=== PATIENT | female | born 1940 | race Caucasian/White ===

== ENCOUNTER 2018-03-21 05:37 | Inpatient (IN) | payer OTHER, BC ==
[2018-03-21] MEDS ORDERED: ceFAZolin 2 GM/DEXTROSE 100 ML IV ONE (06:08)
[2018-03-21] MEDS ORDERED: ACETAMINOPHEN 500 MG TAB PO ONE (06:08)
[2018-03-21] MEDS ORDERED: GABAPENTIN 300 MG CAP PO ONE (06:08)
[2018-03-21] MEDS ORDERED: LR 1,000 ML IV ONE (06:14)
[2018-03-21] MEDS ORDERED: LIDOCAINE 1% 2 ML INJ ID PRN (06:14)
[2018-03-21] MEDS ORDERED: BUPIVACAINE 0.25% 30 ML SDV ONE (06:45)
[2018-03-21] MEDS ORDERED: THROMBIN (BOVINE) 5,000 UNIT VIAL TP ONE (06:45)
[2018-03-21] MEDS ORDERED: EPINEPHrine 1 MG/ML INJ ONE (06:45)
[2018-03-21] MEDS ORDERED: BACITRACIN 50,000 UNITS/10 ML SYR IRR ONE (06:46)
[2018-03-21] MEDS ORDERED: CHLORHEXIDINE GLUC HIBICLENS 118 ML BTL TP ONE (06:46)
--- NOTE | 2018-03-21 06:51 | PDANEPAE ---
ANE Past Medical History - Cardiovascular History Hx Hypertension: Yes Hx Arrhythmias: No Hx Chest Pain: No Hx Coronary Artery / Peripheral Vascular Disease: No Hx CHF / Valvular Disease: No Hx Palpitations: No Cardiovascular History Comment: HYPERLIPIDEMIA - Pulmonary History Hx COPD: No Hx Asthma/Reactive Airway Disease: Yes Hx Recent Upper Respiratory Infection: No Hx Oxygen in Use at Home: Yes O2 in Use at Home (L/minute): O2 2L NOC Hx Sleep Apnea: No Sleep Apnea Screening Result - Last Documented: Negative - Neurologic History Hx Cerebrovascular Accident: No Hx Seizures: No Hx Dementia: No - Endocrine History Hx Diabetes: No Hypothyroid: No Hyperthyroid: No Obesity: no - Renal History Hx Renal Disorders: No - Liver History Hx Hepatic Disorders: No - Neurological & Psychiatric Hx Hx Neurological and Psychiatric Disorders: No - Cancer History Hx Cancer: No - Congenital Disorder History Hx Congenital Disorders: No - GI History GERD: mild Hx Gastrointestinal Disorders: Yes Gastrointestinal History Comment: IBS. GERD - Other Health History Other Health History: NEG - Chronic Pain History Chronic Pain: Yes (BACK PAIN LUMBAR) - Surgical History Prior Surgeries: LASER SPINE LUMBAR SURG. HYSTERECTOMY. L SHOULDER RTC. CATARACTS BRIAN. CARPAL TUNNEL BRIAN ANE Review of Systems Review of Systems: - Exercise capacity METS (RN): 4 METS - Systems Constitutional: Reports: no symptoms Cardiac: Reports: no symptoms Respiratory: Reports: no symptoms ANE Patient History - Allergies Allergies/Adverse Reactions: naproxen [From Naprosyn] Allergy (Verified 03/21/18 06:20) Hives Penicillins Allergy (Verified 03/21/18 06:20) Swelling/neck,face,throat - Home Medications Home Medications: Acetaminophen [Tylenol ES 500 mg (*)] 500 mg PO BID PRN 03/06/18 [Last Taken 01/02 20:00] Albuterol [Proventil Inhaler HFA (*)] 1 - 2 puffs IH DAILY PRN 03/06/18 [Last Taken 03/16/18] Aspirin [Aspirin 81mg (*)] 81 mg PO DAILY 03/06/18 [Last Taken 03/13/18] C/E/Zn/Cu/OM3/DHA/EPA/LUT/ZEAX [Preservision Areds 2 Softgel] 1 each PO DAILY [Last Taken 03/13/18] Carboxymethylcellulose 1% [Refresh Celluvisc (*)] 1 drop EACHEYE DAILY PRN 03/06 [Last Taken 03/20/18 09:00] Carvedilol [Coreg (*)] 12.5 mg PO BIDMEAL 03/06/18 [Last Taken 03/21/18 04:30] Cholecalciferol Vit D3 [Vitamin D3 2000 units tab (OTC)] 4,000 units PO DAILY [Last Taken 03/13/18] Estrogens,Conjugated [Premarin 0.3 MG (*)] 0.3 mg PO DAILY18 03/06/18 [Last Taken 03/19/18] Ezetimibe [Zetia 10 MG (*)] 10 mg PO HS 03/06/18 [Last Taken 03/20/18 20:00] Famotidine [Pepcid 20 MG (*)] 20 mg PO BIDMEAL 03/06/18 [Last Taken 03/20/18 18: 00] Furosemide [Lasix 20 MG (*)] 20 mg PO BID@,03/06/18 [Last Taken 03/20/18 16 :00] Herbals/Supplements -Info Only 1 ea PO DAILY 03/06/18 [Last Taken 03/13/18] Losartan Potassium [Cozaar 25 mg (*)] 25 mg PO DAILY@12 03/06/18 [Last Taken 01/02 12:00] Magnesium Oxide [Magnesium Oxide 400 mg (*)] 400 mg PO DAILY 03/06/18 [Last Taken 03/13/18] Meloxicam 15 mg PO DAILY 03/06/18 [Last Taken 03/13/18] Rosuvastatin Calcium [Crestor 20mg (*)] 20 mg PO HS 03/06/18 [Last Taken 20:00] - NPO status NPO Since - Liquids (Date): 03/20/18 NPO Since - Liquids (Time): 22:00 NPO Since - Solids (Date): 03/20/18 NPO Since - Solids (Time): 20:00 - Anes Hx Anes Hx: no prior problems - Smoking Hx Smoking Status: Never smoked Marijuana use: No - Alcohol Use Alcohol Use: Rarely - Family Anes Hx Family Anes Hx: neg - N/A Family Hx Anesthesia Complications: NEG ANE Labs/Vital Signs - Vital Signs Blood Pressure: 139/64 Heart Rate: 57 Respiratory Rate: 16 O2 Sat (%): 96 Height: 149.86 cm Weight: 63.503 kg ANE Physical Exam - Airway Neck exam: decreased ROM Mallampati Score: Class 3 Mouth exam: normal dental/mouth exam - Pulmonary Pulmonary: no respiratory distress, no rales or rhonchi, clear to auscultation - Cardiovascular Cardiovascular: regular rate and rhythym, systolic murmur - ASA Status ASA Status: III ANE Anesthesia Plan Anesthesia Plan: general endotracheal anesthesia Total IV Anesthesia: No
--- NOTE | 2018-03-21 06:56 | PDHPUP ---
History & Physical Update H&P update statement: This history and physical update is based on an assessment of the patient which was completed after admission or registration (within 24 hours), but prior to the surgery/procedure. H&P update: no change in patient's condition since H&P completed
[2018-03-21] MEDS ORDERED: fentaNYL 100 MCG/2 ML INJ ONE ×3 (07:08→10:46)
[2018-03-21] MEDS ORDERED: ONDANSETRON 4 MG/2 ML VIAL ONE (07:09)
[2018-03-21] MEDS ORDERED: SUCCINYLCHOLINE CHLORIDE 200 MG/10 ML SYR IVP ONE (07:09)
[2018-03-21] MEDS ORDERED: ROCURONIUM 50 MG/5 ML VIAL ONE (07:09)
[2018-03-21] MEDS ORDERED: PROPOFOL/EMULSION 500 MG/50 ML BOTTLE IV ONE (07:09)
[2018-03-21] MEDS ORDERED: DEXAMETHASONE 4 MG/ML VIAL ONE (07:09)
[2018-03-21] MEDS ORDERED: RANITIDINE 50 MG/2 ML VIAL ONE (07:09)
[2018-03-21] MEDS ORDERED: PROPOFOL 200 MG/20 ML VIAL ONE (07:09)
[2018-03-21] MEDS ORDERED: REMIFENTANIL HCL 1 MG VIAL ONE (07:09)
[2018-03-21] MEDS ORDERED: LIDOCAINE 2% 5 ML SDV ONE (07:11)
[2018-03-21] MEDS ORDERED: NALOXONE HCL 0.4 MG/ML INJ IVP PRN (07:51)
[2018-03-21] MEDS ORDERED: PHENYLEPHRINE HCL 100 MCG/ML SYR IVP PRN (07:51)
[2018-03-21] MEDS ORDERED: ACETAMINOPHEN 500 MG TAB PO PRN (07:51)
[2018-03-21] MEDS ORDERED: HYDROCODONE/APAP 5/325 TAB PO PRN (07:51)
[2018-03-21] MEDS ORDERED: PROMETHAZINE HCL 25 MG/ML INJ IVP PRN (07:51)
[2018-03-21] MEDS ORDERED: ALBUTEROL 3 ML DEYVIAL IH PRN (07:51)
[2018-03-21] MEDS ORDERED: oxyCODONE IR 5 MG TAB PO PRN (07:51)
[2018-03-21] MEDS ORDERED: LR 500 ML IV PRN (07:51)
[2018-03-21] MEDS ORDERED: ONDANSETRON 4 MG/2 ML VIAL IVP PRN ×2 (07:51→09:32)
[2018-03-21] MEDS ORDERED: LABETALOL HCL 5 MG/ML 20 ML MDV IVP PRN (07:51)
[2018-03-21] MEDS ORDERED: ONDANSETRON DISINTEGRATING 4 MG TAB PO PRN (09:32)
[2018-03-21] MEDS ORDERED: LACTULOSE 20 GM/30 ML UDCUP PO PRN (09:32)
[2018-03-21] MEDS ORDERED: BISACODYL 10 MG SUPP PR PRN (09:32)
[2018-03-21] MEDS ORDERED: diphenhydrAMINE 25 MG CAP PO PRN (09:32)
[2018-03-21] MEDS ORDERED: MAGNESIUM HYDROXIDE 30 ML UDCUP PO PRN (09:32)
[2018-03-21] MEDS ORDERED: CARBOXYMETHYLCELLULOSE 1% 0.4 ML DROPERETTE EACHEYE PRN (09:37)
--- NOTE | 2018-03-21 09:42 | POSTOPPROG ---
Post Op Note Date of Operation: 03/21/18 Surgeon: Molina Garcia Director Regulatory Affairs: ROLAND Plasencia Anesthesiologist: Soren Arguello MD Anesthesia: GET(General Endotracheal) Pre-op Diagnosis: Cervical stenosis/DJD C4/5 and C6/7 Post-op Diagnosis: Same Indication: Stenosis/myelopathy Procedure: C4/5 and C6/7 ACDF Findings: Stenosis Inf/Abcess present in the surg proc area at time of surgery?: No EBL: 50-100 Complications: None Drains: Berhane Copeland (to bulb suction) Specimen(s): None
[2018-03-21] MEDS: fentaNYL 100 MCG/2 ML INJ IVP PRN ×5 (09:52→10:48)
--- NOTE | 2018-03-21 10:00 | POSTANESTH ---
Post Anesthetic Evaluation Cardiovascular Status: Normal, Stable Respiratory Status: Normal, Stable Level of Consciousness/Mental Status: Can Participate in Eval Pain Control: Adequate, Prn Tx Ordered Nausea/Vomiting Control: Adequate, Prn Tx Ordered Complications Possibly Related to Anesthesia: None Noted
--- NOTE | 2018-03-21 10:02 | GOP ---
[f rep st] OPERATIVE REPORT DATE OF OPERATION: 03/21/2018 SURGEON: Molina Garcia MD PRODUCT MANAGER FINANCIAL SERVICES: ROLAND Engel ANESTHESIA: General endotracheal. PREOPERATIVE DIAGNOSIS: Multilevel cervical spondylosis with spinal stenosis and spinal cord marino obdulio, myelopathic symptoms. POSTOPERATIVE DIAGNOSIS: Multilevel cervical spondylosis with spinal stenosis and spinal cord compre ssion, myelopathic symptoms. PROCEDURE PERFORMED: 1. Mini-open exposure for complete C4-5 and C6-7 anterior cervical diskectomy and arthrodesis with 2 structural PEEK interbody spacers, local autograft and demineralized bone matrix. 2. Placement of 23 and 21 mm LnK CastleLoc-P anterior cervical plates at C4-5 and C6-7 respectively. 3. Use of intraoperative microscopy and fluoroscopy. FINDINGS: ESTIMATED BLOOD LOSS: 50 cc. INDICATIONS: The patient is a 77-year-old woman with myelopathic symptoms, who was found to have mul tilevel cervical spondylosis and stenosis with spinal cord compression at C4-5 and C6-7 levels on MRI . She presents now for a multilevel cervical decompression and stabilization through a mini-open darnell ebrg. DESCRIPTION OF PROCEDURE: After informed consent was obtained, the patient was taken to the operatin g room and placed in the supine position with the head in the halter retractor system after baseline neuromonitoring potentials were obtained. The anterior cervical region was prepped and draped in a s terile fashion. After fluoroscopic localization of the correct level, the subcutaneous and intramusc ular tissues were infiltrated with local anesthesia. A horizontal incision was then created at the l evel of the C5-6 interspace in a skin crease. This was carried through the platysmal layer using mon opolar electrocautery and carried in the avascular plane between the sternocleidomastoid and carotid sheath laterally and the strap muscles, trachea, and esophagus medially down to the prevertebral fasc ia which was carefully incised with Metzenbaum scissors. The C4-5 and C6-7 interspaces were identifi ed and re-verified using intraoperative fluoroscopy. The Warren distraction pins were carefully inse rted superiorly, first at C4-5 and then at C6-7 during which time distraction was created across the interspaces and complete diskectomies were performed with preparation of the endplates and removal of posteriorly protruding osteophytes which were harvested for local autograft. Bilateral foraminotomi es were performed at each level, one with removal of the posterior longitudinal ligament. Following adequate decompression and meticulous hemostasis at both levels, the wound and disk space were copiou sly irrigated with antibiotic irrigation. The remaining endplates were carefully prepared and approp riately sized 12 and 11 mm structural PEEK interbody spacer were packed with local autograft along wi th demineralized bone matrix and were placed in the interspaces under fluoroscopic image guidance. T he distraction was removed and appropriately sized 23 and 21 mm LnK CastleLoc-P anterior cervical khushi sendy were then placed and secured with self-drilling screws under fluoroscopic image guidance. Follow ing re-verification of good positioning of both plates, screws and interbody spacers using biplanar f luoroscopy, the locking mechanisms were engaged. A drain was placed. The subcutaneous and intramusc ular tissues were re-infiltrated with local anesthesia and the wound was closed in a layered fashion using interrupted Vicryl sutures followed by Steri-Strips on the skin. COMPLICATIONS: None. DISPOSITION: The patient is currently in the process of being repositioned for extubation. /[id number]/MODL
[2018-03-21] MEDS ORDERED: HYDROCODONE/APAP 5/325 TAB ONE (10:24)
[2018-03-21] MEDS ORDERED: LABETALOL HCL 5 MG/ML 20 ML MDV ONE (10:59)
[2018-03-21] MEDS ORDERED: ALBUTEROL 60 PUFFS/8 GM MDI IH PRN (11:45)
[2018-03-21] MEDS: LOSARTAN POTASSIUM 25 MG TAB PO SCH (13:57)
[2018-03-21] MEDS: GABAPENTIN 300 MG CAP PO SCH ×2 (14:00→23:07)
[2018-03-21] MEDS: ACETAMINOPHEN 500 MG TAB PO SCH ×2 (14:01→22:35)
[2018-03-21] MEDS ORDERED: DEXAMETHASONE 4 MG/ML VIAL IVP ONE (14:45)
[2018-03-21] MEDS ORDERED: D5W NS W/ 20 KCl/L 1,000 ML IV SCH (15:00)
--- NOTE | 2018-03-21 16:11 | PDMN ---
Medical Necessity Medical necessity: Pt meet IP criteria per PA; est los >2 mn s/p C4/5 & C6/7 ACDF w/dysphagia & moderate pain; admit for IV pain meds, IVFs & therapies; comorbid advanced age, multilevel lumbar DJD & severe scoliosis w/chronic pain; per H&P & order 03/21/18
[2018-03-21] MEDS: POLYETHYLENE GLYCOL 3350 17 GM PKT PO SCH ×2 (17:46→23:07)
[2018-03-21] MEDS: FUROSEMIDE 20 MG TAB PO SCH (17:49)
[2018-03-21] MEDS: EZETIMIBE 10 MG TAB PO SCH (22:24)
[2018-03-21] MEDS: ROSUVASTATIN CALCIUM 20 MG TAB PO SCH (22:25)
[2018-03-21] MEDS: oxyCODONE IR 5 MG TAB PO PRN (22:34)
[2018-03-21] MEDS: FAMOTIDINE 20 MG TAB PO SCH (23:06)
[2018-03-21] MEDS: ESTROGENS,CONJUGATED 0.3 MG TAB PO SCH (23:06)
[2018-03-21] MEDS: SENNOSIDES/DOCUSATE SODIUM TAB PO SCH (23:07)
[2018-03-21] MEDS: CARVEDILOL 6.25 MG TAB PO SCH (23:10)
[2018-03-22] MEDS ORDERED: hydrALAZINE 20 MG/ML VIAL IVP PRN (01:05)
[2018-03-22] MEDS: oxyCODONE IR 5 MG TAB PO PRN ×3 (04:27→21:10)
[2018-03-22 05:55] LABS: PLATELET COUNT 137 10^3/uL (150-400)
[2018-03-22] MEDS: ACETAMINOPHEN 500 MG TAB PO SCH ×2 (06:10→14:49)
[2018-03-22] MEDS: GABAPENTIN 300 MG CAP PO SCH (06:11)
[2018-03-22] MEDS: PRESERVISION AREDS2 FORMULA EYE VIT 1 EACH PO SCH (08:40)
[2018-03-22] MEDS: CARVEDILOL 6.25 MG TAB PO SCH ×2 (08:40→18:26)
[2018-03-22] MEDS: MAGNESIUM OXIDE 400 MG TAB PO SCH (08:40)
[2018-03-22] MEDS: FAMOTIDINE 20 MG TAB PO SCH (08:41)
[2018-03-22] MEDS: SENNOSIDES/DOCUSATE SODIUM TAB PO SCH ×2 (08:41→21:11)
[2018-03-22] MEDS: FUROSEMIDE 20 MG TAB PO SCH ×2 (08:41→17:10)
[2018-03-22] MEDS: CHOLECALCIFEROL VIT D3 2,000 UNITS TAB/CAP PO SCH (08:41)
[2018-03-22] MEDS: POLYETHYLENE GLYCOL 3350 17 GM PKT PO SCH ×3 (08:41→21:11)
[2018-03-22] MEDS: ENOXAPARIN 40 MG/0.4 ML SYR SC SCH (08:48)
--- NOTE | 2018-03-22 11:13 | NEUSURGPN ---
Assessment/Plan: 77 y/o female s/p C4/5 and C6/7 ACDF. 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 Flores -Please notify NS with any change in neuro/motor exam. Subjective: swallowing improving, tolerating thin liquids. Objective: NAD A&Ox3 MAEx4 5/5 and equal in BEU and BLE. Incision c/d/i. Neck soft, supple , no edema. - Physician Discussed Patient with : Radha Neurosurgery Physical Exam - Vitals, I&O, Labs I and O 03/21/18 03/22/18 03/23/18 05:59 05:59 05:59 Intake Total 1650 Output Total 2315 300 Balance -665 -300 Weight 63.5 kg Intake: Oral (ml) 650 IV Intake (ml) 1000 Output: Urine (ml) 2100 300 Toilet 2100 300 Estimated Blood Loss (ml) 50 NANI Drain Output (ml) 165 #1 Neck Berhane Copeland 165 Other: Intake Quantity No: difficulty with swallow Sufficient Number of Voids Toilet 1 Vital Signs Temp Pulse Resp BP Pulse Ox 36.3 C 79 16 120/57 L 93 03/22/18 08:38 03/22/18 08:38 03/22/18 08:38 03/22/18 08:38 03/22/18 08:38 Laboratory Results 03/22/18 04:32 03/22/18 04:32 ICD10 Worksheet Patient Problems: Problems Problem Status Onset Cervical stenosis of spinal canal Acute - ICD10 Problem Qualifiers (1) Cervical stenosis of spinal canal
[2018-03-22] MEDS: LOSARTAN POTASSIUM 25 MG TAB PO SCH (12:47)
--- NOTE | 2018-03-22 14:53 | ASMTCMCOM ---
CM Note CM Note Notes: Pt had planned surgery for stenosis. 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 Anticipate pt will d/c when medically stable with spouse support. No CM d/c needs identified. CM available for changes/needs. Date Signed: 03/22/2018 02:52 PM Electronically Signed By:EJ Oconnell
[2018-03-22] MEDS: ESTROGENS,CONJUGATED 0.3 MG TAB PO SCH (18:26)
[2018-03-22] MEDS: ROSUVASTATIN CALCIUM 20 MG TAB PO SCH (21:06)
[2018-03-22] MEDS: EZETIMIBE 10 MG TAB PO SCH (21:10)
[2018-03-23] MEDS: ACETAMINOPHEN 500 MG TAB PO SCH ×2 (00:31→09:23)
[2018-03-23] MEDS: FAMOTIDINE 20 MG TAB PO SCH ×2 (00:55→09:09)
[2018-03-23] MEDS: oxyCODONE IR 5 MG TAB PO PRN ×2 (04:35→12:23)
[2018-03-23 07:47] VITALS: BP 142/78
--- NOTE | 2018-03-23 07:56 | NEUSURGPN ---
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 Flores/seen by Dr Elizabeth -Please notify NS with any change in neuro/motor exam - has Rxs -pt would like to go home today and can if xrays look ok and cleared from therapies as noted Subjective: Awake and alert. NAD. Eating/drinking and voiding. No f/c/n/v/d. No howard/cp/ sob/abd or gu complaints. Objective: NAD A&Ox3 CN 2-12 grossly intact MAEx4 5/5 and equal in BUE and BLE. Incision c/d/i. Neck soft, supple, no edema Neuro Check Frequency: per routine Urinary Catheter in Place: No - Physician Discussed Patient with : Clara Patient Seen by : Clara Neurosurgery Physical Exam - Vitals, I&O, Labs I and O 03/22/18 03/23/18 03/24/18 05:59 05:59 05:59 Intake Total 1650 980 Output Total 2315 2170 Balance -665 -1190 Weight 63.5 kg Intake: Oral (ml) 650 980 IV Intake (ml) 1000 Output: Urine (ml) 2100 2150 Toilet 2100 2150 Estimated Blood Loss (ml) 50 NANI Drain Output (ml) 165 20 #1 Neck Berhane Copeland 165 20 Other: Intake Quantity No: difficulty with swallow Yes Sufficient Number of Voids Toilet 1 1 Vital Signs Temp Pulse Resp BP Pulse Ox 36.9 C 78 16 142/78 H 93 03/23/18 07:45 03/23/18 07:45 03/23/18 07:45 03/23/18 07:45 03/23/18 07:45 Laboratory Results 03/22/18 04:32 03/22/18 04:32 ICD10 Worksheet Patient Problems: Problems Problem Status Onset Cervical stenosis of spinal canal Acute
[2018-03-23] MEDS: FUROSEMIDE 20 MG TAB PO SCH (09:08)
[2018-03-23] MEDS: MAGNESIUM OXIDE 400 MG TAB PO SCH (09:09)
[2018-03-23] MEDS: CARVEDILOL 6.25 MG TAB PO SCH (09:09)
[2018-03-23] MEDS: PRESERVISION AREDS2 FORMULA EYE VIT 1 EACH PO SCH (09:09)
[2018-03-23] MEDS: SENNOSIDES/DOCUSATE SODIUM TAB PO SCH (09:10)
[2018-03-23] MEDS: POLYETHYLENE GLYCOL 3350 17 GM PKT PO SCH (09:10)
[2018-03-23] MEDS: ENOXAPARIN 40 MG/0.4 ML SYR SC SCH (09:10)
[2018-03-23] MEDS: CHOLECALCIFEROL VIT D3 2,000 UNITS TAB/CAP PO SCH (09:14)
[2018-03-23] MEDS: LOSARTAN POTASSIUM 25 MG TAB PO SCH (12:22)
--- NOTE | 2018-04-11 12:23 | GDS ---
[f rep st] DISCHARGE SUMMARY DISCHARGE DIAGNOSES: Cervical stenosis and multilevel cervical spondylosis with spinal cord compress ion and myelopathy. HOSPITAL COURSE: The patient is a pleasant 77-year-old female with myelopathic symptoms who was foun d to have a multilevel cervical spondylosis and stenosis with spinal cord compression at C4-5 and C6- 7 on MRI. She was felt to be a candidate for multilevel cervical decompression stabilization, and on 03/21/2018, was taken to the operating room where she underwent a C4-5 and C6-7 anterior cervical di skectomy and arthrodesis. There were no intraoperative complications. Postoperatively, the patient was transferred to the floor where her pain was controlled with oral, IV pain medications and muscle relaxers. She was fitted with a hard cervical collar. A NANI drain was i n place, which remained functional. She underwent AP and lateral x-rays of the cervical spine on 03/2018, which demonstrated satisfactory position of the hardware at C4-5 and C6-7 with expected post cervical soft tissue swelling. The patient's activity was advanced as tolerated with physical therapy and occupational therapy. Her diet was advanced as tolerated. Ultimately, the patient met criteria for discharge home on 03/23/20 18, and was provided oral pain medications and muscle relaxers upon discharge, as well as educational paperwork regarding cervical fusions. She understood to wear her hard cervical collar at all times, and to contact our office with any questions or concerns prior to her postop appointment approximate ly 10 to 14 days. /[id number]/MODL
== END 2018-03-23 12:43 | disposition home or self-care (01) | DRG 473 ==
LOC: F3N 05:37
PROVIDERS: ADMIT Neurological Surgery; ATTEND Neurological Surgery
DX: M47.12 Other spondylosis with myelopathy, cervical region (principal); M48.02 Spinal stenosis, cervical region; I10 Essential (primary) hypertension; E78.5 Hyperlipidemia, unspecified; K21.9 Gastro-esophageal reflux disease without esophagitis; K58.9 Irritable bowel syndrome, unspecified; M41.86 Other forms of scoliosis, lumbar region; M50.30 Other cervical disc degeneration, unspecified cervical region; M51.27 Other intervertebral disc displacement, lumbosacral region
CPT/HCPCS: 92610-GN; 97116-GP; 97161-GP; 97166-GO; 97530-GP; 97535-GO; C1713; G8978-GP-CJ; G8979-GP-CI; G8987-GO-CI; G8988-GO-CI; G8989-GO-CI; G8996-GN-CI; G8997-GN-CI; J0171; J0330; J0360; J0690; J1100; J1650; J2270; J2405; J2704; J2780; J3010

== ENCOUNTER 2018-07-18 07:15 | Inpatient (IN) | payer OTHER, BC ==
[2018-07-25] MEDS ORDERED: TRANEXAMIC ACID 1,000 MG in NS 100 ML IV ONE (06:00)
[2018-07-25] MEDS ORDERED: GABAPENTIN 300 MG CAP PO ONE (06:08)
[2018-07-25] MEDS ORDERED: fentaNYL 50 MCG in SYRINGE INTRATHECAL 1 SYR IT ONE (06:08)
[2018-07-25] MEDS ORDERED: ceFAZolin 2 GM/DEXTROSE 100 ML IV ONE (06:08)
[2018-07-25] MEDS ORDERED: morphINE PF 0.2 MG in SYRINGE INTRATHECAL 1 SYR IT ONE (06:08)
[2018-07-25] MEDS ORDERED: ACETAMINOPHEN 500 MG TAB PO ONE (06:08)
[2018-07-25] MEDS ORDERED: LR 1,000 ML IV SCH (06:30)
[2018-07-25] MEDS ORDERED: CITRATE DEXTROSE SOLN 500 ML BAG ONE ×3 (06:51→15:31)
[2018-07-25] MEDS ORDERED: THROMBIN (BOVINE) 20,000 UNIT SPRAY TP ONE ×2 (06:51→09:20)
[2018-07-25] MEDS ORDERED: CHLORHEXIDINE GLUC HIBICLENS 118 ML BTL TP ONE (06:51)
[2018-07-25] MEDS ORDERED: BACITRACIN 50,000 UNITS/10 ML SYR IRR ONE ×3 (06:52→14:47)
[2018-07-25] MEDS ORDERED: EPINEPHrine 1 MG/ML INJ ONE (06:52)
--- NOTE | 2018-07-25 07:53 | PDANEPAE ---
ANE Past Medical History - Cardiovascular History Hx Hypertension: Yes Hx Arrhythmias: No Hx Chest Pain: No Hx Coronary Artery / Peripheral Vascular Disease: Yes Hx CHF / Valvular Disease: No Hx Palpitations: No Cardiovascular History Comment: HYPERLIPIDEMIA - Pulmonary History Hx COPD: Yes Hx Asthma/Reactive Airway Disease: No Hx Recent Upper Respiratory Infection: No Hx Oxygen in Use at Home: Yes O2 in Use at Home (L/minute): 2 Hx Sleep Apnea: No Sleep Apnea Screening Result - Last Documented: Negative Pulmonary History Comment: HS OXYGEN - Neurologic History Hx Cerebrovascular Accident: No Hx Seizures: No Hx Dementia: No - Endocrine History Hx Diabetes: No - Renal History Hx Renal Disorders: No - Liver History Hx Hepatic Disorders: No - Neurological & Psychiatric Hx Hx Neurological and Psychiatric Disorders: No - Cancer History Hx Cancer: No - Congenital Disorder History Hx Congenital Disorders: No - GI History Hx Gastrointestinal Disorders: Yes Gastrointestinal History Comment: IBS. GERD - Other Health History Other Health History: BRIAN LOWER EXTREMITY EDEMA. OSTEOARTHRITIS. SCOLIOSIS. STENOSIS/DDD. N/T BRIAN FEET - Chronic Pain History Chronic Pain: Yes (LUMBAR REGION & LT HIP) - Surgical History Prior Surgeries: ACDF C4-7 03/21/18. LASER SPINE LUMBAR SURG. HYSTERECTOMY. L SHOULDER RTC. CATARACTS BRIAN. CARPAL TUNNEL BRIAN ANE Review of Systems Review of Systems: - Exercise capacity METS (RN): 4 METS ANE Patient History - Allergies Allergies/Adverse Reactions: naproxen [From Naprosyn] Allergy (Verified 03/21/18 06:20) Hives Penicillins Allergy (Verified 03/21/18 06:20) Swelling/neck,face,throat - Home Medications Home Medications: Acetaminophen [Tylenol ES 500 mg (*)] 500 - 1,000 mg PO BID PRN 03/06/18 [Last Taken 07/24/18] Albuterol [Proventil Inhaler HFA (*)] 1 - 2 puffs IH DAILY PRN 03/06/18 [Last Taken 07/18/18] C/E/Zn/Cu/OM3/DHA/EPA/LUT/ZEAX [Preservision Areds 2 Softgel] 1 each PO BID [Last Taken 07/15/18] Carboxymethylcellulose 1% [Refresh Celluvisc (*)] 1 drop EACHEYE QID PRN [Last Taken 07/24/18] Carvedilol [Coreg (*)] 12.5 mg PO BIDMEAL 03/06/18 [Last Taken 07/25/18] Cholecalciferol Vit D3 [Vitamin D3 2000 units tab (OTC)] 4,000 units PO DAILY [Last Taken 07/15/18] Estrogens,Conjugated [Premarin 0.3 MG (*)] 0.3 mg PO DAILY18 03/06/18 [Last Taken 07/24/18] Ezetimibe [Zetia 10 MG (*)] 10 mg PO HS 03/06/18 [Last Taken 07/24/18] Famotidine [Pepcid 20 MG (*)] 20 mg PO BIDMEAL 03/06/18 [Last Taken 07/24/18] Furosemide [Lasix 20 MG (*)] 20 mg PO BID@,03/06/18 [Last Taken 07/24/18] Herbals/Supplements -Info Only 1 ea PO DAILY 03/06/18 [Last Taken 07/15/18] Losartan Potassium [Cozaar 25 mg (*)] 25 mg PO DAILY@12 03/06/18 [Last Taken 04/03] Magnesium Oxide [Magnesium Oxide 400 mg (*)] 400 mg PO DAILY 03/06/18 [Last Taken 07/15/18] Rosuvastatin Calcium [Crestor 20mg (*)] 20 mg PO HS 03/06/18 [Last Taken ] Lactase [Lactase 3000 Unit (*)] 3,000 unit PO DAILY PRN 06/21/18 [Last Taken 04/03] diphenhydrAMINE [Benadryl 25 MG (*)] 12.5 mg PO HS PRN 06/21/18 [Last Taken 12/02] - NPO status NPO Since - Liquids (Date): 07/24/18 NPO Since - Liquids (Time): 20:00 NPO Since - Solids (Date): 07/24/18 NPO Since - Solids (Time): 18:00 - Smoking Hx Smoking Status: Never smoked - Family Anes Hx Family Hx Anesthesia Complications: NEG ANE Labs/Vital Signs - Vital Signs Blood Pressure: 136/77 Heart Rate: 63 Respiratory Rate: 15 O2 Sat (%): 97 Height: 147.32 cm Weight: 63.503 kg ANE Physical Exam - Airway Neck exam: spinal fusion Mallampati Score: Class 2 - ASA Status ASA Status: III ANE Anesthesia Plan Anesthesia Plan: general endotracheal anesthesia
[2018-07-25] MEDS ORDERED: MIDAZOLAM 2 MG/2 ML VIAL ONE (08:22)
[2018-07-25] MEDS ORDERED: PROPOFOL 200 MG/20 ML VIAL ONE ×3 (08:23→16:13)
[2018-07-25] MEDS ORDERED: PROPOFOL/EMULSION 500 MG/50 ML BOTTLE IV ONE ×3 (08:23→12:57)
[2018-07-25] MEDS ORDERED: fentaNYL 100 MCG/2 ML INJ ONE ×2 (08:23→09:41)
[2018-07-25] MEDS ORDERED: ROCURONIUM 50 MG/5 ML VIAL ONE (08:24)
[2018-07-25] MEDS ORDERED: ONDANSETRON 4 MG/2 ML VIAL ONE (08:24)
[2018-07-25] MEDS ORDERED: METOCLOPRAMIDE 10 MG/2 ML VIAL ONE (08:24)
--- NOTE | 2018-07-25 08:42 | PDHPUP ---
History & Physical Update H&P update statement: This history and physical update is based on an assessment of the patient which was completed after admission or registration (within 24 hours), but prior to the surgery/procedure. H&P update: H&P reviewed & patient examined, no change in patient's condition since H&P completed
[2018-07-25] MEDS ORDERED: PHENYLEPHRINE HCL 100 MCG/ML SYR ONE ×3 (10:12→16:44)
[2018-07-25] MEDS: BUPIVACAINE 0.25% 30 ML SDV ONE ×2 (10:26→14:58)
[2018-07-25] MEDS ORDERED: ceFAZolin 1 GM VIAL ONE ×2 (12:12→15:27)
[2018-07-25] MEDS ORDERED: ALBUMIN 5% 250 ML BOTTLE IV ONE (14:47)
[2018-07-25] MEDS ORDERED: ALBUTEROL 60 PUFFS/8 GM MDI IH PRN (17:01)
[2018-07-25] MEDS ORDERED: diphenhydrAMINE 25 MG CAP PO PRN ×2 (17:01→17:03)
[2018-07-25] MEDS ORDERED: LACTASE 3,000 UNIT TAB PO PRN (17:01)
[2018-07-25] MEDS ORDERED: CARBOXYMETHYLCELLULOSE 1% 0.4 ML DROPERETTE EACHEYE PRN (17:01)
[2018-07-25] MEDS ORDERED: morphINE PCA 30 MG/30 ML PCA IV PRN (17:03)
[2018-07-25] MEDS ORDERED: NALOXONE HCL 0.4 MG/ML INJ IVP PRN ×2 (17:03→17:22)
[2018-07-25] MEDS ORDERED: ONDANSETRON DISINTEGRATING 4 MG TAB PO PRN (17:03)
[2018-07-25] MEDS ORDERED: ONDANSETRON 4 MG/2 ML VIAL IVP PRN ×2 (17:03→17:22)
[2018-07-25] MEDS ORDERED: BISACODYL 10 MG SUPP PR PRN (17:03)
[2018-07-25] MEDS ORDERED: LACTULOSE 20 GM/30 ML UDCUP PO PRN (17:03)
[2018-07-25] MEDS ORDERED: MAGNESIUM HYDROXIDE 30 ML UDCUP PO PRN (17:03)
--- NOTE | 2018-07-25 17:10 | SOAPPROG ---
SOAP Progress Note Assessment/Plan: Assessment: 77 yo F sp T11-S1 fusion with L1/2, L2/3, L3/4, L4/5, L5/S1 TLIF Plan: stable to ICU follow Hg/hct do NOT put NANI to suction until 07/26/18 Hospitalists to consult LSO brace when out of bed please call with neuro changes 07/25/18 17:09 Subjective: + back pain, no leg pain Objective: Vital Signs Temp Pulse Resp BP Pulse Ox 36.8 C 63 15 136/77 H 97 07/25/18 06:29 07/25/18 07:53 07/25/18 07:53 07/25/18 07:53 07/25/18 07:53 Laboratory Results 07/25/18 14:08 somnolent PERRL, no facial droop ABRAHAM x 4 ICD10 Worksheet Patient Problems: Problems Problem Status Onset Fusion of spine of thoracolumbar region Acute Cervical stenosis of spinal canal Acute - ICD10 Problem Qualifiers (1) Fusion of spine of thoracolumbar region
[2018-07-25] MEDS ORDERED: ALBUTEROL 3 ML DEYVIAL IH PRN (17:22)
[2018-07-25] MEDS ORDERED: PHENYLEPHRINE HCL 100 MCG/ML SYR IVP PRN (17:22)
[2018-07-25] MEDS ORDERED: LR 500 ML IV PRN (17:22)
[2018-07-25] MEDS ORDERED: fentaNYL 100 MCG/2 ML INJ IVP PRN (17:22)
--- NOTE | 2018-07-25 17:23 | POSTANESTH ---
Post Anesthetic Evaluation Cardiovascular Status: Normal, Stable, Tx Hyper/Hypo-tension Respiratory Status: Normal, Stable Level of Consciousness/Mental Status: Moderately Sleepy Pain Control: Adequate, Prn Tx Ordered Nausea/Vomiting Control: Adequate, Prn Tx Ordered Complications Possibly Related to Anesthesia: None Noted
[2018-07-25 17:55] LABS: INR 1.68 (0.83-1.16); PROTIME(PATIENT) 19.9 SEC (12.0-15.0)
[2018-07-25] MEDS ORDERED: ESTROGENS,CONJUGATED 0.3 MG TAB PO SCH (18:00)
[2018-07-25] MEDS: FAMOTIDINE 20 MG TAB PO SCH (20:05)
[2018-07-25] MEDS: CARVEDILOL 6.25 MG TAB PO SCH (20:06)
[2018-07-25] MEDS: EZETIMIBE 10 MG TAB PO SCH (21:04)
[2018-07-25] MEDS: morphINE SR 15 MG TAB PO SCH (21:05)
[2018-07-25] MEDS: SENNOSIDES/DOCUSATE SODIUM TAB PO SCH (21:05)
[2018-07-25] MEDS: ROSUVASTATIN CALCIUM 20 MG TAB PO SCH (21:05)
[2018-07-25] MEDS: POLYETHYLENE GLYCOL 3350 17 GM PKT PO SCH (21:13)
[2018-07-25] MEDS: ceFAZolin 2 GM/DEXTROSE 100 ML IV SCH (22:40)
[2018-07-25] MEDS: NS 1,000 ML IV SCH (23:28)
--- NOTE | 2018-07-26 01:55 | GOP ---
DATE OF OPERATION: 07/25/2018 SURGEON: Molina Garcia MD NEUROSURGEON: Molina Garcia MD ORTHO/PROSTHETIC AIDE: Stan Richards PA-C ANESTHESIA: General endotracheal. PREOPERATIVE DIAGNOSIS: Severe degenerative lumbar scoliosis with spinal stenosis and intractable ba ck pain. Failed conservative care. POSTOPERATIVE DIAGNOSIS: Severe degenerative lumbar scoliosis with spinal stenosis and intractable b ack pain. Failed conservative care. PROCEDURE PERFORMED: 1. Right-sided L1-2 and L2-3 and left-sided L3-4, L4-5 and L5-S1 far lateral transpedicular decompre ssion with L3 pedicle subtraction osteotomy/partial corpectomy. 2. T11 through S1 posterior segmental (pedicle screw and axial device) fixation and posterolateral f usion with local autograft, bone morphogenic protein and morselized allograft. 3. L1-2, L2-3, L3-4, L4-5 and L5-S1 posterior/transforaminal lumbar interbody fusions with 2 structu ral PEEK interbody spacers, local autograft bone morphogenic protein and morselized allograft at each level. 4. Use of intraoperative microscopy fluoroscopy and computer volumetric stereotactic navigation with intraoperative neurophysiologic testing. 5. Injection of intrathecal narcotic analgesics and subcutaneous and intramuscular local anesthesia for postoperative pain control. FINDINGS: ESTIMATED BLOOD LOSS: 2100 cc. INDICATIONS: The patient is a 77-year-old woman with intractable low back pain secondary to progress serjio degenerative scoliosis with spinal stenosis in her lumbar spine. She has failed extensive conser vative care and presents now for surgical decompression and stabilization from T11 through S1. DESCRIPTION OF PROCEDURE: After informed consent was obtained, the patient was taken to the operatin g room and placed in a prone position on the Berhane table. The thoracic and lumbosacral areas were prepped and draped in a sterile fashion. After fluoroscopic localization of the correct levels, the subcutaneous and intramuscular tissues were infiltrated with local anesthesia. A midline linear inci obdulio was then created from approximately T11 through S1. This was carried down to the fascial layer, which was then incised using the monopolar electrocautery and carried in the subperiosteal plane juanita ng the spinous processes and out lamina bilaterally. Intraoperative fluoroscopy was again utilized t o verify the correct levels. Following this, the dissection was carried out over the facet joints. The microscope was then brought in and right-sided L1-2 and L2-3 far lateral transpedicular decompres sions were performed with left-sided L3-4, L4-5 and L5-S1 far lateral transpedicular decompressions i n order to loosen up each individual level and to expose the areas for the transforaminal interbody f usions. Following adequate decompression, small short rods were serially placed first at L5-S1, then at L4-5, then at L3-4, then at L2-3 and then at L1-2 during which time distraction was created acros s each interspace and complete diskectomies were performed with preparation of the endplates and plac ement of 2 structural PEEK interbody spacers, local autograft and bone morphogenic protein at each le fredi. The L2-3 level was extremely rigid and difficult to open up and required an extensive amount of drilling and a wedge shaped form from posteriorly to anteriorly and from right to left in a triplana r fashion for a triplanar pedicle subtraction osteotomy. This was not intended initially but it was the apex of her curve and there was no way to get a good sagittal alignment and reduction of her curv e without extensively drilling at this level. The pedicles were followed down in a wedge-shaped fash ion at L3-4 for a pedicle subtraction osteotomy/partial corpectomy. Following this the 2 large 12 mm structural PEEK interbody spacers were placed. Following the transforaminal interbody fusions and t he pedicle subtraction osteotomy from L1 to S1, the shorter rods were removed and the longer rods wit h maximal lordosis were placed from T11 through S1. A slight amount of compression was created acros s each interspace in order to facilitate bony union and to minimize the potential for posterior graft migration. The wound was copiously irrigated with antibiotic irrigation. Meticulous hemostasis was achieved. 200 mcg of Duramorph along with 50 mcg of fentanyl were injected intrathecally for postop erative pain control. The remaining lamina and facet joints were extensively decorticated from T11 t hrough S1, and the residual local autograft from the facetectomies and morselized allograft along wit h bone morphogenic protein was placed out laterally for a posterolateral fusion from T11 through S1. Following re-verification of good position of these screws, rods and interbody spacers, Axle devices were placed at the top and the bottom of the construct in order to prevent nonunions or hardware jackie lure or junctional kyphosis since the patient's bone was very soft and she is an elderly, frail, 77-y ear-old woman. Following this, a drain was placed. The subcutaneous and intramuscular tissues were re-infiltrated with local anesthesia, and the wound was closed in a layered fashion using interrupted Vicryl sutures followed by Steri-Strips on the skin. COMPLICATIONS: None. DISPOSITION: The patient is currently in the process of being repositioned for extubation. /[id number]/MODL
[2018-07-26 06:21] LABS: PLATELET COUNT 72 10^3/uL (150-400)
[2018-07-26] MEDS: ceFAZolin 2 GM/DEXTROSE 100 ML IV SCH (07:24)
--- NOTE | 2018-07-26 08:30 | PDMN ---
Medical Necessity Medical necessity: [facility] IP only surgery; Lumbar Fusion cpt 86413 (T11-S1 Fusion)
[2018-07-26] MEDS ORDERED: FUROSEMIDE 20 MG TAB PO SCH (09:00)
--- NOTE | 2018-07-26 09:33 | NEUSURGPN ---
Assessment/Plan: Assessment: 77 yo F sp T11-S1 fusion with L1/2, L2/3, L3/4, L4/5, L5/S1 TLIF POD1 Plan: stable follow Hg/hct do NOT put NANI to suction until 07/26/18 Appreciated Hospitalists LSO brace when out of bed DVT prophx: TEDs, SCDS, Lovenox Post op xrays pending please call with neuro changes Subjective: Denies any back or leg pain, numbness, tingling or new weakness. Objective: NAD A&Ox3 MAEx4 5/5 and equal in BUE and BLE. Dressing c/d/i Catheter Insertion Date: 07/25/18 - Physician Discussed Patient with : Radha Neurosurgery Physical Exam - Vitals, I&O, Labs I and O 07/25/18 07/26/18 07/27/18 05:59 05:59 05:59 Intake Total 5300 Output Total 3050 Balance 2250 Weight 64.4 kg Intake: Oral (ml) 300 IV Intake (ml) 5000 Output: Urine (ml) 950 Catheter 950 Estimated Blood Loss (ml) 2100 Other: Intake Quantity Yes Sufficient Vital Signs Temp Pulse Resp BP Pulse Ox 36.8 C 94 14 92/51 L 91 L 07/25/18 20:00 07/26/18 07:00 07/26/18 07:00 07/26/18 07:00 07/26/18 07:00 Laboratory Results 07/26/18 05:50 07/26/18 04:15 ICD10 Worksheet Patient Problems: Problems Problem Status Onset Fusion of spine of thoracolumbar region Acute Cervical stenosis of spinal canal Acute
[2018-07-26] MEDS: FAMOTIDINE 20 MG TAB PO SCH ×2 (10:09→18:41)
[2018-07-26] MEDS: MAGNESIUM OXIDE 400 MG TAB PO SCH (10:10)
[2018-07-26] MEDS: SENNOSIDES/DOCUSATE SODIUM TAB PO SCH ×2 (10:11→22:14)
[2018-07-26] MEDS: ACETAMINOPHEN 500 MG TAB PO PRN ×2 (10:12→18:42)
[2018-07-26] MEDS: POLYETHYLENE GLYCOL 3350 17 GM PKT PO SCH ×3 (10:13→22:15)
[2018-07-26] MEDS: CARVEDILOL 6.25 MG TAB PO SCH (10:43)
[2018-07-26] MEDS: morphINE SR 15 MG TAB PO SCH (10:43)
[2018-07-26] MEDS ORDERED: LOSARTAN POTASSIUM 25 MG TAB PO SCH (12:00)
--- NOTE | 2018-07-26 12:59 | ASMTCMCOM ---
CM Note CM Note Notes: Patient is POD #1 T11-S1 fusion w TLIF. She has a corset brace to be used when OOB. She has been c/o dizziness with movement. She is normally independent and lives with her Binu in [place]. They plan on doing rehab in this area (Binu will stay in [place] with their son). I explained the different between [facility] Inpatient Rehab and SNF. They will do whatever is recommended and are open to SNF in [place] or [place]. Rehab consult ordered. PT/OT evals pending. Case Management will follow. Date Signed: 07/26/2018 12:59 PM Electronically Signed By:Natasha Norris RN
[2018-07-26] MEDS: NS 1,000 ML IV SCH (13:38)
--- NOTE | 2018-07-26 14:10 | PDHOSCONS ---
History and Physical - Chief Complaint hypotension - History of Present Illness 77 yo female with hx of low back pain who is s/p t11-S1 fusion on POD # 1. Her BP is soft. She has a hx of HTN. She is on a BB and ARB. She also takes Lasix for leg swelling, but denies CHF. She does not use supplemental O2. She has no known hx of CAD. She denies DM. She does have a hx of HLD. She denies cp, sob, n/v. her urine output has been low. She did require 1 unit PRBC perioperatively PMHx: per above scoliosis restrictive lung disease VERA PSHx: cervical neck surgery soc: no tobacco or ETOH FmHx: non contributory History Information - Allergies/Home Medication List Allergies/Adverse Reactions: naproxen [From Naprosyn] Allergy (Verified 03/21/18 06:20) Hives Penicillins Allergy (Verified 03/21/18 06:20) Swelling/neck,face,throat Home Medications: Acetaminophen [Tylenol ES 500 mg (*)] 500 - 1,000 mg PO BID PRN 03/06/18 [Last Taken 07/24/18] Albuterol [Proventil Inhaler HFA (*)] 1 - 2 puffs IH DAILY PRN 03/06/18 [Last Taken 07/18/18] C/E/Zn/Cu/OM3/DHA/EPA/LUT/ZEAX [Preservision Areds 2 Softgel] 1 each PO BID [Last Taken 07/15/18] Carboxymethylcellulose 1% [Refresh Celluvisc (*)] 1 drop EACHEYE QID PRN [Last Taken 07/24/18] Carvedilol [Coreg (*)] 12.5 mg PO BIDMEAL 03/06/18 [Last Taken 07/25/18] Cholecalciferol Vit D3 [Vitamin D3 2000 units tab (OTC)] 4,000 units PO DAILY [Last Taken 07/15/18] Estrogens,Conjugated [Premarin 0.3 MG (*)] 0.3 mg PO DAILY18 03/06/18 [Last Taken 07/24/18] Ezetimibe [Zetia 10 MG (*)] 10 mg PO HS 03/06/18 [Last Taken 07/24/18] Famotidine [Pepcid 20 MG (*)] 20 mg PO BIDMEAL 03/06/18 [Last Taken 07/24/18] Furosemide [Lasix 20 MG (*)] 20 mg PO BID@,16 03/06/18 [Last Taken 07/24/18] Herbals/Supplements -Info Only 1 ea PO DAILY 03/06/18 [Last Taken 07/15/18] Losartan Potassium [Cozaar 25 mg (*)] 25 mg PO DAILY@12 03/06/18 [Last Taken 04/03] Magnesium Oxide [Magnesium Oxide 400 mg (*)] 400 mg PO DAILY 03/06/18 [Last Taken 07/15/18] Rosuvastatin Calcium [Crestor 20mg (*)] 20 mg PO HS 03/06/18 [Last Taken ] Lactase [Lactase 3000 Unit (*)] 3,000 unit PO DAILY PRN 06/21/18 [Last Taken 04/03] diphenhydrAMINE [Benadryl 25 MG (*)] 12.5 mg PO HS PRN 06/21/18 [Last Taken 12/02] I have personally reviewed and updated: medical history, social history - Social History Smoking Status: Never smoked Review of Systems Review of Systems: ROS: 10pt was reviewed & negative except for what was stated in HPI & below Physical Exam Physical Exam: Temp Pulse Resp BP Pulse Ox 36.7 C 91 17 105/43 L 96 07/26/18 12:00 07/26/18 12:00 07/26/18 12:00 07/26/18 12:00 07/26/18 12:00 O2 (L/minute) 1 Constitutional: no apparent distress Eyes: PERRL Ears, Nose, Mouth, Throat: hearing normal, ears appear normal, dry mucous membranes Cardiovascular: regular rate and rhythym, No edema Respiratory: no respiratory distress, no rales or rhonchi, clear to auscultation Gastrointestinal: normoactive bowel sounds, soft, non-tender abdomen Skin: warm Neurologic: AAOx3 Psychiatric: interacting appropriately, not anxious, not encephalopathic Lymph, Heme, Immunologic: No petechiae Lab Data & Imaging Review 07/26/18 05:50 07/26/18 04:15 WBC 11.27 10^3/uL (3.80-9.50) H 07/26/18 05:50 RBC 3.58 10^6/uL (4.18-5.33) L 07/26/18 05:50 Hgb 11.1 g/dL (12.6-16.3) L 07/26/18 05:50 Hct 33.8 % (38.0-47.0) L 07/26/18 05:50 MCV 94.4 fL (81.5-99.8) 07/26/18 05:50 MCH 31.0 pg (27.9-34.1) 07/26/18 05:50 MCHC 32.8 g/dL (32.4-36.7) 07/26/18 05:50 RDW 14.6 % (11.5-15.2) 07/26/18 05:50 Plt Count 72 10^3/uL (150-400) L 07/26/18 05:50 MPV 11.7 fL (8.7-11.7) 07/26/18 05:50 Neut % (Auto) 83.4 % (39.3-74.2) H 07/26/18 05:50 Lymph % (Auto) 7.2 % (15.0-45.0) L 07/26/18 05:50 [place] % (Auto) 8.5 % (4.5-13.0) 07/26/18 05:50 Eos % (Auto) 0.0 % (0.6-7.6) L 07/26/18 05:50 Baso % (Auto) 0.3 % (0.3-1.7) 07/26/18 05:50 Nucleat RBC Rel Count 0.0 % (0.0-0.2) 07/26/18 05:50 Absolute Neuts (auto) 9.40 10^3/uL (1.70-6.50) H 07/26/18 05:50 Absolute Lymphs (auto) 0.81 10^3/uL (1.00-3.00) L 07/26/18 05:50 Absolute Monos (auto) 0.96 10^3/uL (0.30-0.80) H 07/26/18 05:50 Absolute Eos (auto) 0.00 10^3/uL (0.03-0.40) L 07/26/18 05:50 Absolute Basos (auto) 0.03 10^3/uL (0.02-0.10) 07/26/18 05:50 Absolute Nucleated RBC 0.00 10^3/uL (0-0.01) 07/26/18 05:50 Immature Gran % 0.6 % (0.0-1.1) 07/26/18 05:50 Immature Gran # 0.07 10^3/uL (0.00-0.10) 07/26/18 05:50 PT 19.9 SEC (12.0-15.0) H 07/25/18 17:27 INR 1.68 (0.83-1.16) H 07/25/18 17:27 Sodium 138 mEq/L (135-145) 07/26/18 04:15 Potassium 4.7 mEq/L (3.3-5.0) 07/26/18 04:15 Chloride 109 mEq/L (97-110) 07/26/18 04:15 Carbon Dioxide 25 mEq/l (22-31) 07/26/18 04:15 Anion Gap 4 mEq/L (6-14) L 07/26/18 04:15 BUN 23 mg/dL (7-23) 07/26/18 04:15 Creatinine 0.9 mg/dL (0.6-1.0) 07/26/18 04:15 Estimated GFR > 60 07/26/18 04:15 Glucose 131 mg/dL (70-100) H 07/26/18 04:15 Calcium 7.2 mg/dL (8.5-10.4) L 07/26/18 04:15 Patient ABO/Rh A POSITIVE 07/24/18 16:08 Antibody Screen NEGATIVE 07/24/18 16:08 Crossmatch IS Only See Detail 07/24/18 16:08 Bld Prod Verbal Order YES 07/24/18 16:08 Assessment & Plan Assessment: #Fusion of spine of thoracolumbar region -post op mgmt per NS #Hypotension #Dehydration #Anemia, query post operative anemia #HLD Plan: cont ICU care NS has ordered 500 ml bolus. Agree with bolus. May need to repeat. Nurse will update with BP after. She does appear volume down. She is also very pale. Obtaining a stat H/H now. Her H/H this a.m. is appropriate. Low threshold to give another unit of PRBC. She remains afebrile. Do not suspect infection. She does not have any e/o adrenal insufficiency. She may have underlying CHF. Will need to be careful with fluid administration. Hold home BP meds Hold Lasix Hold Estrogen Lovenox for DVT proph per NS total critical care time in this pt with significant hypotension is 45 minutes thank you for this consultation, we will follow along
[2018-07-26] MEDS ORDERED: NS 500 ML IV ONE (15:00)
[2018-07-26] MEDS: EZETIMIBE 10 MG TAB PO SCH (22:14)
[2018-07-26] MEDS: ROSUVASTATIN CALCIUM 20 MG TAB PO SCH (22:14)
[2018-07-27] MEDS: ACETAMINOPHEN 500 MG TAB PO PRN ×2 (02:03→16:44)
[2018-07-27 04:25] LABS: PLATELET COUNT 70 10^3/uL (150-400)
[2018-07-27] MEDS: MAGNESIUM OXIDE 400 MG TAB PO SCH (08:01)
[2018-07-27] MEDS: FAMOTIDINE 20 MG TAB PO SCH ×2 (08:01→17:27)
[2018-07-27] MEDS: POLYETHYLENE GLYCOL 3350 17 GM PKT PO SCH ×3 (08:01→22:12)
[2018-07-27] MEDS: SENNOSIDES/DOCUSATE SODIUM TAB PO SCH ×2 (08:01→22:13)
[2018-07-27] MEDS: ENOXAPARIN 40 MG/0.4 ML SYR SC SCH (08:01)
--- NOTE | 2018-07-27 08:06 | NEUSURGPN ---
Assessment/Plan: Assessment: 77 yo F sp T11-S1 fusion with L1/2, L2/3, L3/4, L4/5, L5/S1 TLIF POD #2 Plan: Pt feeling better this am follow Hg/hct PT/OT - encourage OOB NANI drain to suction - had 75 cc out overnight. Appreciated Hospitalist assistance in care of this patient LSO brace when out of bed DVT prophx: TEDs, SCDS, Lovenox Post op xrays pending Ok for SDU status today and likely floor today D/w Dr Flores please call with neuro changes Subjective: Pt resting in bed, states she is feeling better this am Objective: AAOx3 NAD VSS MAEx4 Motor 5/5 BLE Incision dressed cdi - some dried blood noted NANI drain with bloody fluid in bulb +LT Urinary Catheter in Place: Yes Urinary Catheter Indication: Surgical Requirement (to be removed today) Catheter Insertion Date: 07/25/18 - Physician Discussed Patient with : Radha Neurosurgery Physical Exam - Vitals, I&O, Labs I and O 07/26/18 07/27/18 07/28/18 05:59 05:59 05:59 Intake Total 5300 6326 Output Total 3050 750 70 Balance 2250 5576 -70 Weight 64.4 kg 68.1 kg Intake: Oral (ml) 300 2000 IV Intake (ml) 5000 3976 Packed Red Blood Cells ( 350 ml) Output: Urine (ml) 950 750 Catheter 950 750 Estimated Blood Loss (ml) 2100 NANI Drain Output (ml) 70 #1 Posterior Back Berhane 70 [place] Other: Intake Quantity Yes Yes Sufficient Vital Signs Temp Pulse Resp BP Pulse Ox 36.7 C 82 18 132/49 H 97 07/26/18 20:00 07/27/18 06:00 07/27/18 06:00 07/27/18 06:00 07/27/18 06:00 Laboratory Results 07/27/18 04:15 07/27/18 04:15 ICD10 Worksheet Patient Problems: Problems Problem Status Onset Fusion of spine of thoracolumbar region Acute Cervical stenosis of spinal canal Acute
[2018-07-27] MEDS: oxyCODONE IR 5 MG TAB PO PRN (08:08)
[2018-07-27] MEDS ORDERED: FUROSEMIDE 20 MG/2 ML VIAL IVP ONE (12:00)
--- NOTE | 2018-07-27 12:05 | HOSPPROG ---
Hospitalist Progress Note Assessment/Plan: #Fusion of spine of thoracolumbar region -post op mgmt per NS #Hypotension, resolved with PRBC transfusion and IVF #Dehydration, resolved #Pedal edema and volume overload: -will get Lasix 20mg IV x 1. May need additional. Will also restart daily Lasix #Anemia, post operative anemia -s/p several PRBC transfusion -now stable #HLD #Thrombocytopenia, acute on chronic Plan: Lasix x 1 Post op Care Restart Coreg Restart Losartan tomorrow if BP ok today Monitor platelets cont Lovenox for now DC Ana thank you for this consultation, we will follow along Subjective: BP is better. Now with some pedal edema Objective: Vital Signs Temp Pulse Resp BP Pulse Ox 36.7 C 86 23 H 118/64 96 07/26/18 20:00 07/27/18 10:00 07/27/18 10:00 07/27/18 10:00 07/27/18 10:00 Laboratory Results 07/27/18 04:15 07/27/18 04:15 07/26/18 07/27/18 07/28/18 05:59 05:59 05:59 Intake Total 5300 6326 Output Total 3050 750 70 Balance 2250 5576 -70 PT 19.9 SEC (12.0-15.0) H 07/25/18 17:27 INR 1.68 (0.83-1.16) H 07/25/18 17:27 - Physical Exam Constitutional: no apparent distress Eyes: PERRL Ears, Nose, Mouth, Throat: moist mucous membranes, hearing normal Cardiovascular: regular rate and rhythym, no murmur, rub, or gallop, edema Respiratory: no respiratory distress, no rales or rhonchi, clear to auscultation Gastrointestinal: normoactive bowel sounds, soft, non-tender abdomen Skin: warm Neurologic: AAOx3 Psychiatric: interacting appropriately, not anxious, not encephalopathic Lymph, Heme, Immunologic: No petechiae ICD10 Worksheet Patient Problems: Problems Problem Status Onset Fusion of spine of thoracolumbar region Acute Cervical stenosis of spinal canal Acute
[2018-07-27] MEDS: CARVEDILOL 6.25 MG TAB PO SCH (17:27)
[2018-07-27] MEDS: ROSUVASTATIN CALCIUM 20 MG TAB PO SCH (22:14)
[2018-07-27] MEDS: EZETIMIBE 10 MG TAB PO SCH (22:14)
[2018-07-27] MEDS: METHOCARBAMOL 750 MG TAB PO PRN (22:24)
[2018-07-28] MEDS: oxyCODONE IR 5 MG TAB PO PRN ×2 (00:06→21:36)
[2018-07-28] MEDS: ACETAMINOPHEN 500 MG TAB PO PRN ×3 (04:14→21:37)
[2018-07-28] MEDS: CARVEDILOL 6.25 MG TAB PO SCH ×2 (08:46→17:16)
[2018-07-28] MEDS: MAGNESIUM OXIDE 400 MG TAB PO SCH (08:46)
[2018-07-28] MEDS: FUROSEMIDE 20 MG TAB PO SCH (08:47)
[2018-07-28] MEDS: FAMOTIDINE 20 MG TAB PO SCH ×2 (08:47→17:16)
[2018-07-28] MEDS: SENNOSIDES/DOCUSATE SODIUM TAB PO SCH ×2 (08:47→21:52)
[2018-07-28] MEDS: POLYETHYLENE GLYCOL 3350 17 GM PKT PO SCH ×2 (08:49→16:23)
[2018-07-28] MEDS: ENOXAPARIN 40 MG/0.4 ML SYR SC SCH (08:49)
[2018-07-28] MEDS: METHOCARBAMOL 750 MG TAB PO PRN ×2 (08:59→17:16)
--- NOTE | 2018-07-28 10:14 | NEUSURGPN ---
Assessment/Plan: Assessment: 77 yo F sp T11-S1 fusion with L1/2, L2/3, L3/4, L4/5, L5/S1 TLIF POD #2 Plan: Pt continues to improve, finds walking most comfortable follow Hg/hct - overall stable PT/OT - encourage OOB NANI drain to suction - had 280 out last 24 hrs Appreciated Hospitalist assistance in care of this patient LSO brace when out of bed DVT prophx: TEDs, SCDS, Lovenox Post op xrays show stable hardware Dispo - will place inpatient rehab consult D/w Dr Flores please call with neuro changes Subjective: Pt resting in bedside chair, walking and doing well overall Objective: AAOx3 NAD VSS MAEx4 Motor 5/5 BLE +LT NANI in place Urinary Catheter in Place: No Catheter Insertion Date: 07/25/18 Neurosurgery Physical Exam - Vitals, I&O, Labs I and O 07/27/18 07/28/18 07/29/18 05:59 05:59 05:59 Intake Total 6326 850 Output Total 750 880 Balance 5576 -30 Weight 68.1 kg Intake: Oral (ml) 2000 850 IV Intake (ml) 3976 Packed Red Blood Cells ( 350 ml) Output: Urine (ml) 750 600 Bedside Commode 600 Catheter 750 NANI Drain Output (ml) 280 #1 Posterior Back Ber[place] 280 [place] Other: Intake Quantity Yes Yes Sufficient Number of Voids Bedside Commode 1 Vital Signs Temp Pulse Resp BP Pulse Ox 36.6 C 92 15 133/61 H 96 07/28/18 07:43 07/28/18 08:46 07/28/18 07:43 07/28/18 08:46 07/28/18 07:43 Laboratory Results 07/28/18 04:30 07/27/18 04:15 ICD10 Worksheet Patient Problems: Problems Problem Status Onset Fusion of spine of thoracolumbar region Acute Cervical stenosis of spinal canal Acute
--- NOTE | 2018-07-28 13:45 | HOSPPROG ---
Hospitalist Progress Note Assessment/Plan: #Fusion of spine of thoracolumbar region -post op mgmt per NS #Hypotension, resolved with PRBC transfusion and IVF #HTN, chronic. Holding Losartan for now #Dehydration, resolved #Pedal edema and volume overload: -better after IV Lasix x 1 yesterday. Now on daily oral Lasix which is chronic for her. No need for additional Lasix today #Anemia, post operative anemia -s/p several PRBC transfusion -now stable #HLD #Thrombocytopenia, acute on chronic -Platelets are stable around 70 #constipated: cont bowel regimen Plan: Post op Care Restart Losartan tomorrow if BP ok today Monitor platelets cont Lovenox for now will need Rehab thank you for this consultation, we will follow along Subjective: leg swelling is better. no cp or sob. no n/v Objective: Vital Signs Temp Pulse Resp BP Pulse Ox 36.9 C 85 15 101/49 L 91 L 07/28/18 11:29 07/28/18 11:29 07/28/18 11:29 07/28/18 11:29 07/28/18 11:29 Laboratory Results 07/28/18 04:30 07/27/18 04:15 07/27/18 07/28/18 07/29/18 05:59 05:59 05:59 Intake Total 6326 850 Output Total 750 880 Balance 5576 -30 PT 19.9 SEC (12.0-15.0) H 07/25/18 17:27 INR 1.68 (0.83-1.16) H 07/25/18 17:27 - Physical Exam Constitutional: no apparent distress Eyes: PERRL Ears, Nose, Mouth, Throat: moist mucous membranes, hearing normal Cardiovascular: regular rate and rhythym, edema (trace) Respiratory: no respiratory distress, no rales or rhonchi Gastrointestinal: normoactive bowel sounds Skin: warm Musculoskeletal: generalized weakness Neurologic: AAOx3 Psychiatric: interacting appropriately, not anxious, not encephalopathic Lymph, Heme, Immunologic: No petechiae ICD10 Worksheet Patient Problems: Problems Problem Status Onset Fusion of spine of thoracolumbar region Acute Cervical stenosis of spinal canal Acute
[2018-07-28] MEDS: EZETIMIBE 10 MG TAB PO SCH (21:34)
[2018-07-28] MEDS: ROSUVASTATIN CALCIUM 20 MG TAB PO SCH (21:36)
[2018-07-29] MEDS: POLYETHYLENE GLYCOL 3350 17 GM PKT PO SCH ×4 (01:17→22:24)
[2018-07-29] MEDS: oxyCODONE IR 5 MG TAB PO PRN ×4 (01:34→23:39)
[2018-07-29] MEDS: ACETAMINOPHEN 500 MG TAB PO PRN ×2 (05:20→13:58)
--- NOTE | 2018-07-29 08:36 | HOSPPROG ---
Hospitalist Progress Note Assessment/Plan: #Hypotension: resolved after blood and IVFs #ABLA" s/p 2 units. H/H stable #Hypocalcemia #Edema: Lasix #Thrombocytopenia #Hypocalcemia: corrects with low-albumin #Hyponatremia: mild. Eating more. Repeat in morning #Protein caloric malnutrition #HLD: Zetia #HTN: cont to hold BP meds #s/p T11-S1 fusion with L1/2, L2/3, L3/4, L4/5, L5/S1 TLIF POD#4 Please call if questions. bedside, questions answered Subjective: increased back pain today Objective: Vital Signs Temp Pulse Resp BP Pulse Ox 36.2 C 71 15 109/56 L 98 07/29/18 07:38 07/29/18 07:38 07/29/18 07:38 07/29/18 07:38 07/29/18 07:38 Laboratory Results 07/28/18 04:30 07/27/18 04:15 07/28/18 07/29/18 07/30/18 05:59 05:59 05:59 Intake Total 850 500 Output Total 880 50 Balance -30 450 PT 19.9 SEC (12.0-15.0) H 07/25/18 17:27 INR 1.68 (0.83-1.16) H 07/25/18 17:27 - Time Spent With Patient Time Spent with Patient: greater than 35 minutes Time Spent with Patient: Greater than 35 minutes spent on this patients care, greater than 50% of time spent counseling, educating, and coordinating care regarding the above mentioned plan. - Physical Exam Constitutional: other (pale) Eyes: pale conjunctiva Ears, Nose, Mouth, Throat: moist mucous membranes Cardiovascular: regular rate and rhythym Respiratory: no respiratory distress Gastrointestinal: normoactive bowel sounds Genitourinary: no bladder fullness Musculoskeletal: other (soft neck brace in place) Neurologic: CN II-XII Intact Psychiatric: interacting appropriately ICD10 Worksheet Patient Problems: Problems Problem Status Onset Cervical stenosis of spinal canal Acute Fusion of spine of thoracolumbar region Acute
--- NOTE | 2018-07-29 08:46 | NEUSURGPN ---
Assessment/Plan: Assessment: 77 yo F sp T11-S1 fusion with L1/2, L2/3, L3/4, L4/5, L5/S1 TLIF POD #4 Plan: Pt continues to improve follow Hg/hct - overall stable PT/OT - encourage OOB NANI drain to suction Appreciated Hospitalist assistance in care of this patient LSO brace when out of bed DVT prophx: TEDs, SCDS, Lovenox Post op xrays show stable hardware Dispo - will place inpatient rehab consult- liekyl today vs tomorrow depending on bed availability D/w Dr Flores please call with neuro changes Subjective: able to have BM this morning. Denies any new pain currently. Had some increased pain over night that has improved Objective: AAOx3 NAD MAEx4 Motor 5/5 BLE +LT Incision c/d/i NANI serosanguineous Catheter Insertion Date: 07/25/18 - Physician Discussed Patient with : Radha Neurosurgery Physical Exam - Vitals, I&O, Labs I and O 07/28/18 07/29/18 07/30/18 05:59 05:59 05:59 Intake Total 850 500 Output Total 880 50 Balance -30 450 Intake: Oral (ml) 850 500 Output: Urine (ml) 600 Bedside Commode 600 NANI Drain Output (ml) 280 50 #1 Posterior Back [place] 280 50 [place] Other: Intake Quantity Yes Sufficient Number of Voids Bedside Commode 1 Toilet 1 1 Number of Stools Toilet 1 1 Vital Signs Temp Pulse Resp BP Pulse Ox 36.2 C 71 15 109/56 L 98 07/29/18 07:38 07/29/18 07:38 07/29/18 07:38 07/29/18 07:38 07/29/18 07:38 Laboratory Results 07/28/18 04:30 07/27/18 04:15 ICD10 Worksheet Patient Problems: Problems Problem Status Onset Fusion of spine of thoracolumbar region Acute Cervical stenosis of spinal canal Acute
[2018-07-29] MEDS: CARVEDILOL 6.25 MG TAB PO SCH ×2 (08:50→18:01)
[2018-07-29] MEDS: MAGNESIUM OXIDE 400 MG TAB PO SCH (08:50)
[2018-07-29] MEDS: FAMOTIDINE 20 MG TAB PO SCH ×2 (08:51→18:10)
[2018-07-29] MEDS: SENNOSIDES/DOCUSATE SODIUM TAB PO SCH ×2 (08:51→20:19)
[2018-07-29] MEDS: FUROSEMIDE 20 MG TAB PO SCH (08:52)
[2018-07-29] MEDS: ENOXAPARIN 40 MG/0.4 ML SYR SC SCH (08:52)
--- NOTE | 2018-07-29 14:47 | ASMTCMCOM ---
CM Note CM Note Notes: Amy Morris from [facility] inpatient rehab says that patient will be able to admit tomorrow, 07/30. I informed patient and . They are willing to pay for wheelchair transport. Case Management will coordinate d/c. Date Signed: 07/29/2018 02:46 PM Electronically Signed By:Natasha Norris RN
[2018-07-29] MEDS: ROSUVASTATIN CALCIUM 20 MG TAB PO SCH (20:17)
[2018-07-29] MEDS: EZETIMIBE 10 MG TAB PO SCH (20:17)
[2018-07-30] MEDS: ACETAMINOPHEN 500 MG TAB PO PRN ×2 (04:16→12:30)
[2018-07-30] MEDS: METHOCARBAMOL 750 MG TAB PO PRN ×2 (04:18→09:55)
--- NOTE | 2018-07-30 08:02 | NEUSURGPN ---
Assessment/Plan: Assessment: 77 yo F sp T11-S1 fusion with L1/2, L2/3, L3/4, L4/5, L5/S1 TLIF POD #5 Plan: Pt continues to improve follow Hg/hct - trending slightly down PT/OT - encourage OOB NANI drain - dc today and change dressing Appreciated Hospitalist assistance in care of this patient LSO brace when out of bed DVT prophx: TEDs, SCDS, Lovenox Post op xrays show stable hardware Dispo - DC today to inpt rehab D/w Dr Flores please call with neuro changes Subjective: Pt resting in bed, in room. Slept pretty well. Having loose stools. Objective: AAOx3 NAD VSS MAEx4 Motor 5/5 BLE +LT JPx1 Urinary Catheter in Place: No Catheter Insertion Date: 07/25/18 - Physician Discussed Patient with : Radha Neurosurgery Physical Exam - Vitals, I&O, Labs I and O 07/29/18 07/30/18 07/31/18 05:59 05:59 05:59 Intake Total 500 400 Output Total 50 1050 Balance 450 -650 Intake: Oral (ml) 500 400 Output: Urine (ml) 1000 Toilet 1000 NANI Drain Output (ml) 50 50 #1 Posterior Back Berhane 50 50 [place] Other: Intake Quantity Yes Sufficient Number of Voids Toilet 1 1 Number of Stools Toilet 1 1 Vital Signs Temp Pulse Resp BP Pulse Ox 36.9 C 87 16 124/62 H 93 07/29/18 23:51 07/29/18 23:51 07/29/18 23:51 07/29/18 23:51 07/29/18 23:51 Laboratory Results 07/30/18 04:26 07/30/18 04:26 ICD10 Worksheet Patient Problems: Problems Problem Status Onset Fusion of spine of thoracolumbar region Acute Cervical stenosis of spinal canal Acute
[2018-07-30] MEDS: CARVEDILOL 6.25 MG TAB PO SCH (08:09)
[2018-07-30] MEDS: FUROSEMIDE 20 MG TAB PO SCH (08:11)
[2018-07-30] MEDS: oxyCODONE IR 5 MG TAB PO PRN ×3 (08:11→14:16)
[2018-07-30] MEDS: FAMOTIDINE 20 MG TAB PO SCH (08:11)
[2018-07-30] MEDS: MAGNESIUM OXIDE 400 MG TAB PO SCH (08:11)
[2018-07-30] MEDS: ENOXAPARIN 40 MG/0.4 ML SYR SC SCH (08:13)
[2018-07-30 08:19] VITALS: BP 107/54
--- NOTE | 2018-07-30 08:24 | HOSPPROG ---
Hospitalist Progress Note Assessment/Plan: #Hypotension: resolved after blood and IVFs #ABLA: s/p 2 units. H/H stable #Edema: Lasix #Thrombocytopenia: improving. per patient, has low platelets (70-80s) for years #Hypocalcemia: corrects with low-albumin #Hyponatremia: mild. Monitor closely. On low-dose Lasix #Protein caloric malnutrition: dietary conulst #HLD: Zetia #HTN: have BP followed at SNF, readd Losartan 25mg when needed #s/p T11-S1 fusion with L1/2, L2/3, L3/4, L4/5, L5/S1 TLIF POD#5 -drain to be removed today Please call if questions. bedside, questions answered. Will sign off Subjective: no headache or dizziness Objective: Vital Signs Temp Pulse Resp BP Pulse Ox 36.9 C 82 16 107/54 L 93 07/29/18 23:51 07/30/18 08:09 07/29/18 23:51 07/30/18 08:09 07/29/18 23:51 Laboratory Results 07/30/18 04:26 07/30/18 04:26 07/29/18 07/30/18 07/31/18 05:59 05:59 05:59 Intake Total 500 400 Output Total 50 1050 Balance 450 -650 PT 19.9 SEC (12.0-15.0) H 07/25/18 17:27 INR 1.68 (0.83-1.16) H 07/25/18 17:27 - Physical Exam Constitutional: other (pale) Eyes: PERRL, pale conjunctiva Ears, Nose, Mouth, Throat: moist mucous membranes, hearing normal Cardiovascular: regular rate and rhythym, no murmur, rub, or gallop Respiratory: no respiratory distress Gastrointestinal: normoactive bowel sounds Genitourinary: no bladder fullness Skin: warm Musculoskeletal: full muscle strength Neurologic: AAOx3, CN II-XII Intact Psychiatric: interacting appropriately ICD10 Worksheet Patient Problems: Problems Problem Status Onset Fusion of spine of thoracolumbar region Acute Cervical stenosis of spinal canal Acute
[2018-07-30] MEDS: SENNOSIDES/DOCUSATE SODIUM TAB PO SCH (08:25)
[2018-07-30] MEDS: POLYETHYLENE GLYCOL 3350 17 GM PKT PO SCH (08:25)
--- NOTE | 2018-07-30 08:29 | PDIAF ---
- Diagnosis Code Status: Full Code - Medication Management Discharge Medications: electronically signed and located in the Home Medication List. - Orders Additional Instructions: MONITOR blood pressure. Once needed, add back Losartan 25mg daily - Labs/Radiology BMP Date: 07/31/18 CBC w/diff Date: 07/31/18 (Check daily for platelets. If continue to drop, stop Lovenox and check HIT Ab) - Follow Up Care Current Providers and Referrals: TAMARA WILDE MD [Other]
--- NOTE | 2018-07-30 08:38 | PDIAF ---
- Diagnosis Code Status: Full Code - Medication Management Discharge Medications: electronically signed and located in the Home Medication List. - Orders Diet Recommendation: no restrictions on diet Diet Texture: Regular Texture Diet Additional Instructions: MONITOR blood pressure. Once needed, add back Losartan 25mg daily No bending/lifting/twisting Wear brace when out of bed 5-10 lb weight limit Follow up in 2-3 weeks Call office with any issues @ [phone] - Labs/Radiology BMP Date: 07/31/18 CBC w/diff Date: 07/31/18 (Has chronically low platelets for years per patient) - Follow Up Care Current Providers and Referrals: TAMARA WILDE MD [Other]
--- NOTE | 2018-07-30 08:41 | PDIAF ---
- Diagnosis Code Status: Full Code - Medication Management Discharge Medications: electronically signed and located in the Home Medication List. - Orders Services needed: Registered Nurse, Certified Microbiology Analyst, Physical Therapy, Occupational Therapy Diet Recommendation: no restrictions on diet Diet Texture: Regular Texture Diet Additional Instructions: MONITOR blood pressure. Once needed, add back Losartan 25mg daily No bending/lifting/twisting Wear brace when out of bed 5-10 lb weight limit Follow up in 2-3 weeks Call office with any issues @ [phone] - Labs/Radiology BMP Date: 07/31/18 CBC w/diff Date: 07/31/18 (Has chronically low platelets for years per patient) - Follow Up Care Current Providers and Referrals: TAMARA WILDE MD [Other]
--- NOTE | 2018-07-30 11:12 | ASMTLACE ---
LACE Length of stay for Answers: 4-6 days current admission Acuity / Level of Answers: Yes Care: Did the patient have an inpatient admission? Comorbidities - select Answers: Chronic pulmonary disease all that apply Congestive heart failure Opioid dependence / Chronic pain Other Notes: HTN; HLD; GERD # of Emergency department Answers: 0 visits in the last 6 months Score: 16 Date Signed: 07/30/2018 11:12 AM Electronically Signed By:EJ Oconnell
--- NOTE | 2018-07-30 11:18 | ASMTCMCOM ---
CM Note CM Note Notes: Pt medically stable for d/c to [facility] inpatient rehab. [facility] transport scheduled for 1400, pt and aware of payment. RN December to call report. Orders to be obtained via [employer]. Date Signed: 07/30/2018 11:17 AM Electronically Signed By:EJ Oconnell
[2018-07-30] MEDS ORDERED: oxyCODONE IR 5 MG TAB PO ONE (13:00)
--- NOTE | 2018-07-30 14:05 | ASMTCMCOM ---
CM Note CM Note Notes: Angel Rios arrived with wc, pt unable to safely sit due to pain. PCS filled out and [facility] stretcher to transport pt at 1500. [facility] inpatient rehab updated. Date Signed: 07/30/2018 02:05 PM Electronically Signed By:EJ Oconnell
--- NOTE | 2018-07-30 15:58 | ASDISCHSUM ---
Discharge Information Plan Status:Inpatient Rehab Medically Cleared to Leave: Discharge Date:07/30/2018 03:21 PM CM D/C Disposition: ADT D/C Disposition:[facility] IP Projected Discharge Date:07/30/2018 11:00 AM Transportation at D/C:ALS/BLS Discharge Delay Reason: Follow-Up Date:07/30/2018 11:00 AM Discharge Slot: Final Diagnosis: Placement Information Referral Type:Rehabilitation Hospital Referral ID:[id number] Provider Name:[facility] Inpatient Rehab Address 1:[address] Phone Number: Address 2: Fax Number: City:[place] Selection Factors: State:[place] Patient Contact Information Contact Name:BOBBY Relationship: Address:[address] City:[place] Alternate Phone: State/Zip Code:[place] [address] Email: Financial Information Financial Class:Medicare Primary Plan Desc:MEDICARE INPATIENT Primary Plan Number:[id number] Secondary Plan Desc:[employer] [facility] Secondary Plan Number:[id number] Assessment Information LACE LACE Length of stay for Answers: 4-6 days current admission Acuity / Level of Answers: Yes Care: Did the patient have an inpatient admission? Comorbidities - select Answers: Chronic pulmonary disease all that apply Congestive heart failure Opioid dependence / Chronic pain Other Notes: HTN; HLD; GERD # of Emergency department Answers: 0 visits in the last 6 months Score: 16 Date Signed: 07/30/2018 11:12 AM Electronically Signed By:EJ Oconnell [facility] CM Progress Note CM Note CM Note Notes: Patient is POD #1 T11-S1 fusion w TLIF. She has a corset brace to be used when OOB. She has been c/o dizziness with movement. She is normally independent and lives with her Binu in [place]. They plan on doing rehab in this area (Binu will stay in [place] with their son). I explained the different between [facility] Inpatient Rehab and SNF. They will do whatever is recommended and are open to SNF in [place] or [place]. Rehab consult ordered. PT/OT anaals pending. Case Management will follow. Date Signed: 07/26/2018 12:59 PM Electronically Signed By:Natasha Norris RN [facility] CM Progress Note CM Note CM Note Notes: Amymatilde Morris from [facility] inpatient rehab says that patient will be able to admit tomorrow, 07/30. I informed patient and . They are willing to pay for wheelchair transport. Case Management will coordinate d/c. Date Signed: 07/29/2018 02:46 PM Electronically Signed By:Natasha Norris RN [facility] CM Progress Note CM Note CM Note Notes: Pt medically stable for d/c to [facility] inpatient rehab. [place] transport scheduled for 1400, pt and aware of payment. SIGNH December to call report. Orders to be obtained via [employer]. Date Signed: 07/30/2018 11:17 AM Electronically Signed By:EJ Oconnell [facility] CM Progress Note CM Note CM Note Notes: Angel Rios arrived with wc, pt unable to safely sit due to pain. PCS filled out and [facility] stretcher to transport pt at 1500. [facility] inpatient rehab updated. Date Signed: 07/30/2018 02:05 PM Electronically Signed By:EJ Oconnell Intervention Information Intervention Type:*IM-Signed Date of Service:07/30/2018 10:24 AM Patient Type:Inpatient Staff Member:Massiel Bryant Hours: Discipline: Severity: Comment:
== END 2018-07-30 15:21 | DRG 454 ==
LOC: F3N 07-25 05:35 → F2N 07-25 17:41 → F3N 07-27 17:07
PROVIDERS: ADMIT Neurological Surgery; ATTEND Neurological Surgery
PROC: 0RG6071 Fusion of Thoracic Vertebral Joint with Autologous Tissue Substitute, Posterior Approach, Posterior Column, Open Approach (ICD-10-PCS; principal; 2018-07-25 08:30)
PROC: 0SG3071 Fusion of Lumbosacral Joint with Autologous Tissue Substitute, Posterior Approach, Posterior Column, Open Approach (ICD-10-PCS; principal; 2018-07-25 08:30)
PROC: 8E0WXBZ Computer Assisted Procedure of Trunk Region (ICD-10-PCS; principal; 2018-07-25 08:30)
PROC: 0SG1071 Fusion of 2 or more Lumbar Vertebral Joints with Autologous Tissue Substitute, Posterior Approach, Posterior Column, Open Approach (ICD-10-PCS; principal; 2018-07-25 08:30)
PROC: 4A1004G Monitoring of Central Nervous Electrical Activity, Intraoperative, Open Approach (ICD-10-PCS; principal; 2018-07-25 08:30)
PROC: 0SG30AJ Fusion of Lumbosacral Joint with Interbody Fusion Device, Posterior Approach, Anterior Column, Open Approach (ICD-10-PCS; principal; 2018-07-25 08:30)
PROC: 0ST20ZZ Resection of Lumbar Vertebral Disc, Open Approach (ICD-10-PCS; principal; 2018-07-25 08:30)
PROC: 0RGA071 Fusion of Thoracolumbar Vertebral Joint with Autologous Tissue Substitute, Posterior Approach, Posterior Column, Open Approach (ICD-10-PCS; principal; 2018-07-25 08:30)
PROC: 0SG10AJ Fusion of 2 or more Lumbar Vertebral Joints with Interbody Fusion Device, Posterior Approach, Anterior Column, Open Approach (ICD-10-PCS; principal; 2018-07-25 08:30)
PROC: 00NY0ZZ Release Lumbar Spinal Cord, Open Approach (ICD-10-PCS; principal; 2018-07-25 08:30)
PROC: 30233N1 Transfusion of Nonautologous Red Blood Cells into Peripheral Vein, Percutaneous Approach (ICD-10-PCS; 2018-07-25 08:30)
DX: M48.061 Spinal stenosis, lumbar region without neurogenic claudication (principal); D62 Acute posthemorrhagic anemia; E87.1 Hypo-osmolality and hyponatremia; E46 Unspecified protein-calorie malnutrition; K59.00 Constipation, unspecified; I95.81 Postprocedural hypotension; E83.51 Hypocalcemia; E86.0 Dehydration; M41.86 Other forms of scoliosis, lumbar region; I10 Essential (primary) hypertension; D69.6 Thrombocytopenia, unspecified; I25.10 Atherosclerotic heart disease of native coronary artery without angina pectoris; E78.5 Hyperlipidemia, unspecified
CPT/HCPCS: 97116-GP; 97162-GP; 97166-GO; 97530-GO; 97530-GP; 97535-GO; C1713; C1762; G8978-GP-CL; G8979-GP-CK; G8987-GO-CL; G8988-GO-CJ; G8989-GO-CL; J0171; J0690; J1650; J1940; J2250; J2274; J2370; J2405; J2704; J2765; J3010; P9016; P9041

== ENCOUNTER 2018-07-30 15:45 | Inpatient (IN) | payer OTHER, BC ==
[2018-07-30] MEDS ORDERED: CARBOXYMETHYLCELLULOSE 1% 0.4 ML DROPERETTE EACHEYE PRN (17:01)
[2018-07-30] MEDS ORDERED: ALBUTEROL 60 PUFFS/8 GM MDI IH PRN (17:01)
[2018-07-30] MEDS ORDERED: LACTASE 3,000 UNIT TAB PO PRN (17:01)
--- NOTE | 2018-07-30 18:33 | GHP ---
POST ADMISSION PHYSICIAN EVALUATION AND REHABILITATION TREATMENT PLAN DATE OF ADMISSION: 07/30/2018 DATE OF EVALUATION: 07/30/2018 TIME OF EVALUATION: 1640 REFERRING FACILITY: [facility]. REFERRING PHYSICIAN: Dr. Garcia CONSULTING PHYSICIANS: She was seen by the hospitalist service, Dr. Hagan. REHABILITATION DIAGNOSES: Debility following T11 to S1 spinal fusion with L1 to S1 total lumbar interbody fusion. ETIOLOGIC DIAGNOSIS: Other orthopedic. IMPAIRMENT GROUP: 8.9. DATE OF ONSET: 07/25/2018. DATE OF SURGERY: 07/25/2018. HISTORY OF PRESENT ILLNESS: This patient was admitted to [facility] for elective spinal surgery on 07/25/2018. She had a history of intractable lower back pain due to progressive scoliosis and spinal stenosis. She underwent a T11 to S1 fusion, including total lumbar interbody fusion at L1- 2, L2-3, L3-4, L4-5, and L5-S1. Her hospital course was complicated by anemia requiring blood transfusion, and hypotension requiring fluid resuscitation. She also had fluid overload requiring IV Lasix. She has a history of thrombocytopenia, and she had low platelet counts. She has hypoxia requiring oxygen. She had constipation. She reports that today she had considerable increase in her pain and describes it as radiating pain into the buttocks and proximal posterior thighs. It has made it difficult for her to sit, including to sit on the toilet. STUDIES AND LABS DURING HER STAY: Regarding anemia, she had a alejandra hemoglobin of 8.5 on 07/29/2018, and an improvement to 8.8 on the day of hospital discharge , 07/30/2018. Platelet count initially was 81 and went down as low as 70. On the day of hospital discharge, it is 116. Coagulation studies revealed an elevated INR at 1.68. Serum chemistry revealed hyponatremia with a sodium of 134 on the day of admission. It is 133 on the day of hospital discharge. She has had elevated glucoses in the range of 109-134 fasting. Liver function tests on 07/29/2018, revealed an elevated AST at 60, and her albumin was low at 2. She had a postoperative lumbar spine x-ray on 07/27/2018, which showed anatomic alignment. PRECAUTIONS: She is a fall risk, and she has orthopedic spinal precautions. ACTIVE COMORBIDITIES: She has no active tier 1, tier 2 or tier 3 comorbidities. PAST MEDICAL HISTORY: 1. Cervical spine stenosis and radiculopathy. 2. Restrictive lung disease. 3. Possible COPD. 4. Dyslipidemia. 5. Hypertension. 6. Degenerative lumbar scoliosis. PAST SURGICAL HISTORY: She had cervical spine surgery in March of this year. PRE-HOSPITAL MEDICATIONS: 1. Acetaminophen 500 to 1000 mg b.i.d. p.r.n. 2. Albuterol inhaler 1-2 puffs daily p.r.n. 3. PreserVision multivitamin b.i.d. 4. Carboxymethylcellulose 1% eyedrops each eye q.i.d. p.r.n. 5. Carvedilol 12.5 mg p.o. b.i.d. 6. Cholecalciferol 4000 units p.o. daily. 7. Premarin 0.3 mg p.o. daily at 1800. 8. Ezetimibe 10 mg p.o. q.h.s. 9. Famotidine 20 mg p.o. b.i.d. 10. Furosemide 20 mg p.o. b.i.d. at 0900 and 1600. 11. Losartan 25 mg p.o. daily. 12. Magnesium oxide 400 mg p.o. daily. 13. Rosuvastatin 20 mg p.o. q.h.s. 14. Lactase 3000 units p.o. daily p.r.n. 15. Diphenhydramine 12.5 mg p.o. q.h.s. p.r.n. ADMISSION MEDICATIONS: 1. Acetaminophen 500 to 1000 mg b.i.d. p.r.n. 2. Albuterol inhaler 1-2 puffs daily p.r.n. 3. PreserVision multivitamin b.i.d. 4. Carboxymethylcellulose 1% eyedrops each eye q.i.d. p.r.n. 5. Carvedilol 12.5 mg p.o. b.i.d. 6. Cholecalciferol 4000 units p.o. daily. 7. Ezetimibe 10 mg p.o. q.h.s. 8. Famotidine 20 mg p.o. b.i.d. 9. Furosemide 20 mg p.o. b.i.d. at 0900 and 1600. 10. Lactase 3000 units p.o. Q.day p.r.n. dairy consumption 11. Losartan 25 mg p.o. daily. 12. Magnesium oxide 400 mg p.o. daily. 13. Methocarbamol 750 mg p.o. four times daily p.r.n. 14. Oxycodone 5-10 mg p.o. Q 4 hr p.r.n. 15. Premarin 0.3 mg p.o. daily at 1800. 16. Rosuvastatin 20 mg p.o. q.h.s. 17. Lactase 3000 units p.o. daily p.r.n. 18. Diphenhydramine 12.5 mg p.o. q.h.s. p.r.n. 19. Senna/docusate 1-2 tablets p.o. twice daily ALLERGIES: Listed to naproxen and penicillin. 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 She lives with her in [place], [place], where she moved to be at a lower elevation [place] there [place] due to her lung disease. She is a nonsmoker. They has a son who lives in [place], [place]. FAMILY HISTORY: Noncontributory. REVIEW OF SYSTEMS: She has a reduced appetite and has had weight loss, approximately 15 pounds, since the onset of her low back pain. She denies fevers or chills. She denies dyspnea. She typically coughs in the morning to clear her lungs when she first gets up. She denies chest pain or palpitations. She denies nausea, vomiting, constipation, or diarrhea. She had loose stools after taking milk of magnesia in the hospital. She denies dysuria or urinary frequency. She is aware of edema. She denies joint pain or joint swelling. She has had increased back pain today, as described in HPI, possibly due to increased activity the day before. She is sleeping well, though she awakens with pain during the night. Otherwise, a 10-point review of systems is negative. PHYSICAL EXAM: VITALS: Not yet available in the chart. This morning in the hospital, blood pressure was 107/54. Heart rate was 82. Respiratory rate was 14. Oxygen saturation was 89% on room air and was 88% on room air after ambulation. Temperature was 36.8 degrees centigrade. Her weight is 68.1 kg for a body mass index of 31.4. GENERAL: This is a well-nourished, well- developed woman, appears her chronologic age, cooperative, and in no acute distress. HEENT: Extraocular movements are intact. Pupils are equal, round, reactive to light. Mucous membranes are moist. Dentition is in good condition. She has an uncrowded airway, Mallampati class II. NECK: Supple. HEART: Regular rate and rhythm with no murmurs, rubs, or gallops. LUNGS: Clear to auscultation bilaterally. There is an occasional expiratory wheeze heard bilaterally at the bases, but this may be transmitted from her upper respiratory tract. ABDOMEN: Soft, nontender, nondistended with normoactive bowel sounds and no hepatosplenomegaly. EXTREMITIES: There is 2+ edema bilaterally to the lower extremities, and she appears to have upper extremity edema as well. There is no cyanosis or clubbing. NEUROLOGIC: She is alert and oriented x3. Cranial nerves 2-12 are grossly intact. There is no focal weakness. Sensation is intact to light touch. CURRENT LEVEL OF FUNCTION: Per the pre-admission screen. She was on a regular diet. Bathing required minimal assist with voice cues. Dressing the upper body required moderate assist with voice cues, and the lower body required minimal assist and voice cues. She was continent of bladder and bowel. Bed mobility required minimal assist for supine to sit and contact guard with voice cues for sit to stand. Transfers required contact guard assist with voice cues. She used a sock aid, a pnp, a waffle cushion, elastic laces, and a long-handled shoe horn. Balance seated was independent, and standing required contact guard assist. Endurance was fair. She ambulated 175 feet with contact guard assist. Communication and cognition were considered normal. She required assistance and cues for lumbar corset management and fit, and her function was impacted by pain. On today's exam, there are no significant changes from the preadmission screen. IMPRESSION: This is a 77-year-old woman, who had degenerative lumbar scoliosis and stenosis causing her considerable pain. She underwent a T11 to S1 spinal fusion on 07/25/2018. Hospital course was complicated by postoperative blood- loss anemia, edema, fluid overload, hypotension and hypoxia. On the last day of her hospitalization, she had an increase in pain, possibly due to increased activity. The pain is primarily in the buttocks and posterior thighs. She is appropriate for inpatient rehabilitation where she will benefit from PT and OT to optimize her mobility and activities of daily living. Her goal is to complete a rehabilitation stay and return home to [place] with supportive services and the help of her . For a safe discharge, she will need to achieve independence with grooming and eating; modified independence with bed mobility, transfers, dressing, bathing, and for ambulation with the least restrictive device on level and unlevel surfaces. She will need to be able to maintain her spinal precautions. She may continue to require assistance with shopping, household management, and cooking. She will have therapy with physical therapy and occupational therapy for 90 minutes per day for each discipline on 5-7 days of the week. Her expected duration of stay is 5-7 days. It is anticipated that upon discharge, she will continue to benefit from home health services, including nursing, OT and PT. PLAN: 1. Debility following T11 to S1 spinal fusion surgery. PT and OT to optimize mobility and activities of daily living towards an independent to modified independent level. 2. Pain management. The pain in the buttocks and posterior thighs may be neuropathic pain. We will initiate gabapentin at a low dose 100 mg t.i.d. starting this evening. We will also initiate morphine sustained release 15 mg at h.s. in order to improve her pain control through the night. We will, otherwise, continue current pain medications. However, I will schedule acetaminophen at 1000 mg q.8 hours rather than 500-1000 mg b.i.d. p.r.n. Will continue oxycodone 5-10 mg but will increase the frequency from q.4 hours to q.3 hours. 3. Anemia and thrombocytopenia. Check CBC in the morning. 4. Hyponatremia. She reports a dry mouth due to her medications and drinking frequent water. She, additionally, is on a diuretic, so this may be a complicated picture. Sodium has been only slightly low. Will check a BMP in the morning. 5. Edema is multifactorial. There may be a component of anasarca due to the low albumin. Continue furosemide. Additionally, there will be a dietary consult regarding low albumin and possible malnutrition given that she has had recent weight loss. Will obtain daily weights. 6. Hypertension. Continue carvedilol and losartan. I have added parameters to losartan to hold it for systolic blood pressure less than 120. 7. Restrictive lung disease. There is no specific treatment for this. She reports her police detention attendant in [place] believes that there may be a component of COPD, so will continue the albuterol ordered daily. We will continue oxygen. She reports that the restrictive lung disease diagnosis was made at [facility] and that there was no pulmonary hypertension. 8. Dyslipidemia. Continue ezetimibe and rosuvastatin. 9. Prophylaxis. She has ambulated 175 feet with therapies. Will monitor for reduced mobility due to increased pain, as she is at elevated risk due to age and obesity. She will have SCDs at night. If mobility is severely limited, will initiate pharmacologic DVT prophylaxis. 10. Spinal precautions. No bending, lifting or twisting. She needs to wear the lumbar corset when she is out of bed. She has a 5 to 10-pound weight limit. 11. Followup. She is to follow up with neurosurgeon, Dr. Garcia, in 2- 3 weeks, which likely will be after her discharge. Her primary care provider presumably in [place] is Riaz Rodriguez. /[id number]/MODL MTDD
[2018-07-30] MEDS: CARVEDILOL 6.25 MG TAB PO SCH (18:34)
[2018-07-30] MEDS: FAMOTIDINE 20 MG TAB PO SCH (18:35)
[2018-07-30] MEDS: ESTROGEN PO SCH (18:37)
[2018-07-30] MEDS: morphINE SR 15 MG TAB PO SCH (20:25)
[2018-07-30] MEDS: ROSUVASTATIN CALCIUM 20 MG TAB PO SCH (20:25)
[2018-07-30] MEDS: EZETIMIBE 10 MG TAB PO SCH (20:25)
[2018-07-30] MEDS: SENNOSIDES/DOCUSATE SODIUM TAB PO SCH (20:25)
[2018-07-30] MEDS: PRESERVISION AREDS2 FORMULA EYE VIT 1 EACH PO SCH (20:25)
[2018-07-30] MEDS: GABAPENTIN 100 MG CAP PO SCH (21:12)
[2018-07-30] MEDS: ACETAMINOPHEN 500 MG TAB PO SCH (21:12)
[2018-07-31] MEDS: ACETAMINOPHEN 500 MG TAB PO SCH ×3 (05:58→20:17)
[2018-07-31 08:10] LABS: PLATELET COUNT 125 10^3/uL (150-400)
[2018-07-31] MEDS: oxyCODONE IR 5 MG TAB PO PRN ×3 (08:40→15:01)
[2018-07-31] MEDS: FAMOTIDINE 20 MG TAB PO SCH ×2 (08:45→18:01)
[2018-07-31] MEDS: CARVEDILOL 6.25 MG TAB PO SCH ×2 (08:55→18:02)
[2018-07-31] MEDS: SENNOSIDES/DOCUSATE SODIUM TAB PO SCH ×2 (08:56→20:17)
[2018-07-31] MEDS: CHOLECALCIFEROL VIT D3 2,000 UNITS TAB/CAP PO SCH (08:57)
[2018-07-31] MEDS: GABAPENTIN 100 MG CAP PO SCH (08:57)
[2018-07-31] MEDS: PRESERVISION AREDS2 FORMULA EYE VIT 1 EACH PO SCH ×2 (08:58→20:16)
[2018-07-31] MEDS: FUROSEMIDE 20 MG TAB PO SCH ×2 (08:58→17:08)
[2018-07-31] MEDS: MAGNESIUM OXIDE 400 MG TAB PO SCH (08:59)
--- NOTE | 2018-07-31 09:31 | PDOREHIP ---
Admission [facility] - Admission - 3 Day Assessment Period Admission Date/Day 1: 07/30/18 Day 2: 07/31/18 Day 3: 08/01/18 - Active Diagnoses Comorbidities and Co-existing Conditions at Admission: 26663. None of the Above - Skin Conditions Unhealed Pressure Ulcer (1 or more/Stage 1 or >)-Admission: 0. No # Stage 1 Pressure Ulcers-Admission: 0 # Stage 2 Pressure Ulcers-Admission: 0 # Stage 3 Pressure Ulcers-Admission: 0 # Stage 4 Pressure Ulcers-Admission: 0 # Unstageable Pressure Ulcers (Non-remove Dress)-Admission: 0 # Unstageable Pressure Ulcers (Slough/Eschar)-Admission: 0 # Unstageable Pressure Ulcers (Deep Tissue Injury)-Admission: 0
--- NOTE | 2018-07-31 09:31 | SOAPPROG ---
SOAP Progress Note Assessment/Plan: Assessment: Debility following T11 to S1 spinal fusion surgery. PT and OT to optimize mobility and activities of daily living towards an independent to modified independent level. Pain management. The pain in the buttocks and posterior thighs may be neuropathic pain. Started gabapentin at a low dose 100 mg t.i.d. Evening of . Started morphine sustained release 15 mg at h.s. in order to improve her pain control through the night. Continue acetaminophen at 1000 mg q.8 hours and oxycodone 5-10 mg q.3 hours as needed. * Obtained MRI after discussion with Dr. Garcia. There was no fluid collection. Dr. Garcia will review the MRI on 08/01/2018. * Increased gabapentin to 300 mg three times daily starting 07/31/2018. Will increased further to 400 mg three times daily starting at bedtime on 07/31/2018. Anemia and thrombocytopenia. Improving on CB 07 31 2018. Hyponatremia. Possibly complicated by dry mouth and use of furosemide. * Resolved on BMP 07/31/2018. Edema is multifactorial. There may be a component of anasarca due to the low albumin. Continue furosemide. Dietary consult regarding low albumin and possible malnutrition given that she has had recent weight loss. Follow daily weights. Hypertension. Continue carvedilol and losartan. Hold losartan for systolic blood pressure less than 120. Restrictive lung disease. There is no specific treatment for this. 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 Continue oxygen. She reports that the restrictive lung disease diagnosis was made at [facility] and that there was no pulmonary hypertension. Dyslipidemia. Continue ezetimibe and rosuvastatin. Prophylaxis. She has ambulated 175 feet with therapies. Will monitor for reduced mobility due to increased pain, as she is at elevated risk due to age and obesity. She will have SCDs at night. If mobility is severely limited, will initiate pharmacologic DVT prophylaxis. Spinal precautions. No bending, lifting or twisting. She needs to wear the lumbar corset when she is out of bed. She has a 5 to 10-pound weight limit. FOLLOW-UP: She is to follow up with neurosurgeon, Dr. Garcia, in 2-3 weeks, which likely will be after her discharge. Her primary care provider presumably in [place] is Riaz Rodriguez. 07/31/18 19:15 Subjective: Slept well. Had no pain in the morning when she awoke at 630. Had considerable pain subsequently when she sat up and has pain when sitting in the bilateral buttocks and proximal hamstrings. Had 10 mg of oxycodone at 840 this morning but still has considerable pain with sitting. Also reports numbness on the right anterior thigh. Otherwise no complaints. Objective: Vital Signs Temp Pulse Resp BP Pulse Ox 36.5 C 75 16 143/67 H 93 07/31/18 06:15 07/31/18 06:15 07/31/18 06:15 07/31/18 06:15 07/31/18 06:15 Laboratory Results 07/31/18 06:00 07/31/18 06:00 07/30/18 07/31/18 08/01/18 05:59 05:59 05:59 Intake Total 450 Output Total 100 300 Balance 350 -300 Physical Exam - Physical Exam General Appearance: WD/WN, alert, no apparent distress Respiratory: No respiratory distress, No accessory muscle use Cardiac/Chest: edema (2+ bilateral lower extremities) Skin: normal color, warm/dry Neuro/Psych: alert, normal mood/affect, oriented x 3 ICD10 Worksheet Patient Problems: Problems Problem Status Onset Cervical stenosis of spinal canal Acute Fusion of spine of thoracolumbar region Acute
[2018-07-31] MEDS: METHOCARBAMOL 750 MG TAB PO PRN ×2 (10:08→20:17)
[2018-07-31] MEDS: LOSARTAN POTASSIUM 25 MG TAB PO SCH (11:48)
[2018-07-31] MEDS ORDERED: GABAPENTIN 300 MG CAP PO SCH (11:53)
[2018-07-31] MEDS ORDERED: oxyCODONE IR 5 MG TAB PO ONE (14:55)
[2018-07-31] MEDS: ESTROGEN PO SCH (18:05)
[2018-07-31] MEDS: EZETIMIBE 10 MG TAB PO SCH (20:16)
[2018-07-31] MEDS: morphINE SR 15 MG TAB PO SCH (20:16)
[2018-07-31] MEDS: ROSUVASTATIN CALCIUM 20 MG TAB PO SCH (20:16)
[2018-07-31] MEDS: GABAPENTIN 400 MG CAP PO SCH (20:17)
[2018-08-01] MEDS: oxyCODONE IR 5 MG TAB PO PRN ×4 (03:17→14:46)
[2018-08-01] MEDS: METHOCARBAMOL 750 MG TAB PO PRN ×2 (04:49→11:37)
[2018-08-01] MEDS: ACETAMINOPHEN 500 MG TAB PO SCH ×3 (06:18→21:00)
[2018-08-01] MEDS: GABAPENTIN 400 MG CAP PO SCH ×3 (08:12→21:00)
[2018-08-01] MEDS: PRESERVISION AREDS2 FORMULA EYE VIT 1 EACH PO SCH ×2 (08:12→20:55)
[2018-08-01] MEDS: CHOLECALCIFEROL VIT D3 2,000 UNITS TAB/CAP PO SCH (08:12)
[2018-08-01] MEDS: CARVEDILOL 6.25 MG TAB PO SCH ×2 (08:13→17:03)
[2018-08-01] MEDS: FUROSEMIDE 20 MG TAB PO SCH ×2 (08:15→14:47)
[2018-08-01] MEDS: SENNOSIDES/DOCUSATE SODIUM TAB PO SCH ×2 (08:15→20:56)
[2018-08-01] MEDS: MAGNESIUM OXIDE 400 MG TAB PO SCH (08:15)
[2018-08-01] MEDS: FAMOTIDINE 20 MG TAB PO SCH ×2 (08:15→16:48)
[2018-08-01] MEDS: LOSARTAN POTASSIUM 25 MG TAB PO SCH (11:42)
[2018-08-01] MEDS ORDERED: BIOTENE DRY MOUTH ORAL RINSE 237 ML BTL MM PRN (13:29)
--- NOTE | 2018-08-01 15:34 | SOAPPROG ---
SOAP Progress Note Assessment/Plan: Assessment: Debility following T11 to S1 spinal fusion surgery. PT and OT to optimize mobility and activities of daily living towards an independent to modified independent level. Pain management. The pain in the buttocks and posterior thighs may be neuropathic pain. Started gabapentin at a low dose 100 mg t.i.d. Evening of . Started morphine sustained release 15 mg at h.s. in order to improve her pain control through the night. Continue acetaminophen at 1000 mg q.8 hours and oxycodone 5-10 mg q.3 hours as needed. * Obtained MRI after discussion with Dr. Garcia. Minimal fluid collection. Narrowing at L3 better than before surgery. No indication for repeat surgery. Continue efforts at pain control. * Increased gabapentin to 300 mg three times daily starting 07/31/2018. Increased further to 400 mg three times daily starting at bedtime on 2017. Patient is satisfied to continue current management and not further adjust medications as of 08/01/2018. Anemia and thrombocytopenia. Improving on CBC 07/31/2018. Hyponatremia. Possibly complicated by dry mouth and use of furosemide. * Resolved on BMP 07/31/2018. Edema is multifactorial. There may be a component of anasarca due to the low albumin. Continue furosemide. Dietary consult regarding low albumin and possible malnutrition given that she has had recent weight loss. Follow daily weights. Hypertension. Continue carvedilol and losartan. Hold losartan for systolic blood pressure less than 120. Restrictive lung disease. There is no specific treatment for this. 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 Continue oxygen. She reports that the restrictive lung disease diagnosis was made at [facility] and that there was no pulmonary hypertension. Dyslipidemia. Continue ezetimibe and rosuvastatin. Prophylaxis. She has ambulated 175 feet with therapies prior to hospital discharge. Has reduced mobility due to increased pain, and she is at elevated DVT risk due to age and obesity. She will have SCDs at night. Initiate enoxaparin 40 U SC on 08/01/2018 until mobility recovers. Spinal precautions. No bending, lifting or twisting. She needs to wear the lumbar corset when she is out of bed. She has a 5 to 10-pound weight limit. FOLLOW-UP: She is to follow up with neurosurgeon, Dr. Garcia, in 2-3 weeks, which likely will be after her discharge. Her primary care provider presumably in [place] is Riaz Rodriguez. 08/01/18 15:30 Subjective: Pain is improved. She did better this morning with therapies but this afternoon she has increased pain. She had a shower this morning also. No cough or dyspnea but nurses have noted oxygen desaturation once he sleeps. Sleeping well. Bowels are moving. Objective: Vital Signs Temp Pulse Resp BP Pulse Ox 36.7 C 94 16 95/43 L 80 L 08/01/18 05:58 08/01/18 11:46 08/01/18 11:46 08/01/18 11:46 08/01/18 11:46 Laboratory Results 07/31/18 06:00 07/31/18 06:00 07/31/18 08/01/18 08/02/18 05:59 05:59 05:59 Intake Total 450 1220 440 Output Total 100 1450 350 Balance 350 -230 90 Physical Exam - Physical Exam General Appearance: WD/WN, alert, no apparent distress Respiratory: No respiratory distress, No accessory muscle use Cardiac/Chest: regular rate, rhythm, edema (2+ bilateral pretibial), JVD (2/3 from clavicle to mandible), No diastolic murmur, No systolic murmur Skin: normal color, warm/dry Neuro/Psych: no motor/sensory deficits, alert, normal mood/affect, oriented x 3 ICD10 Worksheet Patient Problems: Problems Problem Status Onset Cervical stenosis of spinal canal Acute Fusion of spine of thoracolumbar region Acute
[2018-08-01] MEDS: ENOXAPARIN 40 MG/0.4 ML SYR SC SCH (16:47)
[2018-08-01] MEDS: ESTROGEN PO SCH (17:05)
[2018-08-01] MEDS: ROSUVASTATIN CALCIUM 20 MG TAB PO SCH (20:56)
[2018-08-01] MEDS: EZETIMIBE 10 MG TAB PO SCH (20:56)
[2018-08-01] MEDS: morphINE SR 15 MG TAB PO SCH (20:56)
[2018-08-02] MEDS: METHOCARBAMOL 750 MG TAB PO PRN ×2 (01:51→09:00)
[2018-08-02] MEDS: oxyCODONE IR 5 MG TAB PO PRN ×5 (01:51→18:09)
[2018-08-02] MEDS: ACETAMINOPHEN 500 MG TAB PO SCH ×3 (06:18→22:07)
[2018-08-02] MEDS: FAMOTIDINE 20 MG TAB PO SCH ×2 (09:11→18:10)
[2018-08-02] MEDS: CARVEDILOL 6.25 MG TAB PO SCH ×2 (09:12→18:10)
[2018-08-02] MEDS: SENNOSIDES/DOCUSATE SODIUM TAB PO SCH ×2 (09:12→19:43)
[2018-08-02] MEDS: CHOLECALCIFEROL VIT D3 2,000 UNITS TAB/CAP PO SCH (09:13)
[2018-08-02] MEDS: PRESERVISION AREDS2 FORMULA EYE VIT 1 EACH PO SCH ×2 (09:13→20:48)
[2018-08-02] MEDS: GABAPENTIN 400 MG CAP PO SCH ×3 (09:13→22:07)
[2018-08-02] MEDS: FUROSEMIDE 20 MG TAB PO SCH ×2 (09:14→17:12)
[2018-08-02] MEDS: MAGNESIUM OXIDE 400 MG TAB PO SCH (09:14)
--- NOTE | 2018-08-02 11:24 | SOAPPROG ---
SOAP Progress Note Assessment/Plan: Assessment: Debility following T11 to S1 spinal fusion surgery. * Initial functional independence measure 74 on 08/02/2018. Moderate assistance for bed mobility. Transfers with standby assist. Ambulated 80 ft with a front wheeled walker and short steps and slow gait. Upper body dressing requires minimal assist, lower body dressing requires maximal assist. Shower transfer requires contact guard assist and she bathes with moderate assist. Toilet transfer requires contact guard assist and toileting requires maximal assistance for clothing management. * Continue PT and OT to optimize mobility and activities of daily living towards an independent to modified independent level. Pain management. The pain in the buttocks and posterior thighs may be neuropathic pain. Started gabapentin at a low dose 100 mg t.i.d. Evening of . Started morphine sustained release 15 mg at h.s. in order to improve her pain control through the night. Continue acetaminophen at 1000 mg q.8 hours and oxycodone 5-10 mg q.3 hours as needed. * Obtained MRI after discussion with Dr. Garcia. Minimal fluid collection. Narrowing at L3 better than before surgery. No indication for repeat surgery. Continue efforts at pain control. * Increased gabapentin to 300 mg three times daily starting 07/31/2018. Increased further to 400 mg three times daily starting at bedtime on 2017. Patient is satisfied to continue current management and not further adjust medications as of 08/01/2018. * Appreciate evaluation by neurosurgeon Dr. Garcia 08/02/2018 on the rehabilitation unit. If pain continues to significantly interfere with her ability to participate in rehabilitation will consider further discussion with Neurosurgery regarding whether a repeat surgery is indicated. Anemia and thrombocytopenia. Improving on CBC 07/31/2018. Urinary incontinence. Check postvoid residual. Low suspicion for neurogenic bladder, but will continue to monitor. Hyponatremia. Possibly complicated by dry mouth and use of furosemide. * Resolved on BMP 07/31/2018. Edema is multifactorial. There may be a component of anasarca due to the low albumin. Continue furosemide. Dietary consult regarding low albumin and possible malnutrition given that she has had recent weight loss. Follow daily weights. Hypertension. Continue carvedilol and losartan. Hold losartan for systolic blood pressure less than 120. Restrictive lung disease. There is no specific treatment for this. 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 Continue oxygen. She reports that the restrictive lung disease diagnosis was made at [facility] and that there was no pulmonary hypertension. Dyslipidemia. Continue ezetimibe and rosuvastatin. Prophylaxis. She has ambulated 175 feet with therapies prior to hospital discharge. Has reduced mobility due to increased pain, and she is at elevated DVT risk due to age and obesity. She will have SCDs at night. Initiate enoxaparin 40 U SC on 08/01/2018 until mobility recovers. Spinal precautions. No bending, lifting or twisting. She needs to wear the lumbar corset when she is out of bed. She has a 5 to 10-pound weight limit. DISPOSITION: Attended staffing, 15 min. Discussed with case management, dietitian, nursing, PT, OT, PROPERTY INSPECTOR. Lives at home in [place] with her . Is making sl gradual progress functionally. Tentative discharge date set for 08/16/2018. FOLLOW-UP: She is to follow up with neurosurgeon, Dr. Garcia, in 2-3 weeks, which canl be on the day of or after her discharge. Her primary care provider in [place] is Riaz Rodriguez. 08/02/18 16:46 Subjective: Slept well, with good pain control overnight. 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 Otherwise overall pain is a little bit improved over previous days. Does not desire any further change in pain medication. Nurse noted bladder incontinence. No dysuria or frequency. No fevers or chills. No cough or dyspnea. Objective: Vital Signs Temp Pulse Resp BP Pulse Ox 36.9 C 86 16 124/54 H 93 08/02/18 06:35 08/02/18 06:35 08/02/18 06:35 08/02/18 06:35 08/02/18 06:35 Laboratory Results 07/31/18 06:00 07/31/18 06:00 08/01/18 08/02/18 08/03/18 05:59 05:59 05:59 Intake Total 1220 915 200 Output Total 1450 850 25 Balance -230 65 175 - Time Spent With Patient Time Spent With Patient: Greater than 35 min floor time today, including more than 50% of time in coordination of care during staffing meeting, and counseling patient. Physical Exam - Physical Exam General Appearance: WD/WN, alert, no apparent distress Respiratory: normal breath sounds, No crackles, No rhonchi, No wheezing Cardiac/Chest: regular rate, rhythm, edema (2+ bilateral pretibial), JVD (2/3 from clavicle to mandible), No diastolic murmur, No systolic murmur Skin: normal color, warm/dry Neuro/Psych: no motor/sensory deficits, alert, normal mood/affect, oriented x 3 ICD10 Worksheet Patient Problems: Problems Problem Status Onset Cervical stenosis of spinal canal Acute Fusion of spine of thoracolumbar region Acute
[2018-08-02] MEDS: LOSARTAN POTASSIUM 25 MG TAB PO SCH (13:30)
--- NOTE | 2018-08-02 13:38 | GPROG ---
NEUROSURGICAL PROGRESS NOTE DATE OF SERVICE: 08/02/2018 The patient was seen and examined at [facility] today by me personally. She has full strength in both lower extremities with normal sensation. Dr. Jesus Maynard called me a day or two ago and told me she was having some cramping in her buttock areas, and I came over to see her because of this. On further questioning, she describes cramping in her buttocks and some numbness when she walks or si ts for prolonged periods. She had been doing extremely well for 4-5 days following her surgery, and then around the same time the Berhane-Copeland drain was removed she developed these symptoms. This was 4-5 days ago from now. On speaking with Dr. Maynard and the patient together in the room, it seems t hat she is gradually improving and is able to walk further and further. We also performed an MRI 2 d ays ago, and this did show some moderate stenosis in the L2-3, L3-4 areas but not a huge fluid collec tion, which is what I expected. Based on all of the above, I feel that it is in her best interest to hold off on taking her back to surgery and performing a redo decompression. Hopefully she will cont inue to improve. If she does not continue to improve, taking her back to surgery and reexploring the decompression is certainly an option. The patient seems to understand this completely. I also call ed the and spoke to him about it, although we kept getting cut off. I called him back lb wren times, and I think he understood as well as could be expected. I am leaving town today and will si gn her out to my colleagues so they are aware of what is going on. They do not round at [facility], but if she stops getting better or starts getting worse, Dr. Maynard knows to call them. /[id number]/MODL
[2018-08-02] MEDS: ENOXAPARIN 40 MG/0.4 ML SYR SC SCH (17:11)
[2018-08-02] MEDS: ESTROGEN PO SCH (18:10)
[2018-08-02] MEDS: ROSUVASTATIN CALCIUM 20 MG TAB PO SCH (20:49)
[2018-08-02] MEDS: morphINE SR 15 MG TAB PO SCH (20:49)
[2018-08-02] MEDS: EZETIMIBE 10 MG TAB PO SCH (20:49)
[2018-08-03] MEDS: oxyCODONE IR 5 MG TAB PO PRN ×2 (04:27→13:31)
[2018-08-03] MEDS: METHOCARBAMOL 750 MG TAB PO PRN ×2 (05:01→12:21)
[2018-08-03] MEDS: ACETAMINOPHEN 500 MG TAB PO SCH ×2 (05:01→14:13)
[2018-08-03] MEDS: CARVEDILOL 6.25 MG TAB PO SCH (09:01)
[2018-08-03] MEDS: FAMOTIDINE 20 MG TAB PO SCH (09:02)
[2018-08-03] MEDS: PRESERVISION AREDS2 FORMULA EYE VIT 1 EACH PO SCH (09:02)
[2018-08-03] MEDS: GABAPENTIN 400 MG CAP PO SCH (09:03)
[2018-08-03] MEDS: CHOLECALCIFEROL VIT D3 2,000 UNITS TAB/CAP PO SCH (09:03)
[2018-08-03] MEDS: FUROSEMIDE 20 MG TAB PO SCH (09:05)
[2018-08-03] MEDS: SENNOSIDES/DOCUSATE SODIUM TAB PO SCH (09:05)
[2018-08-03] MEDS: MAGNESIUM OXIDE 400 MG TAB PO SCH (09:05)
--- NOTE | 2018-08-03 11:15 | PDOREHIP ---
Admission [facility] - Admission - 3 Day Assessment Period Admission Date/Day 1: 07/30/18 Day 2: 07/31/18 Day 3: 08/01/18 - Active Diagnoses Comorbidities and Co-existing Conditions at Admission: 16271. None of the Above Discharge [facility] - Discharge Skin Conditions Unhealed Pressure Ulcer (1 or more/Stage 1 or >)-Discharge: 0. No # Stage 1 Pressure Ulcers-Discharge: 0 # Stage 2 Pressure Ulcers-Discharge: 0 # of These Stage 2 Pressure Ulcers Present on Admission: 0 # Stage 3 Pressure Ulcers-Discharge: 0 # of These Stage 3 Pressure Ulcers Present on Admission: 0 # Stage 4 Pressure Ulcers-Discharge: 0 # of These Stage 4 Pressure Ulcers Present on Admission: 0 # Unstageable Pressure Ulcers (Non-remove Dress)-Discharge: 0 # These Unstageable Pressure Ulcers (NRD)-Present on Admit: 0 # Unstageable Pressure Ulcers (Slough/Eschar)-Discharge: 0 # These Unstageable Pressure Ulcers(Slough) Present on Admit: 0 # Unstageable Pressure Ulcers (Deep Tissue Injury)-Discharge: 0 # These Unstageable Pressure Ulcers (DTI) Present on Admit: 0
[2018-08-03] MEDS: LOSARTAN POTASSIUM 25 MG TAB PO SCH (12:22)
[2018-08-03 12:24] VITALS: BP 120/56
--- NOTE | 2018-08-03 16:35 | GDS ---
ADMITTING DIAGNOSIS: Debility following T11-S1 spinal fusion surgery for degenerative scoliosis. ADDITIONAL DISCHARGE DIAGNOSES: 1. Pain in buttocks and posterior thighs. 2. Urinary retention with possible neurogenic bladder. 3. Edema. COMPLICATIONS: Pain and urinary retention. PROCEDURES: There was an MRI of the spine done. CONSULTATIONS: She was seen by neurosurgeon, Dr. Molina Garcia. HISTORY AND HOSPITAL COURSE: This patient was admitted to Inpatient Rehabilitation following a T11-S1 spinal fusion surgery for degenerative scoliosis. She had been doing well with ambulation in the hospital. However, on her last hospital day, she developed increased pain in her buttocks and posterior thighs. Pain interfered with her ability to function in rehabilitation therapies. Medications were adjusted with addition of gabapentin and then titration as high as 400 mg t.i.d. She had morphine sulfate 15 mg at h.s. She was using oxycodone. On the day before discharge she used 35 mg in 5 separate doses. She additionally was using methocarbamol and acetaminophen. On the day before discharge, she reported urinary incontinence and said that she had no control. When she would stand up she would urinate. Postvoid residual was checked and was in the 600s to 700s. She was requiring urinary catheterization and finally, a Perez catheter was placed. Given pain, reduced ability to function in therapies, and urinary retention, she was suspected to have cauda equina syndrome. There has been an MRI scan of the spine done after discussion with neurosurgeon, Dr. Garcia, on 07/31/2018. This showed no posterior paraspinal fluid collection, though there was some edema in the postsurgical regions. There was moderate central canal stenosis at L2-L3 and L3 -L4, though the study was confounded by metallic artifact. Given these changes , after discussion with the Neurosurgery service, she was readmitted to [facility] for further evaluation and consideration of a surgical procedure to alleviate what might be a compression of the conus medullaris. CONDITION UPON DISCHARGE: Fair. DISPOSITION: [facility] under the care of Dr. Herrera. MEDICATIONS: Continued on discharge: 1. Albuterol 2 puffs daily p.r.n. 2. Refresh eyedrops p.r.n. 3. Lactase 3000 units p.o. daily p.r.n. dairy consumption. 4. Methocarbamol 750 mg p.o. q.i.d. p.r.n. 5. Oxycodone 5 to 10 mg p.o. q.3 hours p.r.n. 6. Carvedilol 12.5 mg p.o. twice daily. 7. Famotidine 20 mg p.o. twice daily. 8. Estrogen supplement 0.3 mg p.o. daily at 1800. 9. PreserVision multivitamin 1 p.o. b.i.d. 10. Ezetimibe 10 mg p.o. q.h.s. 11. Morphine SR 15 mg p.o. q.h.s. 12. Rosuvastatin 20 mg p.o. q.h.s. 13. Senna/docusate 1-2 p.o. b.i.d. 14. Acetaminophen 1000 mg p.o. q.8 hours. 15. Cholecalciferol 4000 units p.o. daily. 16. Furosemide 20 mg p.o. b.i.d. 17. Magnesium oxide 400 mg p.o. daily. 18. Losartan 25 mg p.o. daily at noon. 19. Gabapentin 400 mg p.o. t.i.d. 20. Biotene p.r.n. 21. Enoxaparin 40 mg subcutaneous daily. /[id number]/MODL MTDD
== END 2018-08-03 14:45 | disposition still patient (30) | DRG 560 ==
LOC: BREH 15:45
PROVIDERS: ADMIT Internal Medicine; ATTEND Internal Medicine
DX: Z47.89 Encounter for other orthopedic aftercare (principal); D69.6 Thrombocytopenia, unspecified; D64.9 Anemia, unspecified; J98.4 Other disorders of lung; E78.5 Hyperlipidemia, unspecified; I10 Essential (primary) hypertension; R33.9 Retention of urine, unspecified; G83.4 Cauda equina syndrome
CPT/HCPCS: 97110-GO; 97110-GP; 97116-GP; 97162-GP; 97166-GO; 97530-GO; 97530-GP; 97535-GO; J1650

== ENCOUNTER 2018-08-09 11:36 | Inpatient (IN) | payer OTHER, BC ==
[2018-08-09] MEDS: FUROSEMIDE 20 MG TAB PO SCH ×2 (08:16→15:33)
[2018-08-09] MEDS ORDERED: ALBUTEROL 60 PUFFS/8 GM MDI IH PRN (15:02)
[2018-08-09] MEDS ORDERED: LACTASE 3,000 UNIT TAB PO PRN (15:02)
[2018-08-09] MEDS ORDERED: ACETAMINOPHEN 500 MG TAB PO PRN (15:02)
[2018-08-09] MEDS ORDERED: CARBOXYMETHYLCELLULOSE 1% 0.4 ML DROPERETTE EACHEYE PRN (15:02)
[2018-08-09] MEDS ORDERED: BISACODYL 10 MG SUPP PR PRN (15:10)
[2018-08-09] MEDS: oxyCODONE IR 5 MG TAB PO PRN (15:33)
[2018-08-09] MEDS: GABAPENTIN 400 MG CAP PO SCH ×2 (15:33→20:58)
--- NOTE | 2018-08-09 15:49 | GHP ---
POST ADMISSION PHYSICIAN EVALUATION AND REHABILITATION TREATMENT PLAN DATE OF ADMISSION: 08/09/2018 DATE OF EVALUATION: August 09, 2018. TIME OF EVALUATION: 1435. REFERRING FACILITY: [facility]. REFERRING PHYSICIAN: Samir Herrera MD REHABILITATION DIAGNOSIS: Debility status post lumbar spinal surgery. IMPAIRMENT GROUP: 4.130. ETIOLOGIC DIAGNOSIS: Other nontraumatic spinal cord dysfunction. DATE OF ONSET: 07/25/2018. DATE OF SURGERY: 07/25/2018, and she had repeat surgery on 08/06/2018. HISTORY OF PRESENT ILLNESS: This patient had a prior rehabilitation stay from 07/30/2018, to 08/03/2018, following lumbar spinal surgery to correct degenerative scoliosis. At that time, she had a T11 to S1 fusion and total lumbar interbody fusion at L1-2, L2-3, L3-4, L4-5, and L5-S1. She came to inpatient rehabilitation for several days, but her participation in therapy was limited due to pain. Ultimately, she also had urinary retention and suspicion for neurogenic bladder, so she was sent back to the hospital. She had imaging done and ultimately a surgery with a L2 to L4 laminectomy. When she had surgery , there was a large hematoma that was evacuated and there was kinked dura at L3- 4. Post surgery, she had improvement in her pain, though she still complains of pain down the back of the right leg. She otherwise was stable and appropriate for inpatient rehabilitation. STUDIES AND LABS IN THE HOSPITAL: CT myelogram revealed residual stenosis at L2 to L4. She had a CBC prior to surgery which showed anemia with a hemoglobin of 9.3 and a hematocrit of 28.8. Coagulation studies showed a normal pro time. Urinalysis was consistent with a possible UTI, but she had been catheterized. She had 2+ protein, 1+ blood, 3+ leukocyte esterase, 25-50 red blood cells, and 50-182 white blood cells. PRECAUTIONS: She is a fall risk. She has orthopedic precautions of the lumbar spine. ACTIVE COMORBIDITIES: She has no active tier 1, tier 2 or tier 3 comorbidities. PAST MEDICAL HISTORY: 1. Cervical spinal stenosis and radiculopathy. 2. Restrictive lung disease. 3. Possible COPD. 4. Dyslipidemia. 5. Hypertension. 6. Degenerative lumbar scoliosis. PAST SURGICAL HISTORY: She had a cervical spine surgery in March of this year. PRE-HOSPITAL MEDICATIONS: Prior to her initial hospitalization for surgery on 07/25/2018, were as follows. 1. Acetaminophen 500 to 1000 mg b.i.d. p.r.n. 2. Albuterol 1-2 puffs daily p.r.n. 3. PreserVision multivitamin b.i.d. 4. Carboxymethylcellulose 1% eyedrops each eye q.i.d. p.r.n. 5. Carvedilol 12.5 mg p.o. b.i.d. 6. Cholecalciferol 4000 units p.o. daily. 7. Conjugated estrogens 0.3 mg p.o. daily at 1800. 8. Ezetimibe 10 mg p.o. q.h.s. 9. Famotidine 20 mg p.o. b.i.d. 10. Furosemide 20 mg p.o. b.i.d. at 0900 and 1600. 11. Losartan 25 mg p.o. daily. 12. Magnesium oxide 400 mg p.o. daily. 13. Rosuvastatin 20 mg p.o. q.h.s. 14. Lactase 3000 units p.o. daily p.r.n. 15. Diphenhydramine 12.5 mg p.o. q.h.s. p.r.n. ADMISSION MEDICATIONS: 1. Acetaminophen 500 to 1000 mg p.o. b.i.d. 2. Albuterol 1-2 puffs inhaled daily. 3. PreserVision multivitamin b.i.d. 4. Carboxymethylcellulose 1% eyedrops each eye q.i.d. p.r.n. 5. Carvedilol 12.5 mg p.o. b.i.d. 6. Cholecalciferol 4000 units p.o. daily. 7. Conjugated estrogens 0.3 mg p.o. daily at 1800. 8. Ezetimibe 10 mg p.o. q.h.s. 9. Famotidine 20 mg p.o. b.i.d. 10. Furosemide 20 mg p.o. b.i.d. at 0900 and 1600. 11. Gabapentin 400 mg p.o. t.i.d. 12. Lactase 3000 mg p.o. daily. 13. Losartan 25 mg p.o. daily at noon. 14. Magnesium oxide 400 mg p.o. daily. 15. Methocarbamol 750 mg p.o. q.i.d. p.r.n. 16. Oxycodone 5 to 10 mg p.o. q.3 hours p.r.n. 17. Senna/docusate 1-2 tabs p.o. b.i.d. ALLERGIES: Listed to naproxen and penicillins. PSYCHOSOCIAL HISTORY: She is . She lives with her in [place], [place]. 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 She is a nonsmoker. She has a son who lives in [place], [place]. REVIEW OF SYSTEMS: She reports that she is moving her bowels and she is voiding normally. She had urinary incontinence yesterday. She has pain radiating into her right leg and in her low back. She denies fevers or chills, cough or dyspnea, nausea, vomiting, constipation, or diarrhea, dysuria or urinary urgency, joint pain or joint swelling, skin rash or skin breakdown. She is in good spirits. Otherwise, a 10-point review of systems is negative. PHYSICAL EXAMINATION: VITALS: Blood pressure is 127/57, heart rate is 83, respiratory rate is 16, oxygen saturation is 91% on room air, temperature is 36.8 degrees centigrade. Her weight in the hospital was 68.9 kg for a body mass index of 31.7. GENERAL: This is an obese woman, lying in bed, cooperative , and in no acute distress. HEENT: Extraocular movements are intact. Pupils are equal, round, reactive to light. Mucous members are moist. Dentition is in good condition. NECK: Supple. HEART: There is a regular rate and rhythm with no murmurs, rubs, or gallops. LUNGS: Clear to auscultation bilaterally. ABDOMEN: Soft, nontender, nondistended with normoactive bowel sounds and no hepatosplenomegaly. EXTREMITIES: There is no cyanosis or clubbing. There is trace to 1+ edema, with compression stockings in place. NEUROLOGIC: She is alert and oriented x3. Cranial nerves 2-12 are grossly intact. There is no focal weakness, and sensation is intact to light touch. CURRENT LEVEL OF FUNCTION PER THE PREADMISSION SCREEN: She was on a regular diet. She accomplished grooming with minimal assistance. Dressing required maximal assistance and voice cues to don her back brace. Toileting was done with contact guard and voice cues. When she was assessed regarding bladder, she was still on a Perez catheter. Since then, she has been able to void normally. Bed mobility required contact to minimal assist with log rolling and extra time to get to the edge of the bed. She was able to make transfers with standby to contact guard assist. She used a front-wheeled walker. Seated balance was independent. Standing balance required standby assist. Endurance was fair. She was able to ambulate 50 feet with standby assist and a front- wheeled walker with voice cuing and a step through gait pattern. Communication and cognition were within normal limits. On today's exam, there are no significant changes from the preadmission screen. IMPRESSION: 1. Debility, status post lumbar spine surgery most recently on 08/06/2018. Pain is improved following the second surgery. She has deficits to mobility and activities of daily living and will benefit from physical therapy and occupational therapy. 2. Pain management. Pain medication dosing has been returned to her dosing prior to her rehospitalization with gabapentin 400 mg t.i.d. and oxycodone 5 to 10 mg p.o. q.3 hours p.r.n. Additionally, she has methocarbamol 750 mg p.o. q.i.d. p.r.n. and acetaminophen 500 to 1000 mg b.i.d. p.r.n. I will change the acetaminophen to 1000 mg t.i.d. scheduled and otherwise monitor for pain control. She was previously on morphine SR as well at 15 mg q.h.s. or b.i.d. Consider initiating morphine SR if her pain is not adequately controlled. 3. Postsurgical care. She had a NANI drain in place and it is to remain until there is no drainage. She will have a lumbar corset which will be on whenever she is out of bed. She has lumbar spine precautions. 4. Hypertension is adequately controlled with carvedilol and losartan. 5. Edema. Continue furosemide and on compression stockings. Will check a CMP in the morning regarding renal function, liver function and albumin. 6. Restrictive lung disease and possible COPD. Continue albuterol on a p.r.n. basis. 7. Dyslipidemia. Continue rosuvastatin and Ezetimibe. 8. Prophylaxis. Her mobility is much reduced. Will treat with enoxaparin 40 mg subcutaneous daily until her mobility improves. 9. Followup. Will discuss with Neurosurgery regarding when she should see them again. /[id number]/MODL MTDD
[2018-08-09] MEDS: CARVEDILOL 6.25 MG TAB PO SCH (17:36)
[2018-08-09] MEDS: FAMOTIDINE 20 MG TAB PO SCH (17:37)
[2018-08-09] MEDS: ESTROGENS,CONJUGATED 0.3 MG TAB PO SCH (17:38)
[2018-08-09] MEDS: ROSUVASTATIN CALCIUM 20 MG TAB PO SCH (20:49)
[2018-08-09] MEDS: PRESERVISION AREDS2 FORMULA EYE VIT 1 EACH PO SCH (20:49)
[2018-08-09] MEDS: EZETIMIBE 10 MG TAB PO SCH (20:49)
[2018-08-09] MEDS: SENNOSIDES/DOCUSATE SODIUM TAB PO SCH (20:49)
[2018-08-09] MEDS ORDERED: ACETAMINOPHEN 325 MG TAB PO ONE (23:00)
[2018-08-10] MEDS: oxyCODONE IR 5 MG TAB PO PRN ×6 (00:22→20:32)
[2018-08-10] MEDS ORDERED: ACETAMINOPHEN 500 MG TAB PO SCH (06:00)
[2018-08-10 07:29] LABS: PLATELET COUNT 356 10^3/uL (150-400)
[2018-08-10] MEDS: METHOCARBAMOL 750 MG TAB PO PRN ×2 (08:41→16:18)
[2018-08-10] MEDS: ACETAMINOPHEN 500 MG TAB PO SCH ×3 (08:43→21:52)
[2018-08-10] MEDS: SENNOSIDES/DOCUSATE SODIUM TAB PO SCH ×2 (08:44→20:31)
[2018-08-10] MEDS: PRESERVISION AREDS2 FORMULA EYE VIT 1 EACH PO SCH ×2 (08:44→20:31)
[2018-08-10] MEDS: CARVEDILOL 6.25 MG TAB PO SCH ×2 (08:45→17:29)
[2018-08-10] MEDS: GABAPENTIN 400 MG CAP PO SCH ×3 (08:45→20:38)
[2018-08-10] MEDS: FUROSEMIDE 20 MG TAB PO SCH ×2 (08:46→16:18)
[2018-08-10] MEDS: MAGNESIUM OXIDE 400 MG TAB PO SCH (08:46)
[2018-08-10] MEDS: ENOXAPARIN 40 MG/0.4 ML SYR SC SCH (08:46)
[2018-08-10] MEDS: CHOLECALCIFEROL VIT D3 2,000 UNITS TAB/CAP PO SCH (08:46)
[2018-08-10] MEDS: FAMOTIDINE 20 MG TAB PO SCH ×2 (08:46→17:30)
[2018-08-10] MEDS: LIDOCAINE 4%/MENTHOL 1% PATCH TD SCH (10:06)
[2018-08-10] MEDS ORDERED: NITROFURANTOIN MACROBID 100 MG CAP PO SCH (11:15)
--- NOTE | 2018-08-10 11:16 | HOSPPROG ---
Hospitalist Progress Note Assessment/Plan: Debility following T11 to S1 spinal fusion surgery and re-exploration with hematoma evacuation * Continue PT and OT to optimize mobility and activities of daily living towards an independent to modified independent level. Postsurgical care * cont NANI drain Pain management * cont kay Tylenol and prn oxy Urinary retention * had problems with this prior to re-admission - she does have dysuria and increased bladder sensitivity. U/A 08/09 shows possible UTI - will treat UTI * start nitrofurantin * check culture Chronic edema * cont lasix Hypertension. * Continue carvedilol and losartan. Hold losartan for systolic blood pressure less than 120. Restrictive lung disease. There is no specific treatment for this. She reports her naturalist in [place] believes that there may be a component of COPD, so will continue the albuterol ordered daily. Continue oxygen. She reports that the restrictive lung disease diagnosis was made at [facility] and that there was no pulmonary hypertension. Dyslipidemia. Continue ezetimibe and rosuvastatin. Prophylaxis * lovenox Spinal precautions. No bending, lifting or twisting. She needs to wear the lumbar corset when she is out of bed. She has a 5 to 10-pound weight limit. Subjective: radicular pain down both legs better after surgery but still there. has burning with urination and discomfort with postvoid residual of only 360. Objective: Vital Signs Temp Pulse Resp BP Pulse Ox 36.8 C 79 16 125/56 H 95 08/10/18 07:01 08/10/18 08:45 08/10/18 07:01 08/10/18 08:45 08/10/18 07:01 Laboratory Results 08/10/18 06:00 08/10/18 06:00 08/09/18 08/10/18 08/11/18 05:59 05:59 05:59 Intake Total 800 300 Output Total 880 150 Balance -80 150 - Physical Exam Constitutional: no apparent distress, appears nourished, not in pain Eyes: anicteric sclera, EOMI Ears, Nose, Mouth, Throat: moist mucous membranes, hearing normal Cardiovascular: regular rate and rhythym, edema (1+) Respiratory: no respiratory distress, no rales or rhonchi Gastrointestinal: normoactive bowel sounds, soft, non-tender abdomen, no palpable masses Skin: warm Neurologic: AAOx3, No weakness (foot weakness) Psychiatric: interacting appropriately, not anxious, not encephalopathic, thought process linear ICD10 Worksheet Patient Problems: Problems Problem Status Onset Cervical stenosis of spinal canal Acute Fusion of spine of thoracolumbar region Acute
[2018-08-10] MEDS: LOSARTAN POTASSIUM 25 MG TAB PO SCH (13:30)
[2018-08-10] MEDS: ESTROGENS,CONJUGATED 0.3 MG TAB PO SCH ×2 (17:30→17:31)
[2018-08-10] MEDS: NITROFURANTOIN MACROBID 100 MG CAP PO SCH ×2 (17:34→21:52)
[2018-08-10] MEDS: EZETIMIBE 10 MG TAB PO SCH (20:31)
[2018-08-10] MEDS: ROSUVASTATIN CALCIUM 20 MG TAB PO SCH (20:32)
[2018-08-10] MEDS: PATCH REMOVAL 1 EA PATCH TD SCH (20:40)
[2018-08-11] MEDS: oxyCODONE IR 5 MG TAB PO PRN ×4 (06:47→18:03)
[2018-08-11] MEDS: GABAPENTIN 400 MG CAP PO SCH ×3 (07:48→20:47)
[2018-08-11] MEDS: MAGNESIUM OXIDE 400 MG TAB PO SCH (07:49)
[2018-08-11] MEDS: NITROFURANTOIN MACROBID 100 MG CAP PO SCH ×2 (07:49→20:46)
[2018-08-11] MEDS: FUROSEMIDE 20 MG TAB PO SCH ×2 (07:50→16:14)
[2018-08-11] MEDS: PRESERVISION AREDS2 FORMULA EYE VIT 1 EACH PO SCH ×2 (07:50→20:47)
[2018-08-11] MEDS: METHOCARBAMOL 750 MG TAB PO PRN ×2 (07:50→15:04)
[2018-08-11] MEDS: SENNOSIDES/DOCUSATE SODIUM TAB PO SCH ×2 (07:50→20:46)
[2018-08-11] MEDS: FAMOTIDINE 20 MG TAB PO SCH ×2 (07:50→17:57)
[2018-08-11] MEDS: CHOLECALCIFEROL VIT D3 2,000 UNITS TAB/CAP PO SCH (07:50)
[2018-08-11] MEDS: CARVEDILOL 6.25 MG TAB PO SCH ×2 (07:51→17:57)
[2018-08-11] MEDS: ENOXAPARIN 40 MG/0.4 ML SYR SC SCH (07:51)
[2018-08-11] MEDS: ACETAMINOPHEN 500 MG TAB PO SCH ×3 (08:24→20:47)
[2018-08-11] MEDS: LIDOCAINE 4%/MENTHOL 1% PATCH TD SCH (09:56)
--- NOTE | 2018-08-11 11:01 | HOSPPROG ---
Hospitalist Progress Note Assessment/Plan: Debility following T11 to S1 spinal fusion surgery and re-exploration with hematoma evacuation * Continue PT and OT to optimize mobility and activities of daily living towards an independent to modified independent level. Postsurgical care * cont NANI drain Pain management * cont kay Tylenol and prn oxy Urinary retention * had problems with this prior to re-admission - she does have dysuria and increased bladder sensitivity. U/A 08/09 shows possible UTI - will treat UTI * start nitrofurantin * check culture Chronic edema * cont lasix Hypertension. * Continue carvedilol and losartan. Hold losartan for systolic blood pressure less than 120. Restrictive lung disease. There is no specific treatment for this. She reports her almond sorter in [place] believes that there may be a component of COPD, so will continue the albuterol ordered daily. Continue oxygen. She reports that the restrictive lung disease diagnosis was made at [facility] and that there was no pulmonary hypertension. Dyslipidemia. Continue ezetimibe and rosuvastatin. Prophylaxis * lovenox Spinal precautions. No bending, lifting or twisting. She needs to wear the lumbar corset when she is out of bed. She has a 5 to 10-pound weight limit. Subjective: still with someurinary retention and dysuria but less residuals. still with radicular pain with sitting Objective: Vital Signs Temp Pulse Resp BP Pulse Ox 36.7 C 70 16 139/61 H 96 08/11/18 06:42 08/11/18 07:51 08/11/18 06:42 08/11/18 07:51 08/11/18 06:42 Laboratory Results 08/10/18 06:00 08/10/18 06:00 08/10/18 08/11/18 08/12/18 05:59 05:59 05:59 Intake Total 800 650 120 Output Total 880 1690 340 Balance -80 -1040 -220 - Physical Exam Constitutional: no apparent distress, appears nourished, not in pain Eyes: anicteric sclera, EOMI Ears, Nose, Mouth, Throat: moist mucous membranes, hearing normal Cardiovascular: regular rate and rhythym Respiratory: no respiratory distress, no rales or rhonchi Skin: warm Neurologic: AAOx3 Psychiatric: interacting appropriately, not anxious, not encephalopathic, thought process linear ICD10 Worksheet Patient Problems: Problems Problem Status Onset Cervical stenosis of spinal canal Acute Fusion of spine of thoracolumbar region Acute
[2018-08-11] MEDS: LOSARTAN POTASSIUM 25 MG TAB PO SCH (12:26)
[2018-08-11] MEDS: ROSUVASTATIN CALCIUM 20 MG TAB PO SCH (20:46)
[2018-08-11] MEDS: EZETIMIBE 10 MG TAB PO SCH (20:47)
[2018-08-11] MEDS: PATCH REMOVAL 1 EA PATCH TD SCH (20:57)
[2018-08-12] MEDS: oxyCODONE IR 5 MG TAB PO PRN ×6 (03:15→23:05)
[2018-08-12] MEDS: METHOCARBAMOL 750 MG TAB PO PRN ×2 (05:30→19:09)
[2018-08-12] MEDS: CARVEDILOL 6.25 MG TAB PO SCH ×2 (07:14→17:47)
[2018-08-12] MEDS: FAMOTIDINE 20 MG TAB PO SCH ×2 (07:15→17:47)
[2018-08-12] MEDS: ACETAMINOPHEN 500 MG TAB PO SCH ×3 (08:26→22:34)
[2018-08-12] MEDS: CHOLECALCIFEROL VIT D3 2,000 UNITS TAB/CAP PO SCH (08:29)
[2018-08-12] MEDS: PRESERVISION AREDS2 FORMULA EYE VIT 1 EACH PO SCH ×2 (08:29→22:33)
[2018-08-12] MEDS: FUROSEMIDE 20 MG TAB PO SCH ×2 (08:30→16:18)
[2018-08-12] MEDS: NITROFURANTOIN MACROBID 100 MG CAP PO SCH ×2 (08:31→22:33)
[2018-08-12] MEDS: MAGNESIUM OXIDE 400 MG TAB PO SCH (08:31)
[2018-08-12] MEDS: GABAPENTIN 400 MG CAP PO SCH (08:31)
[2018-08-12] MEDS: SENNOSIDES/DOCUSATE SODIUM TAB PO SCH ×2 (08:32→22:34)
[2018-08-12] MEDS: ENOXAPARIN 40 MG/0.4 ML SYR SC SCH (08:58)
[2018-08-12] MEDS: LIDOCAINE 4%/MENTHOL 1% PATCH TD SCH (09:00)
--- NOTE | 2018-08-12 09:49 | SOAPPROG ---
SOAP Progress Note Assessment/Plan: Assessment: Debility, status post lumbar spine surgery most recently on 08/06/2018. * Initial functional independence measure is 70 on 08/12/2018. Minimal assist for bed mobility to get her legs in and out of bed. Transfers with a front wheeled walker and standby assist. Ambulated 120 ft with a front wheeled walker and standby assist. Climbed 6 stairs with bilateral rails, standby assist. Upper body dressing requires minimal assist, lower body dressing requires moderate assist. She does grooming and hygiene seated. Bathing requires total assist and bath transfer requires minimal assist. * Continue physical therapy and occupational therapy. Pain management. Pain is improved following the second surgery. Continue oxycodone 5-10 mg Q 3 hr as needed, acetaminophen 1000 mg scheduled three times daily and methocarbamol 750 mg four times daily p.r.n.. * Increased gabapentin from 400 mg three times daily to 600 mg three times daily starting 08/12/2018. Postsurgical care. She had a NANI drain in place and it is to remain until there is no drainage. She will have a lumbar corset which will be on whenever she is out of bed. She has lumbar spine precautions. Urinary retention. She reports normal sensation. Unclear whether she has neurogenic bowel or if opiate and gabapentin are contributing. * Trial of bethanechol and tamsulosin starting 08/12/2018. UTI. Continue nitrofurantoin x7 days, through 08/16/2018. Microbiology shows susceptible E coli. Hypertension is adequately controlled with carvedilol and losartan. Edema. Continue furosemide and compression stockings. * Normal renal function on CMP 08/10/2018. Albumin is low at 2.4 so their may be a component of anasarca. Restrictive lung disease and possible COPD. Continue albuterol on a p.r.n. basis. Dyslipidemia. Continue rosuvastatin and Ezetimibe. Prophylaxis. Her mobility is much reduced. Will treat with enoxaparin 40 mg subcutaneous daily until her mobility improves. DISPOSITION: Lives with her in [place] and plans to return there. Local son in [place]. Tentative discharge date set for 08/22/2018. FOLLOW-UP. Will discuss with Neurosurgery regarding when she should see them again. 08/12/18 10:55 Subjective: Concerned about urinary retention. Reports that she is unable to initiate urination at times, but other times she is able to. She says she was catheterized last night. He still has pain in her right buttocks and on her right leg. It is better if she states with her pelvis and a somewhat slouched position and the therapists have helped adjustment padding in her chair for this position. She is tolerating sitting upright longer and she is walking further. No constipation. She reports that she has sensation of bladder fullness and she feels a sensation of urinating when she is able to urinate. Objective: Vital Signs Temp Pulse Resp BP Pulse Ox 36.8 C 86 16 131/68 H 98 08/12/18 06:35 08/12/18 06:35 08/12/18 06:35 08/12/18 06:35 08/12/18 06:35 Microbiology 08/10/18 14:50 Urine Culture - Final Urine,Clean Catch Escherichia Coli Laboratory Results 08/10/18 06:00 08/10/18 06:00 08/11/18 08/12/18 08/13/18 05:59 05:59 05:59 Intake Total 650 660 100 Output Total 1730 1600 640 Balance -1080 -940 -540 - Time Spent With Patient Time Spent With Patient: Greater than 35 min floor time today, including more than 50% of time in coordination of care during staffing meeting, and counseling patient. Physical Exam - Physical Exam General Appearance: WD/WN, alert, no apparent distress Respiratory: normal breath sounds, No crackles, No rhonchi, No wheezing Cardiac/Chest: regular rate, rhythm, No diastolic murmur, No systolic murmur Skin: normal color, warm/dry Neuro/Psych: alert, normal mood/affect, oriented x 3 ICD10 Worksheet Patient Problems: Problems Problem Status Onset Cervical stenosis of spinal canal Acute Fusion of spine of thoracolumbar region Acute
[2018-08-12] MEDS: TAMSULOSIN HCL 0.4 MG CAP PO SCH (09:51)
--- NOTE | 2018-08-12 11:00 | PDOREHIP ---
Admission [facility] - Admission - 3 Day Assessment Period Admission Date/Day 1: 08/09/18 Day 2: 08/10/18 Day 3: 08/11/18 - Active Diagnoses Comorbidities and Co-existing Conditions at Admission: 20225. None of the Above - Skin Conditions Unhealed Pressure Ulcer (1 or more/Stage 1 or >)-Admission: 0. No # Stage 1 Pressure Ulcers-Admission: 0 # Stage 2 Pressure Ulcers-Admission: 0 # Stage 3 Pressure Ulcers-Admission: 0 # Stage 4 Pressure Ulcers-Admission: 0 # Unstageable Pressure Ulcers (Non-remove Dress)-Admission: 0 # Unstageable Pressure Ulcers (Slough/Eschar)-Admission: 0 # Unstageable Pressure Ulcers (Deep Tissue Injury)-Admission: 0
[2018-08-12] MEDS: LOSARTAN POTASSIUM 25 MG TAB PO SCH (12:11)
[2018-08-12] MEDS: BETHANECHOL 10 MG TAB PO SCH ×3 (12:12→22:33)
[2018-08-12] MEDS: GABAPENTIN 300 MG CAP PO SCH ×2 (16:18→22:33)
[2018-08-12] MEDS: ESTROGENS,CONJUGATED 0.3 MG TAB PO SCH (17:47)
[2018-08-12] MEDS: EZETIMIBE 10 MG TAB PO SCH (22:33)
[2018-08-12] MEDS: ROSUVASTATIN CALCIUM 20 MG TAB PO SCH (22:33)
[2018-08-12] MEDS: PATCH REMOVAL 1 EA PATCH TD SCH (22:34)
[2018-08-13] MEDS: oxyCODONE IR 5 MG TAB PO PRN ×7 (05:54→21:39)
[2018-08-13] MEDS: METHOCARBAMOL 750 MG TAB PO PRN ×3 (05:54→17:31)
[2018-08-13] MEDS: BETHANECHOL 10 MG TAB PO SCH ×4 (05:54→21:24)
--- NOTE | 2018-08-13 08:23 | SOAPPROG ---
SHAMIKA Progress Note Assessment/Plan: 77-year-old woman status post T11-S1 spinal fusion for degenerative scoliosis in early July status post repeat surgery on 08/06 with return to rehab on with impairments in mobility, self-care. Today's update: Continues to have urinary retention with elevated postvoid residuals around 300 yesterday, just started bethanechol and tamsulosin and awaiting effect. Gabapentin was just increased, she did not notice a difference in her pain, however by pain descriptors, she is experiencing musculoskeletal pain in the hips and posterior thighs. Encouraged her to continue early mobilization and stretching as directed by therapies and has been helping her symptoms. Continue to monitor postvoid residuals, continue bethanechol and tamsulosin, continue gabapentin at present dose, monitor and consider Perez catheter if requiring frequent intermittent catheterization. A total of 25 min was spent on the floor in the care of the patient, the majority of which was spent in counseling coordination of care regarding her rehab progress with therapist and nursing. Additional issues reviewed without change today include treatment of urinary tract infection to continue through 08/16, hypertension, edema which appears controlled, restrictive lung disease and possible COPD, dyslipidemia, prophylaxis. 08/13/18 08:19 Subjective: Chief complaint: Urinary retention and posterior leg pain No acute events overnight. Patient denies any new shortness of breath or chest pain, no new numbness, tingling, or weakness. She endorses ongoing urinary retention with mild constipation, also endorses that she continues to have some posterior thigh pain in her buttock and leg that improves with mobility, has been occurring since the back surgery. Not associated with numbness or tingling in those areas. No groin numbness or tingling either. Exercises prescribed by therapist to get her mobilized in the morning have been the most helpful. Gabapentin has not been so helpful after the increase to this point. She still has high postvoid residuals after starting bethanechol and tamsulosin but otherwise no complaints of side effects. Objective: Vital Signs Temp Pulse Resp BP Pulse Ox 36.6 C 79 16 108/44 L 95 08/13/18 06:52 08/13/18 06:52 08/13/18 06:52 08/13/18 06:52 08/13/18 06:52 Microbiology 08/10/18 14:50 Urine Culture - Final Urine,Clean Catch Escherichia Coli Laboratory Results 08/10/18 06:00 08/10/18 06:00 08/12/18 08/13/18 08/14/18 05:59 05:59 05:59 Intake Total 660 1790 Output Total 1600 1850 Balance -940 -60 Physical Exam - Physical Exam General Appearance: WD/WN, alert, mild distress, obese EENT: No scleral icterus (R), No scleral icterus (L) Respiratory: No respiratory distress, No accessory muscle use Cardiac/Chest: normal peripheral pulses, regular rate, rhythm, No edema Skin: normal color, warm/dry, No cyanosis, No diaphoresis Extremities: non-tender, No pedal edema, No calf tenderness Neuro/Psych: alert, normal mood/affect, motor weakness (Pain inhibited in the legs), No sensory deficit ICD10 Worksheet Patient Problems: Problems Problem Status Onset Cervical stenosis of spinal canal Acute Fusion of spine of thoracolumbar region Acute
[2018-08-13] MEDS: LIDOCAINE 4%/MENTHOL 1% PATCH TD SCH (08:27)
[2018-08-13] MEDS: ENOXAPARIN 40 MG/0.4 ML SYR SC SCH (08:28)
[2018-08-13] MEDS: FAMOTIDINE 20 MG TAB PO SCH ×2 (08:28→17:31)
[2018-08-13] MEDS: CARVEDILOL 6.25 MG TAB PO SCH ×3 (08:28→17:52)
[2018-08-13] MEDS: ACETAMINOPHEN 500 MG TAB PO SCH ×3 (08:29→21:26)
[2018-08-13] MEDS: MAGNESIUM OXIDE 400 MG TAB PO SCH (08:30)
[2018-08-13] MEDS: CHOLECALCIFEROL VIT D3 2,000 UNITS TAB/CAP PO SCH (08:30)
[2018-08-13] MEDS: GABAPENTIN 300 MG CAP PO SCH ×3 (08:30→21:25)
[2018-08-13] MEDS: TAMSULOSIN HCL 0.4 MG CAP PO SCH (08:30)
[2018-08-13] MEDS: FUROSEMIDE 20 MG TAB PO SCH ×2 (08:30→15:51)
[2018-08-13] MEDS: NITROFURANTOIN MACROBID 100 MG CAP PO SCH ×2 (08:30→21:23)
[2018-08-13] MEDS: PRESERVISION AREDS2 FORMULA EYE VIT 1 EACH PO SCH ×2 (08:31→21:23)
[2018-08-13] MEDS: SENNOSIDES/DOCUSATE SODIUM TAB PO SCH ×2 (08:31→21:23)
[2018-08-13] MEDS: LOSARTAN POTASSIUM 25 MG TAB PO SCH (13:07)
[2018-08-13] MEDS: ESTROGENS,CONJUGATED 0.3 MG TAB PO SCH (17:58)
[2018-08-13] MEDS: EZETIMIBE 10 MG TAB PO SCH (21:23)
[2018-08-13] MEDS: ROSUVASTATIN CALCIUM 20 MG TAB PO SCH (21:23)
[2018-08-13] MEDS: PATCH REMOVAL 1 EA PATCH TD SCH (23:49)
[2018-08-14] MEDS: METHOCARBAMOL 750 MG TAB PO PRN ×3 (01:17→22:49)
[2018-08-14] MEDS ORDERED: oxyCODONE IR 5 MG TAB PO PRN (05:30)
[2018-08-14] MEDS: BETHANECHOL 10 MG TAB PO SCH ×4 (05:45→20:19)
[2018-08-14] MEDS: oxyCODONE IR 5 MG TAB PO PRN ×3 (05:52→22:50)
[2018-08-14] MEDS: PRESERVISION AREDS2 FORMULA EYE VIT 1 EACH PO SCH ×2 (08:16→20:19)
[2018-08-14] MEDS: GABAPENTIN 300 MG CAP PO SCH ×3 (08:16→21:02)
[2018-08-14] MEDS: FAMOTIDINE 20 MG TAB PO SCH ×2 (08:16→17:56)
[2018-08-14] MEDS: TAMSULOSIN HCL 0.4 MG CAP PO SCH (08:17)
[2018-08-14] MEDS: CARVEDILOL 6.25 MG TAB PO SCH ×2 (08:18→18:03)
[2018-08-14] MEDS: ACETAMINOPHEN 500 MG TAB PO SCH ×3 (08:18→21:01)
[2018-08-14] MEDS: CHOLECALCIFEROL VIT D3 2,000 UNITS TAB/CAP PO SCH (08:19)
[2018-08-14] MEDS: MAGNESIUM OXIDE 400 MG TAB PO SCH (08:19)
[2018-08-14] MEDS: SENNOSIDES/DOCUSATE SODIUM TAB PO SCH ×2 (08:19→20:19)
[2018-08-14] MEDS: ENOXAPARIN 40 MG/0.4 ML SYR SC SCH (08:20)
[2018-08-14] MEDS: LIDOCAINE 4%/MENTHOL 1% PATCH TD SCH (08:22)
--- NOTE | 2018-08-14 08:58 | SOAPPROG ---
SOAP Progress Note Assessment/Plan: Assessment: DISCUSSED WITH NEUROSURGERY, DR. REEVES, 08/14/2018, REGARDING LEAKING DRAIN AND REGARDING INCREASED PAIN. HE SUGGESTS THAT WE SEND PATIENT TO THE EMERGENCY DEPARTMENT AT [facility] AND HE WILL EVALUATE HER THERE. Debility, status post lumbar spine surgery most recently on 08/06/2018. * Initial functional independence measure is 70 on 08/12/2018. Minimal assist for bed mobility to get her legs in and out of bed. Transfers with a front wheeled walker and standby assist. Ambulated 120 ft with a front wheeled walker and standby assist. Climbed 6 stairs with bilateral rails, standby assist. Upper body dressing requires minimal assist, lower body dressing requires moderate assist. She does grooming and hygiene seated. Bathing requires total assist and bath transfer requires minimal assist. * Continue physical therapy and occupational therapy. Pain management. Pain is improved following the second surgery. Continue oxycodone 5-10 mg Q 3 hr as needed, acetaminophen 1000 mg scheduled three times daily and methocarbamol 750 mg four times daily p.r.n.. * Increased gabapentin from 400 mg three times daily to 600 mg three times daily starting 08/12/2018. * Scheduled oxycodone 10 mg at 530 a.m. daily starting 08/14/2018 as she had reported that pain was worst upon arising in the morning. Does not appear to have had a significant effect today, 08/14/2018. Postsurgical care. She has a NANI drain in place and it is to remain until there is no drainage. She will have a lumbar corset which will be on whenever she is out of bed. She has lumbar spine precautions. * Considerable fluid leak around drain. Urinary retention. She reports normal sensation. Unclear whether she has neurogenic bowel or if opiate and gabapentin are contributing. * Trial of bethanechol and tamsulosin starting 08/12/2018. UTI. Continue nitrofurantoin x7 days, through 08/16/2018. Microbiology shows susceptible E coli. Hypertension is adequately controlled with carvedilol and losartan. Edema. Continue furosemide and compression stockings. * Normal renal function on CMP 08/10/2018. Albumin is low at 2.4 so their may be a component of anasarca. * No edema on exam 08/14/2018 Restrictive lung disease and possible COPD. Continue albuterol on a p.r.n. basis. Continue oxygen at night. Dyslipidemia. Continue rosuvastatin and Ezetimibe. Prophylaxis. Her mobility is much reduced. Will treat with enoxaparin 40 mg subcutaneous daily until her mobility improves. DISPOSITION: Lives with her in [place] and plans to return there. Local son in [place]. Tentative discharge date set for 08/22/2018. FOLLOW-UP. Will discuss with Neurosurgery regarding when she should see them again. 08/14/18 08:56 08/14/18 10:29 Subjective: Increased pain back of thighs and buttocks. Was only on the right side several days ago and now it is bilateral. Had 10 mg of oxycodone scheduled this morning at approximately 5:45 a.m. and has not helped very much. No fevers or chills, no dysuria. Nurses noticed fluid leaking around drain. Objective: Vital Signs Temp Pulse Resp BP Pulse Ox 36.7 C 83 16 132/62 H 97 08/14/18 06:01 08/14/18 08:18 08/14/18 06:01 08/14/18 08:18 08/14/18 06:01 Laboratory Results 08/10/18 06:00 08/10/18 06:00 08/13/18 08/14/18 08/15/18 05:59 05:59 05:59 Intake Total 1790 200 Output Total 1850 1880 Balance -60 -1680 Physical Exam - Physical Exam General Appearance: WD/WN, alert, no apparent distress Respiratory: No respiratory distress, No accessory muscle use Skin: normal color, warm/dry, other (No erythema or purulence along incision or at drain site. Considerable serous, slightly sanguinous fluid leaking around drain absorbed in pad. Multiple areas of eschar along incision. No dehiscence. ) Extremities: No pedal edema Neuro/Psych: alert, normal mood/affect, oriented x 3, other (Improved gait, step through pattern using front wheeled walker, narrow base.) ICD10 Worksheet Patient Problems: Problems Problem Status Onset Cervical stenosis of spinal canal Acute Fusion of spine of thoracolumbar region Acute
[2018-08-14] MEDS: NITROFURANTOIN MACROBID 100 MG CAP PO SCH ×2 (09:23→20:19)
[2018-08-14 09:45] LABS: PLATELET COUNT 364 10^3/uL (150-400)
[2018-08-14] MEDS: LOSARTAN POTASSIUM 25 MG TAB PO SCH (11:06)
[2018-08-14] MEDS: FUROSEMIDE 20 MG TAB PO SCH ×2 (17:56→18:04)
[2018-08-14] MEDS: ESTROGENS,CONJUGATED 0.3 MG TAB PO SCH (18:05)
[2018-08-14] MEDS: ROSUVASTATIN CALCIUM 20 MG TAB PO SCH (20:18)
[2018-08-14] MEDS: EZETIMIBE 10 MG TAB PO SCH (20:19)
[2018-08-14] MEDS: PATCH REMOVAL 1 EA PATCH TD SCH (20:28)
[2018-08-15] MEDS: BETHANECHOL 10 MG TAB PO SCH ×3 (05:18→16:14)
[2018-08-15] MEDS: ENOXAPARIN 40 MG/0.4 ML SYR SC SCH (08:35)
[2018-08-15] MEDS: LIDOCAINE 4%/MENTHOL 1% PATCH TD SCH (08:35)
[2018-08-15] MEDS: ACETAMINOPHEN 500 MG TAB PO SCH ×2 (08:36→17:56)
[2018-08-15] MEDS: CHOLECALCIFEROL VIT D3 2,000 UNITS TAB/CAP PO SCH (08:37)
[2018-08-15] MEDS: GABAPENTIN 300 MG CAP PO SCH (08:37)
[2018-08-15] MEDS: PRESERVISION AREDS2 FORMULA EYE VIT 1 EACH PO SCH (08:37)
[2018-08-15] MEDS: FAMOTIDINE 20 MG TAB PO SCH ×2 (08:37→17:52)
[2018-08-15] MEDS: MAGNESIUM OXIDE 400 MG TAB PO SCH (08:37)
[2018-08-15] MEDS: NITROFURANTOIN MACROBID 100 MG CAP PO SCH (08:38)
[2018-08-15] MEDS: FUROSEMIDE 20 MG TAB PO SCH ×2 (08:38→16:13)
[2018-08-15] MEDS: CARVEDILOL 6.25 MG TAB PO SCH ×2 (08:38→17:52)
[2018-08-15] MEDS: SENNOSIDES/DOCUSATE SODIUM TAB PO SCH (08:39)
[2018-08-15] MEDS: TAMSULOSIN HCL 0.4 MG CAP PO SCH (09:05)
[2018-08-15] MEDS: METHOCARBAMOL 750 MG TAB PO PRN (11:42)
[2018-08-15] MEDS: LOSARTAN POTASSIUM 25 MG TAB PO SCH (12:35)
[2018-08-15] MEDS ORDERED: GABAPENTIN 300 MG CAP PO SCH (13:59)
--- NOTE | 2018-08-15 14:23 | SOAPPROG ---
SOAP Progress Note Assessment/Plan: Assessment: Debility, status post lumbar spine surgery most recently on 08/06/2018. * Initial functional independence measure is 70 on 08/12/2018. Minimal assist for bed mobility to get her legs in and out of bed. Transfers with a front wheeled walker and standby assist. Ambulated 120 ft with a front wheeled walker and standby assist. Climbed 6 stairs with bilateral rails, standby assist. Upper body dressing requires minimal assist, lower body dressing requires moderate assist. She does grooming and hygiene seated. Bathing requires total assist and bath transfer requires minimal assist. * On 08/15/2018 she requires standby to contact guard assist for ambulation, maximal assist for upper and lower body dressing and is unable to sit unsupported due to pain. Nurse reports that she has no bladder sensation. She required catheterization at 5:00 a.m. * Continue physical therapy and occupational therapy. Pain management. Continue oxycodone 5-10 mg Q 3 hr as needed, acetaminophen 1000 mg scheduled three times daily. * MRI 08/14/2018 shows only improvement in fluid collection. * Increased gabapentin from 400 mg three times daily to 600 mg three times daily starting 08/12/2018. Decreased to 300 mg three times daily and discontinued methocarbamol starting 08/15/2018 due to somnolence. * Scheduled oxycodone 10 mg at 530 a.m. daily starting 08/14/2018 as she had reported that pain was worst upon arising in the morning. Postsurgical care. NANI drain removed 08/14/2018 per orders of Neurosurgery. She will have a lumbar corset which will be on whenever she is out of bed. She has lumbar spine precautions. Urinary retention. Unclear whether she has neurogenic bowel or if opiate and gabapentin are contributing. * Trial of bethanechol and tamsulosin starting 08/12/2018. Bethanechol increased from 10 mg to 20 mg four times daily on 08/13/2018. * Observe for improvement with taper of gabapentin. UTI. Continue nitrofurantoin x7 days, through 08/16/2018. Microbiology shows susceptible E coli. Hypertension is adequately controlled with carvedilol and losartan. Edema. Continue furosemide and compression stockings. * Normal renal function on CMP 08/10/2018 and on BMP 08/14/2018. Albumin was low at 2.4 so their may be a component of anasarca. * No edema on exam 08/14/2018 Restrictive lung disease and possible COPD. Continue albuterol on a p.r.n. basis. Continue oxygen at night. Dyslipidemia. Continue rosuvastatin and Ezetimibe. Prophylaxis. Her mobility is much reduced. Will treat with enoxaparin 40 mg subcutaneous daily until her mobility improves. DISPOSITION: Discussed with case management nursing and OT 08/15/2018. Lives with her in [place] and plans to return there. Local son in [place]. Tentative discharge date set for 08/22/2018. Considering discharge to [facility] facility sooner than if she is unable to make progress with therapies due to pain and somnolence on the inpatient rehabilitation unit. Reassess on 08/19/2018. FOLLOW-UP. Has appointment with Neurosurgery on 08/23/2018 08/15/18 15:17 Subjective: CONTINUES TO COMPLAIN OF MEAN BILATERAL BUTTOCKS AND HAMSTRINGS. ALSO FEELS VERY SLEEPY. SAYS SHE SLEPT WELL AT NIGHT. HAD CONSIDERABLE PAIN ARISING FROM BED, AND ANY TIME SHE TRIES TO SIT UP. SHE IS BETTER STANDING AND AMBULATING. Objective: Vital Signs Temp Pulse Resp BP Pulse Ox 37.5 C 96 17 116/52 L 94 08/15/18 05:53 08/15/18 08:38 08/15/18 05:53 08/15/18 12:35 08/15/18 05:53 Laboratory Results 08/14/18 08:15 08/14/18 08:15 08/14/18 08/15/18 08/16/18 05:59 05:59 05:59 Intake Total 200 700 Output Total 1880 685 Balance -1680 15 - Time Spent With Patient Time Spent With Patient: Greater than 35 min floor time today, including discussion with nursing, therapy therapy staff and Case Management, and counseling patient and . Physical Exam - Physical Exam General Appearance: WD/WN, alert, no apparent distress, other (Sleepy) Respiratory: normal breath sounds, No crackles, No rhonchi, No wheezing Cardiac/Chest: regular rate, rhythm, edema (Trace to 1+ bilateral pretibial), No diastolic murmur, No systolic murmur Skin: normal color, warm/dry Neuro/Psych: normal mood/affect, oriented x 3 ICD10 Worksheet Patient Problems: Problems Problem Status Onset Cervical stenosis of spinal canal Acute Fusion of spine of thoracolumbar region Acute Low back pain Acute
[2018-08-15] MEDS ORDERED: NS 1,000 ML IV ONE (19:30)
--- NOTE | 2018-08-15 19:32 | SOAPPROG ---
SOAP Progress Note Assessment/Plan: Cross cover note 77-year-old woman status post T11-S1 spinal fusion for degenerative scoliosis in early July status post repeat surgery on 08/06 with return to rehab on with impairments in mobility, self-care. Notified by Diana WINTERS that patient was febrile to 38+, with tachycardia (on a beta tamia) and hypotension, general malaise and reportedly ill appearing. Concern for sepsis, especially in the setting of recent reported surgical wound drainage. Arranging transfer to [facility] ED for further evaluation and treatment, phoned in details to ED physician. Ordered large bore IV with a liter NS bolus, blood cultures x2 to be sent with patient. Nursing spoke to family about the situation. Dr. Maynard also notified. Deferred empiric antibiotics pending in-person eval in the ED for possible further cultures. 08/13/18 08:19 08/15/18 19:26 08/15/18 19:32 Objective: Vital Signs Temp Pulse Resp BP Pulse Ox 38.3 C H 97 20 95/38 L 94 08/15/18 18:27 08/15/18 18:40 08/15/18 18:27 08/15/18 18:40 08/15/18 18:40 Laboratory Results 08/14/18 08:15 08/14/18 08:15 08/14/18 08/15/18 08/16/18 05:59 05:59 05:59 Intake Total 200 700 Output Total 7896 154 400 Balance -1680 15 -400 ICD10 Worksheet Patient Problems: Problems Problem Status Onset Cervical stenosis of spinal canal Acute Fusion of spine of thoracolumbar region Acute Low back pain Acute
[2018-08-15 19:35] VITALS: BP 88/31
[2018-08-15 20:02] LABS: PLATELET COUNT 238 10^3/uL (150-400)
--- NOTE | 2018-08-16 09:32 | PDOREHIP ---
Admission [facility] - Admission - 3 Day Assessment Period Admission Date/Day 1: 08/09/18 Day 2: 08/10/18 Day 3: 08/11/18 - Active Diagnoses Comorbidities and Co-existing Conditions at Admission: 11210. None of the Above Discharge [facility] - Discharge - 3 Day Assessment Period 2 Days Prior to Anticipated Discharge Date: 08/21/18 1 Day Prior to Anticipated Discharge Date: 08/22/18 Anticipated Discharge Date: 08/23/18 - Discharge Skin Conditions Unhealed Pressure Ulcer (1 or more/Stage 1 or >)-Discharge: 0. No # Stage 1 Pressure Ulcers-Discharge: 0 # Stage 2 Pressure Ulcers-Discharge: 0 # of These Stage 2 Pressure Ulcers Present on Admission: 0 # Stage 3 Pressure Ulcers-Discharge: 0 # of These Stage 3 Pressure Ulcers Present on Admission: 0 # Stage 4 Pressure Ulcers-Discharge: 0 # of These Stage 4 Pressure Ulcers Present on Admission: 0 # Unstageable Pressure Ulcers (Non-remove Dress)-Discharge: 0 # These Unstageable Pressure Ulcers (NRD)-Present on Admit: 0 # Unstageable Pressure Ulcers (Slough/Eschar)-Discharge: 0 # These Unstageable Pressure Ulcers(Slough) Present on Admit: 0 # Unstageable Pressure Ulcers (Deep Tissue Injury)-Discharge: 0 # These Unstageable Pressure Ulcers (DTI) Present on Admit: 0
--- NOTE | 2018-08-16 13:22 | GDS ---
ATTENDING PHYSICIAN: Dr. Maynard. ADMITTING DIAGNOSIS: Debility, status post lumbar surgery. DISCHARGE DIAGNOSIS: Debility, status post lumbar surgery. OTHER DISCHARGE DIAGNOSES: 1. Intractable pain. 2. Fever. 3. Hypotension. 4. Urinary retention. 5. Urinary tract infection. COMPLICATIONS: She developed hypotension, fever, and tachycardia. CONSULTATIONS: She was seen by neurosurgeon, Dr. Garcia. PROCEDURES: She had an MRI of her spine. HISTORY AND HOSPITAL COURSE: This patient came back to rehabilitation after a redo surgery for intractable pain in the buttocks and posterior thighs, as well as urinary retention following her initial surgery for lumbar spinal stenosis and scoliosis. Postsurgically, she continued to have pain which worsened during her stay and interfered with her ability to participate in therapies. She was continued on oxycodone and a dose was added in the a.m. prior to getting out of bed, as this was when she had the most pain. She had been on gabapentin which was titrated during her stay and then tapered for over- sedation. She was diagnosed with a urinary tract infection, which was pansensitive E coli, and treated appropriately with nitrofurantoin. She continued to have urinary retention for which she was begun on bethanechol, which was titrated from 10 mg to 20 mg four times daily, as well as tamsulosin 0.4 mg daily. Due to increased pain, she had an MRI done for spine and consultation with Dr. Garcia at the emergency department on 08/14/2018. MRI showed improvement in fluid collection. She had some improvement in terms of ambulatory ability, and she had minimal pain when ambulating. She primarily had pain when arising from bed in the morning and any time that she was seated. Her sitting tolerance was limited and this affected her ability to do activities of daily living. On the evening of discharge, she developed a fever to 102 degrees Fahrenheit, as well as hypotension with blood pressure as low as 88/31. She was also tachycardic at 101, so given these changes, she was sent to the emergency department for further evaluation. Laboratory studies before she left, included a CBC which showed a white count of 9.96. There was no left shift, but it was predominantly neutrophils. She also had worsening anemia with a hemoglobin of 9.2, whereas on the prior day, her hemoglobin was 10.7. Serum procalcitonin was elevated at 1.55. DISCHARGE PLAN: Disposition is inpatient status at [facility] via the emergency department. Condition is guarded. ACTIVITY: It would be in her best interest if she could continue physical and occupational therapies. DIET: Regular. MEDICATION CONTINUATION: Will be at the discretion of the admitting physician. Copy requested to: Riaz Rodriguez /[id number]/MODL MTDD
== END 2018-08-15 19:00 | disposition still patient (30) | DRG 949 ==
LOC: BREH 14:23
PROVIDERS: ADMIT Internal Medicine; ATTEND Internal Medicine
DX: Z48.811 Encounter for surgical aftercare following surgery on the nervous system (principal); Z98.1 Arthrodesis status; D64.89 Other specified anemias; R60.0 Localized edema; J98.4 Other disorders of lung; E78.5 Hyperlipidemia, unspecified; I10 Essential (primary) hypertension; E66.09 Other obesity due to excess calories; Z68.31 Body mass index [BMI] 31.0-31.9, adult; N39.0 Urinary tract infection, site not specified; B96.20 Unspecified Escherichia coli [E. coli] as the cause of diseases classified elsewhere
CPT/HCPCS: 97110-GO; 97110-GP; 97116-GP; 97140-GO; 97162-GP; 97165-GO; 97530-GO; 97530-GP; 97535-GO; J1650

== ENCOUNTER 2018-08-14 11:46 | Emergency (ER) | payer OTHER, BC ==
[2018-08-14] MEDS ORDERED: HYDROmorphONE/DILAUDID 2 MG/ML INJ IVP ONE (11:58)
--- NOTE | 2018-08-14 12:02 | EDPHY ---
H & P Stated Complaint: Pain from spinal procedure. Drain in place, MD request. Time Seen by Provider: 08/14/18 11:59 HPI/ROS: CHIEF COMPLAINT: Low back pain HISTORY OF PRESENT ILLNESS: The patient is a 77-year-old female with a history of scoliosis who had lumbar fusion on the with Dr. Flores. Her course was complicated by a hematoma that required return to the OR on the and NANI drain placement. She has since been in rehab. Today there was some concern at rehab because they felt there was some leaking from around the drain saturating pads and increased pain. No fever. No trauma. They spoke with Dr. Elizabeth who recommended she come to the ER for further evaluation. Severity: Moderate Modifying factors: None REVIEW OF SYSTEMS: Constitutional: denies: chills, fever, recent illness, recent injury EENTM: denies: blurred vision, double vision, nose congestion Respiratory: denies: cough, shortness of breath Cardiac: denies: chest pain, irregular heart rate, lightheadedness, palpitations Gastrointestinal/Abdominal: denies: abdominal pain, diarrhea, nausea, vomiting, blood streaked stools Genitourinary: denies: dysuria, frequency, hematuria, pain Musculoskeletal: denies: joint pain, muscle pain Skin: denies: lesions, rash, jaundice, bruising Neurological: denies: headache, numbness, paresthesia, tingling, dizziness, weakness Hematologic/Lymphatic: denies: blood clots, easy bleeding, easy bruising Immunologic/allergic: denies: HIV/AIDS, transplant 10 systems reviewed and negative except as noted EXAM: GENERAL: well-nourished and in no acute distress. HEAD: Atraumatic, normocephalic. EYES: Pupils equal round and reactive to light, extraocular movements intact, sclera anicteric, conjunctiva are normal. ENT: TMs normal, nares patent, oropharynx clear without exudates. Moist mucous membranes. NECK: Normal range of motion, supple without lymphadenopathy or JVD. LUNGS: Breath sounds clear to auscultation bilaterally and equal. No wheezes rales or rhonchi. HEART: Regular rate and rhythm without murmurs, rubs or gallops. ABDOMEN: Soft, nontender, normoactive bowel sounds. No guarding, no rebound. No masses appreciated. BACK: NANI drain in place, no visible leakage at this time. Serosanguineous fluid in the drain, EXTREMITIES: Normal baseline movement in legs. Normal baseline sensation., no pitting or edema. No clubbing or cyanosis. NEUROLOGICAL: Cranial nerves II through XII grossly intact. Normal speech, normal gait. 4/5 strength, normal movement in all extremities, normal sensation , normal reflexes PSYCH: Normal mood, normal affect. SKIN: Warm, dry, normal turgor, no visible rashes or lesions. Source: Patient, EMS, Old records - Personal History Current Tetanus/Diphtheria Vaccine: Yes - Medical/Surgical History Hx Asthma: No Hx Chronic Respiratory Disease: Yes Hx Diabetes: No Hx Cardiac Disease: No Hx Renal Disease: No Hx Cirrhosis: No Hx Alcoholism: No Hx HIV/AIDS: No Hx Splenectomy or Spleen Trauma: No Other PMH: c spine surgery 03/21/18, arthritis, L Shoulder Rotator cuff surgery, Bursectomy L Hip, extensive DjD, scoliosis. HTN,Pulomonary restrictive disease, hyperlipidemia, GERD, CAD, hyper cholesteremia, 3 cardiac caths,IBS, blockage arterial, UTI, Spinal fusion T11-S1, urinary retention, self caths - Family History Significant Family History: No pertinent family hx - Social History Smoking Status: Never smoked Alcohol Use: Sober Drug Use: None Constitutional: Initial Vital Signs Temperature (C) 37.0 C 08/14/18 11:52 Heart Rate 89 08/14/18 11:52 Respiratory Rate 16 08/14/18 11:52 Blood Pressure 105/63 08/14/18 11:52 O2 Sat (%) 88 L 08/14/18 11:52 O2 Delivery Mode Nasal Cannula O2 (L/minute) 3 Allergies/Adverse Reactions: naproxen [From Naprosyn] Allergy (Verified 08/14/18 11:52) Hives Penicillins Allergy (Verified 08/14/18 11:52) Tongue swelling, throat pain Home Medications: Medication Instructions Recorded Acetaminophen [Tylenol ES 500 mg 500 - 1,000 mg PO BID PRN 03/06/18 (*)] Albuterol [Proventil Inhaler HFA 1 - 2 puffs IH DAILY PRN 03/06/18 (*)] C/E/Zn/Cu/OM3/DHA/EPA/LUT/ZEAX 1 cap PO BID 03/06/18 [Preservision Areds 2 Softgel] Carvedilol [Coreg (*)] 12.5 mg PO BIDMEAL 03/06/18 Cholecalciferol Vit D3 [Vitamin D3 4,000 units PO DAILY 03/06/18 2000 units tab (OTC)] Estrogens,Conjugated [Premarin 0.3 0.3 mg PO DAILY18 03/06/18 MG (*)] Ezetimibe [Zetia 10 MG (*)] 10 mg PO HS 03/06/18 Famotidine [Pepcid 20 MG (*)] 20 mg PO BIDMEAL 03/06/18 Furosemide [Lasix 20 MG (*)] 20 mg PO BID@09,16 03/06/18 Losartan Potassium [Cozaar 25 mg 25 mg PO DAILY@12 03/06/18 (*)] Magnesium Oxide [Magnesium Oxide 400 mg PO DAILY 03/06/18 400 mg (*)] Rosuvastatin Calcium [Crestor 20mg 20 mg PO HS 03/06/18 (*)] Lactase [Lactase 3000 Unit (*)] 3,000 unit PO DAILY PRN 06/21/18 Methocarbamol [Robaxin 750 mg (*)] 750 mg PO QID PRN tab 07/30/18 Carboxymethylcellulose 1% [Refresh 1 drop EACHEYE QID PRN droperette 08/03/18 Celluvisc (*)] Gabapentin [Neurontin 400 MG (*)] 400 mg PO TID cap 08/03/18 Methocarbamol [Robaxin 500 mg (*)] 750 mg PO QID tab 08/09/18 Sennosides/Docusate Sodium 1 - 2 tab PO BID tab 08/09/18 [Senokot-S] oxyCODONE IR [Oxycodone Ir (*)] 5 - 10 mg PO Q3HRS PRN tab 08/09/18 Medical Decision Making - Diagnostics Imaging: Discussed imaging studies w/ call or contact centre coach Radiologist ED Course/Re-evaluation: 12:00 p.m. I do not see any drainage currently from around the drain. I spoke with Dr. Elizabeth who will come to evaluate and agrees with MRI with and without. 2:00 p.m. patient's MRI is reassuring. We discussed this. She is relieved. She is asking for straight catheterization for urinary retention. I will discuss with Neurosurgery. 2:03 p.m. I spoke with Dr. Romano who will have someone from the neurosurgical team come to evaluate the patient. 2:50 p.m. We are awaiting neurosurgery evaluation. Otherwise the patient is ready to go home. 3:15 p.m. the patient has been evaluated by Dr. Flores. He feels it is safe for her to return to rehab. Family and patient agree. Differential Diagnosis: Partial list of the Differential diagnosis considered include but were not limited to; hematoma, infection and although unlikely based on the history and physical exam, I also considered fracture, abscess, cauda equina. I discussed these differential diagnoses and the plan with the patient as well as the usual and expected course. The patient understands that the diagnosis is provisional and that in medicine we are not always correct and that further workup is often warranted. Usual and customary warnings were given. All of the patient's questions were answered. The patient was instructed to return to the emergency department should the symptoms at all worsen or return, otherwise to followup with the physician as we discussed. - Data Points Laboratory Results: Laboratory Results 08/14/18 13:30 08/14/18 13:30 Medications Given: Discontinued Medications Hydromorphone HCl (Dilaudid) 0.5 mg IVP EDNOW ONE Stop: 08/14/18 11:59 Last Admin: 08/14/18 13:18 Dose: 0.5 mg Departure - Departure Disposition: Home, Routine, Self-Care Clinical Impression: Low back pain Qualifiers: Chronicity: unspecified Back pain laterality: midline Sciatica presence: unspecified whether sciatica present Qualified Code(s): M54.5 - Low back pain Condition: Fair Instructions: Back Pain (ED) Referrals: NONE *PRIMARY CARE P,. [Primary Care Provider] - As per Instructions Matt Elizabeth MD [Medical Doctor] - 2-3 days, if not improved
[2018-08-14] MEDS ORDERED: GADOBUTROL 10 ML VIAL IVP ONE (12:21)
[2018-08-14 13:41] LABS: PLATELET COUNT 256 10^3/uL (150-400)
[2018-08-14 15:23] VITALS: BP 108/45
--- NOTE | 2018-08-14 20:32 | GCON ---
NEUROSURGICAL EMERGENCY ROOM CONSULT CHIEF COMPLAINT: The patient is a 77-year-old woman with back/buttock pain. HISTORY OF PRESENT ILLNESS: The patient recently underwent a major lumbosacral spinal reconstruction complicated by postoperative pain requiring an evacuation of a hematoma and re-decompression who ini mere did well but now has ongoing pain and presented to the emergency room for evaluation. On further questioning, the patient's most comfortable position is standing upright and walking. Lyi ng and sitting causes more pain. She denies fever, sweats or chills or other signs of infection. Sh e denies focal motor weakness, numbness or paresthesias. On examination, the patient is sleepy but awakens to voice and moves all of her extremities well with 5/5 strength in both lower extremities. Her incision is healing well with no signs of erythema, swe lling, fluid collection or other abnormality. She has a Berhane-Copeland drain still in place with bloo d-tinged fluid and not concerning for infection. MRI of the lumbosacral spine from today demonstrates a widely decompressed thecal sac throughout the surgical area. I also reviewed the CT scan from 10 days ago which looks good. IMPRESSION/RECOMMENDATIONS: This is a 77-year-old woman who has been having a difficult time recover ing from major reconstructive surgery for her degenerative scoliosis with spinal stenosis. She will go back to Rehab and continue to to try and recover from this difficult surgery. The patient and her understand that they should call my office if they have any further issues. She has a juan lanier appointment with me on August 23. /[id number]/MODL
== END 2018-08-14 16:20 | disposition home or self-care (01) ==
LOC: EDUNIT#
PROC: 0T9B70Z Drainage of Bladder with Drainage Device, Via Natural or Artificial Opening (ICD-10-PCS; principal; 2018-08-14)
DX: M54.5 Low back pain (principal); R33.9 Retention of urine, unspecified
CPT/HCPCS: 51701; 72158; 96374; 99285; A9585; J1170

== ENCOUNTER 2018-08-15 19:43 | Inpatient (IN) | payer OTHER, BC ==
[2018-08-15] MEDS ORDERED: NS 1,800 ML IV ONE (20:04)
--- NOTE | 2018-08-15 20:11 | EDPHY ---
HPI/HX/ROS/PE/MDM Narrative: CHIEF COMPLAINT: R/o sepsis HISTORY OF PRESENT ILLNESS: This patient is a 77 year old female who is s/p T11-S1 spinal fusion on 07/25 with repeat surgery 08/06. She arrives today from a rehabilitation facility where she has been staying for impairments in mobility and self care following surgery. 08/09/18, she was readmitted to the hospital for fever, tachycardia, and hypotension. She had a bean catheter placed following her surgery, and this was removed 4-5 days ago. Since that, she has received straight catheterizations. She was seen yesterday here in this emergency department for severe back pain and was evaluated by her surgeon, Dr. Garcia. Her at bedside reports that Dr. Garcia recommended the wound drain remain for two more days. However, a prior order had been placed at the rehab facility for drain d/c yesterday, so staff removed it last night. Today,the patient developed a fever, reported temperature of 38.2 degrees. She denies any sores on her back. Denies vomiting. She states her back and buttock pain level is the same or increased since the drain was removed. No chills, chest pain, shortness of breath, palpitations, vomiting, diarrhea, headache, lightheadedness. REVIEW OF SYSTEMS: A comprehensive 10 system review of systems is otherwise negative aside from elements mentioned in the history of present illness and medical decision making. PAST MEDICAL HISTORY: 1. Hypertension 2. Hyperlipidemia 3. Multiple orthopedic and spinal surgeries, most recently T11-S1 fusion by Dr. Garcia, neurosurgeon. 4. CAD s/p cardiac catheterization 5. Multiple UTIs, urinary retention, self-catheterization 6. GERD 7. IBS SOCIAL HISTORY: . at bedside. Does not abuse tobacco, drugs, or alcohol. VITAL SIGNS: Reviewed by me GENERAL: Somewhat debilitated in appearance, resting comfortably in no respiratory distress. HEENT: Atraumatic. Eyes: No icterus, no injection. Mouth: dry mucous membranes. No erythema or lesions. Neck: supple with no adenopathy. LUNGS: Clear to auscultation bilaterally, no wheezes, rhonchi or rales. CARDIAC: Regular rate and rhythm, no rubs, murmurs or gallops. ABDOMEN: Soft, suprapubic tenderness. Palpable bladder distention. BACK: Bandage over surgical incision. Bandage was removed. Patient's prior NANI drain site is clean with no purulence expressed. No CVA tenderness. EXTREMITIES: No trauma. No edema. Range of motion is normal throughout. NEURO: Alert and oriented, somewhat somnolent grossly nonfocal. SKIN: Warm to touch. Dry, no rash. PSYCHIATRIC: Normal mentation, no agitation. Portions of this note were transcribed by a medical staff director. I personally performed a history, physical exam, medical decision making, and confirmed accuracy of information the transcribed note. ED Course: 77 y/o female s/p T11-S1 fusion surgeries 07/25 and 08/06 presents with severe back pain and reported fever. Plan for labs including CBC, chemistries, lactic acid, blood cultures, wound culture, UA, coag panel, troponin. Patient has very dry mucous membranes. Plan to administer 1,800mL IV NS for symptom relief. Reviewed laboratory studies. Lactic acid negative. UA negative for UTI. BNP elevated. Patient did have a urinary tract infection with positive culture performed on August 10. She has been on Macrobid since that time. Sensitivities demonstrate that the urinary tract infection was sensitive to Macrobid. Her urine is clean today. Reviewed chest x-ray. Findings compatible with mild fluid overload /heart failure. Evaluation here in the emergency department is largely reassuring. Patient has white count 9, no signs of severe sepsis and has not been febrile here. She has had soft blood pressures with her systolics in the upper 90 to low 100 range. EKG is nonischemic. Troponin is 0.033. BNP is elevated at 1800. 21:58: Patient had had a procalcitonin ordered prior to her transfer to the emergency department from rehab. This is positive at 1.5. I discussed the patient's course with the hospitalist service Dr. Sarabia across as well as Dr. Weldon. Given her history of fever, low blood pressures, and elevated pro calcitonin, patient will be admitted to the hospital and observed for infectious cause of the symptoms. No empiric antibiotics were recommended. Sepsis Evaluation Note: The patient presents to the ED with potential infection identified as fever, prior history of urinary tract infection, and back pain. The patient did have concerns regarding sepsis with [temperature greater than 38 degree Celsius as per her history from rehab, however she had no fever here.] Heart rate is normal, respiratory rate is normal, white blood cell count is less than 12,000, lactic acid is normal. MDM: Differential diagnoses for the patient's symptom complex was considered including but not limited to urinary tract infection, urosepsis, surgical site infection, low blood pressure secondary to fluid overload, cardiac causes of hypotension. - Data Points Imaging Results: Imaging Impressions Chest X-Ray 08/15/18 20:05 Impression: 1. Findings compatible with mild fluid overload /heart failure. 2. Left basilar atelectasis, superimposed pneumonia cannot be radiographically excluded.. Imaging: I viewed and interpreted images myself Laboratory Results: Laboratory Results 08/15/18 19:00 08/15/18 08/15/18 08/15/18 21:02 21:02 20:55 PT INR APTT VBG Lactic Acid Sodium Potassium Chloride Carbon Dioxide Anion Gap BUN Creatinine Estimated GFR Glucose Calcium Total Bilirubin Troponin I 0.033 ng/mL ng/mL (0.000-0.034) NT-Pro-B Natriuret Pep 1810 pg/mL H pg/mL (0-450) Urine Color YELLOW Urine Appearance CLEAR Urine pH 5.0 (5.0-7.5) Ur Specific [place] 1.018 (1.002-1.030) Urine Protein NEGATIVE (NEGATIVE) Urine Ketones TRACE H (NEGATIVE) Urine Blood NEGATIVE (NEGATIVE) Urine Nitrate NEGATIVE (NEGATIVE) Urine Bilirubin NEGATIVE (NEGATIVE) Urine Urobilinogen NEGATIVE EU EU (0.2-1.0) Ur Leukocyte Esterase NEGATIVE (NEGATIVE) Urine RBC 1-3 /hpf /hpf (0-3) Urine WBC 1-3 /hpf /hpf (0-3) Ur Epithelial Cells TRACE /lpf /lpf (NONE-1+) Hyaline Casts 1-5 /lpf /lpf (0-1) Urine Mucus TRACE /lpf /lpf (NONE-1+) Urine Glucose NEGATIVE (NEGATIVE) 08/15/18 08/15/18 08/15/18 20:55 19:00 19:00 PT 16.1 SEC H SEC (12.0-15.0) INR 1.27 H (0.83-1.16) APTT 40.2 SEC H SEC (23.0-38.0) VBG Lactic Acid 0.8 mmol/L mmol/L (0.7-2.1) Sodium 132 mEq/L L mEq/L (135-145) Potassium 3.4 mEq/L mEq/L (3.3-5.0) Chloride 97 mEq/L mEq/L (97-110) Carbon Dioxide 31 mEq/l mEq/l (22-31) Anion Gap 4 mEq/L L mEq/L (6-14) BUN 10 mg/dL mg/dL (7-23) Creatinine 0.7 mg/dL mg/dL (0.6-1.0) Estimated GFR > 60 Glucose 146 mg/dL H mg/dL (70-100) Calcium 7.7 mg/dL L mg/dL (8.5-10.4) Total Bilirubin 0.5 mg/dL mg/dL (0.1-1.4) Troponin I NT-Pro-B Natriuret Pep Urine Color Urine Appearance Urine pH Ur Specific [place] Urine Protein Urine Ketones Urine Blood Urine Nitrate Urine Bilirubin Urine Urobilinogen Ur Leukocyte Esterase Urine RBC Urine WBC Ur Epithelial Cells Hyaline Casts Urine Mucus Urine Glucose Medications Given: Discontinued Medications Sodium Chloride (Ns) 1,800 mls @ 3,600 mls/hr 30 ml/kg infuse over 30 min ( 1800 ml) IV EDNOW ONE PRN Reason: Protocol Stop: 08/15/18 20:33 Last Admin: 08/15/18 20:10 Dose: 1,800 mls General Initial Vital Signs: Initial Vital Signs Temperature (C) 37.6 C 08/15/18 19:35 Heart Rate 90 08/15/18 19:35 Respiratory Rate 18 08/15/18 19:35 Blood Pressure 102/48 L 08/15/18 19:35 O2 Sat (%) 95 08/15/18 19:35 O2 Delivery Mode Nasal Cannula O2 (L/minute) 2 Allergies/Adverse Reactions: naproxen [From Naprosyn] Allergy (Verified 08/14/18 11:52) Hives Penicillins Allergy (Verified 08/14/18 11:52) Tongue swelling, throat pain Home Medications: Medication Instructions Recorded Acetaminophen [Tylenol ES 500 mg 500 - 1,000 mg PO BID PRN 03/06/18 (*)] Albuterol [Proventil Inhaler HFA 1 - 2 puffs IH DAILY PRN 03/06/18 (*)] C/E/Zn/Cu/OM3/DHA/EPA/LUT/ZEAX 1 cap PO BID 03/06/18 [Preservision Areds 2 Softgel] Carvedilol [Coreg (*)] 12.5 mg PO BIDMEAL 03/06/18 Cholecalciferol Vit D3 [Vitamin D3 4,000 units PO DAILY 03/06/18 2000 units tab (OTC)] Estrogens,Conjugated [Premarin 0.3 0.3 mg PO DAILY18 03/06/18 MG (*)] Ezetimibe [Zetia 10 MG (*)] 10 mg PO HS 03/06/18 Famotidine [Pepcid 20 MG (*)] 20 mg PO BIDMEAL 03/06/18 Furosemide [Lasix 20 MG (*)] 20 mg PO BID@09,16 03/06/18 Losartan Potassium [Cozaar 25 mg 25 mg PO DAILY@12 03/06/18 (*)] Magnesium Oxide [Magnesium Oxide 400 mg PO DAILY 03/06/18 400 mg (*)] Rosuvastatin Calcium [Crestor 20mg 20 mg PO HS 03/06/18 (*)] Lactase [Lactase 3000 Unit (*)] 3,000 unit PO DAILY PRN 06/21/18 Methocarbamol [Robaxin 750 mg (*)] 750 mg PO QID PRN tab 07/30/18 Carboxymethylcellulose 1% [Refresh 1 drop EACHEYE QID PRN droperette 08/03/18 Celluvisc (*)] Gabapentin [Neurontin 400 MG (*)] 400 mg PO TID cap 08/03/18 Methocarbamol [Robaxin 500 mg (*)] 750 mg PO QID tab 08/09/18 Sennosides/Docusate Sodium 1 - 2 tab PO BID tab 08/09/18 [Senokot-S] oxyCODONE IR [Oxycodone Ir (*)] 5 - 10 mg PO Q3HRS PRN tab 08/09/18 Departure - Departure Disposition: [facility] Clinical Impression: History of fever Back pain Qualifiers: Back pain location: low back pain Chronicity: acute Back pain laterality: midline Sciatica presence: unspecified whether sciatica present Qualified Code(s ): M54.5 - Low back pain Low blood pressure Qualifiers: Hypotension type: unspecified hypotension type Qualified Code(s): I95.9 - Hypotension, unspecified Condition: Fair Report Scribed for: Shanae Hammer Report Scribed by: Kiana Cheatham Date of Report: 08/15/18 Time of Report: 20:11
[2018-08-15 20:26] LABS: INR 1.27 (0.83-1.16); PROTIME(PATIENT) 16.1 SEC (12.0-15.0)
[2018-08-15] MEDS ORDERED: ONDANSETRON 4 MG/2 ML VIAL IVP PRN (22:09)
[2018-08-15] MEDS ORDERED: ONDANSETRON DISINTEGRATING 4 MG TAB PO PRN (22:09)
[2018-08-15] MEDS ORDERED: NS 1,000 ML IV SCH (22:15)
--- NOTE | 2018-08-15 23:22 | CPEKG ---
Test Reason : OPEN Blood Pressure : / mmHG Vent. Rate : 089 BPM Atrial Rate : 090 BPM P-R Int : 151 ms QRS Dur : 095 ms QT Int : 379 ms P-R-T Axes : 059 040 071 degrees QTc Int : 462 ms Sinus rhythm Nonspecific T abnormalities, lateral leads Confirmed by Shanae Hammer ([id number]) on 08/15/2018 11:22:21 PM Referred By: Confirmed By:Shanae Hammer
[2018-08-15] MEDS: ACETAMINOPHEN 325 MG TAB PO PRN (23:43)
--- NOTE | 2018-08-15 23:46 | PDGENHP ---
History and Physical - Chief Complaint Back pain, fever - History of Present Illness 77 yo F w/ hx of scoliosis and HTN presents with reports of fever and ongoing back pain. The patient recently underwent lumbosacral spinal reconstruction complicated by postoperative pain requiring an evacuation of hematoma and re- decompression. She was sent to rehab after this and has been having issues over the last 2 days. Yesterday she presented to the ED with back pain. The back pain is worst when lying or sitting. She was evaluated by Dr. Garcia in the ED who thought she was progressing reasonably well. An MRI was performed that demonstrated a widely decompressed thecal sac. At that point she had a drain in place to a known fluid collection. She was sent back to rehab yesterday and the drain was removed, possibly due to miscommunication. Today, the rehab facility reported a fever so she was sent back to the ED. During my evaluation the patient is quite drowsy. She is complaining of back pain but tells me this is not new. She denies other symptoms. Of note, she was treated for a UTI a few days ago. Review of micro notable for da silva-sensitive E. Coli, which was appropriately treated with nitrofurantoin. Work-up in the ED mostly unremarkable. Her temperature has remained <38 but she does have an elevated procalcitonin. Case discussed with ED physician Dr. Hammer; records reviewed and summarized above. History Information - Allergies/Home Medication List Allergies/Adverse Reactions: naproxen [From Naprosyn] Allergy (Verified 08/14/18 11:52) Hives Penicillins Allergy (Verified 08/14/18 11:52) Tongue swelling, throat pain Home Medications: Acetaminophen [Tylenol ES 500 mg (*)] 500 - 1,000 mg PO BID PRN 03/06/18 [Last Taken 07/24/18] Albuterol [Proventil Inhaler HFA (*)] 1 - 2 puffs IH DAILY PRN 03/06/18 [Last Taken 07/18/18] C/E/Zn/Cu/OM3/DHA/EPA/LUT/ZEAX [Preservision Areds 2 Softgel] 1 cap PO BID 03/06 [Last Taken 07/15/18] Carvedilol [Coreg (*)] 12.5 mg PO BIDMEAL 03/06/18 [Last Taken 08/09/18 08:20] Cholecalciferol Vit D3 [Vitamin D3 2000 units tab (OTC)] 4,000 units PO DAILY [Last Taken 07/15/18] Estrogens,Conjugated [Premarin 0.3 MG (*)] 0.3 mg PO DAILY18 03/06/18 [Last Taken 08/08/18 17:00] Ezetimibe [Zetia 10 MG (*)] 10 mg PO HS 03/06/18 [Last Taken 08/08/18 22:00] Famotidine [Pepcid 20 MG (*)] 20 mg PO BIDMEAL 03/06/18 [Last Taken 08/09/18 08: 20] Furosemide [Lasix 20 MG (*)] 20 mg PO BID@,03/06/18 [Last Taken 08/09/18 08 :20] Losartan Potassium [Cozaar 25 mg (*)] 25 mg PO DAILY@12 03/06/18 [Last Taken 13:00] Magnesium Oxide [Magnesium Oxide 400 mg (*)] 400 mg PO DAILY 03/06/18 [Last Taken 08/09/18 08:20] Rosuvastatin Calcium [Crestor 20mg (*)] 20 mg PO HS 03/06/18 [Last Taken 22:00] Lactase [Lactase 3000 Unit (*)] 3,000 unit PO DAILY PRN 06/21/18 [Last Taken 04/03] I have personally reviewed and updated: family history, medical history - Past Medical History hypertension Additional medical history: Scoliosis. Restrictive lung disease - Surgical History Reports: spinal surgery - Family History Additional family history: Asked, denies - Social History Smoking Status: Never smoked Review of Systems Review of Systems: ROS: 10pt was reviewed & negative except for what was stated in HPI & below Physical Exam Physical Exam: Temp Pulse Resp BP Pulse Ox 36.8 C 88 18 102/56 L 97 08/15/18 22:56 08/15/18 22:56 08/15/18 22:56 08/15/18 22:56 08/15/18 22:56 O2 (L/minute) 2 Constitutional: appears nourished, uncomfortable Eyes: PERRL, EOMI Ears, Nose, Mouth, Throat: moist mucous membranes, no oral mucosal ulcers Cardiovascular: regular rate and rhythym, systolic murmur Respiratory: no respiratory distress, clear to auscultation Gastrointestinal: normoactive bowel sounds, soft, non-tender abdomen Skin: warm, other (Spinal incision with overlying dressing c/d/i) Musculoskeletal: full muscle strength, no joint effusions Neurologic: AAOx3, other (Drowsy but answers questions appropriate when prompted ) Psychiatric: not anxious, other (Drowsy) Lab Data & Imaging Review 08/15/18 19:00 PT 16.1 SEC (12.0-15.0) H 08/15/18 19:00 INR 1.27 (0.83-1.16) H 08/15/18 19:00 APTT 40.2 SEC (23.0-38.0) H 08/15/18 19:00 VBG Lactic Acid 0.8 mmol/L (0.7-2.1) 08/15/18 20:55 Sodium 132 mEq/L (135-145) L 08/15/18 19:00 Potassium 3.4 mEq/L (3.3-5.0) 08/15/18 19:00 Chloride 97 mEq/L (97-110) 08/15/18 19:00 Carbon Dioxide 31 mEq/l (22-31) 08/15/18 19:00 Anion Gap 4 mEq/L (6-14) L 08/15/18 19:00 BUN 10 mg/dL (7-23) 08/15/18 19:00 Creatinine 0.7 mg/dL (0.6-1.0) 08/15/18 19:00 Estimated GFR > 60 08/15/18 19:00 Glucose 146 mg/dL (70-100) H 08/15/18 19:00 Calcium 7.7 mg/dL (8.5-10.4) L 08/15/18 19:00 Total Bilirubin 0.5 mg/dL (0.1-1.4) 08/15/18 19:00 Troponin I 0.033 ng/mL (0.000-0.034) 08/15/18 20:55 NT-Pro-B Natriuret Pep 1810 pg/mL (0-450) H 08/15/18 20:55 Urine Color YELLOW 08/15/18 21:02 Urine Appearance CLEAR 08/15/18 21:02 Urine pH 5.0 (5.0-7.5) 08/15/18 21:02 Ur Specific [place] 1.018 (1.002-1.030) 08/15/18 21:02 Urine Protein NEGATIVE (NEGATIVE) 08/15/18 21:02 Urine Ketones TRACE (NEGATIVE) H 08/15/18 21:02 Urine Blood NEGATIVE (NEGATIVE) 08/15/18 21: Urine Nitrate NEGATIVE (NEGATIVE) 08/15/18 21: Urine Bilirubin NEGATIVE (NEGATIVE) 08/15/18 21: Urine Urobilinogen NEGATIVE EU (0.2-1.0) 08/15/18 21: Ur Leukocyte Esterase NEGATIVE (NEGATIVE) 08/15/18 21: Urine RBC 1-3 /hpf (0-3) 08/15/18 21: Urine WBC 1-3 /hpf (0-3) 08/15/18 21:02 Ur Epithelial Cells TRACE /lpf (NONE-1+) 08/15/18 21: Hyaline Casts 1-5 /lpf (0-1) 08/15/18 21: Urine Mucus TRACE /lpf (NONE-1+) 08/15/18 21: Urine Glucose NEGATIVE (NEGATIVE) 08/15/18 21:02 Imaging Review: Imaging Impressions Chest X-Ray 08/15/18 20:05 Impression: 1. Findings compatible with mild fluid overload /heart failure. 2. Left basilar atelectasis, superimposed pneumonia cannot be radiographically excluded.. Visualized and Interpreted EKG results: Yes EKG Interpretation: Positive for: normal sinsus rhythm Assessment & Plan Assessment: 77 yo F w/ scoliosis, HTN, and resent spinal surgery presents with reports of fever and ongoing back pain. Plan: 1. Fever - Reported at rehab facility; T has remained <38 while here. She is displaying no other signs of sepsis physiology at this time. A potential source is unclear currently. CXR (personally reviewed/interpreted) does not reveal pneumonia. UA appears non-infectious. She does have a known spinal fluid collection and the drain for this was removed yesterday. Superficially her incision does not seem infected. - Admit for observation - Blood, urine, incision swab culture, and respiratory PCR pending - Will consult neurosurgery to consider possibility of infected fluid collection - Observe off of antibiotics for now 2. Scoliosis s/p lumbosacral reconstruction - Complicated procedure requiring evacuation of hematoma and repeat decompression. She has a known fluid collection of the posterior surgical bed; a drain to this area was removed yesterday at her rehab facility. - Infectious work-up as above - Will consult neurosurgery in the morning 3. Normocytic anemia - Stable from prior values; I suspect multifactorial etiology from chronic inflammation and blood loss from surgery. - Will check ferritin, B12 - Monitor CBC 4. Elevated BNP, mild pulmonary edema - Possibly due to undiagnosed diastolic dysfunction. - Hold off on diuresis for now noting possible infection - Will obtain TTE 5. Hypertension - Hold home medications in setting of possible infection and low /normal BPs 6. Restrictive lung disease - 2/2 scoliosis; continue nocturnal O2. Diet - Regular Code - Full Ppx - SCDs Dispo - Admit under observation status
[2018-08-16 05:08] LABS: PLATELET COUNT 186 10^3/uL (150-400)
[2018-08-16] MEDS: ACETAMINOPHEN 325 MG TAB PO PRN ×2 (09:27→14:04)
[2018-08-16] MEDS ORDERED: LACTASE 3,000 UNIT TAB PO PRN (10:21)
[2018-08-16] MEDS ORDERED: ALBUTEROL 60 PUFFS/8 GM MDI IH PRN (10:21)
[2018-08-16] MEDS ORDERED: CARBOXYMETHYLCELLULOSE 1% 0.4 ML DROPERETTE EACHEYE PRN (10:21)
[2018-08-16] MEDS: LOSARTAN POTASSIUM 25 MG TAB PO SCH (12:52)
--- NOTE | 2018-08-16 13:34 | HOSPPROG ---
Hospitalist Progress Note Assessment/Plan: Jeanne is a 77 y/o female who came to the ER from IP rehab due to worsening back pain and fevers. She recently underwent lumbosacral spinal reconstruction complicated by postoperative pain requiring an evacuation of hematoma and re- decompression. She returned to the ER and was evaluated by Dr. Garcia. An MRI was performed that demonstrated a widely decompressed thecal sac. At that point she had a drain in place to a known fluid collection. She was sent back to rehab yesterday and the drain was removed, possibly due to miscommunication. AT the rehab facility reported a fever so she was sent back to the ED. *bacteremia-enterococcus -start vanco -Dr Rausch will see -was recently treated for a UTI -evaluated her wound which is pink along the edges, no drainage or tenderness *anemia -hgb and hct trending down -she feels weak and exhausted -will tx a unit of PRBC's and give a dose of Lasix following transfusion *elevated BNP -will evaluate echo *scoliosis s/p lumbosacral reconstruction -complicated by a hematoma, was evacuated, and repeat decompression -neurosurgery to see *urinary retention -bean placed in last evening *back pain due to recent surgery -on Tylenol and added oxy ir *HTN -bp stable -parameters written as when to hold bp meds *restrictive lung disease -due to the scoliosis *plan: she will require another midnight stay, patient feels poorly, has a + blood cx, ID will see. will recheck labs in a.m., added oxy for ongoing back pain Subjective: Jeanne said she is feeling poorly. Not hungry, is cold and wants to sleep. Objective: Vital Signs Temp Pulse Resp BP Pulse Ox 36.6 C 74 16 120/51 L 98 08/16/18 12:00 08/16/18 12:00 08/16/18 12:00 08/16/18 12:52 08/16/18 12:00 Microbiology 08/16/18 06:15 Respiratory Panel (PCR) - Final Nasal, Sinus - Swab No Organism Detected By Pcr Laboratory Results 08/16/18 12:00 08/16/18 04:53 08/15/18 08/16/18 08/17/18 05:59 05:59 05:59 Intake Total 2450 Output Total 1000 Balance 1450 PT 16.1 SEC (12.0-15.0) H 08/15/18 19:00 INR 1.27 (0.83-1.16) H 08/15/18 19:00 - Physical Exam Constitutional: chronically ill appearing, No not in pain Eyes: PERRL Ears, Nose, Mouth, Throat: hearing normal Cardiovascular: regular rate and rhythym Respiratory: no respiratory distress Skin: warm, other (back incision pink, red along the edges, no drainage or tenderness along the incision) Musculoskeletal: generalized weakness Neurologic: AAOx3 Psychiatric: interacting appropriately, other (withdrawn) ICD10 Worksheet Patient Problems: Problems Problem Status Onset Back pain Acute History of fever Acute Low blood pressure Acute Cervical stenosis of spinal canal Acute Fusion of spine of thoracolumbar region Acute Low back pain Acute
[2018-08-16] MEDS ORDERED: FUROSEMIDE 20 MG/2 ML VIAL IVP ONE (14:12)
[2018-08-16] MEDS ORDERED: ACETAMINOPHEN 325 MG TAB PO ONE (14:12)
[2018-08-16] MEDS ORDERED: VANCOMYCIN HCL/NORMAL SALINE 250 ML IV SCH (15:00)
[2018-08-16] MEDS: VANCOMYCIN 1 GM in NS 250 ML IV SCH (15:05)
--- NOTE | 2018-08-16 15:28 | GCON ---
DATE OF CONSULTATION: 08/16/2018 HOSPITAL COURSE, HISTORY, AND MAJOR MEDICAL FINDINGS: The patient is a 77-year- old female who is a patient of Dr. Garcia's, who underwent surgery on 04/2018, for a right-sided T11 to S1 posterior fusion with an L1-2, L2-3, L3-4, L4-5 and L5-S1 transforaminal lumbar interbody fusion. Post surgery, she tolerated this well. She was seen by the hospitalist service while she was in- house for her ongoing medical comorbidities. She did have some low blood pressures immediately following surgery and was monitored in the ICU. She continued to improve. On the day of discharge, her NANI drain was pulled, and she did develop some new leg pain. She was transferred to [facility] [place] , and while over there at [facility], the patient failed to improve, and she was brought back to [facility] for further evaluation. Once in [facility], she underwent a lumbar spine MRI, which demonstrated some residual stenosis with a questionable hematoma, and based on that, she was taken to the operating room by Dr. Gonzalez Herrera on 08/06/2018, for a washout of hematoma and wound exploration with an open L1 to L4 laminectomy with redo arthrodesis at the posterolateral fusion from L1 to L4. Post surgery , she did have some continued right-sided pain but was progressing well with therapy. She had a NANI drain that was placed. She did continue to improve, and then her Perez was discontinued. She had some urinary incontinence after her Perez was pulled and the UA was sent, which was reviewed with Medicine, Infectious Disease, and she was asymptomatic, other than the episode of incontinence, and she was discharged to rehab for further evaluation. She, while over at rehab, was doing well, but then she developed some drainage from around her NANI drain site. She was brought to [facility] Emergency Room for evaluation. She underwent an MRI, which showed the thecal sac was widely decompressed, and she was seen by Dr. Garcia, who recommended keeping in the drain. She was transferred back over to [facility]. Her NANI drain was subsequently discontinued, and she later started to develop fevers and overall just not feeling well, and she was brought back to [facility] again on 08/16/2018, for her fevers. She was admitted to the medicine service and is undergoing Infectious Disease workup given her fevers. REVIEW OF SYSTEMS: Review of systems is negative, other than what is stated in the HPI. Please see for pertinent negatives and pertinent positives. PHYSICAL EXAM: VITALS: Her temp is 37.1. BP is 133/62. She is 90% on 2 L nasal cannula. GENERAL: She is alert and oriented x3. She does appear to be fatigued. NEUROLOGIC: She is a 5/5 in her upper extremities, including her deltoids, triceps, biceps, wrist flexors, extensors, interossei, intrinsic fertilizer mixer. In her lower extremities, she is also a 5/5 in her iliopsoas, hamstrings , quadriceps, plantar flexion, dorsiflexion, and EHL. Sensation is intact in bilateral upper and bilateral lower extremities. SKIN: Her incision is intact. There is Dermabond over the new portion of the incision. On the upper portion of the incision, there is a little bit of fibrinous tissue there. There is no discharge from the incision, and there is no erythema. Over her drain site, there is a little bit of erythema around where the drain hole site was removed. There is no discharge there. ASSESSMENT/PLAN: The patient is a 77-year-old female who was transferred back to [facility] for fevers. She was recently treated for a urinary tract infection while over in the rehab center, and she had her NANI drain recently pulled yesterday. Her leg pain and symptoms are stable, and her incision is not showing any active signs of infection along the incision. There is a little bit of redness around the drain hole site. We will continue to follow and monitor the patient. We do appreciate Internal Medicine working up the etiology of the patient's fevers, and we will defer to them for any antibiotic treatments at this point in time. This was discussed both with Dr. Pablo and Dr. Young. Dr. Young saw the patient today. /[id number]/MODL MTDD
--- NOTE | 2018-08-16 15:37 | ASMTCMCOM ---
CM Note CM Note Notes: Pt in from [facility] inpatient rehab with worsening back pain/fever. Spoke with Kelli in admissions at [facility], they will have to see where pt is medically/functionally Sunday to determine if she qualifies for return to [facility] (which is not a guarantee). Date Signed: 08/16/2018 03:36 PM Electronically Signed By:EJ Oconnell
--- NOTE | 2018-08-16 15:40 | PDMN ---
Medical Necessity Medical necessity: Pt meets IP critter as of 08/16/18 per MD and MCG M-160 ( Sepsis and other febrile illness); los > 2 mn for ongoing tx and management of fever, bacteremia, anemia and elevated BNP; requiring IV ABX, serial labs, infectious disease consult.
--- NOTE | 2018-08-16 16:06 | ECHO ---
[email or web address] [address] [address] Main: [phone] Fax: Transthoracic Echocardiogram Name: VIN CHUN MR#: [id number] Study Date: 08/16/2018 Study Time: 11:33 AM Date of : 1940 Age: 77 year(s) Height: 152.4 cm (60 in.) Weight: 58.51 kg (129 lb.) BSA: 1.55 m2 Gender: Female Examination: Echo Indication: Elevated BNP, Mild pulmonary edema Image Quality: Contrast: Requested by: Roman Block BP: 133 mmHg/62 mmHg Heart Rate: Rhythm: Normal sinus rhythm Indication: Elevated BNP, Mild pulmonary edema Procedure Staff [employer] Programmer: Calvin Cole RDCS Reading Physician: Melina Alcaraz MD Requesting Provider: Conclusions: Normal size left ventricle. No LV hypertrophy. Normal global systolic LV function. EF is 77 %. Grade 1 diastolic dysfunction (abnormal relaxation). Elevated left ventricular filling pressures.. There is an hypermobile aberrant chordae tendineae or false tendon noted in the apex of the left venticle.. Normal size right ventricle. Normal RV function. The left atrium is mildly dilated. Mild mitral valve regurgitation is present. Moderate aortic valve regurgitation is present. Mild tricuspid regurgitation is present. The pulmonary artery pressure is mild to moderately increased. No prior echo Measurements: Chambers Valvular Assessment AV/MV Valvular Assessment TV/PV Normal Normal Normal Name Value Range Name Value Range Name Value Range Ao Krysta (MM): 2.7 cm (2.2 cm-3.7 AV Vmax: 1.74 m/s (1 m/s-1.7 TR Vmax: 3.19 mm/s ( - ) cm) m/s) TR PGmax: 41 mmHg ( - ) IVSd (2D): 0.8 cm (0.6 cm-1.1 AV maxP mmHg ( - ) syst. PAP: 46 mmHg ( - ) cm) AV meanP mmHg ( - ) PV Vmax: 0.98 m/s (0.6 m/s-0.9 LVDd (2D): 4.8 cm (3.9 cm-5.3 LVOT Vmax: 0.78 m/s (0.7 m/s-1.1 m/s) cm) m/s) PV PGmax: 4 mmHg ( - ) LVDs (2D): 2.6 cm (2.1 cm-4 KENA (Vmax): 1.3 cm2 ( - ) cm) KENA (VTI): 1.3 cm ( - ) LVPWd (2D): 0.9 cm ( - ) AR (PHT): 360 ms ( - ) LVOTd 1.9 cm 1.9 cm mm MV E Vmax: 1.05 m/s ( - ) Patient: VIN CHUN Study Date: 08/16/2018 Page 1 of 2 11:33 AM LVEF (2D): 77 (>=54 %) MV A Vmax: 1.16 m/s ( - ) MV E/A: 0.91 ( - ) MV meanP mmHg ( - ) MVA (Vmax): 1.2 m/s ( - ) Continued Measurements: Chambers Valvular Assessment AV/MV Valvular Assessment TV/PV Name Value Name Value Name Value LADs: 3.8 cm MV Annulus: 3.9 cm CVP (est.): 5 mmHg LADs Lon.9 cm MV E' Septal: 0.06 m/s LA Area: 19.4 cm2 MV E/E' Septal: 18.90 LA Volume: 58 ml MV E/E' Lateral: 13.00 LA Volume Index: 37.4 ml/m2 MV VTI: 45.30 cm MR ERO: 0.110 cm2 MR PISA radius: 5 mm MR Reg. Volume: 17 ml MR Reg. Fraction: 3 % AR Vmax: 3.60 cm/s AR ERO: 0.190 cm2 AR PISA radius: 0.6 cm AR Reg. Volume: 29.0 ml AR Reg. Fraction: 51 % AR VTI: 152.0 cm Findings: Left Ventricle: Normal size left ventricle. No LV hypertrophy. Normal global systolic LV function. EF is 77 %. No regional wall motion abnormality. Grade 1 diastolic dysfunction (abnormal relaxation). Elevated left ventricular filling pressures.. There is an hypermobile aberrant chordae tendineae or false tendon noted in the apex of the left venticle.. Right Ventricle: Normal size right ventricle. Normal RV function. Left Atrium: The left atrium is mildly dilated. Right Atrium: The right atrium is mildly dilated. Mitral Valve: There is mild thickening of the mitral valve leaflets. Mild mitral valve regurgitation is present. Aortic Valve: The aortic valve is tri-leaflet. Moderate aortic valve regurgitation is present. Tricuspid Valve: Mild tricuspid regurgitation is present. The pulmonary artery pressure is mild to moderately increased. Pulmonic Valve: The pulmonic valve is normal in appearance and function. Aorta: The aorta is normal. Pericardium: No pericardial effusion. (No Signature Object) Patient: VIN CHUN Study Date: 08/16/2018 Page 2 of 2 11:33 AM [id number]
[2018-08-16] MEDS: ESTROGENS,CONJUGATED 0.3 MG TAB PO SCH (17:24)
[2018-08-16] MEDS: CARVEDILOL 6.25 MG TAB PO SCH ×2 (17:24→17:36)
[2018-08-16] MEDS: GABAPENTIN 400 MG CAP PO SCH ×2 (17:25→22:47)
[2018-08-16] MEDS: FAMOTIDINE 20 MG TAB PO SCH (17:25)
[2018-08-16] MEDS: oxyCODONE IR 5 MG TAB PO PRN ×2 (18:17→22:48)
[2018-08-16] MEDS: ROSUVASTATIN CALCIUM 20 MG TAB PO SCH (22:47)
[2018-08-16] MEDS: SENNOSIDES/DOCUSATE SODIUM TAB PO SCH (22:47)
[2018-08-16] MEDS: PRESERVISION AREDS2 FORMULA EYE VIT 1 EACH PO SCH (22:47)
[2018-08-16] MEDS: EZETIMIBE 10 MG TAB PO SCH (22:47)
[2018-08-17 05:35] LABS: PLATELET COUNT 172 10^3/uL (150-400)
[2018-08-17] MEDS: oxyCODONE IR 5 MG TAB PO PRN ×3 (08:23→18:08)
[2018-08-17] MEDS: CARVEDILOL 6.25 MG TAB PO SCH ×2 (08:24→18:08)
[2018-08-17] MEDS: GABAPENTIN 400 MG CAP PO SCH ×3 (08:24→22:04)
[2018-08-17] MEDS: ENOXAPARIN 40 MG/0.4 ML SYR SC SCH (08:25)
[2018-08-17] MEDS: PRESERVISION AREDS2 FORMULA EYE VIT 1 EACH PO SCH ×2 (08:25→22:04)
[2018-08-17] MEDS: MAGNESIUM OXIDE 400 MG TAB PO SCH (08:25)
[2018-08-17] MEDS: FAMOTIDINE 20 MG TAB PO SCH ×2 (08:25→18:08)
[2018-08-17] MEDS: CHOLECALCIFEROL VIT D3 2,000 UNITS TAB/CAP PO SCH (08:25)
--- NOTE | 2018-08-17 08:33 | NEUSURGPN ---
Assessment/Plan: 77F w/p T11-S1 PSF and scoliosis correction taken to OR for exploration, hematoma evacuation and decompression on 08/06 and sent back to rehab. Presented on 08/16 with low grade fevers and AMS and now has 1/2 +BCx, enterococcus. continued lethargy. -agree with ID consult, currently on vanc -wound doesn't appear overtly infected, would wait before performing any washout -pain control -medical management -would hold on any new drain/wound exploration at this time unless pt develops new back/leg symptoms, overt signs of infection in wound. . -dw Dr. Young/Sandra Subjective: still lethargic, intermittently participating in exam/questions. no complaint of weakness family at bedside and discussing that she is gradually declining and not doing any better since admission. Objective: lethargic, arousable to voice oriented to self/place follows some commands PEARLA MAEx4, not able to participate fully in exam and not pulling BLE antigravity SILT Incision CD, no redness/erythema, small small superficial dehiscence on inferior portion of wound. Catheter Insertion Date: 08/16/18 - Physician Discussed Patient with DrAllyson: Radha Neurosurgery Physical Exam - Vitals, I&O, Labs I and O 08/16/18 08/17/18 08/18/18 05:59 05:59 05:59 Intake Total 1400 Output Total 1500 Balance -100 Intake: Oral (ml) 1150 IV Infused (ml) 250 Vancomycin 1 gm In Ns 250 250 ml @ 250 mls/hr IV Q24H LINSEY Rx#:[id number] Output: Urine (ml) 1500 Catheter 1500 Other: Number of Stools Toilet 1 Vital Signs Temp Pulse Resp BP Pulse Ox 36.7 C 81 16 155/57 H 96 08/17/18 07:39 08/17/18 07:39 08/17/18 07:39 08/17/18 07:39 08/17/18 07:39 Laboratory Results 08/17/18 04:35 08/17/18 04:35 ICD10 Worksheet Patient Problems: Problems Problem Status Onset Back pain Acute History of fever Acute Low blood pressure Acute Cervical stenosis of spinal canal Acute Fusion of spine of thoracolumbar region Acute Low back pain Acute
[2018-08-17] MEDS: SENNOSIDES/DOCUSATE SODIUM TAB PO SCH ×2 (08:37→22:04)
--- NOTE | 2018-08-17 09:08 | GCON ---
INFECTIOUS DISEASE CONSULTATION REFERRING PHYSICIAN: Radha Joshi NP REASON FOR REFERRAL: Bacteremia with Enterococcus. HISTORY OF PRESENT ILLNESS: Patient is a 77-year-old female who recently underwent a lumbar sacral s alondra reconstruction that was complicated by the development of a perioperative hematoma and required a re-decompression. The patient presented back to the emergency room after going to rehab on 2017, with complaints of fever and back pain. She was admitted and initial blood cultures revealed 1 set positive for Enterococcus. The patient was started today on intravenous vancomycin. Currently, she is resting in her hospital bed. She is in some moderate amount of pain. PAST MEDICAL HISTORY: 1. Hypertension. 2. Scoliosis. 3. Chronic lung disease. PAST SURGICAL HISTORY: Spine surgery as above. ANTIBIOTICS: Vancomycin. ALLERGIES: The patient is allergic to both naproxen and penicillin. The patient's reaction to penic illin was in her youth, and she reports that her tongue swelled. FAMILY HISTORY: Reviewed, but noncontributory. SOCIAL HISTORY: The patient denies any tobacco, alcohol, or drug use. REVIEW OF SYSTEMS: Other than that detailed above in the History of Present Illness, a comprehensive 10-system review is negative. PHYSICAL EXAMINATION: VITAL SIGNS: Temperature maximum is 37.6, temperature current is 36.6, heart rate is 74, respiratory rate is 16, blood pressure is 120/51. GENERAL: The patient is a well-formed , well-nourished older female in [id number]-[id number] distress. This is secondary to pain. She is alert and oriented x3. She is pleasant in demeanor. HEENT: Normocephalic for age. Atraumatic. No scle ral icterus. No oral lesion or drainage from the nares. Eyes: Lids and conjunctivae are within nor mal limits. Pupils are equal and round bilaterally. NECK: Supple. No meningismus. LUNGS: Clear to auscultation bilaterally with good effort. HEART: Regular rate and rhythm. No significant perip heral edema. SKIN: Warm and dry to the touch. No rash noted. The patient has a lumbar spinal inci obdulio with a dressing which is intact and without strike through. MUSCULOSKELETAL: No muscle belly t enderness is noted. No joint line effusion or arthritis seen. NEURO: Cranial nerves 2 through 12 s eem to be intact. Peripheral sensation seems intact in extremities. LABORATORY DATA: Patient has a CBC dated 08/16/2018, shows a white blood cell count of 7.9, hemoglob in of 7.8, hematocrit 25.1, and a platelet count of 186. Differential is within normal limits. Seru m chemistries on 08/16/2018, show sodium 137, potassium 3.5, chloride of 107, bicarbonate of 28, BUN of 11, and creatinine of 0.7. MICROBIOLOGIC DATA: Patient has blood cultures, 2 sets, from 08/15/2018. One out of 2 sets is growi ng gram-positive cocci in chains identified as an enterococcus species. ASSESSMENT: An enterococcal bacteremia status post complicated perioperative and postoperative recov lam course from spinal surgery. Blood culture positive for enterococcus. Agree with vancomycin cove rage. No option to use penicillin secondary to history of tongue swelling with prior penicillin use. We will follow up on specific identification and sensitivity data. PLAN: 1. Continue IV vancomycin at present dose. 2. Follow up on microbiologic data. /[id number]/MODL
--- NOTE | 2018-08-17 11:13 | PCMIDPN ---
Assessment/Plan: Assessment: Bacteremia with Enterococcus in setting of recent lumbar spine surgery as well as postoperative hematoma with evacuation drain placement. Obtained a repeat MRI today of the lumbar spine area. Although the artifact is significant secondary to the hardware there is no clear drainable collection immediately adjacent to the lumbar operative area. There is an on presacral new area of fluid but at this point we will just continue the IV vancomycin management of Enterococcus and evaluate clinical course going forward. Plan: 1. Continue IV vancomycin. 2. Check Vanco trough prior to 4th dose tomorrow. 3. Probably recheck blood cultures tomorrow as well. 08/17/18 16:43 08/17/18 16:44 Subjective: Patient is resting in her hospital bed. She is able to be awakened with voice. She is able to talk and communicate but does not follow the conversation very well. She attributes this to her pain medication. She denies fevers. Objective: Vancomycin # 1 Vital Signs Temp Pulse Resp BP Pulse Ox 36.7 C 81 16 155/57 H 96 08/17/18 07:39 08/17/18 08:24 08/17/18 07:39 08/17/18 08:24 08/17/18 07:39 Laboratory Results 08/17/18 04:35 08/17/18 04:35 08/16/18 08/17/18 08/18/18 05:59 05:59 05:59 Intake Total 1400 Output Total 1500 Balance -100 - Physical Exam General Appearance: WD/WN, alert, no apparent distress, non-toxic, other ( Mildly confused) Respiratory: lungs clear, normal breath sounds, No respiratory distress Cardiac/Chest: regular rate, rhythm, No tachycardia Skin: normal color, warm/dry, No rash Neuro/Psych: alert, normal mood/affect ICD10 Worksheet Patient Problems: Problems Problem Status Onset Back pain Acute History of fever Acute Low blood pressure Acute Cervical stenosis of spinal canal Acute Fusion of spine of thoracolumbar region Acute Low back pain Acute
[2018-08-17] MEDS: FUROSEMIDE 20 MG TAB PO SCH ×2 (11:33→15:28)
[2018-08-17] MEDS: LOSARTAN POTASSIUM 25 MG TAB PO SCH (11:33)
[2018-08-17] MEDS: ACETAMINOPHEN 325 MG TAB PO PRN (11:44)
[2018-08-17] MEDS ORDERED: GADOBUTROL 10 ML VIAL IVP ONE (12:32)
--- NOTE | 2018-08-17 12:42 | HOSPPROG ---
Hospitalist Progress Note Assessment/Plan: Jeanne is a 77 y/o female who came to the ER from IP rehab due to worsening back pain and fevers. She recently underwent lumbosacral spinal reconstruction complicated by postoperative pain requiring an evacuation of hematoma and re- decompression. She returned to the ER and was evaluated by Dr. Garcia. An MRI was performed that demonstrated a widely decompressed thecal sac. At that point she had a drain in place to a known fluid collection. She was sent back to rehab yesterday and the drain was removed, possibly due to miscommunication. AT the rehab facility reported a fever so she was sent back to the ED. *bacteremia-enterococcus -started vanco 08/16 -appreciate Dr Rausch -having a fever today ad she continues to feel poorly-MRI ordered to r/o any infectious etiology, abscess *anemia -hgb and hct trending down -improved w transfusion *elevated BNP - echo shows diastolic dysfunction w no LVH and ef of 77% *scoliosis s/p lumbosacral reconstruction -complicated by a hematoma, was evacuated, and repeat decompression -neurosurgery to see *urinary retention -bean removed today -will need close monitoring of output *back pain due to recent surgery -on Tylenol and added oxy ir *HTN -bp stable -parameters written as when to hold bp meds *restrictive lung disease -due to the scoliosis *plan: Check BNP in a.m. , f/u with MRI, ask print line operator to see (she has a very poor appetite) Subjective: Jeanne is feeling maybe a bit better than yesterday, but feels poorly overall. Objective: Vital Signs Temp Pulse Resp BP Pulse Ox 39.3 C H 79 19 132/50 H 89 L 08/17/18 11:42 08/17/18 11:42 08/17/18 11:42 08/17/18 11:42 08/17/18 11:42 Laboratory Results 08/17/18 04:35 08/17/18 04:35 08/16/18 08/17/18 08/18/18 05:59 05:59 05:59 Intake Total 1400 Output Total 1500 Balance -100 PT 16.1 SEC (12.0-15.0) H 08/15/18 19:00 INR 1.27 (0.83-1.16) H 08/15/18 19:00 - Physical Exam Constitutional: chronically ill appearing, uncomfortable Eyes: PERRL Ears, Nose, Mouth, Throat: hearing normal Cardiovascular: regular rate and rhythym Respiratory: no respiratory distress, other (crackles bibasilar) Skin: warm, No normal color (pale) Musculoskeletal: generalized weakness Neurologic: AAOx3 Psychiatric: interacting appropriately, depressed ICD10 Worksheet Patient Problems: Problems Problem Status Onset Back pain Acute History of fever Acute Low blood pressure Acute Cervical stenosis of spinal canal Acute Fusion of spine of thoracolumbar region Acute Low back pain Acute
[2018-08-17] MEDS: VANCOMYCIN 1 GM in NS 250 ML IV SCH (15:23)
[2018-08-17] MEDS: ESTROGENS,CONJUGATED 0.3 MG TAB PO SCH (18:08)
[2018-08-17] MEDS: EZETIMIBE 10 MG TAB PO SCH (22:04)
[2018-08-17] MEDS: ROSUVASTATIN CALCIUM 20 MG TAB PO SCH (22:04)
[2018-08-17] MEDS: ACETAMINOPHEN 500 MG TAB PO SCH (22:04)
[2018-08-18] MEDS: ACETAMINOPHEN 500 MG TAB PO SCH ×3 (05:14→22:07)
[2018-08-18] MEDS ORDERED: FUROSEMIDE 40 MG/4 ML VIAL IVP ONE (08:40)
--- NOTE | 2018-08-18 08:40 | HOSPPROG ---
Hospitalist Progress Note Assessment/Plan: Jeanne is a 77 y/o female who came to the ER from IP rehab due to worsening back pain and fevers. She recently underwent lumbosacral spinal reconstruction complicated by postoperative pain requiring an evacuation of hematoma and re- decompression. She returned to the ER and was evaluated by Dr. Garcia. An MRI was performed that demonstrated a widely decompressed thecal sac. At that point she had a drain in place to a known fluid collection. She was sent back to rehab yesterday and the drain was removed, possibly due to miscommunication. AT the rehab facility reported a fever so she was sent back to the ED. *bacteremia-enterococcus -urine cx shows enterococcus faecalis -started vanco 08/16 -blood cx pending for today -MRI shows no clear drainable collection. There is a new are of presacral fluid. *anemia -hgb and hct trending down -improved w transfusion *elevated BNP - echo shows diastolic dysfunction w no LVH and ef of 77% -will give her a dose of IV Lasix (has crackles and high BNP) *scoliosis s/p lumbosacral reconstruction -complicated by a hematoma, was evacuated, and repeat decompression -neurosurgery to see *urinary retention -bean removed today -will need close monitoring of output *back pain due to recent surgery -on Tylenol and added oxy ir *HTN -bp stable -parameters written as when to hold bp meds *restrictive lung disease -due to the scoliosis *plan: continue current care, she is starting to look better today, encouraged to get oob for all meals, increase mobility. Will decrease her gabapentin dose, oxy dose and cont scheduled Tylenol Subjective: Jeanne said she is starting to feel better today. Objective: Vital Signs Temp Pulse Resp BP Pulse Ox 36.8 C 60 17 124/39 H 100 08/18/18 07:50 08/18/18 07:50 08/18/18 07:50 08/18/18 07:50 08/18/18 07:50 Laboratory Results 08/17/18 15:30 08/17/18 04:35 08/17/18 08/18/18 08/19/18 05:59 05:59 05:59 Intake Total 1400 1250 Output Total 1500 500 Balance -100 750 PT 16.1 SEC (12.0-15.0) H 08/15/18 19:00 INR 1.27 (0.83-1.16) H 08/15/18 19:00 - Physical Exam Constitutional: chronically ill appearing, uncomfortable Eyes: PERRL Ears, Nose, Mouth, Throat: hearing normal Cardiovascular: regular rate and rhythym Respiratory: no respiratory distress, other (crackle in l base, diminished on r) Gastrointestinal: normoactive bowel sounds Skin: warm, No normal color (pale) Musculoskeletal: generalized weakness Neurologic: AAOx3 Psychiatric: interacting appropriately ICD10 Worksheet Patient Problems: Problems Problem Status Onset Back pain Acute History of fever Acute Low blood pressure Acute Cervical stenosis of spinal canal Acute Fusion of spine of thoracolumbar region Acute Low back pain Acute
[2018-08-18] MEDS: ENOXAPARIN 40 MG/0.4 ML SYR SC SCH (09:31)
[2018-08-18] MEDS: PRESERVISION AREDS2 FORMULA EYE VIT 1 EACH PO SCH ×2 (09:32→22:04)
[2018-08-18] MEDS: CARVEDILOL 6.25 MG TAB PO SCH ×2 (09:32→17:58)
[2018-08-18] MEDS: MAGNESIUM OXIDE 400 MG TAB PO SCH (09:33)
[2018-08-18] MEDS: FAMOTIDINE 20 MG TAB PO SCH ×2 (09:33→17:58)
[2018-08-18] MEDS: CHOLECALCIFEROL VIT D3 2,000 UNITS TAB/CAP PO SCH (09:33)
[2018-08-18] MEDS: GABAPENTIN 400 MG CAP PO SCH (09:33)
[2018-08-18] MEDS: SENNOSIDES/DOCUSATE SODIUM TAB PO SCH ×2 (09:33→22:05)
[2018-08-18] MEDS: LOSARTAN POTASSIUM 25 MG TAB PO SCH (12:23)
[2018-08-18] MEDS: oxyCODONE IR 5 MG TAB PO PRN (12:23)
--- NOTE | 2018-08-18 14:46 | NEUSURGPN ---
Assessment/Plan: 77F w/p T11-S1 PSF and scoliosis correction taken to OR for exploration, hematoma evacuation and decompression on 08/06 and sent back to rehab. Presented on 08/16 with low grade fevers and AMS and now has 1/2 +BCx, enterococcus. MS much improved today. -follow ID recs, BCx, currently on vanc -wound doesn't appear overtly infected, would wait before performing any washout -MRI w/wo shows some post operative fluid in bed, unable to tell if infectious in nature, also with somepresacral fluid not insurgical bed. -pain control -medical management -continue PT/OT as able -Brace when OOB -daily dressing changes. -would hold on any new drain/wound exploration at this time unless pt develops new back/leg symptoms, overt signs of infection in wound. . -imaging evaluation pending with Dr. Pablo Subjective: doing much better today, upright with therapy. Objective: AAOx3 upright with walker during exam PEARLA speech clear MAEx4, ambulatory. SILT Incision CD, no redness/erythema, small small superficial dehiscence on inferior portion of wound, and small amount of drainage on dressing, nothing expressible. . Catheter Insertion Date: 08/16/18 Neurosurgery Physical Exam - Vitals, I&O, Labs I and O 08/17/18 08/18/18 08/19/18 05:59 05:59 05:59 Intake Total 1400 1250 300 Output Total 1500 500 600 Balance -100 750 -300 Intake: Oral (ml) 1150 1250 300 IV Infused (ml) 250 Vancomycin 1 gm In Ns 250 250 ml @ 250 mls/hr IV Q24H [facility] Rx#:[id number] Output: Urine (ml) 1500 500 600 Bedpan 200 Catheter 1500 200 Incontinence 300 400 Other: Intake Quantity Yes Sufficient Output Comment Catheter external female catheter volume. Number of Voids Bedpan 1 Incontinence 1 2 Number of Stools Toilet 1 Bladder Scan Volume (ml) Incontinence 408 Toilet 89 Post Void Residual Scan Volume (ml) Catheter 0 Vital Signs Temp Pulse Resp BP Pulse Ox 36.4 C 71 16 124/63 H 94 08/18/18 11:23 08/18/18 11:23 08/18/18 11:23 08/18/18 11:23 08/18/18 11:23 Laboratory Results 08/17/18 15:30 08/17/18 04:35 ICD10 Worksheet Patient Problems: Problems Problem Status Onset Back pain Acute History of fever Acute Low blood pressure Acute Cervical stenosis of spinal canal Acute Fusion of spine of thoracolumbar region Acute Low back pain Acute
--- NOTE | 2018-08-18 15:15 | PCMIDPN ---
Assessment/Plan: Assessment: Bacteremia with Enterococcus in setting of recent lumbar spine surgery as well as postoperative hematoma with evacuation drain placement. Obtained a repeat MRI today of the lumbar spine area. Although the artifact is significant secondary to the hardware there is no clear drainable collection immediately adjacent to the lumbar operative area. There is an on presacral new area of fluid but at this point we will just continue the IV vancomycin management of Enterococcus and evaluate clinical course going forward. Vancomycin trough is low. Will increase to 1 g twice daily. Urine culture is also growing enterococcus but in the setting of urinalysis showing no inflammation this is unlikely to be any source of the bacteremia. Plan: 1. Continue IV vancomycin at an increased twice daily dose. 2. Check Vanco trough prior to 2nd dose tomorrow. 08/18/18 15:15 Subjective: Patient is feeling a little bit better but still remains fatigued in bed bound. Her pain level is lower than yesterday. Objective: Vancomycin # 2 Vital Signs Temp Pulse Resp BP Pulse Ox 36.4 C 71 16 124/63 H 94 08/18/18 11:23 08/18/18 11:23 08/18/18 11:23 08/18/18 11:23 08/18/18 11:23 Laboratory Results 08/17/18 15:30 08/17/18 04:35 08/17/18 08/18/18 08/19/18 05:59 05:59 05:59 Intake Total 1400 1250 300 Output Total 1500 500 600 Balance -100 750 -300 ESR 45 MM/HR (0-30) H 08/17/18 15:30 C-Reactive Protein 132.0 mg/L (<10.0) H 08/17/18 15:30 - Physical Exam General Appearance: WD/WN, alert, no apparent distress, non-toxic Respiratory: lungs clear, normal breath sounds, No respiratory distress Cardiac/Chest: regular rate, rhythm, No tachycardia Skin: normal color, warm/dry, No rash Neuro/Psych: alert, normal mood/affect, oriented x 3 ICD10 Worksheet Patient Problems: Problems Problem Status Onset Back pain Acute History of fever Acute Low blood pressure Acute Cervical stenosis of spinal canal Acute Fusion of spine of thoracolumbar region Acute Low back pain Acute
[2018-08-18] MEDS ORDERED: oxyCODONE IR 5 MG TAB PO PRN (15:17)
[2018-08-18] MEDS: VANCOMYCIN 1 GM in NS 250 ML IV SCH ×2 (15:42→16:21)
[2018-08-18] MEDS: GABAPENTIN 100 MG CAP PO SCH ×2 (15:43→22:03)
[2018-08-18] MEDS: ESTROGENS,CONJUGATED 0.3 MG TAB PO SCH (17:58)
[2018-08-18] MEDS: EZETIMIBE 10 MG TAB PO SCH (22:04)
[2018-08-18] MEDS: ROSUVASTATIN CALCIUM 20 MG TAB PO SCH (22:04)
[2018-08-19] MEDS: VANCOMYCIN 1 GM in NS 250 ML IV SCH ×2 (03:04→16:55)
[2018-08-19] MEDS: ACETAMINOPHEN 500 MG TAB PO SCH ×4 (05:43→21:43)
--- NOTE | 2018-08-19 07:30 | SOAPPROG ---
SOAP Progress Note Assessment/Plan: Assessment: 77 yo F sp T11-S1 fusion and redo decompression with enterrococus bacteremia Plan: neuro: stable bacteremia: on vanco per ID small post op paraspinal fluid collection but no enhancing, will follow clinically PT/OT scd/leopoldo/lovenox for dvt prophylaxis please call with neuro changes Dr Flores will see patient later today 08/19/18 07:28 08/19/18 07:30 Subjective: continued back pain and right hip pain. No weakness. no paresthesias. Objective: Vital Signs Temp Pulse Resp BP Pulse Ox 37.2 C 66 16 100/42 L 98 08/18/18 23:13 08/18/18 23:13 08/18/18 23:13 08/18/18 23:13 08/18/18 23:13 Laboratory Results 08/19/18 04:45 08/19/18 04:45 08/18/18 08/19/18 08/20/18 05:59 05:59 05:59 Intake Total 1250 1100 Output Total 500 1400 Balance 750 -300 PT 16.1 SEC (12.0-15.0) H 08/15/18 19:00 INR 1.27 (0.83-1.16) H 08/15/18 19:00 AAOx4, +FC PERRL, no facial droop 5/5 + light touch C/D/I ICD10 Worksheet Patient Problems: Problems Problem Status Onset Back pain Acute History of fever Acute Low blood pressure Acute Cervical stenosis of spinal canal Acute Fusion of spine of thoracolumbar region Acute Low back pain Acute
[2018-08-19] MEDS: CARVEDILOL 6.25 MG TAB PO SCH ×2 (08:22→17:51)
[2018-08-19] MEDS: MAGNESIUM OXIDE 400 MG TAB PO SCH (08:22)
[2018-08-19] MEDS: SENNOSIDES/DOCUSATE SODIUM TAB PO SCH ×2 (08:22→21:41)
[2018-08-19] MEDS: FAMOTIDINE 20 MG TAB PO SCH ×2 (08:23→17:51)
[2018-08-19] MEDS: PRESERVISION AREDS2 FORMULA EYE VIT 1 EACH PO SCH ×2 (08:23→21:43)
[2018-08-19] MEDS: CHOLECALCIFEROL VIT D3 2,000 UNITS TAB/CAP PO SCH (08:23)
[2018-08-19] MEDS: GABAPENTIN 100 MG CAP PO SCH ×3 (08:23→21:43)
[2018-08-19] MEDS: ENOXAPARIN 40 MG/0.4 ML SYR SC SCH (08:24)
--- NOTE | 2018-08-19 09:53 | HOSPPROG ---
Hospitalist Progress Note Assessment/Plan: Jeanne is a 77 y/o female who came to the ER from IP rehab due to worsening back pain and fevers. She recently underwent lumbosacral spinal reconstruction complicated by postoperative pain requiring an evacuation of hematoma and re- decompression. She returned to the ER and was evaluated by Dr. Garcia. An MRI was performed that demonstrated a widely decompressed thecal sac. At that point she had a drain in place to a known fluid collection. She was sent back to rehab yesterday and the drain was removed, possibly due to miscommunication. AT the rehab facility reported a fever so she was sent back to the ED. *bacteremia-enterococcus -urine cx shows enterococcus faecalis -started vancomycin 08/16 (trough tomorrow) -recent blood cx show no growth from 08/17/18 -MRI shows no clear drainable collection. There is a new are of presacral fluid. *anemia -hgb and hct trending down -improved w transfusion *elevated BNP - echo shows diastolic dysfunction w no LVH and ef of 77% -lung sounds much improved, will resume her oral Lasix *scoliosis s/p lumbosacral reconstruction -complicated by a hematoma, was evacuated, and repeat decompression -neurosurgery following *urinary retention -bean removed today -will need close monitoring of output *back pain due to recent surgery -on Tylenol and added oxy ir -pain is a bit worse today, but oxy dose had been decreased along w lowering gabapentin dose -will increase oxy to 5 mg *HTN -bp stable -parameters written as when to hold bp meds *restrictive lung disease -due to the scoliosis *plan: met w the patient and her w Dr Alvarado, plan is to get a PICC line in today. They live in the [facility] and have asked CM to f/u in regards to getting IV abx there. Subjective: Jeanne is having a bit more pain. Objective: Vital Signs Temp Pulse Resp BP Pulse Ox 37.0 C 62 16 122/42 H 98 08/19/18 07:49 08/19/18 08:22 08/19/18 07:49 08/19/18 08:22 08/19/18 07:49 Laboratory Results 08/19/18 04:45 08/19/18 04:45 08/18/18 08/19/18 08/20/18 05:59 05:59 05:59 Intake Total 1250 1100 100 Output Total 500 1400 Balance 750 -300 100 PT 16.1 SEC (12.0-15.0) H 08/15/18 19:00 INR 1.27 (0.83-1.16) H 08/15/18 19:00 - Physical Exam Constitutional: chronically ill appearing, uncomfortable, No not in pain Eyes: PERRL Ears, Nose, Mouth, Throat: hearing normal Cardiovascular: regular rate and rhythym Respiratory: no respiratory distress, reduced air movement Skin: warm, other (back incision with no sig drainage, pink along edges, not painful to palp), No normal color (pale) Musculoskeletal: generalized weakness Neurologic: AAOx3 Psychiatric: interacting appropriately ICD10 Worksheet Patient Problems: Problems Problem Status Onset Back pain Acute History of fever Acute Low blood pressure Acute Cervical stenosis of spinal canal Acute Fusion of spine of thoracolumbar region Acute Low back pain Acute
[2018-08-19] MEDS ORDERED: ALTEPLASE 2 MG VIAL IVP PRN (10:15)
--- NOTE | 2018-08-19 10:20 | PCMIDPN ---
Assessment/Plan: Assessment/Plan: * Enterococcus faecalis bacteremia: Unclear etiology with concerns related to postoperative back infection. Patient without urinary symptoms at time of presentation so not clearly defined as urinary etiology. Will continue vancomycin with anticipated 6-8 week course of therapy. Plan repeat vancomycin trough tomorrow as dose was adjusted to q.12 hours. Side effects of vancomycin including potential for allergic reactions, rash, kidney toxicity, laboratory abnormalities, or hearing loss discussed with patient. Will proceed with PICC line placement. Risks and benefits of PICC line were discussed with patient including potential for PICC associated bacteremia or DVT. 08/19/18 10:16 Subjective: Patient complains of back pain. Objective: Vital Signs Temp Pulse Resp BP Pulse Ox 37.0 C 62 16 122/42 H 98 08/19/18 07:49 08/19/18 08:22 08/19/18 07:49 08/19/18 08:22 08/19/18 07:49 Laboratory Results 08/19/18 04:45 08/19/18 04:45 08/18/18 08/19/18 08/20/18 05:59 05:59 05:59 Intake Total 1250 1100 100 Output Total 500 1400 Balance 750 -300 100 ESR 45 MM/HR (0-30) H 08/17/18 15:30 C-Reactive Protein 132.0 mg/L (<10.0) H 08/17/18 15:30 Vancomycin # 3 Blood cultures 08/17/2018 no growth Blood cultures 08/15/2018 1/2 sets E faecalis - Physical Exam General Appearance: alert, no apparent distress EENT: dry mucous membranes, No scleral icterus, No thrush, No conjunctival petechiae Respiratory: lungs clear, No respiratory distress Cardiac/Chest: regular rate, rhythm, No systolic murmur Abdomen: non-tender, No distended Back: other (Approximately 2 cm length area of superficial wound dehiscence approximately a quarter down surgical incision; no expressible drainage or palpable fluctuance; mild tenderness to palpation) Neuro/Psych: No confused - Time Spent With Patient Time Spent with Patient: greater than 35 minutes Time Spent with Patient: Greater than 35 minutes spent on this patients care, greater than 50% of time spent counseling, educating, and coordinating care regarding the above mentioned plan. ICD10 Worksheet Patient Problems: Problems Problem Status Onset Back pain Acute History of fever Acute Low blood pressure Acute Cervical stenosis of spinal canal Acute Fusion of spine of thoracolumbar region Acute Low back pain Acute
[2018-08-19] MEDS: oxyCODONE IR 5 MG TAB PO PRN (10:23)
--- NOTE | 2018-08-19 11:51 | ASMTCMCOM ---
CM Note CM Note Notes: Per ID, patient will need 6 weeks of IV Vancomycin. She will get a PICC. Discharge plans remain TBD: return to [facility] inpatient rehab v SNF in [place] v home with IV abx/homecare. Patient will continue to work with therapies here, and [facility]PR will continue to review. Case Management will follow. Date Signed: 08/19/2018 11:50 AM Electronically Signed By:Natasha Norris RN
[2018-08-19] MEDS: LOSARTAN POTASSIUM 25 MG TAB PO SCH (12:34)
[2018-08-19] MEDS: FUROSEMIDE 20 MG TAB PO SCH (17:01)
[2018-08-19] MEDS: ESTROGENS,CONJUGATED 0.3 MG TAB PO SCH (17:51)
[2018-08-19] MEDS: ROSUVASTATIN CALCIUM 20 MG TAB PO SCH (21:43)
[2018-08-19] MEDS: EZETIMIBE 10 MG TAB PO SCH (21:43)
[2018-08-20] MEDS: VANCOMYCIN 1 GM in NS 250 ML IV SCH ×2 (04:17→16:22)
[2018-08-20] MEDS: ACETAMINOPHEN 500 MG TAB PO SCH ×3 (05:39→21:57)
[2018-08-20] MEDS: oxyCODONE IR 5 MG TAB PO PRN ×3 (05:40→18:15)
--- NOTE | 2018-08-20 07:16 | NEUSURGPN ---
Assessment/Plan: Assessment: 77 yo F sp T11-S1 fusion and redo decompression with enterrococus bacteremia Plan: - neuro stable - bactermia: ID following. On vanc. Had PICC placed - small post op paraspinal fluid collection but no enhancing, will follow clinically - PT/OT - scd/leopoldo/lovenox for dvt prophylaxis Discussed with Dr. Pablo Subjective: Having right lateral hip to posterior thigh pain. Objective: Awake. Alert. PERRL Speech fluent muscle strength full at 5/5 sensation intact Catheter Insertion Date: 08/16/18 - Physician Discussed Patient with : Radha Neurosurgery Physical Exam - Vitals, I&O, Labs I and O 08/19/18 08/20/18 08/21/18 05:59 05:59 05:59 Intake Total 1100 750 Output Total 1400 200 Balance -300 550 Intake: Oral (ml) 1100 500 IV Infused (ml) 250 Vancomycin 1 gm In Ns 250 250 ml @ 250 mls/hr IV Q12H [facility] Rx#:[id number] Output: Urine (ml) 1400 200 Bedpan 200 Bedside Commode 200 Catheter 800 Incontinence 400 Other: Number of Voids Bedpan 1 Bedside Commode 1 Incontinence 1 1 Number of Stools Bedpan 1 Bedside Commode 1 Vital Signs Temp Pulse Resp BP Pulse Ox 36.8 C 64 16 131/50 H 94 08/19/18 23:34 08/19/18 23:34 08/19/18 23:34 08/19/18 23:34 08/19/18 23:34 Laboratory Results 08/19/18 04:45 08/19/18 11:24 ICD10 Worksheet Patient Problems: Problems Problem Status Onset Back pain Acute History of fever Acute Low blood pressure Acute Cervical stenosis of spinal canal Acute Fusion of spine of thoracolumbar region Acute Low back pain Acute
[2018-08-20] MEDS: PRESERVISION AREDS2 FORMULA EYE VIT 1 EACH PO SCH ×2 (09:19→21:56)
[2018-08-20] MEDS: GABAPENTIN 100 MG CAP PO SCH ×3 (09:19→21:56)
[2018-08-20] MEDS: CHOLECALCIFEROL VIT D3 2,000 UNITS TAB/CAP PO SCH (09:19)
[2018-08-20] MEDS: CARVEDILOL 6.25 MG TAB PO SCH ×2 (09:20→18:12)
[2018-08-20] MEDS: MAGNESIUM OXIDE 400 MG TAB PO SCH (09:20)
[2018-08-20] MEDS: FAMOTIDINE 20 MG TAB PO SCH ×2 (09:20→18:11)
[2018-08-20] MEDS: ENOXAPARIN 40 MG/0.4 ML SYR SC SCH (09:20)
[2018-08-20] MEDS: FUROSEMIDE 20 MG TAB PO SCH ×2 (09:20→16:59)
[2018-08-20] MEDS: SENNOSIDES/DOCUSATE SODIUM TAB PO SCH ×2 (09:52→22:04)
[2018-08-20] MEDS: POTASSIUM CL 20 MEQ PKT PO SCH (10:51)
--- NOTE | 2018-08-20 12:18 | PCMIDPN ---
Assessment/Plan: #Enterococcal bacteremia, unclear source. S/p T11-S1 fusion 07/25 and redo decompression 08/06. Back incision looks ok. No clear evidence of infection noted on MRIs. Today c/o anorexia, early satiety, elevated LFTs and mention of gallbladder abnormalities on prior MRIs. No abdominal pain on exam. Did note unexplained radiating right buttock and leg pain that is new since surgery. 1, 000 CFU enterococcus in urine seem more likely to reflect bacteremia than be the source of bacteremia --will obtain a right upper quadrant ultrasound. --continue IV vancomycin, awaiting trough at 3:00 p.m. --monitor radiating right buttock and leg pain that is new since surgeries, at this point would not re-image, last MRI w contrast 08/17 --3.8 x 2.1 cm presacral fluid collection- sort out significance, may need CT abd/pelvis and if so could re-imaging this area # PCN : true PCN allergy meds vancomycin 1gm IV q12h #3 Microbiology 08/15/18 21:02 Urine, 1K Enterococcus Faecalis 08/15/18 19:15 Blood Cx 1/2 Enterococcus Species 08/17/18 12:25 Blood Cx 2/2 negative Subjective: anorexia, early satiety. No abdominal pain. multiple liquid stools that abated when decreased fruit intake lives on [place] with Radiating pain R buttock, hip Objective: Vital Signs Temp Pulse Resp BP Pulse Ox 36.6 C 70 16 144/53 H 94 08/20/18 08:00 08/20/18 09:20 08/20/18 08:00 08/20/18 09:20 08/20/18 08:00 Laboratory Results 08/19/18 04:45 08/19/18 11:24 08/19/18 08/20/18 08/21/18 05:59 05:59 05:59 Intake Total 1100 750 Output Total 1400 200 100 Balance -300 550 -100 ESR 45 MM/HR (0-30) H 08/17/18 15:30 C-Reactive Protein 132.0 mg/L (<10.0) H 08/17/18 15:30 Laboratory Tests 08/19/18 11:24 Total Bilirubin 0.3 AST 155 H ALT 109 H Alkaline Phosphatase 93 Total Protein 4.3 L Albumin 2.1 L - Physical Exam General Appearance: alert, no apparent distress, non-toxic EENT: pale conjunctiva, dry mucous membranes, No thrush Respiratory: lungs clear, No accessory muscle use Cardiac/Chest: regular rate, rhythm, No systolic murmur Extremities: No pedal edema Pelvic Exam: No bean Back: other (T and L spine incision, top part of incision small amount of dehiscence but no purulent material, no erythema) Skin: pallor, No jaundice, No rash Neuro/Psych: alert, normal mood/affect, oriented x 3 - Line/s RUE PICC Lines: No drainage, No erythema - Time Spent With Patient Time Spent with Patient: greater than 35 minutes Time Spent with Patient: Greater than 35 minutes spent on this patients care, greater than 50% of time spent counseling, educating, and coordinating care regarding the above mentioned plan. ICD10 Worksheet Patient Problems: Problems Problem Status Onset Back pain Acute History of fever Acute Low blood pressure Acute Cervical stenosis of spinal canal Acute Fusion of spine of thoracolumbar region Acute Low back pain Acute
--- NOTE | 2018-08-20 12:50 | HOSPPROG ---
Hospitalist Progress Note Assessment/Plan: Jeanne is a 77 y/o female who came to the ER from IP rehab due to worsening back pain and fevers. She recently underwent lumbosacral spinal reconstruction complicated by postoperative pain requiring an evacuation of hematoma and re- decompression. She returned to the ER and was evaluated by Dr. Garcia. An MRI was performed that demonstrated a widely decompressed thecal sac. At that point she had a drain in place to a known fluid collection. She was sent back to rehab yesterday and the drain was removed, possibly due to miscommunication. AT the rehab facility reported a fever so she was sent back to the ED. *bacteremia-enterococcus -urine cx shows enterococcus faecalis -started vancomycin 08/16 -recent blood cx show no growth from 08/17/18 -MRI shows no clear drainable collection. There is a new are of presacral fluid. *elevated LFT's -ultrasound ordered -poss further imaging to r/o cause of the infection *hypokalemia -K 3.2 *anemia -hgb and hct trending down -improved w transfusion *elevated BNP - echo shows diastolic dysfunction w no LVH and ef of 77% - resumed her oral Lasix *scoliosis s/p lumbosacral reconstruction -complicated by a hematoma, was evacuated, and repeat decompression -neurosurgery following *urinary retention -resolved *back pain due to recent surgery -on Tylenol and added oxy ir -pain is better today, but has ongoign *HTN -bp stable -parameters written as when to hold bp meds *restrictive lung disease -due to the scoliosis *plan: f/u with ultrasound, called her nurse to update her to let her eat after the ultrasound is done. CM involved arranging f/u care in the [place] area. Subjective: Jeanne is slowly feeling better. Objective: Vital Signs Temp Pulse Resp BP Pulse Ox 36.6 C 70 16 144/53 H 94 08/20/18 08:00 08/20/18 09:20 08/20/18 08:00 08/20/18 09:20 08/20/18 08:00 Laboratory Results 08/19/18 04:45 08/19/18 11:24 08/19/18 08/20/18 08/21/18 05:59 05:59 05:59 Intake Total 1100 750 Output Total 1400 200 100 Balance -300 550 -100 PT 16.1 SEC (12.0-15.0) H 08/15/18 19:00 INR 1.27 (0.83-1.16) H 08/15/18 19:00 - Physical Exam Constitutional: chronically ill appearing, uncomfortable Eyes: PERRL Ears, Nose, Mouth, Throat: hearing normal Cardiovascular: regular rate and rhythym Respiratory: no respiratory distress Gastrointestinal: soft, non-tender abdomen Skin: warm, No normal color (pale) Musculoskeletal: generalized weakness Neurologic: AAOx3 Psychiatric: interacting appropriately ICD10 Worksheet Patient Problems: Problems Problem Status Onset Back pain Acute History of fever Acute Low blood pressure Acute Cervical stenosis of spinal canal Acute Fusion of spine of thoracolumbar region Acute Low back pain Acute
[2018-08-20] MEDS: LOSARTAN POTASSIUM 25 MG TAB PO SCH (13:05)
--- NOTE | 2018-08-20 15:48 | ASMTCMCOM ---
CM Note CM Note Notes: Spoke with pt and Surjit at length about d/c options. Pt reports if she cannot return to [facility] inpatient rehab she wants to go home with support. Pt has thoroughly thought about getting back to [place] and driving in their car seems to be preferred. Referral made to [facility] for home infusion, Sherry Mercado to meet w pt who is covered 100%. Sherry states [facility] will likely need to deliver at hospital and do a teach. Amertia to secure a [facility]. CM to follow. Date Signed: 08/20/2018 03:29 PM Electronically Signed By:EJ Oconnell
[2018-08-20] MEDS ORDERED: VANCOMYCIN IV SCH (16:13)
[2018-08-20] MEDS ORDERED: NS IV SCH (16:13)
[2018-08-20] MEDS: VANCOMYCIN 750 MG in D5W 150 ML IV SCH (16:51)
[2018-08-20] MEDS: ESTROGENS,CONJUGATED 0.3 MG TAB PO SCH (18:11)
[2018-08-20] MEDS: ROSUVASTATIN CALCIUM 20 MG TAB PO SCH (21:56)
[2018-08-20] MEDS: EZETIMIBE 10 MG TAB PO SCH (21:56)
[2018-08-21] MEDS: VANCOMYCIN 750 MG in D5W 150 ML IV SCH ×2 (05:02→16:45)
[2018-08-21] MEDS: ACETAMINOPHEN 500 MG TAB PO SCH ×4 (06:25→22:06)
[2018-08-21] MEDS: oxyCODONE IR 5 MG TAB PO PRN ×4 (07:57→20:54)
[2018-08-21] MEDS: GABAPENTIN 100 MG CAP PO SCH ×3 (08:02→22:05)
[2018-08-21] MEDS: PRESERVISION AREDS2 FORMULA EYE VIT 1 EACH PO SCH ×2 (08:02→20:53)
[2018-08-21] MEDS: FUROSEMIDE 20 MG TAB PO SCH ×2 (08:03→17:06)
[2018-08-21] MEDS: CARVEDILOL 6.25 MG TAB PO SCH ×2 (08:04→20:53)
[2018-08-21] MEDS: MAGNESIUM OXIDE 400 MG TAB PO SCH (08:05)
[2018-08-21] MEDS: CHOLECALCIFEROL VIT D3 2,000 UNITS TAB/CAP PO SCH (08:06)
[2018-08-21] MEDS: POTASSIUM CL 20 MEQ PKT PO SCH (08:07)
[2018-08-21] MEDS: FAMOTIDINE 20 MG TAB PO SCH ×2 (08:07→20:53)
[2018-08-21] MEDS: ENOXAPARIN 40 MG/0.4 ML SYR SC SCH (08:08)
--- NOTE | 2018-08-21 08:16 | SOAPPROG ---
SOAP Progress Note Assessment/Plan: Assessment: 77 yo F sp T11-S1 fusion and redo decompression with enterrococus bacteremia Plan: neuro: stable, continued right hip/hamstring pain that may be from presacral fluid. enterrococcus bacteremia/UTI: on vanco per ID small post op paraspinal fluid collection but no enhancing, will follow clinically PT/OT scd/leopoldo/lovenox for dvt prophylaxis please call with neuro changes Dr Flores will see patient later today 08/19/18 07:28 08/19/18 07:30 08/21/18 08:15 Subjective: continued right hip/thigh pain, no weakness. Objective: Vital Signs Temp Pulse Resp BP Pulse Ox 37.1 C 67 16 120/53 L 97 08/21/18 07:31 08/21/18 08:04 08/21/18 07:31 08/21/18 08:04 08/21/18 07:31 Laboratory Results 08/19/18 04:45 08/21/18 05:10 08/20/18 08/21/18 08/22/18 05:59 05:59 05:59 Intake Total 750 850 Output Total 200 700 Balance 550 150 PT 16.1 SEC (12.0-15.0) H 08/15/18 19:00 INR 1.27 (0.83-1.16) H 08/15/18 19:00 AAOx4, +FC PERRL, no facial droop 5/5 + light touch C/D/I ICD10 Worksheet Patient Problems: Problems Problem Status Onset Back pain Acute History of fever Acute Low blood pressure Acute Cervical stenosis of spinal canal Acute Fusion of spine of thoracolumbar region Acute Low back pain Acute
--- NOTE | 2018-08-21 10:48 | HOSPPROG ---
Hospitalist Progress Note Assessment/Plan: Jeanne is a 77 y/o female who came to the ER from IP rehab due to worsening back pain and fevers. She recently underwent lumbosacral spinal reconstruction complicated by postoperative pain requiring an evacuation of hematoma and re- decompression. She returned to the ER and was evaluated by Dr. Garcia. An MRI was performed that demonstrated a widely decompressed thecal sac. At that point she had a drain in place to a known fluid collection. She was sent back to rehab yesterday and the drain was removed, possibly due to miscommunication. AT the rehab facility reported a fever so she was sent back to the ED. *bacteremia-enterococcus -urine cx shows enterococcus faecalis -started vancomycin 08/16 -recent blood cx show no growth from 08/17/18 -MRI shows no clear drainable collection. There is a new are of presacral fluid. *elevated LFT's -improved -ultrasound shows sludge, no cholecystitis -poss further imaging to r/o cause of the infection *hypokalemia -K 3.4 *anemia -hgb and hct trending down -improved w transfusion *elevated BNP - echo shows diastolic dysfunction w no LVH and ef of 77% - resumed her oral Lasix *scoliosis s/p lumbosacral reconstruction -complicated by a hematoma, was evacuated, and repeat decompression -neurosurgery following *urinary retention -resolved *back pain due to recent surgery -on Tylenol and added oxy ir -pain is better today, but has ongoign *HTN -bp stable -parameters written as when to hold bp meds *restrictive lung disease -due to the scoliosis *plan: reviewed her care w Dr Ardon, Subjective: Jeanne is feeling better this morning, took a shower. Objective: Vital Signs Temp Pulse Resp BP Pulse Ox 37.1 C 67 16 120/53 L 97 08/21/18 07:31 08/21/18 08:04 08/21/18 07:31 08/21/18 08:04 08/21/18 07:31 Laboratory Results 08/19/18 04:45 08/21/18 05:10 08/20/18 08/21/18 08/22/18 05:59 05:59 05:59 Intake Total 750 850 Output Total 200 700 300 Balance 550 150 -300 PT 16.1 SEC (12.0-15.0) H 11/29/18 19:00 INR 1.27 (0.83-1.16) H 08/15/18 19:00 - Physical Exam Constitutional: uncomfortable Eyes: PERRL Ears, Nose, Mouth, Throat: hearing normal Cardiovascular: regular rate and rhythym Respiratory: no respiratory distress, reduced air movement Skin: warm, other (back incision pink along the edges, with some dehis at the bottom end of the incision) Musculoskeletal: generalized weakness Neurologic: AAOx3 Psychiatric: interacting appropriately ICD10 Worksheet Patient Problems: Problems Problem Status Onset Back pain Acute History of fever Acute Low blood pressure Acute Cervical stenosis of spinal canal Acute Fusion of spine of thoracolumbar region Acute Low back pain Acute
--- NOTE | 2018-08-21 10:55 | PCMIDPN ---
Assessment/Plan: # low-grade enterococcal bacteremia, unclear source. S/p T11-S1 fusion 07/25 and redo decompression 08/06. Back incision looks ok, dehisced distally and a tiny bit proximally, no incisional pain. No clear evidence of infection noted on MRIs. I am not clearly satisfied regarding source of bacteremia. Would like to completely rule out GI etiology. If no other clear source identified may have to consider washout of distal wound. --CT abd/pelvis w/ contrast --continue IV vancomycin, dose adjusted yesterday for trough of 16 and concern for accumulation in this elderly woman, will repeat trough tomorrow # PCN : true PCN allergy meds vancomycin 750mg IV q12h #3 Microbiology 08/15/18 21:02 Urine, 1K Enterococcus Faecalis 08/15/18 19:15 Blood Cx 1/2 Enterococcus Species 08/17/18 12:25 Blood Cx 2/2 negative Subjective: denies incision pain, diarrhea. Still low appetite Episode of night sweats last night Objective: Vital Signs Temp Pulse Resp BP Pulse Ox 37.1 C 67 16 120/53 L 97 08/21/18 07:31 08/21/18 08:04 08/21/18 07:31 08/21/18 08:04 08/21/18 07:31 Laboratory Results 08/19/18 04:45 08/21/18 05:10 08/20/18 08/21/18 08/22/18 05:59 05:59 05:59 Intake Total 750 850 Output Total 200 700 300 Balance 550 150 -300 ESR 45 MM/HR (0-30) H 08/17/18 15:30 C-Reactive Protein 132.0 mg/L (<10.0) H 08/17/18 15:30 - Physical Exam General Appearance: alert, no apparent distress EENT: pale conjunctiva Respiratory: lungs clear, No accessory muscle use Neck: supple Cardiac/Chest: regular rate, rhythm Extremities: No swelling Back: other (Long incision along T and L-spine with a tiny bit of dehiscence approximately, larger area of dehiscence with necrotic material in the base of the distal L-spine incision. No pain to palpation along the incision, no fluctuance, no erythema) Skin: warm/dry, No rash Neuro/Psych: alert, normal mood/affect, oriented x 3 - Time Spent With Patient Time Spent with Patient: greater than 35 minutes (Care coordinated with Radha Joshi ENTERTAINMENT USHER) Time Spent with Patient: Greater than 35 minutes spent on this patients care, greater than 50% of time spent counseling, educating, and coordinating care regarding the above mentioned plan. ICD10 Worksheet Patient Problems: Problems Problem Status Onset Back pain Acute History of fever Acute Low blood pressure Acute Cervical stenosis of spinal canal Acute Fusion of spine of thoracolumbar region Acute Low back pain Acute
[2018-08-21] MEDS: SENNOSIDES/DOCUSATE SODIUM TAB PO SCH ×2 (10:58→20:53)
[2018-08-21] MEDS: LOSARTAN POTASSIUM 25 MG TAB PO SCH (13:25)
[2018-08-21] MEDS ORDERED: IOPAMIDOL (ISOVUE-300) 100 ML BTL ONE (13:35)
--- NOTE | 2018-08-21 15:01 | ASMTCMCOM ---
CM Note CM Note Notes: Per Sherry Mercado's request this CM send [facility] a referral [facility], they may be able to accept pt. Pain continues to limit pt and pt does not qualify for [facility] inpatient rehab. CM to follow. Date Signed: 08/21/2018 03:00 PM Electronically Signed By:EJ Oconnell
[2018-08-21] MEDS ORDERED: PROTOCOL CALCIUM 1 DOSE IV PRN (15:58)
[2018-08-21] MEDS ORDERED: PROTOCOL POTASSIUM 1 DOSE MISC PRN (15:58)
[2018-08-21] MEDS ORDERED: PROTOCOL MAGNESIUM 1 DOSE IV PRN (15:58)
[2018-08-21] MEDS: DICLOFENAC SODIUM 1% 100 GM GEL TP SCH ×3 (16:26→20:54)
[2018-08-21] MEDS ORDERED: GADOBUTROL 10 ML VIAL IVP ONE (17:55)
[2018-08-21] MEDS: ROSUVASTATIN CALCIUM 20 MG TAB PO SCH (20:53)
[2018-08-21] MEDS: EZETIMIBE 10 MG TAB PO SCH (20:53)
[2018-08-21] MEDS: ESTROGENS,CONJUGATED 0.3 MG TAB PO SCH (20:53)
[2018-08-21] MEDS ORDERED: POTASSIUM CL 20 MEQ TAB PO ONE (21:10)
[2018-08-22] MEDS ORDERED: KETOROLAC 15 MG/1 ML SDV IVP ONE (04:06)
[2018-08-22] MEDS: oxyCODONE IR 5 MG TAB PO PRN ×3 (04:14→13:44)
[2018-08-22] MEDS: VANCOMYCIN 750 MG in D5W 150 ML IV SCH ×2 (04:15→15:37)
[2018-08-22] MEDS: ACETAMINOPHEN 500 MG TAB PO SCH ×3 (05:38→21:57)
[2018-08-22] MEDS: DICLOFENAC SODIUM 1% 100 GM GEL TP SCH ×4 (05:38→22:00)
--- NOTE | 2018-08-22 07:22 | NEUSURGPN ---
Assessment/Plan: Assessment: 77 yo F sp T11-S1 fusion and redo decompression with enterrococus bacteremia Plan: - neuro stable - bactermia: ID following. On vanc. Appreciate ID work up of source - sSmall post op paraspinal fluid collection but no enhancing, will follow clinically -Ordered wound care for incisional dressing, fibrinous tissue and scabbing noted at distal incision. No discharge or erythema - PT/OT - scd/leopoldo/lovenox for dvt prophylaxis Discussed with Dr. Pablo Subjective: leg pain stable. Having some diarrhea since starting the abx. Objective: Awake. Alert. PERRL Speech fluent muscle strength full at 5/5 Incision with distal fibrinous tissue and scabbing. No erythema, no discharge. drain who site no induration or eythema or discharge. sensation intact Catheter Insertion Date: 08/16/18 - Physician Discussed Patient with : Radha Neurosurgery Physical Exam - Vitals, I&O, Labs I and O 08/21/18 08/22/18 08/23/18 05:59 05:59 05:59 Intake Total 850 300 Output Total 700 600 Balance 150 -300 Intake: Oral (ml) 600 IV Intake (ml) 100 IV Infused (ml) 150 300 Vancomycin 1 gm In Ns 250 150 ml @ 250 mls/hr IV Q12H [facility] Rx#:[id number] Vancomycin 750 mg In D5w 300 150 ml @ 150 mls/hr IV Q12H [facility] Rx#:[id number] Output: Urine (ml) 700 300 Bedside Commode 600 300 Toilet 100 Urine/Stool Mix (ml) 300 Bedside Commode 300 Other: Intake Quantity Yes Sufficient Number of Voids Bedside Commode 1 1 Incontinence 1 Toilet 1 Number of Stools Bedside Commode 1 Incontinence 1 Toilet 3 Bladder Scan Volume (ml) Bedside Commode 175 Vital Signs Temp Pulse Resp BP Pulse Ox 36.6 C 81 16 117/51 L 98 08/22/18 00:00 08/22/18 00:00 08/22/18 00:00 08/22/18 00:00 08/22/18 00:00 Laboratory Results 08/19/18 04:45 08/22/18 04:00 ICD10 Worksheet Patient Problems: Problems Problem Status Onset Back pain Acute History of fever Acute Low blood pressure Acute Cervical stenosis of spinal canal Acute Fusion of spine of thoracolumbar region Acute Low back pain Acute
[2018-08-22] MEDS: FUROSEMIDE 20 MG TAB PO SCH ×2 (09:03→15:34)
[2018-08-22] MEDS: CARVEDILOL 6.25 MG TAB PO SCH ×2 (09:04→18:24)
[2018-08-22] MEDS: GABAPENTIN 100 MG CAP PO SCH ×3 (09:04→21:57)
[2018-08-22] MEDS: CHOLECALCIFEROL VIT D3 2,000 UNITS TAB/CAP PO SCH (09:09)
[2018-08-22] MEDS: MAGNESIUM OXIDE 400 MG TAB PO SCH (09:09)
[2018-08-22] MEDS: PRESERVISION AREDS2 FORMULA EYE VIT 1 EACH PO SCH ×2 (09:09→21:57)
[2018-08-22] MEDS: SENNOSIDES/DOCUSATE SODIUM TAB PO SCH ×2 (09:10→21:57)
[2018-08-22] MEDS: POTASSIUM CL 20 MEQ PKT PO SCH (09:10)
[2018-08-22] MEDS: FAMOTIDINE 20 MG TAB PO SCH ×3 (09:12→18:24)
--- NOTE | 2018-08-22 09:50 | GCON ---
CHIEF COMPLAINT: 77 year old woman wiht recent back surgery with abnormal imaging of biliary tract and positive blood cultures for Enterococcus with questionable biliary obstruction. HISTORY OF PRESENT ILLNESS: This 77-year-old woman has a history of scoliosis and hypertension. She underwent LS spinal reconstruction. She developed a perioperative hematoma that needed to be drained. She went to rehab but presented back to the hospital with fever and ongoing back pain. In the hospital, she had a fever and was reported to have positive cultures for Enterococcus. She denied any abdominal pain or discomfort. She has had weight loss. She had imaging with a right upper quadrant ultrasound with the finding of gallbladder sludge with borderline common bile duct dilation. No evidence of choledocholithiasis or cholelithiasis. CT scan was also performed with the finding of intra and extrahepatic biliary ductal dilatation to the level of the ampulla. No obvious mass was identified. No gallbladder wall thickening or pericholecystic fluid. MRI was also performed with MRCP. MRI and MRCP showed a double duct sign. No obvious mass was seen in the pancreatic head. Question biliary obstruction at the level of the ampulla to include small pancreatic cancer or ampullary cancer. She has been noted to have elevated liver function tests with an AST of 155, an ALT of 109. She had a normal alkaline phosphatase of 93. Bilirubin is normal at 0.3. Follow up liver function tests this morning showed improvement of LFTs with an AST of 32, an ALT of 62, alkaline phosphatase 102. Patient is currently afebrile. She is on vancomycin. She is being followed by ID. I have been asked to see patient for further evaluation for findings of abnormal liver function tests and imaging suggestive of biliary obstruction in the setting of positive blood cultures for enterococcus. PAST MEDICAL HISTORY: Hypertension. SURGICAL HISTORY: Back surgery. FAMILY HISTORY: Negative as it pertains to chief complaint. SOCIAL HISTORY: Nonsmoker, nondrinker. ALLERGIES: Penicillin and Naprosyn. MEDICATIONS: Include albuterol, Coreg, vitamin D, Premarin, Zetia, Pepcid, Lasix, Neurontin, Cozaar, Zofran p.r.n., oxycodone IR, Crestor, Senokot S, and vancomycin 750 mg q.12. REVIEW OF SYSTEMS: Negative 10 systems other than mentioned in HPI. PHYSICAL EXAM: VITAL SIGNS: 136/56, heart rate of 81, respiratory rate, 97% saturation on 2 L nasal cannula, 36.9. GENERAL: Alert, oriented woman in no acute distress, somewhat ill-appearing. HEENT: Normocephalic, atraumatic. EOMI. NECK: Supple. No cervical adenopathy. No thyromegaly. Mucous membranes moist. LUNGS: Clear. CARDIAC: Normal S1, S2 without murmur. ABDOMEN: Soft, benign, nontender. No hepatosplenomegaly. EXTREMITIES: With 1 + edema. No cyanosis or clubbing. SKIN: Warm, dry, intact. NEURO: Nonfocal. PSYCH: Alert and oriented x3 with normal affect. LABORATORY DATA: Hemoglobin 9.5 with hematocrit 30.1. Serum chemistries: Serum sodium 138, potassium 3.4, chloride 101, BUN of 9, creatinine 0.6, blood sugar 101. Liver function tests on 08/19: AST of 155, ALT of 109, alkaline phosphatase 93, total bilirubin 0.3. Liver function tests this morning were total bilirubin of 0.3, AST 32, ALT of 62. IMPRESSION: 77-year-old woman with recent back surgery with positive blood cultures for Enterococcus. She has abnormal liver function tests with abnormal imaging of the bile duct suggesting possible biliary obstruction at the level of the ampulla, suggesting either a small tumor of the pancreas or ampullary carcinoma. RECOMMENDATIONS: 1. Proceed n.p.o. 2. Patient has had her Lovenox held. 3. Continue antibiotics. 4. Proceed with diagnostic ERCP to evaluate ampulla and evidence of biliary obstruction. 5. Recommend stent placement for drainage. 6. Patient potentially also will need endoscopic ultrasound pending findings at ERCP. 7. Will follow with you. /[id number]/MODL MTDD
--- NOTE | 2018-08-22 10:12 | WOCRNPDOC ---
WOCRN Advanced Assessment Note - Skin Integrity Problem, Advanced Assess Back Surgical Wound/Incision Dressing Type: Open to Air Closure Description: Not Approximated Exudate Amount: Scant Exudate Characteristic(s): Serosanguinous Gemma Wound Tissue: Erythema Gemma Wound Swelling: Moderate (superior slough filled wound) Wound Bed Constitution: Mixed Loose & Adhered Slough/Eschar Site Measurement - Head-to-Toe Length X Width X Depth (cm): Total incision is 19 cm long. There is a slough filled raised wound measuring 1x0.4xslough in the lower thoracic region. The tissue superior and inferior to this wound are approximated. There is a larger area of necrosis measuring 7x1x0.3 which is the inferior 1/3 of the incision. Skin Integrity Problem Comment: Inferior 1/3 of incision has necrotic tissue which would benefit from superficial debridement. The area does not seem to tract into the deeper tissues when explored with a qtip. The superior smaller wound may be partially pressure injury related. Will add active pump to the patient's support surface and initiate autolytic debridement with antimicrobial iodosorb gel and cover with offloading foam border dressing. Thank you for your consultation. Wound care will follow and round again next week. Discussed plan with Dr. Garcia.
[2018-08-22] MEDS ORDERED: IOTHALAMATE MEG (CONRAY) 50 ML VIAL IV ONE (10:32)
[2018-08-22] MEDS ORDERED: GLUCAGON HCL 1 MG VIAL ONE (10:32)
[2018-08-22] MEDS ORDERED: POTASSIUM CL 10 MEQ TAB PO ONE ×2 (10:41→21:59)
--- NOTE | 2018-08-22 11:14 | PDANEPAE ---
ANE History of Present Illness biliary obstruction ANE Past Medical History - Cardiovascular History Hx Hypertension: Yes Hx Arrhythmias: No Hx Chest Pain: No Hx Coronary Artery / Peripheral Vascular Disease: Yes Hx CHF / Valvular Disease: No Hx Palpitations: No Cardiovascular History Comment: HYPERLIPIDEMIA - Pulmonary History Hx COPD: Yes Hx Asthma/Reactive Airway Disease: No Hx Recent Upper Respiratory Infection: No Hx Oxygen in Use at Home: Yes O2 in Use at Home (L/minute): 2 Hx Sleep Apnea: No Sleep Apnea Screening Result - Last Documented: Negative Pulmonary History Comment: HS OXYGEN. + restrictive lung disease 2/2 scoliosis - Neurologic History Hx Cerebrovascular Accident: No Hx Seizures: No Hx Dementia: No - Endocrine History Hx Diabetes: No Hypothyroid: No Hyperthyroid: No Obesity: no - Renal History Hx Renal Disorders: No - Liver History Hx Hepatic Disorders: No - Neurological & Psychiatric Hx Hx Neurological and Psychiatric Disorders: No - Cancer History Hx Cancer: No - Congenital Disorder History Hx Congenital Disorders: No - GI History GERD: mild Hx Gastrointestinal Disorders: Yes Gastrointestinal History Comment: IBS. GERD - Other Health History Other Health History: BRIAN LOWER EXTREMITY EDEMA. OSTEOARTHRITIS. SCOLIOSIS. STENOSIS/DDD. N/T BRIAN FEET - Chronic Pain History Chronic Pain: Yes (LUMBAR REGION & LT HIP) - Surgical History Prior Surgeries: ACDF C4-7 03/21/18. LASER SPINE LUMBAR SURG. HYSTERECTOMY. L SHOULDER RTC. CATARACTS BRIAN. CARPAL TUNNEL BRIAN ANE Review of Systems Review of systems is: negative Review of Systems: - Exercise capacity METS (RN): 2 METS ANE Patient History - Allergies Allergies/Adverse Reactions: naproxen [From Naprosyn] Allergy (Verified 08/14/18 11:52) Hives Penicillins Allergy (Verified 08/14/18 11:52) Tongue swelling, throat pain - Home Medications Home medications: home medication list seen and reviewed Home Medications: Acetaminophen [Tylenol ES 500 mg (*)] 500 - 1,000 mg PO BID PRN 03/06/18 [Last Taken 07/24/18] Albuterol [Proventil Inhaler HFA (*)] 1 - 2 puffs IH DAILY PRN 03/06/18 [Last Taken 07/18/18] C/E/Zn/Cu/OM3/DHA/EPA/LUT/ZEAX [Preservision Areds 2 Softgel] 1 cap PO BID 03/06 [Last Taken 07/15/18] Carvedilol [Coreg (*)] 12.5 mg PO BIDMEAL 03/06/18 [Last Taken 08/09/18 08:20] Cholecalciferol Vit D3 [Vitamin D3 2000 units tab (OTC)] 4,000 units PO DAILY [Last Taken 07/15/18] Estrogens,Conjugated [Premarin 0.3 MG (*)] 0.3 mg PO DAILY18 03/06/18 [Last Taken 08/08/18 17:00] Ezetimibe [Zetia 10 MG (*)] 10 mg PO HS 03/06/18 [Last Taken 08/08/18 22:00] Famotidine [Pepcid 20 MG (*)] 20 mg PO BIDMEAL 03/06/18 [Last Taken 08/09/18 08: 20] Furosemide [Lasix 20 MG (*)] 20 mg PO BID@,03/06/18 [Last Taken 08/09/18 08 :20] Losartan Potassium [Cozaar 25 mg (*)] 25 mg PO DAILY@03/06/18 [Last Taken 13:00] Magnesium Oxide [Magnesium Oxide 400 mg (*)] 400 mg PO DAILY 03/06/18 [Last Taken 08/09/18 08:20] Rosuvastatin Calcium [Crestor 20mg (*)] 20 mg PO HS 03/06/18 [Last Taken 22:00] Lactase [Lactase 3000 Unit (*)] 3,000 unit PO DAILY PRN 06/21/18 [Last Taken 04/03] - NPO status NPO Status: no food or drink >8 hours NPO Since - Liquids (Date): 08/22/18 NPO Since - Liquids (Time): 00:05 NPO Since - Solids (Date): 08/22/18 NPO Since - Solids (Time): 00:05 - Anes Hx Anes Hx: no prior problems - Smoking Hx Smoking Status: Never smoked - Alcohol Use Alcohol Use: None - Family Anes Hx Family Anes Hx: none Family Hx Anesthesia Complications: NEG ANE Labs/Vital Signs - Labs Result Diagrams: 08/19/18 04:45 08/22/18 04:00 - Vital Signs Blood Pressure: 136/56 Heart Rate: 81 Respiratory Rate: 16 O2 Sat (%): 97 Height: 152.4 cm Weight: 58.96 kg ANE Physical Exam - Airway Neck exam: decreased ROM Mallampati Score: Class 2 Mouth exam: normal dental/mouth exam - Pulmonary Pulmonary: no respiratory distress, clear to auscultation - Cardiovascular Cardiovascular: regular rate and rhythym, no murmur, rub, or gallop - ASA Status ASA Status: III ANE Anesthesia Plan Anesthesia Plan: general endotracheal anesthesia
[2018-08-22] MEDS ORDERED: fentaNYL 100 MCG/2 ML INJ ONE (11:16)
[2018-08-22] MEDS ORDERED: SUCCINYLCHOLINE CHLORIDE 200 MG/10 ML SYR IVP ONE (11:17)
[2018-08-22] MEDS ORDERED: PROPOFOL 200 MG/20 ML VIAL ONE (11:17)
[2018-08-22] MEDS ORDERED: INDOMETHACIN 50 MG SUPP PR ONE (11:21)
[2018-08-22] MEDS ORDERED: LR 1,000 ML IV ONE (11:24)
[2018-08-22] MEDS ORDERED: ONDANSETRON 4 MG/2 ML VIAL ONE (11:56)
--- NOTE | 2018-08-22 12:40 | GIREPORT ---
[facility] Surgical Services - Endoscopy Department Patient Name: Jeanne Padgett Procedure Date: 08/22/2018 11:39 AM Patient Type: Inpatient Attending MD/ ER Physician: Juan Monteiro MD Procedure: ERCP Indications: Abnormal abdominal CT, Biliary dilation on Computed Tomogram Scan, Abno rmal MRCP, Elevated liver enzymes, Positive BC enterococcus. Providers: Juan Monteiro MD Medicines: General Anesthesia Complications: No immediate complications. Description of Procedure: After obtaining informed consent, the scope was passed under direct vis ion. Throughout the procedure, the patient's blood pressure, pulse, and oxyg en saturations were monitored continuously. The Duodenoscope was introduce d through the mouth, and advanced to the duodenum and used to inject cont rast into the bile duct. The ERCP was accomplished without difficulty. The patient tolerated the procedure well. Findings: The esophagus was successfully intubated under direct vision. The scope was advanced from the mouth to the duodenum. The pharynx, larynx and associ ated structures, as well as the upper GI tract, were normal. The major papil la was on the rim of a diverticulum. The major papilla was normal. The anthony e duct was deeply cannulated with the short-nosed traction sphincterotome . Contrast was injected. I personally interpreted the bile duct images. I mage quality was adequate. Contrast extended to the entire biliary tree. The main bile duct and common bile duct were diffusely dilated, uncertain etiolo gy. The largest diameter was 9 mm. The biliary tree was otherwise normal. A n 8 mm biliary sphincterotomy was made with a traction (standard) sphincter otome using ERBE electrocautery. There was no post-sphincterotomy bleeding. O ne 10 Fr by 5 cm plastic stent with two internal flaps was placed 4 cm into t he common bile duct. Bile flowed through the stent. The stent was in good position. Estimated Blood Loss: Estimated blood loss: none. Post Op Diagnosis: - The major papilla was on the rim of a diverticulum. - The major papilla appeared normal. No evidence of ampullary tumor. - The entire main bile duct and common bile duct were dilated, uncertai n etiology. - A biliary sphincterotomy was performed. - One plastic stent was placed into the common bile duct. Recommendation: - Clear liquid diet. - Perform an upper endoscopic ultrasound (UEUS) by Dr. Davis in the next week or two. - Check CA 19-9. - Check CEA. - Continue present medications/antibiotics. - Thank you for allowing me to participate in the care of your patient. Attending Participation: I personally performed the entire procedure. Juan Monteiro MD Juan Monteiro MD 08/22/2018 12:39:23 PM This report has been signed electronicallyStcarlita Monteiro MD Number of Addenda: 0 Note Initiated On: 08/22/2018 11:39 AM [email or web address]
[2018-08-22] MEDS ORDERED: NALOXONE HCL 0.4 MG/ML INJ IVP PRN (13:14)
[2018-08-22] MEDS: LOSARTAN POTASSIUM 25 MG TAB PO SCH (13:40)
--- NOTE | 2018-08-22 14:17 | HOSPPROG ---
Hospitalist Progress Note Assessment/Plan: Jeanne is a 77 y/o female who came to the ER from IP rehab due to worsening back pain and fevers. She recently underwent lumbosacral spinal reconstruction complicated by postoperative pain requiring an evacuation of hematoma and re- decompression. She returned to the ER and was evaluated by Dr. Garcia. An MRI was performed that demonstrated a widely decompressed thecal sac. At the rehab facility reported a fever so she was sent back to the ED. First encounter, chart reviewed. *bacteremia-enterococcus -urine cx shows enterococcus faecalis -started vancomycin 08/16 -recent blood cx show no growth from 08/17/18 -MRI shows no clear drainable collection. There is a new are of presacral fluid. *elevated LFT's -improved -ultrasound shows sludge, no cholecystitis -MRCP today -need UEUS next week *hypokalemia -K 3.8, better *anemia -hgb and hct stable -improved w transfusion *elevated BNP - echo shows diastolic dysfunction w no LVH and ef of 77% - resumed her oral Lasix *scoliosis s/p lumbosacral reconstruction -complicated by a hematoma, was evacuated, and repeat decompression -neurosurgery following *urinary retention -resolved *back pain due to recent surgery -on Tylenol and added oxy ir -pain is better today, but has ongoign *HTN -bp mild elevation -parameters written as when to hold bp meds *restrictive lung disease -due to the scoliosis *plan: cont workup supportive care IV abx D/W CM Subjective: Lethargic after procedure. Not feeling well. Objective: Vital Signs Temp Pulse Resp BP Pulse Ox 36.9 C 63 16 168/65 H 100 08/22/18 13:36 08/22/18 13:36 08/22/18 13:36 08/22/18 13:36 08/22/18 13:36 Laboratory Results 08/19/18 04:45 08/22/18 04:00 08/21/18 08/22/18 08/23/18 05:59 05:59 05:59 Intake Total 850 300 450 Output Total 700 600 0 Balance 150 -300 450 PT 16.1 SEC (12.0-15.0) H 08/15/18 19:00 INR 1.27 (0.83-1.16) H 08/15/18 19:00 - Physical Exam Constitutional: appears nourished, chronically ill appearing, uncomfortable Eyes: PERRL, anicteric sclera, EOMI Ears, Nose, Mouth, Throat: moist mucous membranes, hearing normal, ears appear normal Cardiovascular: No JVD, No tachycardia, No edema Respiratory: no respiratory distress, no rales or rhonchi, reduced air movement Gastrointestinal: tenderness, distension, No ascites Skin: warm, normal color, No mottled Musculoskeletal: normal joint ROM, no joint effusions, generalized weakness Psychiatric: not anxious, poor insight, poor memory ICD10 Worksheet Patient Problems: Problems Problem Status Onset Cervical stenosis of spinal canal Acute Fusion of spine of thoracolumbar region Acute Low back pain Acute Back pain Acute History of fever Acute Low blood pressure Acute
[2018-08-22] MEDS: METHOCARBAMOL 750 MG TAB PO PRN ×2 (15:34→21:57)
--- NOTE | 2018-08-22 15:48 | PCMIDPN ---
Assessment/Plan: # low-grade enterococcal bacteremia, now suspect biliary source. Do not suspect post op infection at this point. Reviewed MRIs w rads today. Pre-sacral abn does not seem significant. --only need 2 weeks IV abx, discuss daptomycin 360mg vs vancomycin stop date --repeat trough today # PCN : true PCN allergy meds vancomycin 750mg IV q12h #7 Microbiology 08/15/18 21:02 Urine, 1K Enterococcus Faecalis 08/15/18 19:15 Blood Cx 1/2 Enterococcus Species 08/17/18 12:25 Blood Cx 2/2 negative Subjective: c/o of diarrhea after contrast no abdominal pain not hungry Objective: Vital Signs Temp Pulse Resp BP Pulse Ox 36.6 C 59 L 16 175/58 H 97 08/22/18 14:59 08/22/18 14:59 08/22/18 14:59 08/22/18 14:59 08/22/18 14:59 Microbiology 08/17/18 12:20 Blood Culture - Final Blood 08/17/18 12:25 Blood Culture - Final Blood Laboratory Results 08/19/18 04:45 08/22/18 04:00 08/21/18 08/22/18 08/23/18 05:59 05:59 05:59 Intake Total 850 300 450 Output Total 700 600 0 Balance 150 -300 450 ESR 45 MM/HR (0-30) H 08/17/18 15:30 C-Reactive Protein 132.0 mg/L (<10.0) H 08/17/18 15:30 - Physical Exam General Appearance: alert, no apparent distress EENT: pale conjunctiva Respiratory: lungs clear, No accessory muscle use Neck: supple Cardiac/Chest: regular rate, rhythm Extremities: No pedal edema Abdomen: normal bowel sounds, non-tender, soft, No peritoneal signs, No tender Skin: No rash Neuro/Psych: alert, normal mood/affect, oriented x 3 - Line/s RUE PICC Lines: No drainage, No erythema - Time Spent With Patient Time Spent with Patient: greater than 35 minutes (care coordinated with Dr. Monteiro) Time Spent with Patient: Greater than 35 minutes spent on this patients care, greater than 50% of time spent counseling, educating, and coordinating care regarding the above mentioned plan. ICD10 Worksheet Patient Problems: Problems Problem Status Onset Back pain Acute History of fever Acute Low blood pressure Acute Cervical stenosis of spinal canal Acute Fusion of spine of thoracolumbar region Acute Low back pain Acute
[2018-08-22] MEDS: ESTROGENS,CONJUGATED 0.3 MG TAB PO SCH (18:24)
[2018-08-22] MEDS: EZETIMIBE 10 MG TAB PO SCH (21:57)
[2018-08-22] MEDS: ROSUVASTATIN CALCIUM 20 MG TAB PO SCH (21:57)
[2018-08-23] MEDS: oxyCODONE IR 5 MG TAB PO PRN ×2 (04:01→12:28)
[2018-08-23] MEDS: METHOCARBAMOL 750 MG TAB PO PRN ×2 (04:01→20:13)
[2018-08-23] MEDS: VANCOMYCIN 750 MG in D5W 150 ML IV SCH ×2 (04:09→16:43)
[2018-08-23] MEDS: ACETAMINOPHEN 500 MG TAB PO SCH ×3 (05:28→22:07)
[2018-08-23] MEDS: DICLOFENAC SODIUM 1% 100 GM GEL TP SCH ×4 (06:38→20:14)
[2018-08-23] MEDS ORDERED: CALCIUM GLUCONATE 50 ML IV ONE (07:38)
[2018-08-23] MEDS ORDERED: MAGNESIUM SULF 1 GM/DEXTROSE 100 ML IV ONE (08:38)
--- NOTE | 2018-08-23 08:52 | SOAPPROG ---
SOAP Progress Note Assessment/Plan: Assessment/Plan: 77 yo female s/p T11-S1 fusion with Dr. Garcia on 07/25 and redo lamincetomy for evacuation of post op hematoma and residual stenosis by Dr. Herrera on 08/06. Readmitted due to lethargy and fevers. extensive workup ensued indicating likely biliary source of enterococcal bacteremia, also with UTI. -status post ERCP on 08/22 with GI -lumbar MRI - no drainable fluid collection Plan: -pain control, activity as tolerated with assistance in brace. -Low grade bacteremia with likely biliary source per ID. Continue 2 weeks of either Dapto or Vanc per ID recommendations -Wound care per wound RN -PT/OT -Needs to go back to rehab once medical issues sorted out 08/23/18 08:55 08/23/18 08:59 Subjective: Out of bed in chair. Feeling better. Still with right posterior thigh pain that is worse than preop. She is ambulatory with assist and walker. Objective: Vital Signs Temp Pulse Resp BP Pulse Ox 36.8 C 74 16 151/52 H 91 L 08/23/18 07:41 08/23/18 07:41 08/23/18 07:41 08/23/18 07:41 08/23/18 07:41 Microbiology 08/17/18 12:20 Blood Culture - Final Blood 08/17/18 12:25 Blood Culture - Final Blood Laboratory Results 08/19/18 04:45 08/23/18 04:15 08/22/18 08/23/18 08/24/18 05:59 05:59 05:59 Intake Total 300 600 Output Total 600 300 Balance -300 300 PT 16.1 SEC (12.0-15.0) H 08/15/18 19:00 INR 1.27 (0.83-1.16) H 08/15/18 19:00 ICD10 Worksheet Patient Problems: Problems Problem Status Onset Back pain Acute History of fever Acute Low blood pressure Acute Cervical stenosis of spinal canal Acute Fusion of spine of thoracolumbar region Acute Low back pain Acute
--- NOTE | 2018-08-23 09:27 | SOAPPROG ---
SOAP Progress Note Assessment/Plan: Assessment: s/p ERCP with sphincterotomy and stent placement. Patient without abdominal pain, tolerating PO I suspect that biliary tract is not source of infection. Evidence of dilated CBD and intrahepatics on ERCP and "double duct sign" on MRCP. Suspect that dilation of biliary system is secondary to chronic pain and narcotics. Patient has biliary stent with normal LFTs this morning. Plan: 1. Diet as tolerated 2. Recommend Stent removal and EUS to exclude, small pancreatic head tumor, in 4 - [address] Davis. 3. Will sign off, please call with further questions. 08/23/18 09:46 Subjective: CC: Back pain positive blood cultures for enterococcus Tolerating PO denies any abdominal pain. Objective: Vital Signs Temp Pulse Resp BP Pulse Ox 36.8 C 74 16 151/52 H 91 L 08/23/18 07:41 08/23/18 07:41 08/23/18 07:41 08/23/18 07:41 08/23/18 07:41 Microbiology 08/17/18 12:20 Blood Culture - Final Blood 08/17/18 12:25 Blood Culture - Final Blood Laboratory Results 08/19/18 04:45 08/23/18 04:15 08/22/18 08/23/18 08/24/18 05:59 05:59 05:59 Intake Total 300 600 Output Total 600 300 Balance -300 300 PT 16.1 SEC (12.0-15.0) H 08/15/18 19:00 INR 1.27 (0.83-1.16) H 08/15/18 19:00 Generic Name Dose Route Start Last Admin Trade Name Angel PRN Reason Stop Dose Admin Acetaminophen 1,000 mg 08/17/18 22:00 08/23/18 05:28 Tylenol PO 02/13/19 21:59 1,000 mg Q8HRS LINSEY Administration Albuterol 1 - 2 puffs 08/16/18 10:21 Proventil Inhaler IH 02/12/19 10:20 DAILY PRN Short of Breath/Dyspnea Alteplase, Recombinant 2 mg 08/19/18 10:15 Cathflo Activase IVP 02/15/19 10:14 PRN PRN Per PICC line policy Calcium Gluconate 1 dose 08/21/18 15:58 Protocol Calcium IV 02/17/19 15:57 AD PRN Pt on Electrolyte Protocol Protocol Carboxymethylcellulose 1 drop 08/16/18 10:21 Refresh Celluvisc EACHEYE 02/12/19 10:20 QID PRN Dry Irritated Eyes Carvedilol 12.5 mg 08/16/18 18:00 08/22/18 18:24 Coreg PO 02/12/19 17:59 12.5 mg BIDMEAL LINSEY Administration Cholecalciferol 4,000 units 08/17/18 09:00 08/22/18 09:09 Vitamin D PO 02/13/19 08:59 Not Given DAILY LINSEY Diclofenac Sodium 4 gm 08/21/18 12:00 08/23/18 06:38 Diclofenac Sodium 1% Gel TP 02/17/19 11:59 Not Given QID LINSEY Ezetimibe 10 mg 08/16/18 21:00 08/22/18 21:57 Zetia PO 02/12/19 20:59 10 mg HS LINSEY Administration Enoxaparin Sodium 40 mg 08/17/18 09:00 08/21/18 08:08 Lovenox SC 02/13/19 08:59 40 mg DAILY LINSEY Administration Estrogens Conjugated 0.3 mg 08/16/18 18:00 08/22/18 18:24 Premarin PO 02/12/19 17:59 0.3 mg DAILY18 LINSEY Administration Famotidine 20 mg 08/16/18 18:00 08/22/18 18:24 Pepcid PO 02/12/19 17:59 20 mg BIDMEAL LINSEY Administration Furosemide 20 mg 08/16/18 16:00 08/22/18 15:34 Lasix PO 02/12/19 15:59 20 mg BID@09,16 LINSEY Administration Gabapentin 200 mg 08/18/18 16:00 08/22/18 21:57 Neurontin PO 02/14/19 15:59 200 mg TID LINSEY Administration Vancomycin HCl 750 mg/ 150 mls @ 150 mls/hr 08/20/18 16:30 08/23/18 04:09 Dextrose IV 09/19/18 16:29 150 mls Q12H LINSEY Administration Lactase 3,000 unit 08/16/18 10:21 Lactase PO 02/12/19 10:20 DAILY PRN has dairy Losartan Potassium 25 mg 08/16/18 12:00 08/22/18 13:40 Cozaar PO 02/12/19 11:59 25 mg DAILY@12 LINSEY Administration Magnesium Sulfate 1 dose 08/21/18 15:58 Protocol Magnesium IV 02/17/19 15:57 AD PRN Pt on Electrolyte Protocol Protocol Methocarbamol 750 mg 08/22/18 15:29 08/23/18 04:01 Robaxin PO 02/18/19 15:28 750 mg QID PRN Administration MUSCLE SPASMS Multivitamins/Minerals 1 each 08/16/18 21:00 08/22/18 21:57 Preservision Areds2 Formula PO 02/12/19 20:59 1 each BID LINSEY Administration Ondansetron HCl 4 mg 08/15/18 22:09 08/22/18 13:38 Zofran IVP 02/11/19 22:08 4 mg Q4HRS PRN Administration Nausea/Vomiting, Can't Take PO Ondansetron HCl 4 mg 08/15/18 22:09 Zofran Odt PO 02/11/19 22:08 Q4HRS PRN Nausea/Vomiting, Use 1st Oxycodone HCl 5 mg 08/19/18 10:16 08/23/18 04:01 Oxycodone Ir PO 08/26/18 16:08 5 mg Q4HRS PRN Administration Pain, Severe Able to Take PO Potassium Chloride 20 meq 08/20/18 10:45 08/22/18 09:10 Klor Packets PO 02/16/19 10:44 Not Given DAILY LINSEY Potassium Chloride 1 dose 08/21/18 15:58 Protocol Potassium MISC 02/17/19 15:57 AD PRN Pt on Electrolyte Protocol Protocol Rosuvastatin Calcium 20 mg 08/16/18 21:00 08/22/18 21:57 Crestor PO 02/12/19 20:59 20 mg HS LINSEY Administration Senna/Docusate Sodium 1 - 2 tab 08/16/18 21:00 08/22/18 21:57 Senokot-S PO 02/12/19 20:59 Not Given BID LINSEY Discontinued Medications Generic Name Dose Route Start Last Admin Trade Name Freq PRN Reason Stop Dose Admin Acetaminophen 650 mg 08/15/18 22:09 08/17/18 11:44 Tylenol PO 02/11/19 22:08 650 mg Q4HRS PRN Administration Pain, Mild/Fever, Can Take PO Acetaminophen 650 mg 08/16/18 14:12 08/16/18 16:41 Tylenol PO 08/16/18 14:13 Not Given ONCE ONE Fentanyl Confirm 08/22/18 11:16 Sublimaze Administered 08/22/18 11:17 Dose 100 mcg .ROUTE .STK-MED ONE Furosemide 20 mg 08/16/18 14:12 08/17/18 00:09 Lasix Injection IVP 08/16/18 14:13 20 mg ONCE ONE Administration Furosemide 40 mg 08/18/18 08:40 08/18/18 09:31 Lasix Injection IVP 08/18/18 08:41 40 mg ONCE ONE Administration Gabapentin 400 mg 08/16/18 16:00 08/18/18 09:33 Neurontin PO 02/12/19 15:59 400 mg TID LINSEY Administration Gadobutrol Confirm 08/17/18 12:32 Gadavist 1 Mmol/Ml Administered 08/17/18 12:33 Dose 10 ml IVP .STK-MED ONE Gadobutrol Confirm 08/21/18 17:55 Gadavist 1 Mmol/Ml Administered 08/21/18 17:56 Dose 10 ml IVP .STK-MED ONE Glucagon Confirm 08/22/18 10:32 Glucagon Administered 08/22/18 10:33 Dose 1 mg .ROUTE .STK-MED ONE Sodium Chloride 1,800 mls @ 3,600 mls/hr 08/15/18 20:04 08/15/18 20:10 Ns 30 ml/kg infuse over 30 min (1800 ml) 08/15/18 20:33 1,800 mls IV Administration EDNOW ONE Protocol Sodium Chloride 1,000 mls @ 100 mls/hr 08/15/18 22:15 08/16/18 01:44 Ns IV 02/11/19 22:14 1,000 mls CONT LINSEY Administration Vancomycin HCl 1 gm/ Sodium 250 mls @ 250 mls/hr 08/16/18 15:00 08/18/18 16: 21 Chloride IV 09/15/18 14:59 Not Given Q24H LINSEY Vancomycin HCl 1 gm/ Sodium 250 mls @ 250 mls/hr 08/18/18 15:30 08/20/18 16: 22 Chloride IV 09/17/18 15:29 Not Given Q12H LINSEY Lactated Ringer's 1,000 mls @ 0 mls/hr 08/22/18 11:24 08/22/18 11:27 Lr IV 08/22/18 11:25 1,000 mls ONCE ONE Administration As Directed Calcium Gluconate 50 mls @ 100 mls/hr 08/23/18 07:38 08/23/18 08:19 Calcium Gluconate 1 Gm (Premix) IV 08/23/18 08:07 50 mls ONCE ONE Administration Magnesium Sulfate/Dextrose 100 mls @ 100 mls/hr 08/23/18 08:38 Magnesium Sulf 1 Gm (Premix) IV 08/23/18 09:37 ONCE ONE Indomethacin Confirm 08/22/18 11:21 Indocin Rectal Administered 08/22/18 11:22 Dose 100 mg AL .STK-MED ONE Iopamidol Confirm 08/21/18 13:35 Isovue-300 Administered 08/21/18 13:36 Dose 100 ml .ROUTE .STK-MED ONE Iothalamate Meglumine Confirm 08/22/18 10:32 Conray Administered 08/22/18 10:33 Dose 50 ml IV .STK-MED ONE Ketorolac Tromethamine 15 mg 08/22/18 04:06 08/22/18 04:13 Toradol IVP 08/22/18 04:07 Not Given ONCE ONE Magnesium Oxide 400 mg 08/17/18 09:00 08/22/18 09:09 Magnesium Oxide PO 02/13/19 08:59 Not Given DAILY LINSEY Naloxone HCl 0.1 mg 08/22/18 13:14 Narcan IVP 08/22/18 14:14 Q2M PRN PACU Resp Rate <10/min Ondansetron HCl Confirm 08/22/18 11:56 Zofran Administered 08/22/18 11:57 Dose 4 mg .ROUTE .STK-MED ONE Oxycodone HCl 5 mg 08/16/18 16:09 08/18/18 12:23 Oxycodone Ir PO 08/26/18 16:08 5 mg Q4HRS PRN Administration Pain, Severe Able to Take PO Oxycodone HCl 2.5 mg 08/18/18 15:17 Oxycodone Ir PO 08/26/18 16:08 Q4HRS PRN Pain, Severe Able to Take PO Potassium Chloride 40 meq 08/21/18 21:10 12/05/18 22:06 Klor-Con PO 08/21/18 21:11 40 meq ONCE ONE Administration Protocol Potassium Chloride 10 - 40 meq 08/22/18 10:41 08/22/18 13:43 Klor-Con PO 08/22/18 10:42 10 meq ONCE ONE Administration Protocol Potassium Chloride 10 meq 08/22/18 21:59 08/22/18 22:07 Klor-Con PO 08/22/18 22:00 10 meq ONCE ONE Administration Protocol Propofol Confirm 08/22/18 11:17 Diprivan Administered 08/22/18 11:18 Dose 200 mg .ROUTE .STK-MED ONE Succinylcholine Chloride Confirm 08/22/18 11:17 Quelicin Administered 08/22/18 11:18 Dose 200 mg IVP .STK-MED ONE Vancomycin HCl 1 each 08/16/18 14:00 Vancomycin Pharmacy To Dose, 10-15 Mcg/Ml MISC 02/12/19 13:59 AD REPLACED BY [facility] Protocol Physical Exam - Physical Exam Respiratory: lungs clear, normal breath sounds Cardiac/Chest: regular rate, rhythm Abdomen: normal bowel sounds, non-tender, soft Skin: normal color, warm/dry Neuro/Psych: no motor/sensory deficits, alert, normal mood/affect, oriented x 3 ICD10 Worksheet Patient Problems: Problems Problem Status Onset Back pain Acute History of fever Acute Low blood pressure Acute Cervical stenosis of spinal canal Acute Fusion of spine of thoracolumbar region Acute Low back pain Acute
[2018-08-23] MEDS: FAMOTIDINE 20 MG TAB PO SCH ×2 (09:34→17:57)
[2018-08-23] MEDS: GABAPENTIN 100 MG CAP PO SCH ×3 (09:34→22:07)
[2018-08-23] MEDS: FUROSEMIDE 20 MG TAB PO SCH ×2 (09:34→15:03)
[2018-08-23] MEDS: CHOLECALCIFEROL VIT D3 2,000 UNITS TAB/CAP PO SCH (09:34)
[2018-08-23] MEDS: PRESERVISION AREDS2 FORMULA EYE VIT 1 EACH PO SCH ×2 (09:34→20:13)
[2018-08-23] MEDS: CARVEDILOL 6.25 MG TAB PO SCH ×2 (09:35→17:57)
[2018-08-23] MEDS: POTASSIUM CL 20 MEQ PKT PO SCH (09:35)
[2018-08-23] MEDS: SENNOSIDES/DOCUSATE SODIUM TAB PO SCH ×2 (09:36→20:14)
--- NOTE | 2018-08-23 11:05 | PCMIDPN ---
Assessment/Plan: # low-grade enterococcal bacteremia, now suspect biliary source - although GI does not buy this. Do not suspect post op infection at this point.. Pre-sacral abn does not seem significant. LFTs normalized --only need 2 weeks IV abx, discuss daptomycin 360mg stop date 08/29/18 --continue on vancomycin until discharge which tomorrow, then give 1 dose of daptomycin and set up for home infusion with daptomycin. Check CK baseline, hold statin while on therapy --work on dc for tomorrow # Diarrhea: improving, was associated w contrast given yesterday. Cancelled Cdiff # PCN : true PCN allergy meds vancomycin 750mg IV q12h #8 Microbiology 08/15/18 21:02 Urine, 1K Enterococcus Faecalis 08/15/18 19:15 Blood Cx 1/2 Enterococcus Species 08/17/18 12:25 Blood Cx 2/2 negative Subjective: Same right-sided hip pain radiating to her leg. No back pain No abdominal pain. Patient states she it is hard to know how her appetite is could she has only had clear liquids. Objective: Vital Signs Temp Pulse Resp BP Pulse Ox 36.8 C 72 16 151/52 H 91 L 08/23/18 07:41 08/23/18 09:35 08/23/18 07:41 08/23/18 09:35 08/23/18 07:41 Microbiology 08/17/18 12:20 Blood Culture - Final Blood 08/17/18 12:25 Blood Culture - Final Blood Laboratory Results 08/19/18 04:45 08/23/18 04:15 08/22/18 08/23/18 08/24/18 05:59 05:59 05:59 Intake Total 300 600 Output Total 600 300 Balance -300 300 ESR 45 MM/HR (0-30) H 08/17/18 15:30 C-Reactive Protein 132.0 mg/L (<10.0) H 08/17/18 15:30 - Physical Exam General Appearance: alert EENT: pale conjunctiva, dry mucous membranes, No thrush Respiratory: other (Shallow inspiration, decreased breath sounds in the bases), No accessory muscle use Neck: supple Cardiac/Chest: regular rate, rhythm Extremities: No pedal edema Abdomen: non-tender, soft Back: other (Wound is covered) Skin: pallor, No jaundice Neuro/Psych: alert, normal mood/affect, oriented x 3 - Line/s RUE PICC Lines: No drainage, No erythema ICD10 Worksheet Patient Problems: Problems Problem Status Onset Back pain Acute History of fever Acute Low blood pressure Acute Cervical stenosis of spinal canal Acute Fusion of spine of thoracolumbar region Acute Low back pain Acute
--- NOTE | 2018-08-23 11:31 | PDIAF ---
- Diagnosis Diagnosis: enterococcal bacteremia Code Status: Full Code - Medication Management Product Management Manager Antibiotics: daptomycin 360mg IV daily Product Management Manager Antibiotic Stop Date: 08/29/18 (Remove PICC line after last dose of daptomycin 08/29/2018) Additional Medication Instructions: Hold statin until 09/02 Discharge Medications: electronically signed and located in the Home Medication List. PICC Care - Routine: Yes - Orders Diet Texture: Regular Texture Diet, Thin Liquids, Meds Whole w/Liquids, Meds Whole in Puree - Labs/Radiology CBC w/diff Date: 08/26/18 (Weekly Sunday) CMP Date: 08/26/18 (Weekly Sunday) CPK Date: 08/26/18 (Weekly Sunday) Call or Fax Lab and Imaging Results to: Zelda Ardon MD [facility] at fax [phone] - Follow Up Care Current Providers and Referrals: Patient,NotPresent [Unknown] - As per Instructions
[2018-08-23] MEDS: LOSARTAN POTASSIUM 25 MG TAB PO SCH (12:09)
[2018-08-23 14:26] LABS: CREATINE KINASE 28 IU/L (0-156)
--- NOTE | 2018-08-23 15:25 | HOSPPROG ---
Hospitalist Progress Note Assessment/Plan: Jeanne is a 77 y/o female who came to the ER from IP rehab due to worsening back pain and fevers. She recently underwent lumbosacral spinal reconstruction complicated by postoperative pain requiring an evacuation of hematoma and re- decompression. She returned to the ER and was evaluated by Dr. Garcia. An MRI was performed that demonstrated a widely decompressed thecal sac. At the rehab facility reported a fever so she was sent back to the ED. First encounter, chart reviewed. *bacteremia-enterococcus -urine cx shows enterococcus faecalis -started vancomycin 08/16 -recent blood cx show no growth from 08/17/18 -MRI shows no clear drainable collection. There is a new are of presacral fluid. *elevated LFT's -improved -ultrasound shows sludge, no cholecystitis -MRCP today -need UEUS next week *hypokalemia -K 3.8, better *anemia -hgb and hct stable -improved w transfusion *elevated BNP - echo shows diastolic dysfunction w no LVH and ef of 77% - resumed her oral Lasix *scoliosis s/p lumbosacral reconstruction -complicated by a hematoma, was evacuated, and repeat decompression -neurosurgery following *urinary retention -resolved *back pain due to recent surgery -on Tylenol and added oxy ir -pain is better today, but has ongoign *HTN -bp mild elevation -parameters written as when to hold bp meds *restrictive lung disease -due to the scoliosis *plan: D/W Dr Ardon/LOBO Plan for DC to rehab, SNF IV abx D/W LOBO Subjective: Working with therapy. Up in chair. Feels unable to go home. Objective: Vital Signs Temp Pulse Resp BP Pulse Ox 36.8 C 78 16 141/70 H 96 08/23/18 12:00 08/23/18 12:11 08/23/18 12:00 08/23/18 12:09 08/23/18 12:11 Microbiology 08/17/18 12:20 Blood Culture - Final Blood 08/17/18 12:25 Blood Culture - Final Blood Laboratory Results 08/19/18 04:45 08/23/18 04:15 08/22/18 08/23/18 08/24/18 05:59 05:59 05:59 Intake Total 300 600 Output Total 600 300 Balance -300 300 PT 16.1 SEC (12.0-15.0) H 08/15/18 19:00 INR 1.27 (0.83-1.16) H 08/15/18 19:00 - Physical Exam Constitutional: appears nourished, chronically ill appearing, uncomfortable Eyes: PERRL, anicteric sclera, EOMI Ears, Nose, Mouth, Throat: moist mucous membranes, hearing normal, ears appear normal Cardiovascular: No JVD, No tachycardia, No edema Respiratory: no respiratory distress, no rales or rhonchi, reduced air movement Gastrointestinal: tenderness, distension, No ascites Skin: warm, normal color, No mottled Musculoskeletal: pain with ROM, muscular tenderness, abnormal gait, generalized weakness Neurologic: AAOx3 Psychiatric: not anxious, not encephalopathic, thought process linear ICD10 Worksheet Patient Problems: Problems Problem Status Onset Cervical stenosis of spinal canal Acute Fusion of spine of thoracolumbar region Acute Low back pain Acute Back pain Acute History of fever Acute Low blood pressure Acute
--- NOTE | 2018-08-23 16:41 | ASMTCMCOM ---
CM Note CM Note Notes: Early in the day it was believed pt would still d/c home but then pt and decided to d/c to local SNF. Referrals sent to [facility], [facility] and [facility]. Pt was switched to Dapto until 08/29/18. [facility] and [facility] can accept with Dapto. [facility] initially declines due to Dapto cost, [facility] is seeing what she can do to accept and if pt choice if only [facility] then maybe pt can be changed back to Vanco, ID was consider dapto vs. vanco today. [facility] updated. D/c plan of care: Local SNF, which is TBD Date Signed: 08/23/2018 04:40 PM Electronically Signed By:EJ Oconnell
[2018-08-23] MEDS: ESTROGENS,CONJUGATED 0.3 MG TAB PO SCH (17:57)
[2018-08-23] MEDS: EZETIMIBE 10 MG TAB PO SCH (20:13)
[2018-08-24] MEDS: ACETAMINOPHEN 500 MG TAB PO SCH ×2 (05:14→12:06)
[2018-08-24] MEDS: METHOCARBAMOL 750 MG TAB PO PRN ×3 (05:14→14:39)
[2018-08-24] MEDS: oxyCODONE IR 5 MG TAB PO PRN ×2 (06:15→13:05)
[2018-08-24] MEDS: DICLOFENAC SODIUM 1% 100 GM GEL TP SCH ×2 (06:15→10:30)
[2018-08-24 07:36] VITALS: BP 138/53
--- NOTE | 2018-08-24 08:50 | HOSPPROG ---
Hospitalist Progress Note Assessment/Plan: Jeanne is a 77 y/o female who came to the ER from IP rehab due to worsening back pain and fevers. She recently underwent lumbosacral spinal reconstruction complicated by postoperative pain requiring an evacuation of hematoma and re- decompression. She returned to the ER and was evaluated by Dr. Garcia. An MRI was performed that demonstrated a widely decompressed thecal sac. At that point she had a drain in place to a known fluid collection. She was sent back to rehab yesterday and the drain was removed, possibly due to miscommunication. AT the rehab facility reported a fever so she was sent back to the ED. *bacteremia-enterococcus -urine cx shows enterococcus faecalis -started vancomycin 08/16 , changed to dapto -recent blood cx show no growth from 08/17/18 -concern the biliary tract could be source of infection *elevated LFT's -improved -s/p ERCP with sphincterotomy and stent placement -will need stent removal and EUS to exclude a small pancreatic head tumor. To se Dr Davis in 4-6 weeks *hypokalemia -K 3.9 *anemia -hgb and hct trending down -improved w transfusion *elevated BNP - echo shows diastolic dysfunction w no LVH and ef of 77% - resumed her oral Lasix *scoliosis s/p lumbosacral reconstruction -complicated by a hematoma, was evacuated, and repeat decompression -neurosurgery following *urinary retention -resolved *back pain due to recent surgery -on Tylenol and added oxy ir -pain is better today, but has ongoign *HTN -bp stable -parameters written as when to hold bp meds *restrictive lung disease -due to the scoliosis *plan: dc to [facility], reviewed f/u care with the patient and the Subjective: Jeanne still has pain in her hip Objective: Vital Signs Temp Pulse Resp BP Pulse Ox 36.9 C 77 14 138/53 H 95 08/24/18 07:36 08/24/18 07:36 08/24/18 07:36 08/24/18 07:36 08/24/18 07:36 Laboratory Results 08/19/18 04:45 08/24/18 05:10 08/23/18 08/24/18 08/25/18 05:59 05:59 05:59 Intake Total 600 550 Output Total 300 600 Balance 300 -50 PT 16.1 SEC (12.0-15.0) H 08/15/18 19:00 INR 1.27 (0.83-1.16) H 08/15/18 19:00 - Physical Exam Constitutional: no apparent distress, uncomfortable Eyes: PERRL Ears, Nose, Mouth, Throat: hearing normal Cardiovascular: regular rate and rhythym Respiratory: no respiratory distress Skin: warm, No normal color (pale) Musculoskeletal: generalized weakness Neurologic: AAOx3 Psychiatric: interacting appropriately ICD10 Worksheet Patient Problems: Problems Problem Status Onset Back pain Acute History of fever Acute Low blood pressure Acute Cervical stenosis of spinal canal Acute Fusion of spine of thoracolumbar region Acute Low back pain Acute
[2018-08-24] MEDS ORDERED: DAPTOmycin 360 MG in NS 100 ML IV SCH (09:00)
--- NOTE | 2018-08-24 09:23 | SOAPPROG ---
SOAP Progress Note Assessment/Plan: Assessment/Plan: 77 yo female s/p T11-S1 fusion with Dr. Garcia on 07/25 and redo lamincetomy for evacuation of post op hematoma and residual stenosis by Dr. Herrera on 08/06. Readmitted due to lethargy and fevers. extensive workup ensued indicating likely biliary source of enterococcal bacteremia, also with UTI. -status post ERCP on 08/22 with GI -lumbar MRI - no drainable fluid collection Plan: -pain control, activity as tolerated with assistance in brace. -Low grade bacteremia with possible biliary source per ID. Continue 2 weeks of either Dapto or Vanc per ID recommendations -Wound care per wound RN -DC to rehab today. Medicine managing DC. 08/24/18 09:22 Subjective: Out of bed in chair. Pain controlled today but still present in right buttock Objective: Vital Signs Temp Pulse Resp BP Pulse Ox 36.9 C 77 14 138/53 H 95 08/24/18 07:36 08/24/18 07:36 08/24/18 07:36 08/24/18 07:36 08/24/18 07:36 Laboratory Results 08/19/18 04:45 08/24/18 05:10 08/23/18 08/24/18 08/25/18 05:59 05:59 05:59 Intake Total 600 550 Output Total 300 600 Balance 300 -50 PT 16.1 SEC (12.0-15.0) H 08/15/18 19:00 INR 1.27 (0.83-1.16) H 08/15/18 19:00 Incision: Dressing in place from wound care Neuro: A+OX4 DAWSON, sens +LT ICD10 Worksheet Patient Problems: Problems Problem Status Onset Back pain Acute History of fever Acute Low blood pressure Acute Cervical stenosis of spinal canal Acute Fusion of spine of thoracolumbar region Acute Low back pain Acute
--- NOTE | 2018-08-24 09:31 | PDIAF ---
- Diagnosis Diagnosis: enterococcal bacteremia Code Status: Full Code - Medication Management [employer] Antibiotics: daptomycin 360mg IV daily [employer] Antibiotic Stop Date: 08/29/18 (Remove PICC line after last dose of daptomycin 08/29/2018) Additional Medication Instructions: Hold statin until 09/02 Discharge Medications: electronically signed and located in the Home Medication List. PICC Care - Routine: Yes - Orders Services needed: Physical Therapy, Occupational Therapy Diet Recommendation: no restrictions on diet Diet Texture: Regular Texture Diet, Thin Liquids, Meds Whole w/Liquids, Meds Whole in Puree Additional Instructions: follow up with Dr Davis in 4-6 weeks, for stent removal and f/u EUS. Call his office to arrange holding your Zetia and Crestor while you're on the antibiotics. Can resume these 09/02. if you develop fever, chills, drainage from your incision; call Dr Ardon immediately follow up w Dr Flores in a few weeks - Labs/Radiology CBC w/diff Date: 08/26/18 (Weekly Sunday) CMP Date: 08/26/18 (Weekly Sunday) CPK Date: 08/26/18 (Weekly Sunday) Call or Fax Lab and Imaging Results to: Zelda Ardon MD [facility] at fax [phone] - Follow Up Care Current Providers and Referrals: Patient,NotPresent [Unknown] - As per Instructions Zelda Ardon MD [Medical Doctor] - Richmond Davis MD [Medical Doctor] - Molina Garcia MD [Medical Doctor] -
--- NOTE | 2018-08-24 10:03 | ASMTDCNOTE ---
Case Management Discharge Discharge Order Complete? Answers: Yes Patient to Obtain Answers: Other Notes: [facility] Medic[facility] Transportation Arranged Answers: [facility] W/C Transport will Pick (Date 08/24/2018 02:30 PM & Time) Faxed Final Orders Answers: Yes Agency/Facility Transfer Answers: Yes Report Printed & Faxed to Receiving Agency Family Notified Answers: Yes Discharge Comments Notes: Pt d/omkar to [facility]. D/C at 2:30PM. Date Signed: 08/24/2018 10:03 AM Electronically Signed By:Jimena Archer
[2018-08-24] MEDS: ENOXAPARIN 40 MG/0.4 ML SYR SC SCH (10:11)
[2018-08-24] MEDS: CARVEDILOL 6.25 MG TAB PO SCH (10:12)
[2018-08-24] MEDS: FUROSEMIDE 20 MG TAB PO SCH (10:12)
[2018-08-24] MEDS: CHOLECALCIFEROL VIT D3 2,000 UNITS TAB/CAP PO SCH (10:12)
[2018-08-24] MEDS: POTASSIUM CL 20 MEQ PKT PO SCH (10:12)
[2018-08-24] MEDS: GABAPENTIN 100 MG CAP PO SCH ×2 (10:12→14:39)
[2018-08-24] MEDS: FAMOTIDINE 20 MG TAB PO SCH (10:13)
[2018-08-24] MEDS: PRESERVISION AREDS2 FORMULA EYE VIT 1 EACH PO SCH (10:13)
[2018-08-24] MEDS: SENNOSIDES/DOCUSATE SODIUM TAB PO SCH (10:14)
[2018-08-24] MEDS ORDERED: POTASSIUM CL 10 MEQ TAB PO ONE (10:44)
--- NOTE | 2018-08-24 11:48 | GDS ---
DISCHARGE DIAGNOSES: 1. Enterococcus bacteremia. 2. Elevated liver function tests. 3. Hypokalemia. 4. Anemia. 5. Elevated brain natriuretic peptide. 6. Scoliosis, status post lumbosacral reconstruction. 7. Urinary retention. 8. Back pain due to recent surgery. 9. Hypertension. 10. Restrictive lung disease secondary to the scoliosis. CONSULTATIONS: 1. Dr. Rausch. 2. Dr. Juan Monteiro. 3. Naima Razo, physician desk assistant with Neurosurgery. HISTORY: Briefly, the patient is a 77-year-old female who came to the emergency room from inpatient rehab due to worsening back pain and fevers. She recently underwent a lumbosacral spinal reconstruction complicated by postoperative pain, requiring evacuation of a hematoma and re-decompression. She came to the ER and was evaluated by Dr. Garcia. At that time, an MRI was performed that demonstrated widely decompressed thecal sac. At that point, she had a drain in place to a known fluid collection. She was sent to rehab, and the drain was removed. At the rehab facility, she started having increased fevers, so she came back to the emergency room. She had blood cultures that grew out Enterococcus. She was seen and evaluated by the Infectious Disease team and was treated with vancomycin. There was no clear- cut source for infection, whether it was related to the biliary tract, so she was seen and evaluated by Dr. Monteiro, who did an ERCP with a sphincterotomy and stent placement due to dilated common bile duct. The plan is for her to have close followup with Dr. Zelda Ardon. She will also have her stent removal and EUS done to exclude a pancreatic head tumor in 4-[address] Davis. Today, she is feeling markedly better. Her statin therapy will be held while she is on the daptomycin. HOSPITAL COURSE: 1. Bacteremia, Enterococcus. Her most recent blood cultures shows clearing of the infection. She will further follow up with Dr. Ardon. She will be on daptomycin. 2. Elevated liver function tests. These have improved. She is status post an ERCP and sphincterotomy and stent placement. She will need stent removal and EUS. Follow up in 4-6 weeks. 3. Hypokalemia. Most recent potassium 3.9. Potassium has been added to her home protocol. 4. Anemia. She was given a unit of blood, overall stable. 5. Elevated BNP. Her echo showed diastolic dysfunction with no LVH. She was treated with several doses of IV Lasix. She is back on her home regimen. 6. Scoliosis, status post lumbosacral reconstruction. Will see Dr. Garcia in the next 2 weeks. 7. Urinary retention, resolved. 8. Back pain. Decreased her gabapentin, as well as her Oxy due to increase sedation. Overall, she is doing well with it, but still is having some pain in the right gluteus area. 9. Hypertension, stable. 10. Restrictive lung disease. This was due to the scoliosis. DISCHARGE CONDITION: Stable. Blood pressure is 138/53, heart rate of 77, respiratory rate of 14. O2 sats on 2 L are 95%. Temperature is 36.9 Celsius. DISCHARGE MEDICATIONS: Please see the EMR. DISCHARGE INSTRUCTIONS: 1. She will get weekly CPKs, CMPs, and CBCs. 2. To follow up with Dr. Ardon. 3. To follow up with Dr. Davis in 4-6 weeks. 4. If she develops fever, chills, or drainage from her incision, to follow up with the Infectious Disease doctor immediately. Greater than 30 minutes discharging and coordinating her care. Copy requested to: Dr. Radha Ardon /[id number]/MODL MTDD
[2018-08-24] MEDS: LOSARTAN POTASSIUM 25 MG TAB PO SCH (12:08)
== END 2018-08-24 14:41 | DRG 872 ==
LOC: EDUNIT# → F3N 22:59 → OBSVTOIN 08-16 14:13
PROVIDERS: ADMIT Internal Medicine; ATTEND Internal Medicine
PROC: 30233N1 Transfusion of Nonautologous Red Blood Cells into Peripheral Vein, Percutaneous Approach (ICD-10-PCS; 2018-08-16)
PROC: 02H633Z Insertion of Infusion Device into Right Atrium, Percutaneous Approach (ICD-10-PCS; 2018-08-19)
PROC: 0F798DZ Dilation of Common Bile Duct with Intraluminal Device, Via Natural or Artificial Opening Endoscopic (ICD-10-PCS; principal; 2018-08-22 11:15)
DX: R78.81 Bacteremia (principal); B95.2 Enterococcus as the cause of diseases classified elsewhere; K83.8 Other specified diseases of biliary tract; R79.89 Other specified abnormal findings of blood chemistry; E87.6 Hypokalemia; D64.9 Anemia, unspecified; R33.9 Retention of urine, unspecified; M54.5 Low back pain; I10 Essential (primary) hypertension; M41.9 Scoliosis, unspecified; J98.4 Other disorders of lung; K21.9 Gastro-esophageal reflux disease without esophagitis
CPT/HCPCS: 92610-GN; 96374; 97116-GP; 97162-GP; 97166-GO; 97530-GO; 97530-GP; 97535-GO; A9585; C1751; C2625; G0378; G8978-GP-CL; G8979-GP-CJ; G8987-GO-CL; G8988-GO-CJ; G8996-GN-CH; G8997-GN-CH; G8998-GN-CH; J0330; J0610; J0878; J1170; J1610; J1650; J1940; J2405; J2704; J3010; J3370; J3475; P9016; Q9961; Q9967

== ENCOUNTER 2018-08-30 12:58 | Inpatient (IN) | payer OTHER, BC ==
[2018-08-30 13:30] LABS: PLATELET COUNT 377 10^3/uL (150-400)
[2018-08-30] MEDS ORDERED: LR 1,000 ML IV ONE (13:39)
[2018-08-30 14:18] LABS: CREATINE KINASE 58 IU/L (0-156)
[2018-08-30] MEDS ORDERED: fentaNYL 100 MCG/2 ML INJ IVP ONE (14:32)
[2018-08-30] MEDS ORDERED: BACITRACIN 50,000 UNITS/10 ML SYR IRR ONE (15:31)
[2018-08-30] MEDS ORDERED: BUPIVACAINE/EPI 0.25% 30 ML SDV ONE ×2 (15:31)
[2018-08-30] MEDS ORDERED: BUPIVACAINE 0.25% 10 ML SDV ONE (15:32)
[2018-08-30] MEDS ORDERED: CHLORHEXIDINE GLUC HIBICLENS 118 ML BTL TP ONE (15:32)
[2018-08-30] MEDS ORDERED: THROMBIN (BOVINE) 5,000 UNIT VIAL TP ONE (15:32)
[2018-08-30] MEDS ORDERED: AVITENE POWDER 1 GM JAR TP ONE (15:33)
[2018-08-30] MEDS ORDERED: MIDAZOLAM 2 MG/2 ML VIAL IVP ONE (16:01)
--- NOTE | 2018-08-30 16:01 | PDANEPAE ---
ANE History of Present Illness Lumbar washout ANE Past Medical History - Cardiovascular History Hx Hypertension: Yes Hx Arrhythmias: No Hx Chest Pain: No Hx Coronary Artery / Peripheral Vascular Disease: Yes Hx CHF / Valvular Disease: No Hx Palpitations: No Cardiovascular History Comment: HYPERLIPIDEMIA - Pulmonary History Hx COPD: Yes Hx Asthma/Reactive Airway Disease: No Hx Recent Upper Respiratory Infection: No Hx Oxygen in Use at Home: Yes Hx Sleep Apnea: No Pulmonary History Comment: HS OXYGEN. + restrictive lung disease 2/2 scoliosis - Neurologic History Hx Cerebrovascular Accident: No Hx Seizures: No Hx Dementia: No - Endocrine History Hx Diabetes: No - Renal History Hx Renal Disorders: No - Liver History Hx Hepatic Disorders: No - Neurological & Psychiatric Hx Hx Neurological and Psychiatric Disorders: No - Cancer History Hx Cancer: No - Congenital Disorder History Hx Congenital Disorders: No - GI History Hx Gastrointestinal Disorders: Yes Gastrointestinal History Comment: IBS. GERD - Other Health History Other Health History: BRIAN LOWER EXTREMITY EDEMA. OSTEOARTHRITIS. SCOLIOSIS. STENOSIS/DDD. N/T BRIAN FEET - Chronic Pain History Chronic Pain: Yes (LUMBAR REGION & RT HIP) - Surgical History Prior Surgeries: ACDF C4-7 03/21/18. LASER SPINE LUMBAR SURG 2009. HYSTERECTOMY. L SHOULDER RTC. CATARACTS BRIAN. CARPAL TUNNEL BRIAN. stent placed in gallbladder ANE Review of Systems Review of systems is: negative Review of Systems: - Exercise capacity Exercise capacity: limited by disability ANE Patient History - Allergies Allergies/Adverse Reactions: naproxen [From Naprosyn] Allergy (Verified 08/14/18 11:52) Hives Penicillins Allergy (Verified 08/14/18 11:52) Tongue swelling, throat pain - Home Medications Home medications: home medication list seen and reviewed Home Medications: Albuterol [Proventil Inhaler HFA (*)] 1 - 2 puffs IH DAILY PRN 03/06/18 [Last Taken 1 Month Ago ~07/31/18] C/E/Zn/Cu/OM3/DHA/EPA/LUT/ZEAX [Preservision Areds 2 Softgel] 1 cap PO BID 03/06 [Last Taken 08/30/18 08:00] Carvedilol [Coreg (*)] 12.5 mg PO BIDMEAL 03/06/18 [Last Taken 08/30/18 08:00] Cholecalciferol Vit D3 [Vitamin D3 2000 units tab (OTC)] 4,000 units PO DAILY [Last Taken 08/30/18 08:00] Estrogens,Conjugated [Premarin 0.3 MG (*)] 0.3 mg PO DAILY18 03/06/18 [Last Taken 08/29/18] Famotidine [Pepcid 20 MG (*)] 20 mg PO BIDMEAL 03/06/18 [Last Taken 08/30/18 08: 00] Furosemide [Lasix 20 MG (*)] 20 mg PO BID@,03/06/18 [Last Taken 08/30/18 08 :00] Losartan Potassium [Cozaar 25 mg (*)] 25 mg PO DAILY@03/06/18 [Last Taken 12:00] Magnesium Oxide [Magnesium Oxide 400 mg (*)] 400 mg PO DAILY 03/06/18 [Last Taken 08/30/18 08:00] Lactase [Lactase 3000 Unit (*)] 3,000 unit PO DAILY PRN 06/21/18 [Last Taken 12:00] - NPO status NPO Since - Liquids (Date): 08/30/18 NPO Since - Liquids (Time): 10:30 NPO Since - Solids (Date): 08/30/18 NPO Since - Solids (Time): 08:00 - Anes Hx Anes Hx: no prior problems - Smoking Hx Smoking Status: Never smoked - Family Anes Hx Family Anes Hx: none Family Hx Anesthesia Complications: None. ANE Labs/Vital Signs - Labs Result Diagrams: 08/30/18 12:40 08/30/18 12:40 - Vital Signs Vital Signs: reviewed preoperatively; see RN documention for details Blood Pressure: 152/60 Heart Rate: 104 Respiratory Rate: 18 O2 Sat (%): 88 Height: 152.4 cm Weight: 61.235 kg ANE Physical Exam - Airway Neck exam: FROM Mallampati Score: Class 2 Mouth exam: normal dental/mouth exam - Pulmonary Pulmonary: no respiratory distress - Cardiovascular Cardiovascular: tachycardia - ASA Status ASA Status: III ANE Anesthesia Plan Anesthesia Plan: general endotracheal anesthesia
[2018-08-30] MEDS ORDERED: DEXAMETHASONE 4 MG/ML VIAL ONE (16:19)
[2018-08-30] MEDS ORDERED: ONDANSETRON 4 MG/2 ML VIAL ONE (16:19)
[2018-08-30] MEDS ORDERED: LIDOCAINE 2% 100 MG/5 ML SYR ONE (16:19)
[2018-08-30] MEDS ORDERED: ROCURONIUM 50 MG/5 ML VIAL ONE (16:20)
[2018-08-30] MEDS ORDERED: fentaNYL 100 MCG/2 ML INJ ONE (16:20)
[2018-08-30] MEDS ORDERED: PROPOFOL 200 MG/20 ML VIAL ONE (16:20)
--- NOTE | 2018-08-30 16:22 | PDHPUP ---
History & Physical Update H&P update statement: This history and physical update is based on an assessment of the patient which was completed after admission or registration (within 24 hours), but prior to the surgery/procedure. H&P update: H&P reviewed & patient examined, no change in patient's condition since H&P completed H&P changes: Patient admitted to Hospitalist service today. S/P lumbar fusion and now with non-healing wound. Plan for lumbar I&D with Dr Garcia.
[2018-08-30] MEDS ORDERED: MIDAZOLAM 2 MG/2 ML VIAL ONE (16:23)
[2018-08-30] MEDS ORDERED: diphenhydrAMINE 25 MG CAP PO PRN (16:54)
[2018-08-30] MEDS ORDERED: MAGNESIUM HYDROXIDE 30 ML UDCUP PO PRN (16:54)
[2018-08-30] MEDS ORDERED: POLYETHYLENE GLYCOL 3350 17 GM PKT PO PRN (16:54)
[2018-08-30] MEDS ORDERED: ONDANSETRON 4 MG/2 ML VIAL IVP PRN ×2 (16:54→17:12)
[2018-08-30] MEDS ORDERED: BISACODYL 10 MG SUPP PR PRN (16:54)
[2018-08-30] MEDS ORDERED: ONDANSETRON DISINTEGRATING 4 MG TAB PO PRN ×2 (16:54→21:25)
[2018-08-30] MEDS ORDERED: METHOCARBAMOL 750 MG TAB PO PRN (16:54)
[2018-08-30] MEDS ORDERED: LACTULOSE 20 GM/30 ML UDCUP PO PRN (16:54)
[2018-08-30] MEDS ORDERED: ceFAZolin 1 GM VIAL ONE ×2 (17:09)
[2018-08-30] MEDS ORDERED: DEXAMETHASONE 4 MG/ML VIAL IVP PRN (17:12)
[2018-08-30] MEDS ORDERED: HYDROCODONE/APAP 5/325 TAB PO PRN (17:12)
[2018-08-30] MEDS ORDERED: HYDROmorphONE/DILAUDID 2 MG/ML INJ IVP PRN (17:12)
[2018-08-30] MEDS ORDERED: ALBUTEROL 3 ML DEYVIAL IH PRN (17:12)
[2018-08-30] MEDS ORDERED: MEPERIDINE 25 MG/0.5 ML AMP IVP PRN (17:12)
[2018-08-30] MEDS ORDERED: oxyCODONE IR 5 MG TAB PO PRN (17:12)
[2018-08-30] MEDS ORDERED: fentaNYL 100 MCG/2 ML INJ IVP PRN (17:12)
[2018-08-30] MEDS ORDERED: ACETAMINOPHEN 500 MG TAB PO PRN (17:12)
[2018-08-30] MEDS ORDERED: DIAZEPAM 5 MG/ML 1 ML SYR IVP PRN (17:12)
[2018-08-30] MEDS ORDERED: NALOXONE HCL 0.4 MG/ML INJ IVP PRN (17:12)
[2018-08-30] MEDS ORDERED: LABETALOL HCL 20 MG/4 ML INJ IVP PRN (17:12)
--- NOTE | 2018-08-30 17:15 | POSTANESTH ---
Post Anesthetic Evaluation Cardiovascular Status: Similar to Pre-Op Cond Respiratory Status: Similar to Pre-op Cond. Level of Consciousness/Mental Status: Can Participate in Eval, Mildly Sleepy, Arousable Pain Control: Adequate, Prn Tx Ordered Nausea/Vomiting Control: Adequate, Prn Tx Ordered Complications Possibly Related to Anesthesia: None Noted
[2018-08-30] MEDS ORDERED: NEOSTIGMINE METHYLSULFATE 5 MG/5 ML SYR ONE (17:26)
[2018-08-30] MEDS ORDERED: GLYCOPYRROLATE 0.2 MG/1 ML VIAL ONE (17:26)
[2018-08-30] MEDS ORDERED: BACITRACIN ZINC 14.2 GM OINTTUBE TP ONE (17:38)
--- NOTE | 2018-08-30 18:01 | POSTOPPROG ---
Post Op Note Date of Operation: 08/30/18 Surgeon: Molina Garcia Anesthesia: GET(General Endotracheal) Pre-op Diagnosis: Lumbar wound infection Procedure: Debridement/I&D lumbar wound Inf/Abcess present in the surg proc area at time of surgery?: No Depth: Deep Incisional (Fascial) EBL: 50-100 Date of Surgery: 08/30/18 Post Op Day: 0 Assessment/Plan: Assessment: 77 yr old s/p lumbar wound I&D/revision, patient had lumbar fusion on 07/25/18 Plan: -Admit med surg -Antibiotics per ID -Intraop cultures pending, blood cultures ordered -NANI to bulb suction -PT/OT -Please call neurosurgery with questions/concerns Subjective: waking up in pacu Objective: waking up in pacu, awake and alert VSS MAEx4 Dressing CDI Appropriate Neuro Check Frequency Ordered: Yes
[2018-08-30] MEDS: NS 1,000 ML IV SCH (19:43)
[2018-08-30] MEDS: VANCOMYCIN 750 MG in D5W 150 ML IV SCH (19:44)
[2018-08-30] MEDS: FAMOTIDINE 20 MG TAB PO SCH (21:17)
[2018-08-30] MEDS: ACETAMINOPHEN 500 MG TAB PO SCH (21:17)
[2018-08-30] MEDS: SENNOSIDES/DOCUSATE SODIUM TAB PO SCH (21:17)
[2018-08-30] MEDS ORDERED: CARBOXYMETHYLCELLULOSE 1% 0.4 ML DROPERETTE EACHEYE PRN (21:25)
[2018-08-30] MEDS ORDERED: ALBUTEROL 60 PUFFS/8 GM MDI IH PRN (21:25)
[2018-08-30] MEDS ORDERED: LACTASE 3,000 UNIT TAB PO PRN (21:25)
--- NOTE | 2018-08-30 21:33 | PDGENHP ---
History and Physical - Chief Complaint post op wound infection - History of Present Illness Patient is a 77 yo F with PMH of scoliosis and s/p lumbosacral spinal reconstruction complicated by hematoma requiring evacuation and repeat decompression and recent hospitalization for enterococcus bacteremia of uncertain source presenting from ID follow up with concerns of surgical wound infection. She went straight to OR on arrival for wound debridement and my evaluation of the patient is in the post op state and she is quite somnolent and minimally interactive therefore this history is limited by her somnolence and largely obtained per chart review and from discussion with Dr. Ardon. Apparently pre operatively her wound appeared grossly infected and she was ill appearing. She has been on daptomycin since hospital discharge for treatment of enterococcus bacteremia. History Information - Allergies/Home Medication List Allergies/Adverse Reactions: naproxen [From Naprosyn] Allergy (Verified 08/14/18 11:52) Hives Penicillins Allergy (Verified 08/14/18 11:52) Tongue swelling, throat pain Home Medications: Albuterol [Proventil Inhaler HFA (*)] 1 - 2 puffs IH DAILY PRN 03/06/18 [Last Taken 1 Month Ago ~07/31/18] C/E/Zn/Cu/OM3/DHA/EPA/LUT/ZEAX [Preservision Areds 2 Softgel] 1 cap PO BID 03/06 [Last Taken 08/30/18 08:00] Carvedilol [Coreg (*)] 12.5 mg PO BIDMEAL 03/06/18 [Last Taken 08/30/18 08:00] Cholecalciferol Vit D3 [Vitamin D3 2000 units tab (OTC)] 4,000 units PO DAILY [Last Taken 08/30/18 08:00] Estrogens,Conjugated [Premarin 0.3 MG (*)] 0.3 mg PO DAILY18 03/06/18 [Last Taken 08/29/18] Famotidine [Pepcid 20 MG (*)] 20 mg PO BIDMEAL 03/06/18 [Last Taken 08/30/18 08: 00] Furosemide [Lasix 20 MG (*)] 20 mg PO BID@,16 03/06/18 [Last Taken 08/30/18 08 :00] Losartan Potassium [Cozaar 25 mg (*)] 25 mg PO DAILY@12 03/06/18 [Last Taken 12:00] Magnesium Oxide [Magnesium Oxide 400 mg (*)] 400 mg PO DAILY 03/06/18 [Last Taken 08/30/18 08:00] Lactase [Lactase 3000 Unit (*)] 3,000 unit PO DAILY PRN 06/21/18 [Last Taken 12:00] I have personally reviewed and updated: family history, medical history, social history, surgical history - Past Medical History hypertension Additional medical history: Scoliosis. Restrictive lung disease. anemia. 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 - Surgical History Reports: spinal surgery - Family History Positive for: non-pertinent Additional family history: Asked, denies - Social History Smoking Status: Never smoked Alcohol Use: Rarely Drug Use: None Additional social history: Review of Systems Review of Systems: ROS: 10pt was reviewed & negative except for what was stated in HPI & below Physical Exam Physical Exam: Temp Pulse Resp BP Pulse Ox 37.4 C 96 16 112/54 L 98 08/30/18 20:30 08/30/18 20:30 08/30/18 20:30 08/30/18 20:30 08/30/18 20:30 O2 (L/minute) 2 Constitutional: no apparent distress, chronically ill appearing Eyes: PERRL Ears, Nose, Mouth, Throat: moist mucous membranes, hearing normal Cardiovascular: regular rate and rhythym, no murmur, rub, or gallop Respiratory: no respiratory distress Gastrointestinal: normoactive bowel sounds, soft, non-tender abdomen Genitourinary: no bladder tenderness Skin: warm, normal color Musculoskeletal: full muscle strength Neurologic: AAOx3 Psychiatric: not anxious, not encephalopathic, other (somnolent) Lab Data & Imaging Review 08/30/18 12:40 08/30/18 12:40 WBC 8.34 10^3/uL (3.80-9.50) 08/30/18 12:40 RBC 3.67 10^6/uL (4.18-5.33) L 08/30/18 12:40 Hgb 10.7 g/dL (12.6-16.3) L 08/30/18 12:40 Hct 34.7 % (38.0-47.0) L 08/30/18 12:40 MCV 94.6 fL (81.5-99.8) 08/30/18 12:40 MCH 29.2 pg (27.9-34.1) 08/30/18 12:40 MCHC 30.8 g/dL (32.4-36.7) L 08/30/18 12:40 RDW 17.9 % (11.5-15.2) H 08/30/18 12:40 Plt Count 377 10^3/uL (150-400) 08/30/18 12:40 MPV 9.3 fL (8.7-11.7) 08/30/18 12:40 Neut % (Auto) 75.3 % (39.3-74.2) H 08/30/18 12:40 Lymph % (Auto) 14.9 % (15.0-45.0) L 08/30/18 12:40 [place] % (Auto) 7.4 % (4.5-13.0) 08/30/18 12:40 Eos % (Auto) 2.0 % (0.6-7.6) 08/30/18 12:40 Baso % (Auto) 0.2 % (0.3-1.7) L 08/30/18 12:40 Nucleat RBC Rel Count 0.0 % (0.0-0.2) 08/30/18 12:40 Absolute Neuts (auto) 6.27 10^3/uL (1.70-6.50) 08/30/18 12:40 Absolute Lymphs (auto) 1.24 10^3/uL (1.00-3.00) 08/30/18 12:40 Absolute Monos (auto) 0.62 10^3/uL (0.30-0.80) 08/30/18 12:40 Absolute Eos (auto) 0.17 10^3/uL (0.03-0.40) 08/30/18 12:40 Absolute Basos (auto) 0.02 10^3/uL (0.02-0.10) 08/30/18 12:40 Absolute Nucleated RBC 0.00 10^3/uL (0-0.01) 08/30/18 12:40 Immature Gran % 0.2 % (0.0-1.1) 08/30/18 12:40 Immature Gran # 0.02 10^3/uL (0.00-0.10) 08/30/18 12:40 Sodium 135 mEq/L (135-145) 08/30/18 12:40 Potassium 4.6 mEq/L (3.5-5.2) 08/30/18 12:40 Chloride 99 mEq/L (97-110) 08/30/18 12:40 Carbon Dioxide 28 mEq/l (22-31) 08/30/18 12:40 Anion Gap 8 mEq/L (6-14) 08/30/18 12:40 BUN 11 mg/dL (7-23) 08/30/18 12:40 Creatinine 0.8 mg/dL (0.6-1.0) 08/30/18 12:40 Estimated GFR > 60 08/30/18 12:40 Glucose 103 mg/dL (70-100) H 08/30/18 12:40 Calcium 8.6 mg/dL (8.5-10.4) 08/30/18 12:40 Total Bilirubin 0.5 mg/dL (0.1-1.4) 08/30/18 12:40 AST 54 IU/L (14-46) H 08/30/18 12:40 ALT 48 IU/L (9-52) 08/30/18 12:40 Alkaline Phosphatase 180 IU/L (38-126) H 08/30/18 12:40 Creatine Kinase 58 IU/L (0-156) 08/30/18 12:40 C-Reactive Protein 38.5 mg/L (<10.0) H 08/30/18 12:40 Total Protein 5.7 g/dL (6.3-8.2) L 08/30/18 12:40 Albumin 2.8 g/dL (3.5-5.0) L 08/30/18 12:40 Assessment & Plan Assessment: 77 yo F with PMH of scoliosis and lumbosacral spinal reconstruction presenting with post op wound infection # post op wound infection: taken to OR by NSG today for wound debridement, discussed with [facility], started on vancomycin, repeat blood cultures drawn , has had recent enterococcus bacteremia # lumbosacral spinal reconstruction: with post op complications of persistent pain found to be 2/2 hematoma requiring evacuation and re decompression, as above, NSG following # chronic pain: will continue her home regimen and additional meds as needed given above # anemia: chronic and slightly higher than her usual baseline, will continue to monitor # htn: will continue her home meds # restrictive lung disease: due to her scoliosis, no acute issues currently # recent enterococcus bacteremia: with clearance of blood cultures since 08/17, has been on daptomycin prior to admit, now on vanc # IP status, will require > 48 hours stay for eval/mgmt of above Patient new to my care. Old records reviewed and summarized as above. Care plan reviewed with Dr. Ardon as above.
[2018-08-30] MEDS: GABAPENTIN 100 MG CAP PO SCH (22:59)
[2018-08-31 04:39] LABS: PLATELET COUNT 299 10^3/uL (150-400)
[2018-08-31] MEDS: ACETAMINOPHEN 500 MG TAB PO SCH ×3 (05:02→21:36)
--- NOTE | 2018-08-31 06:13 | GOP ---
DATE OF OPERATION: 08/30/2018 SURGEON: Molina Garcia MD NEUROSURGEON: Molina Garcia MD MANAGER ICU: None. ANESTHESIA: General endotracheal. PREOPERATIVE DIAGNOSIS: Superficial lumbar wound dehiscence. POSTOPERATIVE DIAGNOSIS: Superficial lumbar wound dehiscence. PROCEDURE PERFORMED: Debridement and excision and reconstruction of superficial lumbar wound and ext ensive washout. FINDINGS: ESTIMATED BLOOD LOSS: Trace. INDICATIONS: The patient is a 77-year-old woman who underwent a recent complex lumbar surgery compli cated by the need for reoperation and a delayed recovery. Her wound was showing some necrosis on the edges, and she presents now for excision and washout and debridement and reconstruction of the wound . DESCRIPTION OF PROCEDURE: After informed consent was obtained, the patient was taken to the operatin g room and placed in the prone position. The lumbosacral area was prepped and draped in a sterile fa shion after it was prepped and draped in sterile fashion and multiple cultures were taken. The swabs would only go about 3/4 of an inch to an inch deep and not below the fascia despite probing. Therea fter, the wound was copiously irrigated with antibiotic irrigation and the area of necrosis and nonhe aling was completely excised down to normal tissue. The electrocautery was not used at all in an eff ort to preserve the vascularization of the tissue. Following this, the wound was copiously irrigated again and gentle pressure was used to control bleeding. The wound was then reapproximated using int errupted Vicryl sutures, followed by some vertical mattress sutures in the skin. COMPLICATIONS: None. DISPOSITION: The patient is currently on pressors. She will be repositioned for extubation. /[id number]/MODL
[2018-08-31] MEDS: CARVEDILOL 6.25 MG TAB PO SCH ×3 (08:27→17:38)
[2018-08-31] MEDS: VANCOMYCIN 750 MG in D5W 150 ML IV SCH ×2 (08:27→20:02)
[2018-08-31] MEDS: FAMOTIDINE 20 MG TAB PO SCH ×3 (08:28→17:32)
[2018-08-31] MEDS: MAGNESIUM OXIDE 400 MG TAB PO SCH (09:45)
[2018-08-31] MEDS: PRESERVISION AREDS2 FORMULA EYE VIT 1 EACH PO SCH ×2 (09:45→21:36)
[2018-08-31] MEDS: FUROSEMIDE 20 MG TAB PO SCH ×2 (09:46→15:56)
[2018-08-31] MEDS: GABAPENTIN 100 MG CAP PO SCH ×3 (09:46→21:36)
[2018-08-31] MEDS: SENNOSIDES/DOCUSATE SODIUM TAB PO SCH ×4 (09:47→21:43)
[2018-08-31] MEDS: POTASSIUM CL 20 MEQ PKT PO SCH (09:50)
[2018-08-31] MEDS: NS 1,000 ML IV SCH (09:51)
--- NOTE | 2018-08-31 12:00 | PCMIDPN ---
Assessment/Plan: # Low-grade enterococcal bacteremia, blood cultures cleared 08/17/2018. Patient received IV therapy through 08/29/2018 and this was continued while hospitalized for revision distal wound while await repeat cultures. Over past hospitalization do not feel bacteremia was due to wound infection. 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 Superficial. Did not track to fascia. Suspect mechanical dehiscence but cultures were taken in the OR, see above. Recommendations 1. Continue IV vancomycin while await maturity of cultures 2. Patient needs EUS as an outpatient to further evaluate ampullary stenosis 3. Check Vancomycin trough overnight Medication Vancomycin 750 mg IV q.12 Microbiology 08/30 blood cultures (2) pending 08/30 OR culture Gram stain negative, culture pending Subjective: patient feeling well today, hungry having BM minimal pain today already walked the halls wants to go home sunday Objective: Vital Signs Temp Pulse Resp BP Pulse Ox 36.6 C 74 16 151/71 H 94 08/31/18 04:00 08/31/18 08:27 08/31/18 04:00 08/31/18 08:27 08/31/18 07:20 Microbiology 08/30/18 17:12 Gram Stain - Final Back - Eswab Laboratory Results 08/31/18 04:15 08/31/18 04:15 08/30/18 08/31/18 09/01/18 05:59 05:59 05:59 Intake Total 1030 Output Total 320 Balance 710 C-Reactive Protein 38.5 mg/L (<10.0) H 08/30/18 12:40 - Physical Exam General Appearance: alert, no apparent distress Respiratory: lungs clear, No respiratory distress, No accessory muscle use Neck: supple Cardiac/Chest: regular rate, rhythm Back: other (reviewed on picture: no further necrotic material , [address], no drain, no erythema) Neuro/Psych: alert, normal mood/affect, oriented x 3 - Time Spent With Patient Time Spent with Patient: greater than 35 minutes Time Spent with Patient: Greater than 35 minutes spent on this patients care, greater than 50% of time spent counseling, educating, and coordinating care regarding the above mentioned plan. ICD10 Worksheet Patient Problems: Problems Problem Status Onset Back pain Acute Cervical stenosis of spinal canal Acute Fusion of spine of thoracolumbar region Acute History of fever Acute Low back pain Acute Low blood pressure Acute
--- NOTE | 2018-08-31 12:01 | NEUSURGPN ---
Date of Surgery: 08/30/18 Post Op Day: 1 Assessment/Plan: Assessment: 77 yr old s/p lumbar wound I&D/revision, patient had lumbar fusion on 07/25/18 Plan: -Admit med surg -Antibiotics per ID -Intraop cultures pending, blood cultures ordered -PT/OT -Change dressing today -Please call neurosurgery with questions/concerns Subjective: sitting up in chair, wants to go home Objective: AxO x4 [place] x4 5/5 BLE Lumbar incision dressing covered with sacral pressure dressing, removed, gauze with SA drainage, sutures-CDI Neuro Check Frequency: per routine Urinary Catheter in Place: No - Physician Discussed Patient with : Radha Neurosurgery Physical Exam - Vitals, I&O, Labs I and O 08/30/18 08/31/18 09/01/18 05:59 05:59 05:59 Intake Total 1030 Output Total 320 Balance 710 Weight 61.235 kg Intake: Oral (ml) 30 IV Intake (ml) 1000 Output: Urine (ml) 300 Bedside Commode 300 Estimated Blood Loss (ml) 20 Other: Intake Quantity Yes Sufficient Number of Voids Bedside Commode 1 Incontinence 1 Microbiology 08/30/18 17:12 Gram Stain - Final Back - Eswab Vital Signs Temp Pulse Resp BP Pulse Ox 36.6 C 74 16 151/71 H 94 08/31/18 04:00 08/31/18 08:27 08/31/18 04:00 08/31/18 08:27 08/31/18 07:20 Laboratory Results 08/31/18 04:15 08/31/18 04:15 ICD10 Worksheet Patient Problems: Problems Problem Status Onset Back pain Acute Cervical stenosis of spinal canal Acute Fusion of spine of thoracolumbar region Acute History of fever Acute Low back pain Acute Low blood pressure Acute
--- NOTE | 2018-08-31 12:43 | PDMN ---
Medical Necessity Medical necessity: Pt meets INPT criteria per MD as of 08/30/18 and MCG Musculoskeletal Surgery or Procedure GRG (est. LOS >2 MN for eval/tx of lumbar wound infection s/p lumbar wound I&D/revision; requiring IVABx).
--- NOTE | 2018-08-31 14:14 | GCON ---
INPATIENT CONSULTATION CHIEF COMPLAINT: Postop lumbar wound infection. HISTORY OF PRESENT ILLNESS: Patient is a 77-year-old female with a history of a T11 to S1 fusion wit h Dr. Molina Garcia on July 25, 2018. Patient underwent an evacuation of a postoperative hem atoma and repeat decompression following that surgery. Patient was recently hospitalized for Enteroc occus bacteremia, and ID has been following the patient. Patient was seen in the office by Dr. Zelda Ardon today, on August 30, 2018, and found worsening findings of her wound. Patient will be admit [facility] to [facility] under the hospitalist service, and Dr. Garcia plans to take her to the OR for debridement. Patient has ongoing back pain. No new radicular symptoms in her lowe r extremities and denies any incontinence issues with her bowel or bladder. REVIEW OF SYSTEMS: A 10-point review of systems was performed and negative aside from what was menti oned in the HPI. ALLERGIES: 1. Naproxen. 2. Penicillin. HOME MEDICATIONS: 1. Albuterol. 2. Coreg. 3. Vitamin D. 4. Premarin. 5. Pepcid. 6. Lasix 20 mg p.o. b.i.d. 7. Cozaar 25 mg p.o. daily. 8. Magnesium 400 mg daily. 9. Lactase 3000 units p.o. daily. PAST MEDICAL HISTORY: Significant for hypertension, scoliosis, restrictive lung disease, anemia, chr onic pain. SURGICAL HISTORY: Spinal surgery. FAMILY HISTORY: Reviewed and noncontributory to current situation. SOCIAL HISTORY: Patient has never smoked cigarettes. She rarely consumes alcoholic beverages and de nies any illicit drug use. DIAGNOSTICS/LABORATORY RESULTS: White blood cell count 8.34, hematocrit 34.7, hemoglobin 10.7, plate let count 377. is 135, potassium 4.6, BUN 11, creatinine 0.8, glucose 103. C-reactive pr otein 38.5. DIAGNOSTIC IMAGING: There is no recent diagnostic imaging performed. PHYSICAL EXAM: VITAL SIGNS: Blood pressure 120/58, heart rate is 82, respiratory rate is 16, oxygen saturations 99% on 2 L nasal cannula, temperature 36.7 degrees Celsius. HEENT: Head is normocephal ic and atraumatic. Pupils are equal, round, and reactive to light. EOMI is intact. Full visual fie lds by confrontation. RESPIRATORY/CARDIAC: Deferred. GENITOURINARY, RECTAL, AND ABDOMEN: Deferred . NEUROLOGIC: The patient is awake and alert, oriented to name, place, location, date, time, and si tuation. Memory intact to immediate past and current events. Speech: No aphasia or dysphonia. [employer] nial nerves 2-12 are grossly intact. Motor: Patient has 5/5 strength in all muscle groups in the bi lateral lower extremities to include deltoids, biceps, triceps, brachioradialis, wrist flexion, exten sors, coil cleaner, intrinsic fingers, iliopsoas, quadriceps, hamstring, plantar flexion, dorsiflexion, EHL t esting. Sensation is grossly intact to light touch throughout all dermatomal distributions in bilate ral lower extremities. Knee jerk is 2+ out of 4. Babinski is negative. ASSESSMENT AND PLAN: Patient is a 77-year-old female who is status post thoracolumbar fusion with Dr Allyson Garcia on July 25, 2018. Patient subsequently returned to the OR for evacuation of hemat tiffanie and further decompression and recently was hospitalized, being treated for Enterococcus bacteremi a. Patient follows with Infectious Disease and was seen by Dr. Zelda Ardon in her office. Was found to have a worsening appearance of her lumbar wound. Patient will be admitted to the hospitalist [facility], and we have been consulted. Dr. Garcia has placed the patient on the operating room [facility] at 1600. We appreciate infectious disease assistance with antibiotic management for this patient. Patient was seen and examined by Dr. Garcia at 1600 on August 30, 2018. Ple ase contact Neurosurgery with any questions or concerns. /[id number]/MODL
[2018-08-31] MEDS: LOSARTAN POTASSIUM 25 MG TAB PO SCH (14:39)
--- NOTE | 2018-08-31 15:37 | HOSPPROG ---
Hospitalist Progress Note Assessment/Plan: 77 yo F with PMH of scoliosis and lumbosacral spinal reconstruction presenting with post op wound infection # post op wound infection with dehiscence: taken to OR by NSG today for wound debridement, discussed with Duglas of ID, started on vancomycin, repeat blood cultures drawn and surgical cultures pending. ID/NSG following. # lumbosacral spinal reconstruction: with post op complications of persistent pain found to be 2/2 hematoma requiring evacuation and re decompression, as above, NSG following # chronic pain: will continue her home regimen and additional meds as needed given above # anemia: chronic and slightly higher than her usual baseline, will continue to monitor # htn: will continue her home meds # restrictive lung disease: due to her scoliosis, no acute issues currently # recent enterococcus bacteremia: with clearance of blood cultures since 08/17, has been on daptomycin through 08/29/18, not felt to be due to wound infection previously was biliary source presumably # IP status, will require > 48 hours stay for eval/mgmt of above Care plan reviewed with ID. Subjective: no significant overnight events, patient overall doing better today , she is eager to go home Objective: Vital Signs Temp Pulse Resp BP Pulse Ox 36.7 C 70 16 99/47 L 97 08/31/18 12:08 08/31/18 12:08 08/31/18 12:08 08/31/18 14:39 08/31/18 12:08 Microbiology 08/30/18 17:12 Gram Stain - Final Back - Eswab Laboratory Results 08/31/18 04:15 08/31/18 04:15 08/30/18 08/31/18 09/01/18 05:59 05:59 05:59 Intake Total 1030 Output Total 320 Balance 710 Constitutional: no apparent distress, chronically ill appearing Eyes: PERRL Ears, Nose, Mouth, Throat: moist mucous membranes, hearing normal Cardiovascular: regular rate and rhythym, no murmur, rub, or gallop Respiratory: no respiratory distress Gastrointestinal: normoactive bowel sounds, soft, non-tender abdomen Genitourinary: no bladder tenderness Skin: warm, normal color Musculoskeletal: full muscle strength Neurologic: AAOx3 Psychiatric: not anxious, not encephalopathic ICD10 Worksheet Patient Problems: Problems Problem Status Onset Back pain Acute Cervical stenosis of spinal canal Acute Fusion of spine of thoracolumbar region Acute History of fever Acute Low back pain Acute Low blood pressure Acute
--- NOTE | 2018-08-31 16:13 | ASMTCMCOM ---
CM Note CM Note Notes: Pt admitted for a scheduled surgery d/t a pos op wound after a spinal reconstruction. Pt lives at home in [place] with her . Therapies recommend homecare, CM sent referrals to agencies in . [place] likely not until Sun/Sun. DC Plan: Home care Date Signed: 08/31/2018 04:01 PM Electronically Signed By:Marilia Mccoy RN
[2018-08-31] MEDS: oxyCODONE IR 5 MG TAB PO PRN (17:32)
[2018-08-31] MEDS: ESTROGENS,CONJUGATED 0.3 MG TAB PO SCH (17:32)
[2018-09-01] MEDS: ACETAMINOPHEN 500 MG TAB PO SCH ×3 (06:14→21:01)
[2018-09-01] MEDS: VANCOMYCIN 750 MG in D5W 150 ML IV SCH ×2 (08:18→19:44)
[2018-09-01] MEDS: GABAPENTIN 100 MG CAP PO SCH ×3 (08:18→21:01)
[2018-09-01] MEDS: METHOCARBAMOL 750 MG TAB PO PRN ×3 (08:19→19:44)
[2018-09-01] MEDS: MAGNESIUM OXIDE 400 MG TAB PO SCH (08:19)
[2018-09-01] MEDS: POTASSIUM CL 20 MEQ PKT PO SCH (08:19)
[2018-09-01] MEDS: CARVEDILOL 6.25 MG TAB PO SCH ×2 (08:19→17:55)
[2018-09-01] MEDS: SENNOSIDES/DOCUSATE SODIUM TAB PO SCH ×4 (08:19→21:05)
[2018-09-01] MEDS: PRESERVISION AREDS2 FORMULA EYE VIT 1 EACH PO SCH ×2 (08:19→21:02)
[2018-09-01] MEDS: FAMOTIDINE 20 MG TAB PO SCH ×2 (08:20→17:55)
[2018-09-01] MEDS: FUROSEMIDE 20 MG TAB PO SCH ×2 (08:20→15:53)
[2018-09-01] MEDS: oxyCODONE IR 5 MG TAB PO PRN (08:37)
--- NOTE | 2018-09-01 08:55 | NEUSURGPN ---
Date of Surgery: 08/30/18 Post Op Day: 2 Assessment/Plan: Assessment: 77 yr old s/p lumbar wound I&D/revision, patient had lumbar fusion on 07/25/18 Plan: -Patient doing well this am, sitting in chair, pain well controlled -Antibiotics per ID -Intraop cultures pending, blood cultures ordered -PT/OT -Continue to monitor incision -Patient would like to dispo home this week to [place] if able-Case management working on home health options -Please call neurosurgery with questions/concerns Discussed patient with Dr Flores Subjective: Sitting in chair, doing well Objective: AxO x4 DAWSON x4 5/5 BLE Sensation intact to light touch BLE Incision CDI with sutures, minimal SA drainage on dressing Neuro Check Frequency: per routine Urinary Catheter in Place: No - Physician Discussed Patient with : [facility] Neurosurgery Physical Exam - Vitals, I&O, Labs I and O 08/31/18 09/01/18 09/02/18 05:59 05:59 05:59 Intake Total 1030 1650 Output Total 320 800 Balance 710 850 Weight 61.235 kg Intake: Oral (ml) 30 750 IV Intake (ml) 1000 IV Infused (ml) 900 Ns 1,000 ml @ 75 mls/hr 900 IV CONT LINSEY Rx#: [id number] Output: Urine (ml) 300 800 Bedside Commode 300 Catheter 800 Estimated Blood Loss (ml) 20 Other: Intake Quantity Yes Yes Sufficient Output Comment Catheter duplicate clock Number of Voids Bedside Commode 1 Incontinence 1 Microbiology 08/30/18 17:12 Gram Stain - Final Back - Eswab Vital Signs Temp Pulse Resp BP Pulse Ox 36.6 C 76 16 121/54 H 91 L 09/01/18 07:44 09/01/18 07:44 09/01/18 07:44 09/01/18 07:44 09/01/18 07:44 Laboratory Results 08/31/18 04:15 08/31/18 04:15 ICD10 Worksheet Patient Problems: Problems Problem Status Onset Back pain Acute Cervical stenosis of spinal canal Acute Fusion of spine of thoracolumbar region Acute History of fever Acute Low back pain Acute Low blood pressure Acute
--- NOTE | 2018-09-01 10:58 | PCMIDPN ---
Assessment/Plan: # Low-grade enterococcal bacteremia, blood cultures cleared 08/17/2018. 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 Superficial and did not track to fascia. Suspect mechanical dehiscence but cultures were taken in the OR to evaluate further. Recommendations --Continue antibiotics for 48-72 hr, if cultures are 09/02/2018 then okay to DC home off all antibiotics --Vanco trough okay today continue at current dose --if cultures are negative tomorrow DC PICC line before discharge --HUS as outpatient Medication Vancomycin 750 mg IV q.12, day #16 (vanco > dapto > vancomycin) Microbiology 08/30 blood cultures (2) NGTD 08/30 OR culture Gram stain negative, culture NGTD Subjective: feeling well, ambulating the halls feeling much more hungry today, cheeful. Sept well Objective: Vital Signs Temp Pulse Resp BP Pulse Ox 36.6 C 76 16 121/54 H 91 L 09/01/18 07:44 09/01/18 07:44 09/01/18 07:44 09/01/18 07:44 09/01/18 07:44 Microbiology 08/30/18 17:12 Gram Stain - Final Back - Eswab Laboratory Results 08/31/18 04:15 08/31/18 04:15 08/31/18 09/01/18 09/02/18 05:59 05:59 05:59 Intake Total 1030 1650 Output Total 320 800 Balance 710 850 C-Reactive Protein 38.5 mg/L (<10.0) H 08/30/18 12:40 Gen: appears lots more vigorous than before, nontoxic O/p: no lesions Skin: no rashes Pulm: breathing easy Neuro: ambulating in the [place]ul with walker and PT, AXOx4 - Time Spent With Patient Time Spent with Patient: greater than 25 minutes (reviewed plan of care with dc possible tomorrow or Sunday off abx) Time Spent with Patient: Greater than 25 minutes spent on this patients care, greater than 50% of time spent counseling, educating, and coordinating care regarding the above mentioned plan. ICD10 Worksheet Patient Problems: Problems Problem Status Onset Back pain Acute Cervical stenosis of spinal canal Acute Fusion of spine of thoracolumbar region Acute History of fever Acute Low back pain Acute Low blood pressure Acute
[2018-09-01] MEDS: LOSARTAN POTASSIUM 25 MG TAB PO SCH (11:32)
--- NOTE | 2018-09-01 12:04 | HOSPPROG ---
Hospitalist Progress Note Assessment/Plan: 77 yo F with PMH of scoliosis and lumbosacral spinal reconstruction presenting with post op wound infection # post op wound infection with dehiscence: taken to OR by NSG for wound debridement, started on vancomycin, blood and wound cultures with NGTD. ID/NSG following. Appears that this was a superficial and mechanical dehiscence. Per ID , if cultures remain negative through 09/02 would dc home off of all abx and remove PICC prior to discharge. # recent enterococcus bacteremia: with clearance of blood cultures since 08/17, has been on daptomycin through 08/29/18, not felt to be due to wound infection previously was biliary source presumably, repeat cultures from this stay negative so far # lumbosacral spinal reconstruction: with post op complications of persistent pain found to be 2/2 hematoma requiring evacuation and re decompression, as above, NSG following # chronic pain: will continue her home regimen and additional meds as needed given above # anemia: chronic and essentially at baseline, initial drop likely dilutional but will repeat cbc in am # htn: will continue her home meds # hyperglycemia: will check a1c # restrictive lung disease: due to her scoliosis, no acute issues currently # IP status, will require > 48 hours stay for eval/mgmt of above Subjective: no significant overnight events, patient states she is feeling great today, she has been ambulating with pt, she has limited pain, she is hopeful to discharge tomorrow Objective: Vital Signs Temp Pulse Resp BP Pulse Ox 36.6 C 79 16 111/47 L 96 09/01/18 11:24 09/01/18 11:24 09/01/18 11:24 09/01/18 11:24 09/01/18 11:24 Microbiology 08/30/18 17:12 Gram Stain - Final Back - Eswab Laboratory Results 08/31/18 04:15 08/31/18 04:15 08/31/18 09/01/18 09/02/18 05:59 05:59 05:59 Intake Total 1030 1650 Output Total 320 800 Balance 710 850 Constitutional: no apparent distress, chronically ill appearing Eyes: PERRL Ears, Nose, Mouth, Throat: moist mucous membranes, hearing normal Cardiovascular: regular rate and rhythym, no murmur, rub, or gallop Respiratory: no respiratory distress Gastrointestinal: normoactive bowel sounds, soft, non-tender abdomen Genitourinary: no bladder tenderness Skin: warm, normal color Musculoskeletal: full muscle strength Neurologic: AAOx3 Psychiatric: not anxious, not encephalopathic ICD10 Worksheet Patient Problems: Problems Problem Status Onset Back pain Acute Cervical stenosis of spinal canal Acute Fusion of spine of thoracolumbar region Acute History of fever Acute Low back pain Acute Low blood pressure Acute
[2018-09-01] MEDS: ESTROGENS,CONJUGATED 0.3 MG TAB PO SCH (17:55)
[2018-09-01] MEDS: Lactobacillus Acidophilus [Probiotic] 1 EACH PO SCH (17:55)
[2018-09-02] MEDS: ACETAMINOPHEN 500 MG TAB PO SCH ×3 (05:52→21:11)
[2018-09-02] MEDS: POTASSIUM CL 20 MEQ PKT PO SCH (08:35)
[2018-09-02] MEDS: CARVEDILOL 6.25 MG TAB PO SCH ×2 (08:36→18:12)
[2018-09-02] MEDS: METHOCARBAMOL 750 MG TAB PO PRN ×3 (08:36→18:12)
[2018-09-02] MEDS: GABAPENTIN 100 MG CAP PO SCH ×3 (08:36→21:20)
[2018-09-02] MEDS: MAGNESIUM OXIDE 400 MG TAB PO SCH (08:36)
[2018-09-02] MEDS: FAMOTIDINE 20 MG TAB PO SCH ×2 (08:36→18:12)
[2018-09-02] MEDS: FUROSEMIDE 20 MG TAB PO SCH ×2 (08:36→15:39)
[2018-09-02] MEDS: Lactobacillus Acidophilus [Probiotic] 1 EACH PO SCH ×2 (08:36→17:37)
[2018-09-02] MEDS: PRESERVISION AREDS2 FORMULA EYE VIT 1 EACH PO SCH ×2 (08:36→21:24)
[2018-09-02] MEDS: SENNOSIDES/DOCUSATE SODIUM TAB PO SCH ×4 (08:37→21:13)
[2018-09-02] MEDS: ENOXAPARIN 40 MG/0.4 ML SYR SC SCH (08:37)
[2018-09-02] MEDS: VANCOMYCIN 750 MG in D5W 150 ML IV SCH ×2 (08:43→19:31)
--- NOTE | 2018-09-02 10:05 | NEUSURGPN ---
Date of Surgery: 08/30/18 Post Op Day: 3 Assessment/Plan: Assessment: 77 yr old s/p lumbar wound I&D/revision POD#, patient had lumbar fusion on 07/25/18 Plan: -Patient doing well this am, pain well controlled -Antibiotics per ID -blood cultures pending final, no growth after 36 hours -PT/OT -Incision looks good -Patient would like to dispo home this week to [place] if able-Case management working on home health options -Likely ok to dispo from Neurosurgery standpoint, Dr Flores would like to see the patient first and will be by later today -Please call neurosurgery with questions/concerns Discussed patient with Dr Flores Subjective: Doing well, wants to go home Objective: AxO x4 DAWSON x4 5/5 BLE Incision CDI with sutures Neuro Check Frequency: per routine Urinary Catheter in Place: No - Physician Discussed Patient with : Radha Neurosurgery Physical Exam - Vitals, I&O, Labs I and O 09/01/18 09/02/18 09/03/18 05:59 05:59 05:59 Intake Total 1650 150 Output Total 800 750 100 Balance 850 -600 -100 Intake: Oral (ml) 750 150 IV Infused (ml) 900 Ns 1,000 ml @ 75 mls/hr 900 IV CONT LINSEY Rx#: [id number] Output: Urine (ml) 800 750 100 Catheter 800 Toilet 750 100 Other: Intake Quantity Yes Sufficient Output Comment Catheter duplicate clock Number of Voids Toilet 1 Number of Stools Catheter 1 Toilet 1 1 Microbiology 08/30/18 17:12 Gram Stain - Final Back - Eswab Vital Signs Temp Pulse Resp BP Pulse Ox 36.6 C 84 16 111/53 L 95 09/02/18 08:13 09/02/18 08:00 09/02/18 08:00 09/02/18 08:00 09/02/18 08:00 Laboratory Results 09/02/18 04:13 08/31/18 04:15 ICD10 Worksheet Patient Problems: Problems Problem Status Onset Back pain Acute Cervical stenosis of spinal canal Acute Fusion of spine of thoracolumbar region Acute History of fever Acute Low back pain Acute Low blood pressure Acute
--- NOTE | 2018-09-02 10:43 | HOSPPROG ---
Hospitalist Progress Note Assessment/Plan: 77 yo F with PMH of scoliosis and lumbosacral spinal reconstruction presenting with post op wound infection. # post op wound infection with dehiscence: -taken to OR by NSG for wound debridement -started on vancomycin -blood and wound cultures with NGTD - ID/NSG following # recent enterococcus bacteremia: -with clearance of blood cultures since 08/17 -has been on daptomycin through 08/29/18 -not felt to be due to wound infection previously was biliary source presumably - repeat cultures from this stay negative so far # lumbosacral spinal reconstruction: -with post op complications of persistent pain found to be 2/2 hematoma requiring evacuation and re decompression # chronic pain: -will continue her home regimen and additional meds as needed given above # anemia: -chronic and essentially at baseline -lower today -stable # htn: -will continue her home meds # hyperglycemia: -Ha1c 5.9 -acute response # restrictive lung disease: -due to her scoliosis, no acute issues currently # Dispo pt hoping to go home to [place] [facility] Per ID, if cultures remain negative through 09/02 would dc home off of all abx and remove PICC prior to discharge. Subjective: Feeling well. Still tired. Pain controlled. Objective: Vital Signs Temp Pulse Resp BP Pulse Ox 36.6 C 84 16 111/53 L 95 09/02/18 08:13 09/02/18 08:00 09/02/18 08:00 09/02/18 08:00 09/02/18 08:00 Microbiology 08/30/18 17:12 Gram Stain - Final Back - Eswab Laboratory Results 09/02/18 04:13 08/31/18 04:15 09/01/18 09/02/18 09/03/18 05:59 05:59 05:59 Intake Total 1650 150 Output Total 800 750 100 Balance 850 -600 -100 - Physical Exam Constitutional: appears nourished, chronically ill appearing Eyes: PERRL, anicteric sclera Ears, Nose, Mouth, Throat: moist mucous membranes, hearing normal Cardiovascular: No JVD, No edema Respiratory: no respiratory distress, reduced air movement Gastrointestinal: No tenderness, No ascites Skin: warm, normal color Musculoskeletal: no joint effusions, generalized weakness Neurologic: AAOx3 Psychiatric: not anxious, not encephalopathic, poor memory ICD10 Worksheet Patient Problems: Problems Problem Status Onset Cervical stenosis of spinal canal Acute Fusion of spine of thoracolumbar region Acute Low back pain Acute Back pain Acute History of fever Acute Low blood pressure Acute
[2018-09-02] MEDS: oxyCODONE IR 5 MG TAB PO PRN (10:59)
[2018-09-02] MEDS: LOSARTAN POTASSIUM 25 MG TAB PO SCH (11:26)
--- NOTE | 2018-09-02 12:00 | PCMIDPN ---
Assessment/Plan: Assessment/Plan: * Lumbar wound dehiscence status post incision and drainage: Culture showing growth of Enterococcus faecalis and coagulase-negative Staphylococcus. Operative findings reviewed noting that infection did not track deep. Suspect majority of infection likely excised surgically. Will continue 5 days of antibiotics postoperatively with plans to discontinue antibiotics thereafter. Continue vancomycin through tomorrow with provision of daptomycin on 09/04/2018 x1 dose which will allow for earlier hospital discharge. Clinical findings and plan reviewed with patient and today. 09/02/18 11:58 Subjective: Overall patient feels clinically improved. Eager to return to [facility]. Objective: Vital Signs Temp Pulse Resp BP Pulse Ox 36.5 C 76 18 109/37 L 95 09/02/18 11:20 09/02/18 11:20 09/02/18 11:20 09/02/18 11:20 09/02/18 11:20 Microbiology 08/30/18 17:12 Gram Stain - Final Back - Eswab Laboratory Results 09/02/18 04:13 08/31/18 04:15 09/01/18 09/02/18 09/03/18 05:59 05:59 05:59 Intake Total 1650 150 Output Total 800 750 100 Balance 850 -600 -100 C-Reactive Protein 38.5 mg/L (<10.0) H 08/30/18 12:40 Vancomycin 750 Q 12 (antibiotics # 17) Laboratory Tests 09/01/18 06:20 Vancomycin Trough 12.7 - Physical Exam General Appearance: alert, no apparent distress EENT: No scleral icterus, No thrush Respiratory: lungs clear, No respiratory distress Cardiac/Chest: regular rate, rhythm Abdomen: non-tender, No distended Back: other (Small open area mid incision line without drainage; mild remaining erythema; no palpable fluctuance or tenderness) - Line/s RUE PICC Lines: No drainage, No erythema ICD10 Worksheet Patient Problems: Problems Problem Status Onset Back pain Acute Cervical stenosis of spinal canal Acute Fusion of spine of thoracolumbar region Acute History of fever Acute Low back pain Acute Low blood pressure Acute
--- NOTE | 2018-09-02 14:20 | ASMTCMCOM ---
CM Note CM Note Notes: CM reviewed Home Health referrals, still pending responses. CM sent update to agencies: D/C likely tomorrow to home without IV antibiotics ([facility] declined due to staffing). CM to follow. Current Discharge Plan: pending home health response, likely Discharge tomorrow. Date Signed: 09/01/2018 12:05 PM Electronically Signed By:Deepthi Llamas
--- NOTE | 2018-09-02 15:51 | ASMTCMCOM ---
CM Note CM Note Notes: CM met w/ pt and for dispo planning. Pt will stay here at [facility] until Weds for ivabx. CM spoke to Dr. Alvarado about course of tx. Pt and has chosen [facility]. CM to follow. Plan: [facility]; PT, OT Date Signed: 09/02/2018 03:50 PM Electronically Signed By:PETROS Begum
[2018-09-02] MEDS: ESTROGENS,CONJUGATED 0.3 MG TAB PO SCH (18:12)
[2018-09-03] MEDS: ACETAMINOPHEN 500 MG TAB PO SCH ×3 (05:04→21:00)
[2018-09-03] MEDS: METHOCARBAMOL 750 MG TAB PO PRN ×4 (07:49→19:51)
[2018-09-03] MEDS: VANCOMYCIN 750 MG in D5W 150 ML IV SCH ×2 (07:51→19:38)
[2018-09-03] MEDS: POTASSIUM CL 20 MEQ PKT PO SCH ×2 (07:51→13:19)
[2018-09-03] MEDS: ENOXAPARIN 40 MG/0.4 ML SYR SC SCH (07:51)
[2018-09-03] MEDS: FAMOTIDINE 20 MG TAB PO SCH ×2 (07:52→17:01)
[2018-09-03] MEDS: PRESERVISION AREDS2 FORMULA EYE VIT 1 EACH PO SCH ×2 (07:52→21:00)
[2018-09-03] MEDS: CARVEDILOL 6.25 MG TAB PO SCH ×2 (07:52→17:00)
[2018-09-03] MEDS: FUROSEMIDE 20 MG TAB PO SCH ×2 (07:53→17:01)
[2018-09-03] MEDS: MAGNESIUM OXIDE 400 MG TAB PO SCH (07:53)
[2018-09-03] MEDS: SENNOSIDES/DOCUSATE SODIUM TAB PO SCH ×2 (07:58→21:01)
--- NOTE | 2018-09-03 07:58 | NEUSURGPN ---
Date of Surgery: 08/30/18 Post Op Day: 4 Assessment/Plan: 77 yr old s/p lumbar wound I&D/revision POD#4, patient had lumbar fusion on 07/25 Plan: -Patient doing well this am, pain well controlled -Antibiotics per ID -PT/OT -Incision looks good -Dispo: hopefully discharge home tomorrow morning, stable from neurosurgery standpoint for discharge -Please call neurosurgery with questions/concerns Discussed patient with Dr Flores Subjective: Right anterior thigh numbness is improving. Objective: Awake. Alert. Following commands Muscle strength full at 5/5 Sensation intact - Physician Discussed Patient with : Rad[facility] Neurosurgery Physical Exam - Vitals, I&O, Labs I and O 09/02/18 09/03/18 09/04/18 05:59 05:59 05:59 Intake Total 150 915 Output Total 750 350 200 Balance -600 565 -200 Intake: Oral (ml) 150 750 IV Infused (ml) 165 Vancomycin 750 mg In D5w 165 150 ml @ 165 mls/hr IV Q12H [facility] Rx#:[id number] Output: Urine (ml) 750 350 200 Catheter 250 Toilet 750 100 200 Other: Number of Voids Incontinence 1 Toilet 1 1 Number of Stools Catheter 1 Toilet 1 1 1 Microbiology 08/30/18 17:12 Gram Stain - Final Back - Eswab Vital Signs Temp Pulse Resp BP Pulse Ox 36.8 C 79 16 139/48 H 94 09/03/18 07:43 09/03/18 07:43 09/03/18 07:43 09/03/18 07:43 09/03/18 07:43 Laboratory Results 09/02/18 04:13 09/03/18 05:10 ICD10 Worksheet Patient Problems: Problems Problem Status Onset Back pain Acute Cervical stenosis of spinal canal Acute Fusion of spine of thoracolumbar region Acute History of fever Acute Low back pain Acute Low blood pressure Acute
[2018-09-03] MEDS: GABAPENTIN 100 MG CAP PO SCH ×3 (08:03→21:00)
[2018-09-03] MEDS: Lactobacillus Acidophilus [Probiotic] 1 EACH PO SCH ×2 (09:41→17:17)
[2018-09-03] MEDS: oxyCODONE IR 5 MG TAB PO PRN (11:55)
[2018-09-03] MEDS: LOSARTAN POTASSIUM 25 MG TAB PO SCH (11:56)
--- NOTE | 2018-09-03 12:20 | HOSPPROG ---
Hospitalist Progress Note Assessment/Plan: Jeanne Padgett is a 77 yo F with PMH of scoliosis and lumbosacral spinal reconstruction presenting with post op wound infection. Reviewed her care w Dr Ardon, will get one more dose of IV abx in the morning and then dc. Will need PICC removed prior. Today is my first encounter w the patient, chart reviewed. # post op wound infection with dehiscence -s/p I & D -culture show Enterococcus faecalis and coagulase-negative Staphylococcus -vancomycin # recent enterococcus bacteremia: -with clearance of blood cultures since 08/17 -has been on daptomycin through 08/29/18 -not felt to be due to wound infection previously was biliary source presumably # lumbosacral spinal reconstruction: -with post op complications of persistent pain found to be 2/2 hematoma requiring evacuation and re decompression # chronic pain: -will continue her home regimen and additional meds as needed given above # anemia: -chronic -has had multiple transfusions on her last admission # htn: -will continue her home meds # hyperglycemia: -A1c 5.9 -acute response # restrictive lung disease: -due to her scoliosis #plan: will aim to dc tomorrow morning if ok w ID and neurosurgery Subjective: Jeanne is feeling better today, was tired yesterday. Eating well. Objective: Vital Signs Temp Pulse Resp BP Pulse Ox 36.9 C 76 16 115/50 L 94 09/03/18 12:13 09/03/18 12:13 09/03/18 12:13 09/03/18 12:13 09/03/18 12:13 Microbiology 08/30/18 17:12 Gram Stain - Final Back - Eswab Laboratory Results 09/02/18 04:13 09/03/18 05:10 09/02/18 09/03/18 09/04/18 05:59 05:59 05:59 Intake Total 150 915 Output Total 750 350 200 Balance -600 565 -200 - Physical Exam Constitutional: appears nourished, uncomfortable Eyes: PERRL Ears, Nose, Mouth, Throat: hearing normal Cardiovascular: regular rate and rhythym, no murmur, rub, or gallop Respiratory: no respiratory distress Skin: warm, other (back incision without drainage, well approximated w 4 sutures noted on the distal end), No normal color (pale) Musculoskeletal: muscular tenderness (right gluteus area), generalized weakness Neurologic: AAOx3 Psychiatric: interacting appropriately ICD10 Worksheet Patient Problems: Problems Problem Status Onset Back pain Acute Cervical stenosis of spinal canal Acute Fusion of spine of thoracolumbar region Acute History of fever Acute Low back pain Acute Low blood pressure Acute
[2018-09-03] MEDS: ESTROGENS,CONJUGATED 0.3 MG TAB PO SCH (17:00)
--- NOTE | 2018-09-03 21:19 | PCMIDPN ---
Assessment/Plan: # Low-grade enterococcal bacteremia, blood cultures cleared 08/17/2018. Patient received IV therapy through 08/29/2018 (was on vancomycin then daptomycin at [facility] facility) . Etiology unclear # Dehiscence of distal lumbar wound s/p revision 08/30. Superficial and did not track to fascia. Suspect mechanical dehiscence but superficial cx grew enterococcus and S epid Recommendations --Continue abx through 09/04, dc tomorrow ok prior to ID rounding --dc PICC Line before dc --EUS as outpatient to eval papillary stenosis Medication Vancomycin 750 mg IV q.12, day #18 Microbiology 08/30 blood cultures (2) NGTD 08/30 OR culture Gram stain negative, culture NGTD Subjective: feeling well, still some days are better than others appetite still overall better looking forward to going home tomorrow Objective: Vital Signs Temp Pulse Resp BP Pulse Ox 37.4 C 91 16 105/55 L 92 09/03/18 19:33 09/03/18 19:33 09/03/18 19:33 09/03/18 19:33 09/03/18 19:33 Microbiology 08/30/18 17:12 Gram Stain - Final Back - Eswab Laboratory Results 09/02/18 04:13 09/03/18 05:10 09/02/18 09/03/18 09/04/18 05:59 05:59 05:59 Intake Total 150 915 Output Total 750 350 200 Balance -600 565 -200 C-Reactive Protein 38.5 mg/L (<10.0) H 08/30/18 12:40 - Physical Exam General Appearance: alert, no apparent distress Respiratory: No accessory muscle use Neck: supple Cardiac/Chest: normal peripheral pulses, regular rate, rhythm Back: other (distal incision still with stitches not erythema, small amount serosang drainage on dressings) Skin: pallor, No rash Neuro/Psych: alert, normal mood/affect, oriented x 3 - Line/s RUE PICC Lines: No drainage, No erythema - Time Spent With Patient Time Spent with Patient: greater than 25 minutes Time Spent with Patient: Greater than 25 minutes spent on this patients care, greater than 50% of time spent counseling, educating, and coordinating care regarding the above mentioned plan. ICD10 Worksheet Patient Problems: Problems Problem Status Onset Back pain Acute Cervical stenosis of spinal canal Acute Fusion of spine of thoracolumbar region Acute History of fever Acute Low back pain Acute Low blood pressure Acute
[2018-09-04] MEDS: METHOCARBAMOL 750 MG TAB PO PRN ×2 (02:47→10:01)
[2018-09-04] MEDS: ACETAMINOPHEN 500 MG TAB PO SCH (05:37)
[2018-09-04 07:20] VITALS: BP 114/54
--- NOTE | 2018-09-04 07:44 | SOAPPROG ---
SOAP Progress Note Assessment/Plan: Assessment: 77 yo F sp lumbar fusion and pod #5 incision and drainage of lower lumbar wound Plan: stable on dapto for staph epi and enterrococcus infection, last dose today per ID PT/OT ok to dc home this am rx for robaxin/oxy in chart scd/leopoldo/lovenox for dvt prophylaxis please call with neuro changes 09/04/18 07:42 Subjective: back pain improving, leg pain improving also, no weakness. Objective: Vital Signs Temp Pulse Resp BP Pulse Ox 36.9 C 82 16 114/54 L 94 09/04/18 07:18 09/04/18 07:18 09/04/18 07:18 09/04/18 07:18 09/04/18 07:18 Microbiology 08/30/18 17:12 Gram Stain - Final Back - Eswab Laboratory Results 09/02/18 04:13 09/03/18 05:10 09/03/18 09/04/18 09/05/18 05:59 05:59 05:59 Intake Total 915 Output Total 350 300 Balance 565 -300 AAOx4, +FC PERRL, EOMI, no facial droop 5/5 + light touch C/D/I ICD10 Worksheet Patient Problems: Problems Problem Status Onset Back pain Acute Cervical stenosis of spinal canal Acute Fusion of spine of thoracolumbar region Acute History of fever Acute Low back pain Acute Low blood pressure Acute
[2018-09-04] MEDS: Lactobacillus Acidophilus [Probiotic] 1 EACH PO SCH (08:23)
[2018-09-04] MEDS: POTASSIUM CL 20 MEQ PKT PO SCH (08:24)
[2018-09-04] MEDS: SENNOSIDES/DOCUSATE SODIUM TAB PO SCH (08:24)
[2018-09-04] MEDS: CARVEDILOL 6.25 MG TAB PO SCH (08:25)
[2018-09-04] MEDS: MAGNESIUM OXIDE 400 MG TAB PO SCH (08:26)
[2018-09-04] MEDS: FAMOTIDINE 20 MG TAB PO SCH (08:26)
[2018-09-04] MEDS: GABAPENTIN 100 MG CAP PO SCH (08:26)
[2018-09-04] MEDS: PRESERVISION AREDS2 FORMULA EYE VIT 1 EACH PO SCH (08:26)
[2018-09-04] MEDS: FUROSEMIDE 20 MG TAB PO SCH (08:26)
[2018-09-04] MEDS: ENOXAPARIN 40 MG/0.4 ML SYR SC SCH (08:27)
--- NOTE | 2018-09-04 08:37 | HOSPPROG ---
Hospitalist Progress Note Assessment/Plan: Jeanne Padgett is a 77 yo F with PMH of scoliosis and lumbosacral spinal reconstruction presenting with post op wound infection. # post op wound infection with dehiscence -s/p I & D -culture show Enterococcus faecalis and coagulase-negative Staphylococcus -last dose of abx today # recent enterococcus bacteremia: -with clearance of blood cultures since 08/17 -has been on daptomycin through 08/29/18 -not felt to be due to wound infection previously was biliary source presumably # lumbosacral spinal reconstruction: -with post op complications of persistent pain found to be 2/2 hematoma requiring evacuation and re decompression # chronic pain: -will continue her home regimen and additional meds as needed given above # anemia: -chronic -has had multiple transfusions on her last admission # htn: -will continue her home meds # hyperglycemia: -A1c 5.9 -acute response # restrictive lung disease: -due to her scoliosis #plan: dc today, removal of PICC. F/u with Dr Flores Subjective: Jeanne has no complaints, ready for dc Objective: Vital Signs Temp Pulse Resp BP Pulse Ox 36.9 C 82 16 114/54 L 94 09/04/18 07:18 09/04/18 08:25 09/04/18 07:18 09/04/18 08:25 09/04/18 07:18 Microbiology 08/30/18 17:12 Gram Stain - Final Back - Eswab Laboratory Results 09/02/18 04:13 09/03/18 05:10 09/03/18 09/04/18 09/05/18 05:59 05:59 05:59 Intake Total 915 Output Total 350 300 Balance 565 -300 - Physical Exam Constitutional: no apparent distress, appears nourished Eyes: PERRL Ears, Nose, Mouth, Throat: hearing normal Respiratory: no respiratory distress Skin: warm Neurologic: AAOx3 Psychiatric: interacting appropriately ICD10 Worksheet Patient Problems: Problems Problem Status Onset Back pain Acute Cervical stenosis of spinal canal Acute Fusion of spine of thoracolumbar region Acute History of fever Acute Low back pain Acute Low blood pressure Acute
--- NOTE | 2018-09-04 08:48 | PDIAF ---
- Diagnosis Diagnosis: dehis of distal lumbar wound, recent enterococcus bacteremia Code Status: Full Code - Medication Management Discharge Medications: electronically signed and located in the Home Medication List. PICC Care - Routine: N/A - Orders Services needed: Home Care, Registered Nurse, Physical Therapy, Occupational Therapy Home Care Face to Face: I certify that this patient was under my care and that I had the required [id number] encounter meeting the encounter requirements on the discharge day. My findings support the fact that the patient is homebound as defined in Home Care Face to Face Continued: CMS Chapter 7 Medicare Benefits Manual 30.1.1 , The condition of the patient is such that there exists a normal inability to leave home and consequently, leaving home would require a considerable and taxing effort. Diet Recommendation: no restrictions on diet Diet Texture: Regular Texture Diet Additional Instructions: script for oxy and robaxin are in the chart from neurosurgery return to the ER if you develop any fevers, chills, drainage from your back get an outpatient follow up for an EUS with Dr Davis to follow up w papillary stenosis f/u with Dr Flores as planned Hoping 2019 is filled w [facility] and you are out hiking with your !!!! - Follow Up Care Current Providers and Referrals: Patient,NotPresent [Primary Care Provider] - Molina Garcia MD [Medical Doctor] -
[2018-09-04] MEDS ORDERED: NS IV SCH (09:00)
[2018-09-04] MEDS ORDERED: DAPTOMYCIN IV SCH (09:00)
--- NOTE | 2018-09-04 09:45 | ASMTLACE ---
JAIMEE Length of stay for Answers: 3 days current admission Acuity / Level of Answers: Yes Care: Did the patient have an inpatient admission? Comorbidities - select Answers: Opioid dependence all that apply / Chronic pain Other Notes: scoliosis # of Emergency department Answers: 1-2 visits in the last 6 months Score: 12 Date Signed: 09/04/2018 09:44 AM Electronically Signed By:Marilia Mccoy RN
--- NOTE | 2018-09-04 09:58 | GDS ---
DISCHARGE DIAGNOSES: 1. Postoperative wound infection with dehiscence. 2. Recent Enterococcus bacteremia. 3. Lumbosacral spinal reconstruction. 4. Chronic pain. 5. Anemia. 6. Hypertension. 7. Hyperglycemia. 8. Restrictive lung disease. CONSULTATIONS: 1. Maude Delatorre, nurse practitioner with Neurosurgery. 2. Dr. Zelda Ardon with Infectious Disease. HISTORY: Briefly, the patient is a very nice 77-year-old woman who was recently here at [facility], treated for an Enterococcus bacteremia. She has a history of a T11-S1 fusion with Dr. Garcia on July 25, 2018. After that, she underwent evacuation of a postoperative hematoma and repeat decompression following that surgery. After that, she had developed enterococcus bacteremia and improved. There was a concern that she had dehiscence of her wound on the distal end. She was seen and evaluated by Dr. Garcia. She was taken to the OR for debridement. She has improved throughout her stay. She will be discharged back home to [place]. She will no longer be on any further IV antibiotics. HOSPITAL COURSE: 1. Dehiscence of distal lumbar wound. She is status post incision and drainage of the lower lumbar wound, much improved. She has a few sutures in place. She will follow up with Dr. Garcia in the outpatient setting. 2. Recent Enterococcus bacteremia. She had been treated with daptomycin. It was felt that the wound infection was from a biliary source. 3. Lumbosacral spinal reconstruction. She had some postop complications and persistent pain secondary to a hematoma, requiring evacuation and re- decompression. 4. Chronic pain. Home regimen has been continued. Overall, her pain is much better. 5. Anemia, stable. She did not require a blood transfusion on this stay. 6. Hypertension, stable. 7. Hyperglycemia secondary to stress. 8. Restrictive lung disease. This was due to her scoliosis. DISCHARGE CONDITION: Stable. Blood pressure is 115/54, heart rate of 82, respiratory rate of 16. O2 sats on room air 94%. Temperature is 36.9 Celsius. DISCHARGE MEDICATIONS: Please see the EMR. DISCHARGE INSTRUCTIONS: 1. To follow up with Dr. Garcia as scheduled. 2. If she develops any fever or chills or worsening back pain, return to the ER. 3. To get an outpatient followup for an EUS with Dr. Davis to follow up with her papillary stenosis. Greater than 30 minutes discharging and coordinating her care. /[id number]/MODL MTDD
[2018-09-04] MEDS: oxyCODONE IR 5 MG TAB PO PRN (10:01)
--- NOTE | 2018-09-04 10:36 | ASMTDCNOTE ---
Case Management Discharge Discharge Order Complete? Answers: Yes Patient to Obtain Answers: via Family Medications Transportation Arranged Answers: Family/Friends Faxed Final Orders Answers: Yes Agency/Facility Transfer Answers: Yes Report Printed & Faxed to Receiving Agency Family Notified Answers: Yes Discharge Comments Notes: D/w [employer], final orders faxed. [facility] in [place] notified and will send an RN tomorrow. Date Signed: 09/04/2018 10:01 AM Electronically Signed By:Marilia Mccoy RN
== END 2018-09-04 10:15 | disposition home health service (06) | DRG 857 ==
LOC: F3NOP 12:58 → FRFLAB 12:58 → EDSTATUS 14:41 → F3E 16:54
PROVIDERS: ADMIT Internal Medicine; ATTEND Internal Medicine
PROC: 0JB70ZZ Excision of Back Subcutaneous Tissue and Fascia, Open Approach (ICD-10-PCS; principal; 2018-08-30 16:00)
PROC: 4A10X4G Monitoring of Central Nervous Electrical Activity, Intraoperative, External Approach (ICD-10-PCS; principal; 2018-08-30 16:00)
DX: T81.41XA Infection following a procedure, superficial incisional surgical site, initial encounter (principal); B95.2 Enterococcus as the cause of diseases classified elsewhere; B95.7 Other staphylococcus as the cause of diseases classified elsewhere; T81.31XA Disruption of external operation (surgical) wound, not elsewhere classified, initial encounter; Z86.19 Personal history of other infectious and parasitic diseases; Z98.1 Arthrodesis status; F11.20 Opioid dependence, uncomplicated; G89.29 Other chronic pain; D64.9 Anemia, unspecified; I10 Essential (primary) hypertension; R73.9 Hyperglycemia, unspecified; J98.4 Other disorders of lung
CPT/HCPCS: 97116-GP; 97161-GP; 97166-GO; 97530-GO; 97530-GP; 97535-GO; G8978-GP-CJ; G8979-GP-CI; G8980-GP-CJ; G8987-GO-CK; G8988-GO-CJ; G8989-GO-CJ; J0690; J0878; J1100; J1650; J2001; J2250; J2405; J2704; J2710; J3010; J3370

== ENCOUNTER 2018-09-24 08:55 | Day surgery (SDC) | payer OTHER, BC ==
--- NOTE | 2018-09-24 09:33 | PDANEPAE ---
ANE History of Present Illness ERCP, ANE Past Medical History - Cardiovascular History Hx Hypertension: Yes Hx Arrhythmias: No Hx Chest Pain: No Hx Coronary Artery / Peripheral Vascular Disease: Yes Hx CHF / Valvular Disease: No Hx Palpitations: No Cardiovascular History Comment: HYPERLIPIDEMIA - Pulmonary History Hx COPD: Yes Hx Asthma/Reactive Airway Disease: No Hx Recent Upper Respiratory Infection: No Hx Oxygen in Use at Home: Yes O2 in Use at Home (L/minute): NOC O2 @2L Hx Sleep Apnea: No Sleep Apnea Screening Result - Last Documented: Negative Pulmonary History Comment: HS OXYGEN. + restrictive lung disease 2/2 scoliosis - Neurologic History Hx Cerebrovascular Accident: No Hx Seizures: No Hx Dementia: No - Endocrine History Hx Diabetes: No Obesity: mild - Renal History Hx Renal Disorders: No - Liver History Hx Hepatic Disorders: No Hepatic History Comment: BILIARY STENT - Neurological & Psychiatric Hx Hx Neurological and Psychiatric Disorders: No - Cancer History Hx Cancer: No - Congenital Disorder History Hx Congenital Disorders: No - GI History Hx Gastrointestinal Disorders: Yes Gastrointestinal History Comment: IBS. GERD - Other Health History Other Health History: ANEMIA -. HOSPITALIZED X6 WKS FOLLOWING BACK FUSION 07/25 -09/04 W/MULTIPLE POST OP COMPLICATIONS & DEVELOPED SEPSIS. BRIAN LOWER EXTREMITY EDEMA. OSTEOARTHRITIS. SCOLIOSIS. STENOSIS/DDD. N/T BRIAN FEET - Chronic Pain History Chronic Pain: Yes (LUMBAR REGION & RT HIP) - Surgical History Prior Surgeries: ENDOSCOPY W/STENT PLACED. EXPORATORY INCISION. HEMATOMA INCISION. FUSION LUMBAR 07/25/18. ACDF C4-7 03/21/18. LASER SPINE LUMBAR SURG 2008. HYSTERECTOMY. L SHOULDER RTC. CATARACTS BRIAN. CARPAL TUNNEL BRIAN. stent placed in gallbladder ANE Review of Systems Review of Systems: - Exercise capacity METS (RN): 3 METS ANE Patient History - Allergies Allergies/Adverse Reactions: naproxen [From Naprosyn] Allergy (Verified 08/14/18 11:52) Hives Penicillins Allergy (Verified 08/14/18 11:52) Tongue swelling, throat pain - Home Medications Home Medications: Albuterol [Proventil Inhaler HFA (*)] 1 - 2 puffs IH DAILY PRN 03/06/18 [Last Taken 1 Month Ago ~07/31/18] C/E/Zn/Cu/OM3/DHA/EPA/LUT/ZEAX [Preservision Areds 2 Softgel] 1 cap PO BID 03/06 [Last Taken 08/30/18 08:00] Carvedilol [Coreg (*)] 12.5 mg PO BIDMEAL 03/06/18 [Last Taken 08/30/18 08:00] Cholecalciferol Vit D3 [Vitamin D3 2000 units tab (OTC)] 4,000 units PO DAILY [Last Taken 08/30/18 08:00] Estrogens,Conjugated [Premarin 0.3 MG (*)] 0.3 mg PO DAILY18 03/06/18 [Last Taken 08/29/18] Famotidine [Pepcid 20 MG (*)] 20 mg PO BIDMEAL 03/06/18 [Last Taken 08/30/18 08: 00] Furosemide [Lasix 20 MG (*)] 20 mg PO BID@,03/06/18 [Last Taken 08/30/18 08 :00] Losartan Potassium [Cozaar 25 mg (*)] 25 mg PO DAILY@12 03/06/18 [Last Taken 12:00] Magnesium Oxide [Magnesium Oxide 400 mg (*)] 400 mg PO DAILY 03/06/18 [Last Taken 08/30/18 08:00] Lactase [Lactase 3000 Unit (*)] 3,000 unit PO DAILY PRN 06/21/18 [Last Taken 12:00] Lactobacillus Acidophilus [Probiotic] 1 each PO BIDMEAL 08/31/18 [Last Taken Unknown] - Anes Hx Anes Hx: no prior problems - Smoking Hx Smoking Status: Never smoked - Alcohol Use Alcohol Use: Rarely - Family Anes Hx Family Anes Hx: none Family Hx Anesthesia Complications: None. ANE Labs/Vital Signs - Vital Signs Blood Pressure: 138/69 Heart Rate: 78 O2 Sat (%): 97 Height: 152.4 cm Weight: 57.153 kg ANE Physical Exam - Airway Neck exam: FROM Mouth exam: normal dental/mouth exam - Pulmonary Pulmonary: clear to auscultation - Cardiovascular Cardiovascular: regular rate and rhythym - ASA Status ASA Status: III ANE Anesthesia Plan Anesthesia Plan: general endotracheal anesthesia
[2018-09-24] MEDS ORDERED: REMIFENTANIL HCL 1 MG VIAL ONE (09:35)
[2018-09-24] MEDS ORDERED: PROPOFOL/EMULSION 500 MG/50 ML BOTTLE IV ONE (09:36)
[2018-09-24] MEDS ORDERED: ROCURONIUM 50 MG/5 ML VIAL ONE (09:38)
[2018-09-24] MEDS ORDERED: DEXAMETHASONE 4 MG/ML VIAL ONE (09:39)
[2018-09-24] MEDS ORDERED: IOTHALAMATE MEG (CONRAY) 50 ML VIAL IV ONE (09:39)
[2018-09-24] MEDS ORDERED: GLUCAGON HCL 1 MG VIAL ONE (09:39)
[2018-09-24] MEDS ORDERED: PHENYLEPHRINE 10 MG/ML SDV ONE (09:42)
[2018-09-24] MEDS ORDERED: LR 1,000 ML IV ONE (09:43)
--- NOTE | 2018-09-24 10:27 | PDGENHP ---
History & Physical Chief Complaint: abnl imaging History of Present Illness: 78 year old female with recent back surgery presents for evaluation of abnl imaging- double duct sign as well as weight loss. Pertinent Past, Social, Family History: PMHx: HTN, Restrictive oxygen. PSurghx : Back SUrg Relevant Physical Exam: HEENT: anicteric. CV: RRR +s1s2. Lungs: CTAB. ABd: soft, Nt, + bs Cardiorespiratory Assessment: ASA 3
[2018-09-24] MEDS ORDERED: NS 500 ML IV SCH (10:30)
[2018-09-24] MEDS ORDERED: fentaNYL 100 MCG/2 ML INJ ONE (11:09)
[2018-09-24] MEDS ORDERED: ONDANSETRON 4 MG/2 ML VIAL ONE (11:22)
--- NOTE | 2018-09-24 11:24 | GIREPORT ---
[facility] - Endoscopy Department Patient Name: Jeanne Padgett Procedure Date: 09/24/2018 9:33 AM Patient Type: Outpatient Attending MD/ ER Physician: Richmond Davis MD Procedure: Upper EUS Indications: Common bile duct dilation (etiology unknown) seen on CT scan, Weight lo ss. Abnormal imaging. Patient Profile: 78 year old female presents for evaluation of CBD and pancreatic duct dilation as well as weight loss. Providers: Richmond Davis MD Medicines: General Anesthesia Complications: No immediate complications. Estimated blood loss: Minimal. Description of Procedure: After obtaining informed consent, the endoscope was passed under direct vision. Throughout the procedure, the patient's blood pressure, pulse, and oxygen saturations were monitored continuously. The Endosonoscope was introduced through the mouth, and advanced to the second part of duoden um. The Endoscope was introduced through the mouth, and advanced to the sec ond part of duodenum. The upper EUS was accomplished without difficulty. Th e esophagus, stomah, and duodenum were visualized endosonographically. Th e patient tolerated the procedure well. Findings: Endoscopic Finding : The Z-line was irregular. Biopsies were taken with a cold forceps for histology. A hiatal hernia was present. Patchy erythematous mucosa was found in the gastric body and in the gas tric antrum. Biopsies were taken with a cold forceps for histology. The examined duodenum was normal except for a CBD stent. Endosonographic Finding : Pancreatic parenchymal abnormalities were noted in the entire pancreas. These consisted of hyperechoic foci. The pancreatic duct had a prominently branched endosonographic appearan ce and had hyperechoic camarena in the entire pancreas. There was no sign of significant endosonographic abnormality in the visualized portion of the liver. No masses were identified. No lymphadenopathy seen. There was no sign of significant endosonographic abnormality in the gallbladder. Moderate hyperechoic material consistent with sludge was visualized endosonographically in the common bile duct. Artifact from stent noted. Estimated Blood Loss: Estimated blood loss was minimal. Post Op Diagnosis: - Z-line irregular. Biopsied. - Hiatal hernia. - Erythematous mucosa in the gastric body and antrum. Biopsied. - Normal examined duodenum. - Pancreatic parenchymal abnormalities consisting of hyperechoic foci w ere noted in the entire pancreas. - The pancreatic duct had a prominently branched endosonographic appear ance and had hyperechoic camarena in the entire pancreas. - The main pancreatic duct was not dilated. - There was no evidence of significant pathology in the visualized port ion of the liver. - There was no sign of significant pathology in the gallbladder. - Hyperechoic material consistent with sludge was visualized endosonographically in the common bile duct. Artifact from stent noted. - Etiology? No mass lesion noted. Recommendation: - Perform an ERCP today. - No mass lesion noted. - Await path results. - Thank you for allowing me to participate in the care of your patient. Attending Participation: I personally performed the entire procedure. Richmond Davis MD Richmond Davis MD 09/24/2018 11:24:13 AM This report has been signed electronicallyRichmond Davis MD Number of Addenda: 0 Note Initiated On: 09/24/2018 9:33 AM [email or web address]}
[2018-09-24] MEDS ORDERED: ONDANSETRON 4 MG/2 ML VIAL IVP PRN (11:29)
[2018-09-24] MEDS ORDERED: NALOXONE HCL 0.4 MG/ML INJ IVP PRN (11:29)
[2018-09-24] MEDS ORDERED: fentaNYL 100 MCG/2 ML INJ IVP PRN (11:29)
--- NOTE | 2018-09-24 11:42 | GIREPORT ---
[facility] - Endoscopy Department Patient Name: Jeanne Padgett Procedure Date: 09/24/2018 10:34 AM Patient Type: Outpatient Attending MD/ ER Physician: Richmond Davis MD Procedure: ERCP Indications: Biliary dilation on Ultrasound, Bile duct stone(s) Patient Profile: 78 year old female presents for evaluation of biliary obstruction with biliary dilation, possible stent removal as well as to remove significa nt debris seen on EUS. Providers: Richmond Davis MD Medicines: General Anesthesia Complications: No immediate complications. Estimated blood loss: None Description of Procedure: After obtaining informed consent, the scope was passed under direct vis ion. Throughout the procedure, the patient's blood pressure, pulse, and oxyg en saturations were monitored continuously. The Duodenalscope was introduc ed through the mouth, and advanced to the duodenum and used to inject cont rast into the bile duct. The ERCP was accomplished without difficulty. The patient tolerated the procedure well. Findings: A biliary stent was visible on the fruit buying grader film. The esophagus was successfully intubated under direct vision. The scope was advanced to t he major papilla noted on the edge of a diverticulum in the descending duo denum without detailed examination of the pharynx, larynx and associated structures, and upper GI tract. The upper GI tract was grossly normal. One stent was removed from the biliary tree using a snare. A wire was passe d into the biliary tree. The short-nosed traction sphincterotome was pass ed over the guidewire and the bile duct was then deeply cannulated. Contra st was injected. I personally interpreted the bile duct images. Ductal carolyn w of contrast was adequate. Image quality was adequate. Contrast extended to the entire biliary tree. The biliary tree was swept with a 15 mm balloon starting at the bifurcation. Sludge was swept from the duct. Estimated Blood Loss: Estimated blood loss: none. Post Op Diagnosis: - One stent was removed from the biliary tree. - The biliary tree was swept and sludge was found. - No stricture noted. Recommendation: - Discharge patient to home (with escort). - Clear liquid diet. - Continue present medications. - Repeat CT in 4 months? - Thank you for allowing me to participate in the care of your patient. Attending Participation: I personally performed the entire procedure. Richmond Davis MD Richmond Davis MD 09/24/2018 11:42:15 AM This report has been signed electronicallyRichmond Davis MD Number of Addenda: 0 Note Initiated On: 09/24/2018 10:34 AM [email or web address]}
--- NOTE | 2018-09-24 12:20 | POSTANESTH ---
Post Anesthetic Evaluation Cardiovascular Status: Normal, Stable Respiratory Status: Similar to Pre-op Cond. Level of Consciousness/Mental Status: Can Participate in Eval Pain Control: Adequate, Prn Tx Ordered Nausea/Vomiting Control: Adequate, Prn Tx Ordered Complications Possibly Related to Anesthesia: None Noted
[2018-09-24 13:03] VITALS: BP 150/97
== END 2018-09-24 13:21 | disposition home or self-care (01) ==
LOC: FSGY 08:55
PROVIDERS: ATTEND Internal Medicine Gastroenterology
PROC: 0DB48ZX Excision of Esophagogastric Junction, Via Natural or Artificial Opening Endoscopic, Diagnostic (ICD-10-PCS; principal; 2018-09-24 10:15)
PROC: 0FPB80Z Removal of Drainage Device from Hepatobiliary Duct, Via Natural or Artificial Opening Endoscopic (ICD-10-PCS; principal; 2018-09-24 10:15)
PROC: 0DB68ZX Excision of Stomach, Via Natural or Artificial Opening Endoscopic, Diagnostic (ICD-10-PCS; principal; 2018-09-24 10:15)
PROC: 0F798ZZ Dilation of Common Bile Duct, Via Natural or Artificial Opening Endoscopic (ICD-10-PCS; principal; 2018-09-24 10:15)
DX: K80.50 Calculus of bile duct without cholangitis or cholecystitis without obstruction (principal); J98.4 Other disorders of lung; I25.10 Atherosclerotic heart disease of native coronary artery without angina pectoris; K21.9 Gastro-esophageal reflux disease without esophagitis; E78.5 Hyperlipidemia, unspecified; I10 Essential (primary) hypertension; Z99.81 Dependence on supplemental oxygen; Z98.1 Arthrodesis status; Z86.19 Personal history of other infectious and parasitic diseases; Z88.0 Allergy status to penicillin
CPT/HCPCS: J1100; J1610; J2370; J2405; J2704; J3010; Q9961

== ENCOUNTER → 2018-09-24 | Outpatient (CLI) | payer OTHER, BC | LOC: FIMAGING 13:33 | PROVIDERS: ATTEND Physician Assistant Surgical | DX: M43.28 Fusion of spine, sacral and sacrococcygeal region (principal) ==

== ENCOUNTER → 2018-11-13 | Outpatient (CLI) | payer OTHER, BC | LOC: FIMAGING 08:06 | PROVIDERS: ATTEND Physician Assistant Surgical | DX: M43.26 Fusion of spine, lumbar region (principal) ==

== ENCOUNTER → 2019-01-28 | Outpatient (CLI) | payer OTHER, BC ==
[~2019-01-28] MED LIST: IOPAMIDOL (ISOVUE-300) 100 ML BTL ONE
== END ==
LOC: FIMAGING 08:03
PROVIDERS: ATTEND Internal Medicine Gastroenterology
DX: Z98.1 Arthrodesis status (principal); K86.9 Disease of pancreas, unspecified
CPT/HCPCS: 72040; 72070; 74160; Q9967; 82565-PO